=== PATIENT | male | born 1945 | race Caucasian/White ===

== ENCOUNTER 2016-11-04 10:31 | Inpatient (IN) ==
--- NOTE | 2016-11-04 11:28 | Diag Imaging Result Doc PS360 ---
EXAM: CHEST-2 VIEWS HISTORY: fever and cough TECHNIQUE: COMPARISON: 10/22/2016 FINDINGS: No change in the right-sided portacatheter. No pneumothorax. The lungs are well expanded. The heart is not enlarged. The vessels are not distended. There is increased density posteriorly and inferiorly on the lateral view. IMPRESSION: Small basilar pneumonia seen best on the lateral view inferiorly. Electronically signed by Carlos Acosta 11/04/2016 11:25 AM
[2016-11-04 11:29] LABS: URINE CULTURE NEEDED? NO; URINE MICRO REVIEW NEEDED? NO; URINE SOURCE CLEAN CATCH
[2016-11-04 11:32] LABS: AGAP 12; ALBUMIN 3.5 g/dL (3.5-5.0); ALKALINE PHOSPHATASE 75 U/L (32-122); BUN 10 mg/dL (8-22); CALCIUM 9.1 mg/dL (8.8-10.2); CHLORIDE 92 mmol/L (98-107); CK PROFILE 162 U/L (24-204); COSMO 264; GOT 20 U/L (10-34); GPT 16 U/L (10-44); POTASSIUM 4.3 mmol/L (3.5-5.1); SODIUM 130 mmol/L (136-145); TCO2 26 mmol/L (25-35); TOTAL BILIRUBIN 0.72 mg/dL (0.20-1.00)
[2016-11-04] MEDS ORDERED: NS 500 ML IV ONE (11:35)
[2016-11-04 11:39] LABS: BILIRUBIN URINE NEGATIVE (NEGATIVE); BLOOD URINE NEGATIVE (NEGATIVE); COLOR YELLOW; GLUCOSE URINE TRACE mg/dL (NEGATIVE); LEUKOCYTES URINE NEGATIVE (NEGATIVE); NITRITE URINE NEGATIVE (NEGATIVE); PH URINE 7.5; PROTEIN URINE TRACE mg/dL (NEGATIVE); SP GRAVITY URINE 1.016; TURBIDITY URINE CLEAR (CLEAR); UROBILINOGEN URINE 6 mg/dL (NORMAL)
[2016-11-04 11:42] LABS: BASO% 0.9 % (0.0-0.8); EOS# 0.26 X1000 (0.0-0.7); EOS% 3.5 % (0.0-10.0); HEMATOCRIT 34.1 % (42.0-52.0); HEMOGLOBIN 11.9 g/dL (14.0-18.0); IMM GRAN% 1.3 % (0.0-0.5); LYMPH# 1.25 X1000 (1.2-3.4); LYMPH% 16.8 % (20.5-51.1); MANUAL DIFF NEEDED? NO; MCH 30.4 PG (27-31); MCHC 34.9 g/dL (33-37); MCV 87.2 FL (81-99); MONO# 1.14 X1000 (0.11-0.59); MONO% 15.3 % (1.7-9.3); MPV 8.3 FL (7.4-10.4); NEUT% 62.2 % (42.2-75.2); PLT 490 X1000 (130-400); RBC 3.91 XMIL (4.7-6.1)
[2016-11-04 11:43] LABS: UR EPITHELIAL CELLS <10 /HPF (<10); URINE BACTERIA NEGATIVE /HPF; URINE RBC <10 /HPF (<10); URINE WBC <10 /HPF (<10)
[2016-11-04] MEDS ORDERED: DUONEB (A & A) INH ONE (11:51)
--- NOTE | 2016-11-04 12:08 | PROVIDER DOCUMENTATION ---
This chart was entered by Lawrence Mccray Scribe, acting as scribe for Angeli Sinha MD. HPI-Respiratory General - General Chief Complaint: Cough Stated Complaint: COUGH/RECHECK Time Seen by Provider: 11/04/16 10:35 Source: patient Allergies/Adverse Reactions: Patient Allergies Allergy/AdvReac Type Severity Reaction Status Date / Time allopurinol [From Zyloprim] Allergy Unknown Unknown Verified 11/04/16 11:12 cephalexin monohydrate * Allergy Unknown Unknown Verified 11/04/16 11:12 [From Keflex] Cephalosporins Allergy Unknown Unknown Verified 11/04/16 11:12 levofloxacin [From Levaquin] Allergy Unknown Unknown Verified 11/04/16 11:12 Penicillins Allergy Unknown Unknown Verified 11/04/16 11:12 piperacillin sodium * Allergy Unknown Unknown Verified 11/04/16 11:12 [From Zosyn] tazobactam sodium * Allergy Unknown Unknown Verified 11/04/16 11:12 [From Zosyn] sulfamethoxazole Allergy Unknown Verified 11/04/16 11:12 [From Bactrim] trimethoprim [From Bactrim] Allergy Unknown Verified 11/04/16 11:12 LAXATIVES Allergy Unknown Unknown Uncoded 11/04/16 11:12 Home Medications: Home Medication List Medication Instructions Recorded Confirmed Last Taken Type Fenofibric Acid D.r. [Trilipix] 135 mg PO HS 10/22/16 11/04/16 11/03/16 History Fludrocortisone [Florinef] 0.1 mg PO DAILY 10/22/16 11/04/16 11/04/16 History Fluticasone 50 Mcg Nasal [place] 120 spray .SEE ORDER DAILY #1 10/22/16 11/04/16 11/04/16 Rx [Flonase] bottle Hydrocortisone [Cortef] 10 mg PO BID 10/22/16 11/04/16 11/04/16 History Insulin Glargine [Lantus] 60 unit SUBQ BID 10/22/16 11/04/16 11/04/16 History Levothyroxine Sodium [Synthroid] 200 microgm PO DAILY 10/22/16 11/04/16 History Loratadine [Claritin] 10 mg PO DAILY #90 tablet 10/22/16 11/04/16 11/04/16 Rx Metformin HCl [Metformin HCl ER] 750 mg PO BID 10/22/16 11/04/16 11/04/16 History PRAVAstatin [Pravachol] 40 mg PO QHS 10/22/16 11/04/16 11/03/16 History Penicillin V Potassium 500 mg PO BID 10/22/16 11/04/16 11/04/16 History Sitagliptin Phosphate [Januvia] 100 mg PO DAILY 10/22/16 11/04/16 11/04/16 History - History of Present Illness-Resp Nature of Presenting Problem: Patient is a 71 y/o M that presents to the ER with about 3 months of generalized weakness, cough/congestion, nasal congestion. Patient has been sleeping more than normal. He just finished CLL and SML treatment in 2015. patient was seen over a week ago dx with allergic rhinitis. He reports given RX for flonase and Claritin which helped, but symptoms still linger. He has been running a fever x 2 days, with highest reading at 102 F Quality of Pain: reports: aching Severity in ED: reports: moderate Onset/Duration: reports: gradual, other (3 months) Timing: reports: still present, getting worse (over past week) Context: denies: recent URI, out of meds Cough Quality/Degree: reports: moderate, sputum (white/clear) Current Respiratory Medication Therapy: Initiated see nurses note Modifying Factors: worse with: coughing Associated Symptoms: reports: cough, fever/chills, nasal congestion, nasal drainage, wheezing, other (weakness). denies: dizziness, facial pain, flu-like symptoms, shortness of breath, short of breath Similar Symptoms Previously?: Yes Recently seen or treated by another doctor?: Yes Review of Systems - Adult - REVIEW OF SYSTEMS - ADULT Constitutional: reports: chills, fever, fatique Eyes: reports: no symptoms reported Ears, Nose, Mouth & Throat: reports: sinus problem. denies: ear discharge, ear pain, throat pain, throat swelling Cardiovascular: denies: chest pain, palpitations, syncope Respiratory: reports: cough, wheezing. denies: shortness of breath Gastrointestinal: denies: abdominal pain, diarrhea, nausea, vomiting Genitourinary: reports: no symptoms reported Musculoskeletal: reports: muscle weakness. denies: joint pain Integumentary: reports: no symptoms reported Neurological: denies: dizziness/vertigo, headache/migraines, syncope Psychiatric: reports: no symptoms reported Endocrine: reports: no symptoms reported Hematologic/Lymphatic: reports: no symptoms reported Allergic/Immunologic: reports: no symptoms reported All Other Systems: Reviewed and Negative Past History - Adult - PAST MEDICAL HISTORY-ADULT Review of Records: reports: Old Records Reviewed, Nursing Assessment Review, Medications Reviewed Genitourinary: reports: other (addisons) Endocrine/Immune: reports: Diabetes, Leukemia (CLL), thyroid disorder - PRIOR SURGERIES/PROCEDURES Surgical/Procedure History: reports: appendectomy, indwelling device (port), other (vasectomy) - IMMUNIZATION STATUS Childhood Immunizations: See Nurse Assessment Flu Vaccine: See Nurse Assessment - SOCIAL HISTORY Smoking: non-smoker Living Situation: family Physical Exam-General - PHYSICAL EXAM-ADULT Initial Vital Signs Reviewed: Yes - CONSTITUTIONAL General Appearance: alert, mild distress, moderate distress - EYES Eyes: PERRL/EOMI, pink conjunctivae - HEAD, EARS, NOSE, MOUTH & THROAT HENMT: normocephalic/atraumatic, moist mucous membranes, pharynx normal, other ( nasal congestion) - NECK Neck: full range of motion, Brudzinski's sign - RESPIRATORY Respiratory: no respiratory distress, no accessory muscle use, wheezing ( bilateral throughout) - CARDIOVASCULAR Cardiovascular: no gallop, no murmur, tachycardia - GASTROINTESTINAL (ABDOMEN) Abdominal Exam: normal bowel sounds, non tender, soft - MUSCULOSKELETAL Back Exam: normal inspection, no CVA tenderness Extremity: normal range of motion, normal inspection, no pedal edema - SKIN Integumentary: warm/dry, pallor - NEUROLOGIC Neurologic: rectifier operator II-XII nml as tested, no motor/sensory deficits - PSYCHIATRIC Psych/Mental Status: normal mood/affect, normal thought content, normal thought process, oriented x 3 Progress - PLAN OF CARE/RESULTS Progress/Plan/Lab Results: Vital Signs - 8 hr 11/04/16 10:34 Temperature 100.0 F H Pulse Rate 105 H Respiratory Rate 20 Blood Pressure 130/57 O2 Sat by Pulse Oximetry 96 Laboratory Results - last 24 hr 11/04/16 11/04/16 11/04/16 10:58 10:58 10:58 WBC 7.44 RBC 3.91 L Hgb 11.9 L Hct 34.1 L MCV 87.2 MCH 30.4 MCHC 34.9 RDW Std Deviation 12.6 Plt Count 490 H MPV 8.3 Immature Gran % (Auto) 1.3 H Neut % (Auto) 62.2 Lymph % (Auto) 16.8 L [place] % (Auto) 15.3 H Eos % (Auto) 3.5 Baso % (Auto) 0.9 H Immature Gran # (Auto) 0.10 H Neut # (Auto) 4.62 Lymph # (Auto) 1.25 [place] # (Auto) 1.14 H Eos # (Auto) 0.26 Baso # (Auto) 0.07 Sodium 130 L Potassium 4.3 Chloride 92 L Carbon Dioxide 26 Anion Gap 12 BUN 10 Creatinine 0.9 Estimated GFR/1.73 m2 > 60 BUN/Creatinine Ratio 11 Glucose 177 H Calculated Osmolality 264 Calcium 9.1 Total Bilirubin 0.72 AST 20 ALT 16 Alkaline Phosphatase 75 Creatine Kinase 162 Troponin T < 0.010 Total Protein 7.0 Albumin 3.5 Globulin 3.5 Albumin/Globulin Ratio 1.0 Urine Source Urine Color Urine Turbidity Urine pH Ur Specific [place] Urine Protein Ur Glucose (Stick) Ur Ketones (Stick) Urine Blood Urine Nitrite Urine Bilirubin Urobilinogen Dipstick Urine Leukocytes Urine WBC (Auto) Urine RBC (Auto) U Epithel Cells (Auto) Urine Bacteria (Auto) 11/04/16 11:16 WBC RBC Hgb Hct MCV MCH MCHC RDW Std Deviation Plt Count MPV Immature Gran % (Auto) Neut % (Auto) Lymph % (Auto) [place] % (Auto) Eos % (Auto) Baso % (Auto) Immature Gran # (Auto) Neut # (Auto) Lymph # (Auto) [place] # (Auto) Eos # (Auto) Baso # (Auto) Sodium Potassium Chloride Carbon Dioxide Anion Gap BUN Creatinine Estimated GFR/1.73 m2 BUN/Creatinine Ratio Glucose Calculated Osmolality Calcium Total Bilirubin AST ALT Alkaline Phosphatase Creatine Kinase Troponin T Total Protein Albumin Globulin Albumin/Globulin Ratio Urine Source CLEAN CATCH Urine Color YELLOW Urine Turbidity CLEAR Urine pH 7.5 Ur Specific [place] 1.016 Urine Protein TRACE A Ur Glucose (Stick) TRACE Ur Ketones (Stick) TRACE A Urine Blood NEGATIVE Urine Nitrite NEGATIVE Urine Bilirubin NEGATIVE Urobilinogen Dipstick 6 A Urine Leukocytes NEGATIVE Urine WBC (Auto) <10 Urine RBC (Auto) <10 U Epithel Cells (Auto) <10 Urine Bacteria (Auto) NEGATIVE Orders Category Date Time Status IV Insertion ORDERED Care 11/04/16 10:52 Completed CHEST-2 VIEWS [RAD] Stat Exams 11/04/16 10:51 Completed BLOOD CULTURE [BLDCUL] Stat Lab 11/04/16 11:44 Ordered CBC WITH ELECTRONIC DIFF [HEME] Stat Lab 11/04/16 10:58 Completed CMP [COMPREHENSIVE METABOLIC PANEL] [CHEM] Stat Lab 11/04/16 10:58 Completed Cardiac Profile [CK PROFILE] [SP CHEM] Stat Lab 11/04/16 10:58 Completed TROPONIN T Stat Lab 11/04/16 10:58 Completed URINALYSIS W/POSS RFLX CULT-1 [URINALYSIS] Stat Lab 11/04/16 11:16 Completed 0.9% Sodium Chloride Inj [Ns] 500 ml Med 11/04/16 11:35 Active IV 999 mls/hr Albuterol 2.5MG/Ipratrop 0.5MG [Duoneb (A & A)] Med 11/04/16 11:51 Discontinued 3 ml INH NOW ONE Aerosol Treatments Routine Oth 11/04/16 11:51 Active Aerosol Treatments Stat Oth 11/04/16 11:51 Active EKG [EKG] Stat Ther 11/04/16 10:53 Ordered Vital Signs Temp Pulse Resp BP Pulse Ox 11/04/16 10:34 100.0 F H 105 H 20 130/57 96 allopurinol [From Zyloprim] Allergy (Unknown, Verified 11/04/16 11:12) Unknown cephalexin monohydrate * [From Keflex] Allergy (Unknown, Verified 11/04/16 11:12 ) Unknown Cephalosporins Allergy (Unknown, Verified 11/04/16 11:12) Unknown levofloxacin [From Levaquin] Allergy (Unknown, Verified 11/04/16 11:12) Unknown Penicillins Allergy (Unknown, Verified 11/04/16 11:12) Unknown piperacillin sodium * [From Zosyn] Allergy (Unknown, Verified 11/04/16 11:12) Unknown tazobactam sodium * [From Zosyn] Allergy (Unknown, Verified 11/04/16 11:12) Unknown sulfamethoxazole [From Bactrim] Allergy (Verified 11/04/16 11:12) Unknown trimethoprim [From Bactrim] Allergy (Verified 11/04/16 11:12) Unknown LAXATIVES Allergy (Unknown, Uncoded 11/04/16 11:12) Unknown SOME LAXATIVES Fenofibric Acid D.r. [Trilipix] 135 mg PO HS 10/22/16 Fludrocortisone [Florinef] 0.1 mg PO DAILY 10/22/16 Fluticasone 50 Mcg Nasal [place] [Flonase] 120 spray .SEE ORDER DAILY #1 bottle Hydrocortisone [Cortef] 10 mg PO BID 10/22/16 Insulin Glargine [Lantus] 60 unit SUBQ BID 10/22/16 Levothyroxine Sodium [Synthroid] 200 microgm PO DAILY 10/22/16 Loratadine [Claritin] 10 mg PO DAILY #90 tablet 10/22/16 Metformin HCl [Metformin HCl ER] 750 mg PO BID 10/22/16 PRAVAstatin [Pravachol] 40 mg PO QHS 10/22/16 Penicillin V Potassium 500 mg PO BID 10/22/16 Sitagliptin Phosphate [Januvia] 100 mg PO DAILY 10/22/16 Laboratory 11/04/16 11/04/16 11/04/16 11:16 10:58 10:58 WBC 7.44 RBC 3.91 L Hgb 11.9 L Hct 34.1 L MCV 87.2 MCH 30.4 MCHC 34.9 RDW Std Deviation 12.6 Plt Count 490 H MPV 8.3 Immature Gran % (Auto) 1.3 H Neut % (Auto) 62.2 Lymph % (Auto) 16.8 L [place] % (Auto) 15.3 H Eos % (Auto) 3.5 Baso % (Auto) 0.9 H Immature Gran # (Auto) 0.10 H Neut # (Auto) 4.62 Lymph # (Auto) 1.25 [place] # (Auto) 1.14 H Eos # (Auto) 0.26 Baso # (Auto) 0.07 Sodium 130 L Potassium 4.3 Chloride 92 L Carbon Dioxide 26 Anion Gap 12 BUN 10 Creatinine 0.9 Estimated GFR/1.73 m2 > 60 BUN/Creatinine Ratio 11 Glucose 177 H Calculated Osmolality 264 Calcium 9.1 Total Bilirubin 0.72 AST 20 ALT 16 Alkaline Phosphatase 75 Creatine Kinase 162 Troponin T Total Protein 7.0 Albumin 3.5 Globulin 3.5 Albumin/Globulin Ratio 1.0 Urine Source CLEAN CATCH Urine Color YELLOW Urine Turbidity CLEAR Urine pH 7.5 Ur Specific [place] 1.016 Urine Protein TRACE A Ur Glucose (Stick) TRACE Ur Ketones (Stick) TRACE A Urine Blood NEGATIVE Urine Nitrite NEGATIVE Urine Bilirubin NEGATIVE Urobilinogen Dipstick 6 A Urine Leukocytes NEGATIVE Urine WBC (Auto) <10 Urine RBC (Auto) <10 U Epithel Cells (Auto) <10 Urine Bacteria (Auto) NEGATIVE 11/04/16 10:58 WBC RBC Hgb Hct MCV MCH MCHC RDW Std Deviation Plt Count MPV Immature Gran % (Auto) Neut % (Auto) Lymph % (Auto) [place] % (Auto) Eos % (Auto) Baso % (Auto) Immature Gran # (Auto) Neut # (Auto) Lymph # (Auto) [place] # (Auto) Eos # (Auto) Baso # (Auto) Sodium Potassium Chloride Carbon Dioxide Anion Gap BUN Creatinine Estimated GFR/1.73 m2 BUN/Creatinine Ratio Glucose Calculated Osmolality Calcium Total Bilirubin AST ALT Alkaline Phosphatase Creatine Kinase Troponin T < 0.010 Total Protein Albumin Globulin Albumin/Globulin Ratio Urine Source Urine Color Urine Turbidity Urine pH Ur Specific [place] Urine Protein Ur Glucose (Stick) Ur Ketones (Stick) Urine Blood Urine Nitrite Urine Bilirubin Urobilinogen Dipstick Urine Leukocytes Urine WBC (Auto) Urine RBC (Auto) U Epithel Cells (Auto) Urine Bacteria (Auto) 1151-hospitalist paged for admission Result Diagrams: 11/04/16 10:58 11/04/16 10:58 - XRAY 1 XRAY Study: Chest Impression: Abnormal XRAY Interpretation: small basilar pneumonia on lateral view - CONSULTS/PCP/HOSPITALIST Notification #1 *Consult/PCP/Hospitalist*: Fracisco KERN with hospitalist Time Discussed: 11:54 Reason/Comments: accepted Consult Disposition: Will see in ED, Admit Departure - Departure Date of Disposition Decision: 11/04/16 Time of Disposition Decision: 11:54 DIAGNOSIS: Fever in adult Pneumonia Qualifiers: Pneumonia type: due to unspecified organism Laterality: unspecified laterality Lung location: unspecified part of lung Qualified Code(s): J18.9 - Pneumonia, unspecified organism Disposition: ADMITTED INPATIENT 09 Certified Medical Emergency: Emergent Condition: Stable Referrals and Follow-Ups: Latosha Badillo MD [Primary Care Provider] - - Critical Care Note This patient required my direct & personal management of CC.: No This chart was documented by the indicated scribe, (Lawrence Mccray, Scribe) and accurately reflects the services I performed and decisions made by me, Angeli Sinha MD, as attested by the provider's signature.
[2016-11-04] MEDS ORDERED: ZITHROMAX 500 MG/NS 500 MG/250 ML IVPB IV ONE (12:30)
[2016-11-04 12:51] LABS: INR 1.05; PROTIME 11.1 Seconds (9.2-11.7)
[2016-11-04] MEDS ORDERED: ZITHROMAX 500 MG/NS 500 MG/250 ML IVPB ONE (12:58)
[2016-11-04] MEDS ORDERED: NS 1,000 ML ONE (12:58)
[2016-11-04] MEDS: NS 1,000 ML IV SCH ×2 (13:00→18:36)
--- NOTE | 2016-11-04 14:20 | Diag Imaging Result Doc PS360 ---
EXAM: CT THORAX W/CONTRAST HISTORY: PNA, early sepsis TECHNIQUE: CT chest with intravenous contrast. Dose reduction protocol. COMPARISON: None. FINDINGS: There are nodular basilar infiltrates. Infiltrates are more pronounced inferiorly in the right lung than the left. Heart is not enlarged. No thoracic aortic aneurysm or dissection. No large central pulmonary emboli. Mildly prominent subcarinal lymph nodes. No other mediastinal adenopathy. There is a right sided portacatheter. No pneumothorax. No bronchiectasis. No prominent effusions. Mildly prominent left axillary nodes. Limited images through the upper abdomen reveal a distended gallbladder without calcified stones as well is fatty infiltration of the liver. IMPRESSION: 1.Multinodular basilar infiltrates more pronounced in the right lower lobe and the left. 2.Distended gallbladder as well as fatty infiltration of the liver Electronically signed by Carlos Acosta 11/04/2016 2:18 PM
[2016-11-04] MEDS ORDERED: SODIUM CHLORIDE 0.9% 10 ML ONE (14:35)
--- NOTE | 2016-11-04 14:35 | EKG Report ---
Test Performed on : 11/04/2016 11:35:16 AM Test Reason : CP Blood Pressure : / mmHG Vent. Rate : 104 BPM Atrial Rate : 104 BPM P-R Int : 164 ms QRS Dur : 092 ms QT Int : 346 ms P-R-T Axes : 043 058 038 degrees QTc Int : 454 ms Sinus tachycardia. Otherwise normal ECG No previous ECGs available Unconfirmed Result
[2016-11-04] MEDS: SOLU-CORTEF IV SCH ×2 (14:38→22:35)
[2016-11-04] MEDS: LOVENOX SUBQ SCH (14:38)
[2016-11-04 15:04] LABS: UR CREAT RANDOM 145.3 mg/dL (14-26)
[2016-11-04] MEDS: MERREM 1 GM in NS 50 ML IV SCH ×2 (15:14→21:33)
[2016-11-04 15:36] LABS: FREE T4 1.63 ng/dL (0.93-1.70); VITAMIN D 25 HYDROXY 19.4 NG/DL
--- NOTE | 2016-11-04 17:12 | HISTORY AND PHYSICAL ---
PRIMARY CARE PHYSICIAN: Latosha Badillo MD. ONCOLOGIST: Anjum Hurtado MD. CHIEF COMPLAINT: Cough, fever, and malaise. HISTORY OF PRESENT ILLNESS: Mr. Rendon is a pleasant 71-year-old male with a history of CLL, Sushil's disease, diabetes mellitus, and several antibiotic allergies who presents to the ER with a cough, malaise, and a fever that has been going on since around mid July. Patient reports that he has been on several rounds of azithromycin and other shots that he has received in his PCP's office without any real recovery. He also reports that he was told to go on vacation for a small period of time to perhaps help with allergies. He has also had a loss of energy over the past month. Today he comes in with continued cough with very minimal expectoration and fever 102 degrees Fahrenheit and shortness of breath with exertion. On chest x-ray he was noted to have small basilar pneumonia seen best on lateral view inferiorly. His lab work does not really show anything remarkable with the exception of mild hyponatremia and thrombocytosis. He is now going to be admitted for community-acquired pneumonia. PAST MEDICAL HISTORY: 1. Perkins disease, on daily steroid replacement. 2. CLL followed by Dr. Anjum Hurtado, last treatment was in February of last year. 3. Diabetes type 2 on insulin therapy. 4. History of DVT. 5. Hyperlipidemia. 6. Allergies. PAST SURGICAL HISTORY: Lymph node biopsy and tonsillectomy. SOCIAL HISTORY: Patient has no history of tobacco, alcohol or drug use. He is . His and daughter are at the bedside. FAMILY HISTORY: Father from emphysema and lung cancer. Mother from traumatic brain injury. REVIEW OF SYSTEMS: Fourteen-point review of systems obtained and found to be negative with the exception of the HPI. ALLERGIES: Allopurinol, Keflex, cephalosporins, Levaquin, penicillin, Zosyn, Bactrim, laxatives. HOME MEDICATIONS: Trilipix 135 mg p.o. at bedtime, Florinef 0.1 mg p.o. daily, fluticasone nasal spray as directed, Cortef 10 mg b.i.d., Lantus 60 units subcutaneous b.i.d., Synthroid 200 mcg p.o. daily, Claritin 10 mg daily, metformin 750 mg p.o. b.i.d., penicillin VK 500 mg p.o. b.i.d., Pravachol 40 mg p.o. at bedtime, Januvia 100 mg p.o. daily. PHYSICAL EXAMINATION: VITAL SIGNS: Blood pressure is 130/57, heart rate 105, respiratory rate 20, O2 saturation 96% on room air, temperature is 100 degrees Fahrenheit. GENERAL: This is a slightly overweight, 71-year-old male lying in hospital bed in no acute distress. HEENT: Head is normocephalic. He does have some mild bruising under his left eye from a fall 2 weeks ago. Otherwise atraumatic. Pupils are equal, round, reactive to light. Oral mucosa is moist. Trachea is midline. CHEST: Crackles bilaterally. CARDIOVASCULAR: Regular rate and rhythm. S1-S2 is noted. No murmurs. GASTROINTESTINAL: Soft, nondistended, nontender. Bowel sounds are positive. EXTREMITIES: No edema, clubbing or cyanosis. Pulses are 1+ bilaterally. DIAGNOSTIC DATA: Chest x-ray shows basilar pneumonia best seen on the lateral view. WBC 7.44, hemoglobin 11.9, hematocrit 34.1, platelet count 490,000. Sodium 130, potassium 4.3, chloride 92, CO2 26, anion gap 12, BUN 10, creatinine 0.9, glucose 177. LFTs within normal limits. Troponin negative. Albumin 3.5. UA is negative for anything acute. ASSESSMENT AND PLAN: 1. Early sepsis: Blood cultures have been obtained. We will also order sputum cultures and start the patient on broad-spectrum antibiotics and IV fluids. Source is likely to be early pneumonia. 2. Community-acquired pneumonia: Again will obtain cultures of the blood and sputum. We will also start broad-spectrum antibiotics and consult Dr. Ruby with Infectious Disease given the patient's history. We will continue breathing treatments and aggressive pulmonary toilet. 3. Perkins disease: We will stop his p.o. hydrocortisone and start by 100 mg q.8 h. IV hydrocortisone for stress dosing and continue his Florinef. 4. Diabetes mellitus: Will hold his oral antidiabetics and check hemoglobin A1c. Add sliding scale insulin and pattern blood sugars. 5. Chronic lymphocytic leukemia: Chronic and active. We will keep a close eye and then consider Hematology/Oncology consultation if necessary. 6. DVT prophylaxis with Lovenox. Further recommendations to follow. Dictated by ERLIN Lozada for Jeanna Morrell MD cc: ERLIN Lozada MD Bhavna Gowda, MD Naveen T. Lobo, MD The patient was seen and examined by me. I agree with the assessment and plan as dictated. The plan of care was discussed with the patient and his family at the bedside. EMIL
[2016-11-04] MEDS: TESSALON PO SCH (18:55)
[2016-11-04] MEDS: DUONEB (A & A) INH SCH ×2 (19:10→23:40)
--- NOTE | 2016-11-04 21:23 | CONSULTATION ---
DATE OF CONSULTATION: 11/04/2016 CONCLUSION: The patient has a pneumonia. He may have predisposing factor to this and immunoglobulin deficiency in view of the fact that he is had recurrent episodes of sinusitis and pneumonia and he has chronic lymphocytic leukemia which has been associated with low immunoglobulin levels. RECOMMENDATIONS: I agree with the using meropenem. I have ordered IgG level. Earlier Dr. Morrell ordered IgA and IgM. I have also added doxycycline to the meropenem started by Dr. Morrell. DISCUSSION: The patient tells me that he has been coughing for 2 months but he has not been able to bring up much in the way of sputum. He has not been having any weight loss. He has not had any chills or fever. His CT scan shows multinodular bibasilar infiltrates. His CBC shows a white count of 7440, hemoglobin 11.9, and platelet count 490,000. Creatinine 0.9. Liver function studies are normal. CK was 162. Urinalysis had no white cells and no bacteria. CT scan of the chest showed multinodular bibasilar infiltrate. PAST MEDICAL HISTORY/REVIEW OF SYSTEMS: Eyes and ears: Patient has decreased hearing and vision. Neck: No stiffness. Respiratory: See present illness. Cardiac: No chest pain or palpitations. GI: The patient has had diarrhea when he started taking MiraLAX but none before that. Genitourinary: No dysuria or flank pain. Bones, joints, muscles: No joint swelling or myalgias. Endocrine: Patient has diabetes. The patient has hypothyroidism. Neurologic: No seizures. No motor or sensory deficit. Hematologic: Patient has CLL. He has not had a bleeding tendency. PREVIOUS HOSPITALIZATIONS AND OPERATIONS: Patient has been admitted for dehydration secondary to [place]'s disease. He has also been admitted with diabetes, lymph node biopsy, appendectomy, and tonsillectomy. MEDICAL DISEASES: Positive for Sushil's disease, diabetes mellitus, CLL lymphoma, hyperlipidemia, deep venous thrombosis, and multiple drug allergies. Hypothyroidism. INFECTIOUS DISEASE HISTORY: Positive for recurrent pneumonia and sinusitis. FAMILY HISTORY: Positive for hypertension, cancer, and COPD. SOCIAL HISTORY: The patient lives in [place]. He does not smoke cigarettes, drink alcoholic beverages, or abuse drugs. He is . He has a dog as a pet. He is retired. DRUG ALLERGIES: Allopurinol, cephalexin, Levaquin, penicillin, Zosyn, Septra, and trimethoprim. HOME MEDICATIONS: Januvia, penicillin, pravastatin, metformin, Claritin, Synthroid, insulin, hydrocortisone, fluticasone, Florinef, and Trilipix. PHYSICAL EXAMINATION: Vital Signs: Temperature is 99.8 degrees, pulse 98, respirations 18, blood pressure 132/61. General: This is an obese, elderly male who is in no acute distress. Head, eyes, ears, nose, and throat: The patient fell and hit his face. He has an ecchymosis on the left side of the face. He does not have any white patches on his tongue. He has decreased hearing. He can see near objects. Neck: No meningismus. Thorax: No increased AP diameter. Lungs: There were bibasilar rales. Otherwise they were clear to auscultation. Cardiovascular: Heart rate is regular. The patient has bilateral leg edema. Abdomen: Soft and nontender. No masses appreciated. Neurologic: Patient is alert. He can move his extremities. There is no tremor. His sensation is intact to touch. His memory as regarding his medical diseases is intact. Integument: No rash noted. Thank you for the consult. cc: Kvng Ruby MD
[2016-11-04] MEDS: DOXYCYCLINE PO SCH (21:33)
[2016-11-04] MEDS: LANTUS SUBQ SCH (21:34)
[2016-11-05] MEDS: DUONEB (A & A) INH SCH ×6 (03:35→23:38)
[2016-11-05] MEDS: DOXYCYCLINE PO SCH ×3 (04:16→20:34)
[2016-11-05] MEDS: NS 1,000 ML IV SCH ×4 (04:17→12:32)
[2016-11-05] MEDS: MERREM 1 GM in NS 50 ML IV SCH ×3 (06:08→20:36)
[2016-11-05] MEDS: SOLU-CORTEF IV SCH ×4 (06:08→22:47)
[2016-11-05] MEDS: HUMULIN R SUBQ SCH ×4 (06:43→20:32)
[2016-11-05] MEDS ORDERED: HUMULIN R SUBQ SCH ×2 (07:00)
[2016-11-05 07:10] LABS: HEMATOCRIT 30.9 % (42.0-52.0); HEMOGLOBIN 10.7 g/dL (14.0-18.0); MCHC 34.6 g/dL (33-37); MCV 89.6 FL (81-99); MPV 8.4 FL (7.4-10.4); RBC 3.45 XMIL (4.7-6.1)
[2016-11-05 07:12] LABS: HEMOGLOBIN A1C 9.6 % (4.8-6.0)
[2016-11-05] MEDS ORDERED: INSULIN PEN NEEDLES ONE (07:31)
[2016-11-05 07:46] LABS: AGAP 15; BUN 11 mg/dL (8-22); CALCIUM 8.7 mg/dL (8.8-10.2); CHLORIDE 95 mmol/L (98-107); COSMO 273; IRON SATURATION 14 %; POTASSIUM 3.7 mmol/L (3.5-5.1); SODIUM 131 mmol/L (136-145); TCO2 21 mmol/L (25-35); TIBC 250 ug/dL; TOTAL IRON 34 ug/dL (53-167); UNBOUND IRON 216 ug/dL (112-346)
[2016-11-05] MEDS: SYNTHROID PO SCH (08:17)
[2016-11-05] MEDS: FLORINEF PO SCH (08:18)
[2016-11-05] MEDS: TESSALON PO SCH ×3 (08:18→16:02)
[2016-11-05] MEDS: LANTUS SUBQ SCH ×2 (08:18→20:33)
[2016-11-05] MEDS: CLARITIN PO SCH (08:18)
[2016-11-05] MEDS ORDERED: VITAMIN D PO SCH (09:00)
[2016-11-05] MEDS ORDERED: FLONASE SCH (09:00)
[2016-11-05] MEDS ORDERED: SODIUM CHLORIDE 0.9% 10 ML ONE ×2 (10:17→16:00)
[2016-11-05] MEDS: LOVENOX SUBQ SCH ×2 (12:32→14:34)
[2016-11-05] MEDS ORDERED: TYLENOL PO ONE (12:45)
[2016-11-05] MEDS ORDERED: BENADRYL IV ONE (12:45)
[2016-11-05] MEDS ORDERED: VENOFER 500 MG in NS 250 ML IV ONE (13:00)
--- NOTE | 2016-11-05 13:56 | CONSULTATION ---
DATE OF CONSULTATION: 11/05/2016 REASON FOR CONSULT: The patient is known to us with CLL. HISTORY OF PRESENT ILLNESS: This patient who is known to us with chronic lymphocytic leukemia diagnosed in December, relapsed in October 2015 status post Treanda and rituximab x6 cycles completed in February,. His last restaging scans were in July and he had some minimal residual right cervical maribel uptake and other lymphadenopathy had disappeared. He states that he has had a dry cough for approximately 2 months now that has been getting worse. He coughed so much that it makes him dizzy and he has actually fallen a time or two with it. However, over the past week he began running a fever up to 101, so he decided to come into the emergency room for further evaluation. He denies any drenching night sweats, any new lumps, bumps , lymphadenopathy. He has had a couple different rounds of antibiotics from his primary care for an upper respiratory infection. He has not had any relief. He denies any obvious clinical bleeding , any black or bright red stool. He has known chronic anemia and patient was due to have a repeat colonoscopy this week with Dr. Oh. During this hospitalization a CT of the chest was obtained which showed right greater than left nodular basilar infiltrates. White count was 7.4, hemoglobin 11.9, platelet count 490,000. His iron has been checked. His iron is low at 34. Iron saturation is 14. Ferritin is 797. B12 is adequate. Infectious disease has been consulted where an IgG level has been obtained and it has been found to be low at 436. He is currently on meropenem and doxycycline. REVIEW OF SYSTEMS: Negative unless indicated in the HPI. PAST MEDICAL HISTORY: 1. CLL as above, status post Rituxan and Treanda last in February,. 2. Sushil's disease. 3. Prior history of deep vein thrombosis. 4. Hyperlipidemia. 5. Type 2 diabetes. SOCIAL AND FAMILY HISTORY: The patient denies alcohol, tobacco or illicit drug use. He has a supportive family. ALLERGIES: 1. Levaquin. 2. Penicillin. 3. Zosyn. 4. Bactrim. 5. Allopurinol. 6. Keflex. 7. Cephalosporins. HOME MEDICATIONS: 1. Florinef. 2. Cortef. 3. Trilipix. 4. Lantus. 5. Synthroid. 6. Claritin. 7. Metformin. 8. Januvia. 9. Pravachol. PHYSICAL EXAMINATION: Constitutional: This is a male in no acute distress. Vital Signs: Stable. HEENT: Head is normocephalic, atraumatic. The trachea is midline. Skin: There is bruising below patient's left eye. No petechiae or rash. Musculoskeletal: Moves all extremities. Cardiovascular: S1-S2 audible auscultation with no heaves, lifts, thrills. Pulmonary: Breath sounds clear to auscultation with diminished bilateral bases.Abdomen without masses. Neurologic: Alert oriented x3. Psychiatric: Appropriate to the situation. DIAGNOSTIC DATA: CT of the chest showed multinodular basilar infiltrates right lower lobe greater than left with distended gallbladder and fatty infiltration of the liver. WBC today is 8.1, hemoglobin 10.7, hematocrit 30.9, platelet count 492,000, sodium 131, potassium 3.7. BUN 11, creatinine 0.9. ASSESSMENT AND PLAN.: 1. Chronic lymphocytic leukemia. Status post Treanda rituximab x6 cycles completed in February,. His restaging scan in July showed a previous lymphadenopathy disappeared with minimal residual right cervical node uptake. 2. Iron-deficiency anemia. We will replace with IV iron. He is due for repeat colonoscopy per Dr. Oh at some point. 3. Hypogammaglobulinemia. Patient's IgG level was 436. Infectious disease is following. He is currently on meropenem and doxycycline. 4. Pneumonia, right greater than left. On antibiotics per ID and primary care. 5. Deep vein thrombosis prophylaxis. He is on Lovenox. Dictated by ERLIN Mackenzie for Anjum Hurtado MD cc: ERLIN Mackenzie MD [facility]
--- NOTE | 2016-11-05 15:49 | PROGRESS NOTE ---
DATE: 11/05/2016 SUBJECTIVE: The patient is resting comfortably in bed. He states that he feels a lot better today. He has no complaints at this time. OBJECTIVE: Vital Signs: Temperature 97.6 degrees, blood pressure is 131/62, heart rate 85, respirations 14, O2 saturation is 95% on room air. General: This is an elderly male, lying in bed, in no acute distress. Head: Normocephalic, atraumatic. Heart: S1, S2. Normal. Regular rate and rhythm. Lungs: Equal air entry bilaterally. No crackles. No rales. Abdomen: Positive bowel sounds. Soft, nontender, nondistended. Extremities: No edema. No cyanosis. The patient does have an ulceration on his left great toe. Neurologic: The patient is alert and oriented x3. LABS: White blood cell count 8.1, hemoglobin 10, hematocrit 30, platelets 192,000. Sodium 131, potassium 3.7, chloride 95, CO2 21, BUN 11, creatinine 0.9, glucose 289. Iron 34. Vitamin D 19. ASSESSMENT AND PLAN: 1. Bilateral lobe pneumonia. We will continue on the current IV antibiotic regimen plus bronchodilator therapy and incentive spirometry. 2. Hypogammaglobulinemia. We will defer to Dr. Ruby regarding treatment. 3. [place] disease. Will continue on stress dose hydrocortisone. We will also continue on Florinef. 4. Left great toe ulceration. Will consult wound care. 5. Chronic lymphocytic leukemia. Management as per Dr. Hurtado. 6. Diabetes mellitus type 2. Uncontrolled. The patient is on high dose steroids therapy at this time. We will cover the patient with Lantus plus sliding scale insulin. 7. Deep vein thrombosis prophylaxis. Continue on Lovenox. cc: Jeanna Morrell MD
--- NOTE | 2016-11-05 16:27 | PROGRESS NOTE ---
DATE: 11/05/2016 CONCLUSION: Patient has pneumonia. We have discovered today that he has a very low IgG level at 436 which undoubtedly is predisposing him to get pneumonia as well as sinusitis. MEDICATIONS: The patient is on a combination of doxycycline and meropenem. This is the first day of treatment with both of those antibiotics. PHYSICAL EXAMINATION: Vital Signs: Temperature is 98 degrees, pulse 84, respirations 14, blood pressure 118/52. General: This is a chronically ill-appearing, elderly male who is in no acute distress. Lungs: Clear to auscultation. Cardiovascular: Regular heart rate. Abdomen: Soft and nontender. Head, eyes, ears, nose, and throat: No drainage was noted from the nose or ears. There was no sinus tenderness. Neurologic: Patient is alert. He ambulates without difficulty. LAB AND X-RAY: There is no new x-ray for today. The CBC shows a white count of 8110, hemoglobin 10.7, and platelet count 492,000. Creatinine 0.9. GFR is greater than 60. Liver function studies are normal. Blood cultures are pending. IgG level was 436, IgA is normal at 91. ASSESSMENT AND PLAN: I plan to continue the patient's current antibiotics. I have ordered an infusion of immunoglobulin to be given tonight to the patient. When the patient leaves the hospital Dr. Hurtado will be furnishing the patient's immunoglobulin treatments. I ordered a sinus CT scan. COMORBIDITIES: CLL, lymphoma and immune globulin deficiency, Ner[place]'s disease and multiple drug allergies. cc: MD EMIL Morton
[2016-11-05] MEDS ORDERED: FLEBOGAMMA DIF 5% 20 GM in DILUENT 400 ML IV ONE (18:00)
[2016-11-05] MEDS ORDERED: FLEBOGAMMA DIF 5% IV ONE (18:00)
[2016-11-06] MEDS: DUONEB (A & A) INH SCH ×6 (03:14→23:16)
[2016-11-06] MEDS: MERREM 1 GM in NS 50 ML IV SCH ×3 (04:05→20:58)
[2016-11-06] MEDS: NS 1,000 ML IV SCH ×4 (05:04→12:32)
[2016-11-06] MEDS: SOLU-CORTEF IV SCH ×2 (05:57→15:16)
[2016-11-06] MEDS: HUMULIN R SUBQ SCH ×4 (06:01→21:02)
[2016-11-06 07:17] LABS: HEMATOCRIT 28.9 % (42.0-52.0); HEMOGLOBIN 9.9 g/dL (14.0-18.0); MCH 30.1 PG (27-31); MCHC 34.3 g/dL (33-37); MCV 87.8 FL (81-99); MPV 8.5 FL (7.4-10.4); RBC 3.29 XMIL (4.7-6.1)
[2016-11-06 07:35] LABS: AGAP 11; BUN 15 mg/dL (8-22); CALCIUM 9.1 mg/dL (8.8-10.2); CHLORIDE 105 mmol/L (98-107); COSMO 281; POTASSIUM 4.5 mmol/L (3.5-5.1); SODIUM 141 mmol/L (136-145); TCO2 25 mmol/L (25-35)
--- NOTE | 2016-11-06 08:16 | Diag Imaging Result Doc PS360 ---
EXAM: PARANASAL SINUSES HISTORY: sinusitus TECHNIQUE: CT sinuses without contrast. Dose reduction protocol. COMPARISON: CT brain from 10/22/2016 FINDINGS: There is near complete opacification of the right maxillary sinus. There is prominent mucosal thickening in the left maxillary sinus and left sphenoid sinus. Near complete opacification of the right sphenoid sinus. Prominent mucus in the frontal and ethmoid sinuses with near complete opacification of the ethmoid sinuses. These findings are much worse than on the prior head CT. No bony expansion or bone destruction. Mild septal deviation from the right to the left. There is a large bone spur on the left side of the septum. Normal mastoid sinuses. IMPRESSION: Development of pansinusitis. Electronically signed by Carlos Acosta 11/06/2016 8:13 AM
[2016-11-06] MEDS: LANTUS SUBQ SCH ×2 (08:28→20:58)
[2016-11-06] MEDS: FLORINEF PO SCH (08:30)
[2016-11-06] MEDS: CLARITIN PO SCH (08:30)
[2016-11-06] MEDS: SYNTHROID PO SCH (08:30)
[2016-11-06] MEDS: DOXYCYCLINE PO SCH ×2 (08:30→20:58)
[2016-11-06] MEDS: TESSALON PO SCH ×3 (08:32→17:57)
[2016-11-06] MEDS ORDERED: STERILE WATER INJ. ONE (09:39)
[2016-11-06] MEDS ORDERED: MIRALAX PO ONE (11:59)
[2016-11-06] MEDS: LOVENOX SUBQ SCH (15:16)
--- NOTE | 2016-11-06 18:15 | PROGRESS NOTE ---
DATE: 11/06/2016 SUBJECTIVE: The patient states that he feels a lot better today. He is sitting up in a chair and states that he feels more energetic. OBJECTIVE: Vital Signs: Temperature 98.4 degrees, blood pressure 137/57, heart rate 99, respirations 17, O2 saturations 99% on room air. General: This is an elderly male, sitting in a chair in no acute distress. Head: Normocephalic atraumatic. Heart: S1, S2. Normal. Regular rate and rhythm. Lungs: Equal air entry bilaterally. Diminished breath sounds at the bases. Abdomen: Positive bowel sounds. Soft, nontender, nondistended. Extremities: No edema. No cyanosis. No calf tenderness. Neurologic: The patient is alert and oriented x3. LABS: White blood cell count 9.8, hemoglobin 9.9, hematocrit 28, platelets 474,000. Sodium 141, potassium 4.5, chloride 105, CO2 25, BUN 15, creatinine 0.8, glucose 82. ASSESSMENT AND PLAN: 1. Bilateral lobe pneumonia. Patient is going to have a PICC line placed and will require a prolonged course of IV antibiotics. Dr. Ruby will make the arrangements for home antibiotics. Will continue on antibiotic therapy and bronchodilator therapy. 2. Pansinusitis. Continue with antibiotic therapy. 3. Hypogammaglobulinemia. The patient received an infusion of IVIG today. He will continue to receive an infusion every month at the discretion of Dr. Hurtado. 4. Sushil's disease. Since the patient has improved we will transition back to Cortef. Continue on Florinef. 5. Vitamin D deficiency. We will continue on vitamin D replacement. 6. CLL. Aware. The patient is being followed by Dr. Hurtado. 7. Hypothyroidism. Continue on Synthroid. 8. Diabetes mellitus type 2. Continue on Lantus plus sliding scale insulin. 9. Deep vein thrombosis prophylaxis. Continue on Lovenox. cc: Jeanna Morrell MD
--- NOTE | 2016-11-06 18:21 | PROGRESS NOTE ---
DATE: 11/06/2016 PRESENT ILLNESS: The patient has a severe pneumonia and on CT scan of the sinuses, he has been found to have pansinusitis. His IgG was low and I think this contributed to his infections as well as the fact that the patient has CLL and lymphoma. MEDICATIONS: The patient is on meropenem and doxycycline. This is the 2nd day of treatment with both these medications. PHYSICAL EXAMINATION: Vital Signs: Temperature is 98, pulse 99, respirations 17, blood pressure 137/57. General: This is a chronically ill-appearing, elderly male. He states that he told me today that he is feeling better. He seems to be breathing easier and have more energy. Lungs: Clear to auscultation. Cardiovascular: Heart rate is regular. Abdomen: Soft and nontender. Ear/nose/throat: No drainage was noted from the nose or ears. LAB AND X-RAY: Patient's CBC for today showed a white count of 9870, hemoglobin 9.9, and platelet count 474,000. Creatinine is 0.8. Blood cultures are sterile. CT scan done today shows pansinusitis. ASSESSMENT AND PLAN: I discussed with the patient various treatment options. I told him in view of having severe pneumonia and pansinusitis, I thought we should continue with IV antibiotics. He is agreeable to this. Therefore, I have ordered a PICC to be placed and I put a consult in for [employer] to supply meropenem 1 g IV every 8 hours for a 3-6 week period. I am putting in a request for the patient to see me in the office in 3 weeks at which time I will examine him and repeat a chest x-ray and a sinus CT scan. Also, I am having immunoglobulin levels drawn tomorrow and if the IgG is still low then I think he would be a candidate for more IVIG now. When the patient is discharged, Dr. Hurtado will be furnishing the patient's immunoglobulin treatments. COMORBIDITIES: Include CLL, lymphoma and immunoglobulin deficiency. The patient also has [place]'s disease and multiple drug allergies. cc: Kvng Ruby MD
[2016-11-06] MEDS: CORTEF PO SCH (20:58)
[2016-11-06] MEDS: MIRALAX PO SCH (20:58)
[2016-11-07] MEDS: DUONEB (A & A) INH SCH ×3 (03:24→11:04)
[2016-11-07] MEDS: MERREM 1 GM in NS 50 ML IV SCH ×2 (04:06→12:07)
[2016-11-07] MEDS: HUMULIN R SUBQ SCH ×2 (06:19→12:06)
[2016-11-07 07:30] LABS: HEMATOCRIT 30.7 % (42.0-52.0); HEMOGLOBIN 10.6 g/dL (14.0-18.0); MCHC 34.5 g/dL (33-37); MCV 89.8 FL (81-99); MPV 8.2 FL (7.4-10.4); RBC 3.42 XMIL (4.7-6.1)
[2016-11-07 07:38] LABS: INR 1.02; PROTIME 10.7 Seconds (9.2-11.7)
[2016-11-07 07:47] LABS: AGAP 13; BUN 12 mg/dL (8-22); CALCIUM 8.8 mg/dL (8.8-10.2); CHLORIDE 102 mmol/L (98-107); COSMO 278; POTASSIUM 2.9 mmol/L (3.5-5.1); SODIUM 140 mmol/L (136-145); TCO2 25 mmol/L (25-35)
[2016-11-07] MEDS ORDERED: KLOR-CON PO ONE (07:55)
[2016-11-07] MEDS: FLORINEF PO SCH (08:14)
[2016-11-07] MEDS: CORTEF PO SCH (08:14)
[2016-11-07] MEDS: SYNTHROID PO SCH (08:14)
[2016-11-07] MEDS: DOXYCYCLINE PO SCH (08:15)
[2016-11-07] MEDS: CLARITIN PO SCH (08:15)
[2016-11-07] MEDS: LANTUS SUBQ SCH ×2 (08:18→08:23)
[2016-11-07] MEDS: MIRALAX PO SCH (08:18)
[2016-11-07] MEDS: TESSALON PO SCH ×2 (08:23→12:07)
[2016-11-07 11:31] VITALS: BP 142/63
[2016-11-07] MEDS ORDERED: NS 0 ML ONE (12:43)
--- NOTE | 2016-11-09 21:57 | DISCHARGE SUMMARY ---
ADMISSION DATE: 11/04/2016 DISCHARGE DATE: 11/07/2016 PRIMARY CARE PHYSICIAN: Latosha Badillo MD FINAL DISCHARGE DIAGNOSES: 1. Bilateral lobe pneumonia. 2. Pansinusitis. 3. [place]'s disease. 4. Hypogammaglobulinemia. 5. Vitamin D deficiency. 6. Chronic lymphocytic leukemia. 7. Hypothyroidism. 8. Diabetes mellitus type 2. CONSULTATIONS REQUESTED DURING THIS HOSPITAL STAY: 1. ID consultation with Dr. Kvng Ruby. 2. Oncology consultation with Dr. Hurtado. HOSPITAL COURSE: Mr. Rendon is a 71-year-old male with a history of diabetes, CLL, and Sushil's disease, who was brought to the ER with a chief complaint of generalized weakness, shortness of breath, and a cough. On admission a chest x-ray was done that revealed bibasilar pneumonia. As a result, the patient was admitted to the hospitalist service. Blood cultures were obtained and the patient was started on broad spectrum antibiotic therapy. Due to the patient's Karnes's disease, the patient was started on stress dose steroids and Florinef was continued. The patient's immunoglobulin levels were also checked. The patient was noted to have a low IgM of 13. Dr. Kvng Ruby was consulted as well as Dr. Hurtado. The patient was treated with IV meropenem and oral doxycycline. As a result of the low IgM, the patient was given an infusion of immunoglobulins. The patient continued to improve clinically and it was decided by Dr. Ruby that the patient would require at least 3-6 weeks of additional IV antibiotic therapy. The patient had a PICC line placed and IV antibiotic administration was arranged through [facility]. The patient was ultimately transitioned back to [facility] and cleared for discharge home on 11/07/2016. DISCHARGE MEDICATIONS: 1. Meropenem 1 g IV every 8 hours x6 weeks. 2. Vitamin D2 50,000 units oral every 7 days. 3. DuoNeb 3 mL inhaled every 4 hours p.r.n. for shortness of breath. 4. Tessalon Perles 100 mg p.o. 3 times a day p.r.n. for cough. 5. Pravachol 40 mg p.o. at bedtime. 6. Synthroid 200 mcg oral daily. 7. Januvia 100 mg p.o. daily. 8. Metformin 750 mg p.o. twice a day. 9. Florinef 0.1 mg p.o. daily. 10.Loratadine 10 mg p.o. daily. 11.Flonase 1 spray daily. 12.Lantus 60 units subcutaneously twice a day. 13.Fenofibrate 135 mg oral at bedtime. 14.Cortef 10 mg p.o. twice a day. DISCHARGE DIET: 1800 ADA diet. ACTIVITIES: As tolerated. FOLLOWUP INSTRUCTIONS: The patient will need to follow up with Dr. Hurtado for monthly immunoglobulin infusion. The patient is scheduled to follow up with Dr. Hurtado on 11/11/2016. The patient will need to follow up with Dr. Kvng Ruby on 11/28/2016 at 8:15 a.m. cc: MD Latosha Sr MD
== END 2016-11-07 14:34 | disposition home health service (06) ==
LOC: ED 10:31 → 3N 12:33
PROVIDERS: ATTEND Internal Medicine

== ENCOUNTER 2018-04-26 10:07 | Inpatient (IN) ==
[2018-04-26] MEDS ORDERED: NS 2,000 ML ONE (10:21)
[2018-04-26] MEDS ORDERED: SOLU-CORTEF IV ONE (10:33)
[2018-04-26] MEDS ORDERED: NS 1,000 ML IV ONE ×3 (10:35→11:25)
[2018-04-26] MEDS ORDERED: SYNTHROID IV ONE (10:36)
[2018-04-26] MEDS ORDERED: SODIUM CHLORIDE 0.9% INJ ONE (10:36)
[2018-04-26 11:06] LABS: BLOOD TYPE ARTERIAL; PCO2(98.6) 17 mmHg (35-45); PO2(98.6) 80 mmHg (60-100); SAMPLE BLOOD; pH(98.6) 7.34 (7.35-7.45)
[2018-04-26 11:06] LABS: INR 1.12; PROTIME 15.3 Seconds (11.0-16.0)
[2018-04-26 11:07] LABS: PTT 29.3 Seconds (22.3-41.8)
[2018-04-26 11:07] LABS: BE -15.6 mmoll (-3.0-3.0); HCO3-(ACT) 12.4 mmoll (20.0-26.0); METHB 0.7 % (0.0-1.5); SAO2 89.9 % (95.0-100.0); THB 3.4 g/dL (11.5-17.4)
[2018-04-26 11:08] LABS: ALLEN TEST NO; MODALITY CANNULA; O2(CT) 1.5 mL/dL (15.0-23.0); O2HB 89.6 % (95.0-99.0)
--- NOTE | 2018-04-26 11:09 | Diag Imaging Result Doc PS360 ---
EXAM: CHEST-1 VIEW - 04/26/2018 HISTORY: sob TECHNIQUE: Portable chest COMPARISON: 07/14/2017 FINDINGS: Heart size appears upper normal. There is prominence of central vascular markings. There is ill-defined mild perihilar infiltrate/edema on the left. There is a small left pleural effusion. There is no pneumothorax identified. Central venous catheter remains in place. IMPRESSION: Mild pulmonary edema versus ill-defined perihilar pneumonia on the left. Electronically signed by Tez Navas 04/26/2018 11:07 AM
[2018-04-26 11:22] LABS: AGAP 14; ALB/GLOB RATIO 1.7; ALBUMIN 3.8 g/dL (3.5-5.0); ALKALINE PHOSPHATASE 49 U/L (32-122); BUN 26 mg/dL (8-22); CALCIUM 8.7 mg/dL (8.8-10.2); CHLORIDE 97 mmol/L (98-107); COSMO 283; CREATININE 1.1 mg/dL (0.7-1.2); ESTIMATED GFR > 60; GLUCOSE 211 mg/dL (70-104); GOT 38 U/L (10-34); GPT 8 U/L (10-44); LIPASE 25 U/L (13-60); POTASSIUM 4.2 mmol/L (3.5-5.1); SODIUM 136 mmol/L (136-145); TCO2 25 mmol/L (25-35); TOTAL BILIRUBIN 0.62 mg/dL (0.20-1.00)
[2018-04-26] MEDS ORDERED: LEVAQUIN 500 MG/D5W 500 MG/100 ML IVPB IV ONE (11:24)
[2018-04-26 11:26] LABS: CK PROFILE 289 U/L (24-204)
[2018-04-26 11:32] LABS: BASO# 0.09 X1000 (0.0-0.2); BASO% 0.2 % (0.0-0.8); EOS# 0.08 X1000 (0.0-0.7); EOS% 0.1 % (0.0-10.0); HEMATOCRIT 26.4 % (42.0-52.0); HEMOGLOBIN 8.7 g/dL (14.0-18.0); IMM GRAN% 0.2 % (0.0-0.5); LYMPH# 53.58 X1000 (1.2-3.4); LYMPH% 94.6 % (20.5-51.1); MCV 103.1 FL (81-99); MONO# 0.92 X1000 (0.11-0.59); MONO% 1.6 % (1.7-9.3); MPV 9.6 FL (7.4-10.4); NEUT# 1.89 X1000 (1.4-6.5); NEUT% 3.3 % (42.2-75.2); PLT 313 X1000 (130-400); RBC 2.56 XMIL (4.7-6.1); RDW 18.7 % (11.5-14.5); WBC 56.66 X1000 (4.8-10.8)
[2018-04-26] MEDS ORDERED: VANCOMYCIN 1 GM/NS 1 GM/250 ML IVPB IV ONE (11:32)
[2018-04-26] MEDS ORDERED: CORDARONE IV ONE (11:38)
[2018-04-26 11:48] LABS: ANISOCYTOSIS OCCASIONAL; LYMPHS 76 % (21-51); MONO 2 % (1-9); SEGS 4 % (42-75)
[2018-04-26 11:55] LABS: CK INDEX 13.9 (0.0-2.5); CK-MB 40.04 ng/mL (0.0-5.0)
[2018-04-26] MEDS: LEVOPHED 8 MG in D5 1/2 NS 250 ML IV SCH ×2 (11:59→18:29)
--- NOTE | 2018-04-26 12:40 | PROVIDER DOCUMENTATION ---
This chart was entered by Lucina Iverson Scribe, acting as scribe for Bee Yin MD. HPI-General Adult - General Chief Complaint: Vomiting Stated Complaint: LOW BP Time Seen by Provider: 04/26/18 10:16 Source: patient Allergies/Adverse Reactions: Patient Allergies Allergy/AdvReac Type Severity Reaction Status Date / Time allopurinol [From Zyloprim] Allergy Intermediate RASH Verified 04/26/18 11:00 cephalexin monohydrate * Allergy Intermediate RASH Verified 04/26/18 11:00 [From Keflex] Cephalosporins Allergy Intermediate RASH Verified 04/26/18 11:00 levofloxacin [From Levaquin] Allergy Intermediate RASH Verified 04/26/18 11:00 Penicillins Allergy Intermediate RASH Verified 04/26/18 11:00 piperacillin sodium * Allergy Intermediate RASH Verified 04/26/18 11:00 [From Zosyn] sulfamethoxazole Allergy Intermediate RASH Verified 04/26/18 11:00 [From Bactrim] tazobactam sodium * Allergy Intermediate RASH Verified 04/26/18 11:00 [From Zosyn] trimethoprim [From Bactrim] Allergy Intermediate RASH Verified 04/26/18 11:00 phenolphthalein [From Ex-Lax] AdvReac Intermediate HIVES Verified 04/26/18 11:00 Home Medications: Home Medication List Medication Instructions Recorded Confirmed Last Taken Type Apixaban [Eliquis] 5 mg PO BID 02/13/18 04/26/18 04/25/18 History Fludrocortisone Acetate 0.1 mg PO DAILY 02/13/18 04/26/18 04/25/18 History Hydrocortisone [Cortef] 10 mg PO BID 02/13/18 04/26/18 04/25/18 History Insulin Glargine [Lantus] 45 unit SUBQ QHS PRN 02/13/18 04/26/18 04/25/18 History Levothyroxine Sodium [Synthroid] 200 microgm PO DAILY 02/13/18 04/26/18 History Metformin E.r. [Glucophage Xr] 750 mg PO BID 02/13/18 04/26/18 04/25/18 History Sitagliptin Phosphate [Januvia] 100 mg PO DAILY 02/13/18 04/26/18 04/25/18 History Sotalol HCl [Sotalol] 120 mg PO BID 02/13/18 04/26/18 04/25/18 History Pantoprazole [Protonix] 40 mg PO DAILY@0700 30 Days #60 tab 02/18/18 04/26/18 Rx Febuxostat [Uloric] 1 tab PO DAILY 04/26/18 04/26/18 04/25/18 History Furosemide [Lasix] 1 tab PO DAILY 04/26/18 04/26/18 04/25/18 History Ibrutinib [Imbruvica] 1 tab PO DAILY 04/26/18 04/26/18 04/25/18 History Megestrol Acetate 3 tab PO BID 04/26/18 04/26/18 04/25/18 History Metoclopramide [Reglan] 1 tab PO AC 04/26/18 04/26/18 04/25/18 History PRAVAstatin [Pravachol] 1 tab PO QHS 04/26/18 04/26/18 04/25/18 History Potassium Chloride [Klor-Con M20] 1 tab PO DAILY 04/26/18 04/26/18 04/25/18 History Promethazine HCl 1 tab PO PRN PRN 04/26/18 04/26/18 Unknown History - History of Present Illness -Gen Adult Nature of Presenting Problems: 73yom with hx of CLL (small cell lymphoma), A-fib, diabetes, renal disease, and hypothyroidism c/o two episodes of nausea and vomiting and generalized weakness since last night. He denies fever, chills, diarrhea, cp, and sob. The patient's is at bedside. Location of Pain/Injury: reports: generalized (weakness) Pain Radiation: reports: no radiation Quality of Pain: reports: none Severity: reports: moderate Onset/Duration: reports: last night Timing: reports: still present, intermittent, constant Context/Activities at Onset: reports: none Modifying Factors: improves with: nothing Associated Symptoms: reports: nausea, vomiting. denies: chest pain, diarrhea, fever/chills, shortness of breath Similar Symptoms Previously?: No Recently seen or treated by another doctor?: No Review of Systems - Adult - REVIEW OF SYSTEMS - ADULT Constitutional: denies: chills, fever Eyes: denies: discharge, dry eyes Ears, Nose, Mouth & Throat: denies: ear discharge, ear pain Cardiovascular: denies: chest pain, palpitations Respiratory: denies: cough, shortness of breath Gastrointestinal: reports: nausea, vomiting. denies: abdominal pain, diarrhea Genitourinary: denies: dysuria, hematuria Musculoskeletal: reports: other (generalized weakness). denies: back pain, neck pain Integumentary: reports: no symptoms reported Neurological: denies: dizziness/vertigo, headache/migraines Psychiatric: reports: no symptoms reported Endocrine: reports: no symptoms reported Hematologic/Lymphatic: reports: no symptoms reported Allergic/Immunologic: reports: no symptoms reported All Other Systems: Reviewed and Negative Past History - Adult - PAST MEDICAL HISTORY-ADULT Review of Records: reports: Old Records Reviewed, Nursing Assessment Review, Medications Reviewed Major Childhood Illnesses: reports: denies history Cardiovascular: reports: A-Fib Respiratory: reports: denies history Gastrointestinal: reports: denies history Obstetrical/Gynecological: reports: denies history Genitourinary: reports: kidney disease, other (Addisons) Musculoskeletal: reports: denies history Neurological: reports: denies history Endocrine/Immune: reports: Diabetes, Leukemia Other Conditions: reports: denies history - PRIOR SURGERIES/PROCEDURES Surgical/Procedure History: reports: appendectomy, indwelling device (port), other (vasectomy, BUCK) - IMMUNIZATION STATUS Childhood Immunizations: See Nurse Assessment Flu Vaccine: See Nurse Assessment - FAMILY HISTORY Family History: reviewed, not pertinent - SOCIAL HISTORY Smoking: non-smoker Substance Use: denies Living Situation: family Physical Exam-General - PHYSICAL EXAM-ADULT Initial Vital Signs Reviewed: Yes - CONSTITUTIONAL General Appearance: alert, other (pale and pt is ill-appearing) - EYES Eyes: PERRL/EOMI, pink conjunctivae - NECK Neck: non-tender, supple - RESPIRATORY Respiratory: decreased breath sounds (R side). negative: crackles, rales, rhonchi, wheezing - CARDIOVASCULAR Cardiovascular: no murmur, tachycardia, irregularly irregular - GASTROINTESTINAL (ABDOMEN) Abdominal Exam: non tender, soft, mass (LLQ and RLQ) - MUSCULOSKELETAL Extremity: normal range of motion, non-tender, normal inspection, no pedal edema - SKIN Integumentary: warm/dry, pallor - NEUROLOGIC Neurologic: grossly normal, no motor/sensory deficits - PSYCHIATRIC Psych/Mental Status: normal mood/affect, normal thought content, normal thought process, oriented x 3 Progress - PLAN OF CARE/RESULTS Progress/Plan/Lab Results: Vital Signs - 8 hr 04/26/18 10:12 Temperature 96.5 F L Pulse Rate 94 H Respiratory Rate 16 Blood Pressure 65/29 Orders Category Date Time Status Cardiac Monitoring DIRECTED Care 04/26/18 10:28 Active Cardiac Monitoring DIRECTED Care 04/26/18 10:28 Active IV Insertion ORDERED Care 04/26/18 10:28 Active Notify MD of + Sepsis Screen NOW Care 04/26/18 10:28 Active Notify Physician As Ordered Care 04/26/18 10:28 Active Oxygen Therapy- ED Nursing DIRECTED Care 04/26/18 10:28 Active Saline Loc NOW Care 04/26/18 10:28 Active CHEST-1 VIEW [RAD] Stat Exams 04/26/18 10:28 Ordered ABG [RESP] Routine Lab 04/26/18 10:30 Ordered BLOOD CULTURE [BLDCUL] Stat Lab 04/26/18 10:23 Uncollected BLOOD CULTURE [BLDCUL] Stat Lab 04/26/18 10:28 Uncollected CBC WITH DIFF [HEME] Stat Lab 04/26/18 10:28 Uncollected CBC WITH ELECTRONIC DIFF [HEME] Stat Lab 04/26/18 10:25 Uncollected CBC WITH ELECTRONIC DIFF [HEME] Stat Lab 04/26/18 10:28 Uncollected CK PROFILE [SP CHEM] Stat Lab 04/26/18 10:28 Uncollected COMPREHENSIVE METABOLIC PANEL [CHEM] Stat Lab 04/26/18 10:25 Uncollected COMPREHENSIVE METABOLIC PANEL [CHEM] Stat Lab 04/26/18 10:28 Uncollected LACTATE, PLASMA [CHEM] Q3H Lab 04/26/18 10:30 Uncollected LACTATE, PLASMA [CHEM] Q3H Lab 04/26/18 13:30 Uncollected LACTATE, PLASMA [CHEM] Q3H Lab 04/26/18 16:30 Uncollected LIPASE [CHEM] Stat Lab 04/26/18 10:23 Uncollected MAGNESIUM [CHEM] Stat Lab 04/26/18 10:30 Uncollected PRO B-NATRIURETIC PEPTIDE Stat Lab 04/26/18 10:28 Uncollected PROTIME WITH INR [COAG] Stat Lab 04/26/18 10:28 Uncollected PTT [COAG] Stat Lab 04/26/18 10:28 Uncollected TROPONIN T Stat Lab 04/26/18 10:28 Uncollected URINALYSIS W/POSS RFLX CULT [URINALYSIS] Stat Lab 04/26/18 10:28 Uncollected 0.9% Sodium Chloride Inj [Ns] 2,000 ml Med 04/26/18 10:21 Discontinued .ROUTE As Directed Hydrocortisone Sod Succinate [Solu-Cortef] Med 04/26/18 10:33 Discontinued 100 mg IV NOW ONE CP/SOB/Palp >45 yrs of Age Stat Oth 04/26/18 10:23 Ordered Generalized Adult Illness >60 Stat Oth 04/26/18 10:23 Ordered Oxygen Device Stat Oth 04/26/18 10:28 Active EKG [EKG] Stat Ther 04/26/18 10:25 Ordered Lab CBC was delayed, and now running at 11:23 Result Diagrams: 04/26/18 10:25 04/26/18 10:25 - REASSESSMENT Reassessment #1 Time Reassessed: 11:41 Status: unchanged (Status post fluid bolus x2, map low, will start vasopressor, A-fib RVR not converted, will start amiadarone) - EKG 1 Time of EKG reading by physician:: 10:22 EKG Read and Signed by:: Bee Yin EKG Interpretation (*Must complete 3 of following elements*): Abnormal Rate: 143 Rhythm: Atrial fibrillation with rapid ventricular response [place]: normal ST Wave: non-specific ST changes (possible inferior subendocardial injury) 2 Time of EKG reading by physician:: 11:52 EKG Read and Signed by:: Delonte Fermin EKG Interpretation (*Must complete 3 of following elements*): Abnormal Rate: 95 Rhythm: Sinus rhythm with 1st degree AV block with premature atrial complexes QRS: other (prolonged QT) ST Wave: non-specific ST changes - XRAY 1 XRAY Study: Chest Impression: Abnormal ( FINDINGS: Heart size appears upper normal. There is prominence of central vascular markings. There is ill-defined mild perihilar infiltrate/edema on the left. There is a small left pleural effusion. There is no pneumothorax identified. Central venous catheter remains in place. IMPRESSION: Mild pulmonary edema versus ill-defined perihilar pneumonia on the left.) - CONSULTS/PCP/HOSPITALIST Notification #1 *Consult/PCP/Hospitalist*: ERLIN Yap for Dr. Suarez Time Discussed: 11:50 Consult Disposition: Admit Departure - Departure Date of Disposition Decision: 04/26/18 Time of Disposition Decision: 12:39 DIAGNOSIS: Septic shock, Pneumonia, Atrial fibrillation with RVR Disposition: ADMITTED INPATIENT 09 Certified Medical Emergency: Emergent Condition: Stable - Critical Care Note This patient required my direct & personal management of CC.: Yes Total Time (mins): 91 Critical Care Statement: This patient required my direct personal management to treat or rule out processes, the absence of which, could potentiallly result in sudden, clinically significant life or limb threatening deterioration. Attestation - Physician/ HAILE Attestation Patient care was provided by Advanced Practice Provider:: No The physician spent face to face time with patient:: Yes Advanced Practice Provider documentation review:: Supervising physician onsite and consulted in the evaluation and care of this patient. The physician did have a face to face encounter with the patient. This chart was documented by the indicated scribe, (Lucina Iverson Scribe) and accurately reflects the services I performed and decisions made by me, Bee Yin MD, as attested by the provider's signature.
--- NOTE | 2018-04-26 12:52 | Diag Imaging Result Doc PS360 ---
EXAM: CT HEAD W/O CONTRAST - 04/26/2018 HISTORY: cva TECHNIQUE: CT head without contrast COMPARISON: 04/01/2012 FINDINGS: There is no evidence of intracranial hemorrhage, mass effect, or midline shift. There is no evidence of infarct, although acute infarcts may not be immediately visible. There is extensive paranasal sinus disease noted. There are bilateral mastoid effusions also noted. IMPRESSION: No visible acute intracranial abnormality. There is extensive paranasal sinus disease noted. There are bilateral mastoid effusions also noted. This exam was performed using automated exposure control, adjustment of mA or kV according to patient size, and/or use of iterative reconstruction technique. Electronically signed by Tez Navas 04/26/2018 12:50 PM
--- NOTE | 2018-04-26 13:11 | Diag Imaging Result Doc PS360 ---
EXAM: CT THORAX/ABD/PELVIS W/CON - 04/26/2018 HISTORY: septic shock TECHNIQUE: CT thorax and abdomen/pelvis with intravenous contrast COMPARISON: 02/13/2018 CT thorax without contrast FINDINGS: There are medium bilateral pleural effusions. These appear mildly decreased on the right and increased on the left compared to prior. There is mild dependent atelectasis bilaterally. There is no other consolidation identified. There is no pneumothorax identified. There is extensive bilateral supraclavicular adenopathy which is increased. There is axillary adenopathy, most prominent on the left, which is increased mildly. There is mediastinal adenopathy, most prominent at the subcarinal region, which is increased. CT abdomen/pelvis there is extensive abdominal retroperitoneal adenopathy. There is extensive pelvic retroperitoneal (iliac) adenopathy on the right. There is distal external iliac adenopathy on the left. There is mild bilateral inguinal adenopathy. The liver demonstrates mildly heterogeneous attenuation diffusely. There is no discrete focal liver lesion identified. The spleen demonstrates mildly heterogeneous attenuation but is normal size. The adrenal glands and pancreas are unremarkable except for mild pancreatic atrophic changes. There are no calcified gallstones or pericholecystic inflammation seen. The bilateral kidneys enhance homogeneously except for small cysts at the upper left kidney. There is no hydronephrosis. There are atherosclerotic calcifications noted. There is no evidence of bowel obstruction. The rectal prostatic the rectum is distended with fecal debris, there is retained fecal debris elsewhere in the colon. These findings suggest constipation, rectal fecal impaction. There is haziness of perirectal fat which may relate to proctitis. There is possibly mild wall thickening along the left colon, which may relate to mild colitis. There is no evidence of diverticulitis. There is no free air, substantial free fluid, or abscess identified. IMPRESSION: CT thorax: Adenopathy which is most prominent at the bilateral supraclavicular regions, left axilla, and subcarinal mediastinum. Medium bilateral pleural effusions. Compared to prior, these appear mildly decreased on the right and decreased on the left. Mild dependent atelectasis. No discrete pneumonia. CT abdomen/pelvis: Abdominal and pelvic retroperitoneal adenopathy. Mild inguinal adenopathy. Constipation and rectal fecal impaction. Possible mild proctitis and mild left colitis. No abscess. No free air. This exam was performed using automated exposure control, adjustment of mA or kV according to patient size, and/or use of iterative reconstruction technique. Electronically signed by Tez Navas 04/26/2018 1:08 PM
[2018-04-26 14:18] LABS: URINE SOURCE CLEAN CATCH
[2018-04-26 14:23] LABS: BILIRUBIN URINE NEGATIVE (NEGATIVE); BLOOD URINE NEGATIVE (NEGATIVE); COLOR YELLOW; GLUCOSE URINE 500 mg/dL (NEGATIVE); KETONE URINE NEGATIVE (NEGATIVE); LEUKOCYTES URINE NEGATIVE (NEGATIVE); NITRITE URINE NEGATIVE (NEGATIVE); PH URINE 5.5; PROTEIN URINE 100 mg/dL (NEGATIVE); SP GRAVITY URINE > 1.050; TURBIDITY URINE CLEAR (CLEAR); UROBILINOGEN URINE NORMAL (NORMAL)
[2018-04-26 14:24] LABS: UR EPITHELIAL CELLS <10 /HPF (<10); URINE BACTERIA NEGATIVE /HPF; URINE RBC <10 /HPF (<10); URINE WBC <10 /HPF (<10)
[2018-04-26] MEDS ORDERED: LANTUS SUBQ PRN (14:52)
[2018-04-26] MEDS: MERREM 1 GM in NS 50 ML IV SCH ×2 (15:11→20:54)
[2018-04-26 15:39] LABS: IRON SATURATION 32 %; TIBC 290 ug/dL; TOTAL IRON 93 ug/dL (53-167); UNBOUND IRON 197 ug/dL (112-346)
[2018-04-26 15:55] LABS: FERRITIN 380 ng/mL (30-400)
[2018-04-26] MEDS ORDERED: REGLAN PO SCH (16:00)
--- NOTE | 2018-04-26 16:12 | HISTORY AND PHYSICAL ---
PRIMARY CARE PHYSICIAN: Dr. Badillo ONCOLOGIST: Dr. Hurtado CHIEF COMPLAINT: Nausea, vomiting, hypotension. HISTORY OF PRESENT ILLNESS: Mr. Rendon is a 73-year-old male with history of atrial fibrillation, RVR, CLL, diabetes mellitus, Sushil's disease, who was discharged from our service on 02/18/2018 with possible pneumonia. He was in his normal state of health. He actually reports that this last week was the best week he has had in quite some time. He was started on Megace for appetite stimulation. He has been eating more in the past week than he has in quite some time. Last night he started having some abdominal discomfort, no overt pain, and did start having some nausea and vomiting. This progressed through the night, and this morning he was noted to be hypotensive and came to the ER. In the ER, he was noted to be quite hypotensive. Initial blood pressure was 65/29. He received IV Solu Cortef and IV Synthroid as well as multiple liters of fluid. This did not improve blood pressure much, so he was started on Levophed. He was also started on vancomycin which did cause some, what the ER believed, would be mild allergic reaction. He had some altered mental status, so a STAT head CT was done which did not show anything acute. There was extensive paranasal sinus disease and bilateral mastoid effusions also noted. We went ahead and continued with the thorax, abdomen and pelvis CT given the undifferentiated shock at this time. His thorax CT showed some pleural effusions, and abdomen and pelvis CT showed extensive lymphadenopathy but nothing acute and certainly nothing that would be causing such severe sepsis. There was a severe constipation and some possible colitis noted. He does not have any pain at this time. He is somewhat dizzy and weak. Laboratory data was obtained, and he was noted to have a remarkably high white count of 56.66 with anemia that appears to be chronic. Chemistry was done, and he was also noted to have quite high troponins, CK, and CKMB. EKG does show atrial fibrillation with a rapid response, but he is denying any chest pain at this time. We are currently awaiting a second set of enzymes, but given the complexity of this patient's case as well as his shock state, he will go to the ICU for further treatment and evaluation. PAST MEDICAL HISTORY: 1. Sushil's disease. 2. CLL, followed by Dr. Hurtado. 3. Diabetes mellitus type 2 requiring insulin. 4. Hyperlipidemia. 5. Paroxysmal atrial fibrillation. 6. History of DVT, on anticoagulation. PAST SURGICAL HISTORY: Appendectomy, Port-A-Cath placement, DC cardioversions, tonsillectomy, lymph node biopsies. SOCIAL HISTORY: No tobacco, alcohol or drug use. Currently lives at home with his . FAMILY HISTORY: Noncontributory. REVIEW OF SYSTEMS: A 14-point review of systems was completed and negative with the exception of the HPI. ALLERGIES: Allopurinol, Keflex, cephalosporins, Levaquin, penicillin, Zosyn, sulfa, Bactrim, vancomycin, and Ex-Lax. HOME MEDICATIONS: Eliquis 5 mg b.i.d., Solu Cortef 10 mg p.o. b.i.d., Uloric 1 tab daily, fludrocortisone 0.1 mg p.o. daily, Lasix 1 daily, Imbruvica 1 daily, Lantus 45 units subcutaneously at bedtime as needed, Synthroid 200 mcg p.o. daily, Megace 3 tablets b.i.d., metformin 750 mg p.o. b.i.d., Reglan 1 tab p.o. before meals, Protonix 40 mg daily, potassium chloride 20 mEq p.o. daily, pravastatin 1 at bedtime, Januvia 100 mg p.o. daily , sotalol 120 mg p.o. b.i.d. PHYSICAL EXAMINATION: VITAL SIGNS: Blood pressure is 100/31, heart rate is 63, respiratory rate is 18 , O2 saturation is 100% on nasal cannula, temperature is 96.5. GENERAL: A chronically ill, disheveled appearing 73-year-old male lying in hospital bed, in no acute distress. NEUROLOGICAL: He is awake. He is oriented. Follows commands. No focal deficits. HEENT: Head is atraumatic and normocephalic. Pupils are equal, round and reactive to light. Oral mucosa is dry and pale. NECK: Trachea is midline. CHEST: Clear to auscultation. Diminished bilaterally. CARDIOVASCULAR: Regular rate at this time. S1 and S2 are noted. GASTROINTESTINAL: Soft, nondistended and nontender. Bowel sounds are hypoactive. EXTREMITIES: Trace edema. Pulses are palpable but diminished. DIAGNOSTIC DATA: Head CT shows extensive paranasal sinus disease, bilateral mastoid effusions are also noted. Thorax, abdomen and pelvis CT shows adenopathy throughout, medium bilateral pleural effusions which have actually mildly decreased bilaterally, constipation, rectal fecal impaction, mild proctitis, and mild left colitis. No abscess, no free air in the abdomen. WBC is 56.66, hemoglobin 8.7, hematocrit 26.4, platelet count 313. INR is 1.12. ABG on nasal cannula shows pH of 7.34, CO2 is 17, O2 is 80, bicarb 12.4. Sodium is 136, potassium 4.2, chloride 97, CO2 is 25, anion gap 14, BUN is 26, creatinine 1.1, glucose 211, calcium 8.7, magnesium 1.6 , AST is 30, ALT is 8, alkaline phosphatase 49. CK is 289. CK index is 13.9. CKMB is 30.4. Troponin is 0.672. ProBNP is 6591. Lactic acid 2.7. TSH is 2.44. Cortisol is 1.9. UA shows protein and glucose but nothing acute. ASSESSMENT AND PLAN: 1. Shock. Given his white count, we are going to treat as if he has septic shock; however, he also has known adrenal insufficiency, so we will also treat him for that. He will get IV steroids and antibiotics. Given the host of antibiotic allergies, we will put him on meropenem and Zyvox. We will order adams cultures. Continue fluid resuscitation. Trend his lactic acid. 2. Possible stercoral colitis. CT does show a rectal fecal impaction with possible colitis, proctitis. This actually makes fairly good sense, as he has abruptly increased his diet quite a bit per his 's report. We are treating with antibiotics for that and will also give him some suppositories. 3. Type 2 myocardial infarction. The patient denies any chest pain. No evidence of myocardial infarction on his EKG. He is quite hypotensive and has been for some time, so hypoperfusion of the coronary arteries is likely; however, we will continue to trend his cardiac enzymes and will consider Cardiology consultation is any worsening. He did have a recent echocardiogram done on 02/15/2018 which showed an EF of 63%. There was no wall motion abnormality noted. 4. Chronic anemia. We will recheck iron studies, make sure he is typed and cross and transfuse if necessary. I would actually have a very low threshold given the hypotension. 5. Chronic lymphocytic leukemia. We will consult Dr. Hurtado for further assistance. 6. Diabetes mellitus. Add pattern sugars and sliding scale insulin. Make sure A1c is up to date. 7. Adrenal insufficiency/Winston's disease. We will continue with the IV hydrocortisone. His cortisol levels are noted to be quite low. 8. Hypothyroidism. Continue his p.o. Synthroid. 9. Atrial fibrillation. This has converted back to sinus rhythm. We will continue his home medications and his Eliquis. 10.DVT prophylaxis with Eliquis. Further recommendations to follow. Dictated by ERLIN Lozada for Aleksey Suarez MD cc: ERLIN Lozada MD MTDD
[2018-04-26] MEDS: SOLU-CORTEF IV SCH ×3 (16:23→23:58)
[2018-04-26] MEDS: ZYVOX 600 MG/D5W 600 MG/300 ML IVPB IV SCH (16:24)
[2018-04-26] MEDS: NS 1,000 ML IV SCH (16:24)
[2018-04-26 16:25] LABS: CK INDEX 14.5 (0.0-2.5); CK-MB 76.59 ng/mL (0.0-5.0)
[2018-04-26] MEDS: ASPIRIN PO SCH (17:03)
[2018-04-26] MEDS ORDERED: ZOFRAN IV PRN (17:49)
[2018-04-26 19:54] LABS: CK INDEX 13.8 (0.0-2.5); CK-MB 79.84 ng/mL (0.0-5.0)
[2018-04-26] MEDS: BETAPACE PO SCH (20:54)
[2018-04-26] MEDS: ELIQUIS PO SCH (20:55)
[2018-04-26] MEDS: MEGACE PO SCH (20:56)
[2018-04-27] MEDS: NS 1,000 ML IV SCH ×4 (01:20→23:48)
[2018-04-27] MEDS: LEVOPHED 8 MG in D5 1/2 NS 250 ML IV SCH (01:21)
[2018-04-27 01:56] LABS: CK INDEX 11.2 (0.0-2.5); CK-MB 52.69 ng/mL (0.0-5.0)
[2018-04-27] MEDS: ZYVOX 600 MG/D5W 600 MG/300 ML IVPB IV SCH ×2 (03:00→14:30)
[2018-04-27] MEDS: SOLU-CORTEF IV SCH ×4 (05:10→21:49)
[2018-04-27] MEDS: MERREM 1 GM in NS 50 ML IV SCH ×3 (05:10→21:36)
[2018-04-27] MEDS: SYNTHROID PO SCH ×2 (05:15→06:05)
[2018-04-27] MEDS: PROTONIX PO SCH ×2 (05:15→06:05)
[2018-04-27 06:57] LABS: BASO# 0.07 X1000 (0.0-0.2); BASO% 0.1 % (0.0-0.8); HEMATOCRIT 25.6 % (42.0-52.0); HEMOGLOBIN 8.3 g/dL (14.0-18.0); IMM GRAN# 0.08 X1000 (0.0-0.04); IMM GRAN% 0.1 % (0.0-0.5); LYMPH# 59.31 X1000 (1.2-3.4); LYMPH% 93.7 % (20.5-51.1); MCH 33.3 PG (27-31); MCHC 32.4 g/dL (33-37); MCV 102.8 FL (81-99); MONO# 1.08 X1000 (0.11-0.59); MONO% 1.7 % (1.7-9.3); NEUT# 2.73 X1000 (1.4-6.5); NEUT% 4.4 % (42.2-75.2); PLT 275 X1000 (130-400); RBC 2.49 XMIL (4.7-6.1); RDW 18.3 % (11.5-14.5); WBC 63.27 X1000 (4.8-10.8)
[2018-04-27 07:44] LABS: AGAP 17; ALB/GLOB RATIO 1.5; ALBUMIN 3.7 g/dL (3.5-5.0); ALKALINE PHOSPHATASE 62 U/L (32-122); BUN 36 mg/dL (8-22); CALCIUM 8.8 mg/dL (8.8-10.2); CHLORIDE 98 mmol/L (98-107); COSMO 289; ESTIMATED GFR > 60; GLUCOSE 360 mg/dL (70-104); GOT 425 U/L (10-34); GPT 393 U/L (10-44); MAGNESIUM 1.8 mg/dL (1.5-2.7); POTASSIUM 5.5 mmol/L (3.5-5.1); SODIUM 133 mmol/L (136-145); TCO2 18 mmol/L (25-35); TOTAL BILIRUBIN 1.25 mg/dL (0.20-1.00); TOTAL PROTEIN 6.1 g/dL (6.3-8.3)
[2018-04-27] MEDS: MEGACE PO SCH ×2 (08:10→21:36)
[2018-04-27] MEDS: BETAPACE PO SCH ×2 (08:10→21:36)
[2018-04-27] MEDS: ELIQUIS PO SCH ×2 (08:10→21:36)
[2018-04-27] MEDS: ASPIRIN PO SCH (08:10)
[2018-04-27 08:14] LABS: ANISOCYTOSIS 1+; HYPOCHROM 1+; LYMPHS 62 % (21-51); MONO 8 % (1-9); SEGS 8 % (42-75)
[2018-04-27] MEDS: PATIENT'S OWN MED PO SCH (08:51)
--- NOTE | 2018-04-27 08:54 | EKG Report ---
Test Performed on : 04/26/2018 11:51:26 AM Test Reason : afib Blood Pressure : / mmHG Vent. Rate : 095 BPM Atrial Rate : 095 BPM P-R Int : 256 ms QRS Dur : 108 ms QT Int : 384 ms P-R-T Axes : 074 071 028 degrees QTc Int : 482 ms Sinus rhythm. with 1st degree AV block. with premature atrial complexes. Nonspecific ST and T wave abnormality Prolonged QT Abnormal ECG When compared with ECG of 26-APR-2018 10:16, (Unconfirmed) Sinus rhythm. has replaced Atrial fibrillation. Vent. rate has decreased BY [address] no longer depressed in Inferior leads ST no longer depressed in Lateral leads Unconfirmed Result
--- NOTE | 2018-04-27 09:04 | EKG Report ---
Test Performed on : 04/26/2018 10:16:26 AM Test Reason : ED. NO EKG ORDER FOR MUSE Blood Pressure : / mmHG Vent. Rate : 143 BPM Atrial Rate : 159 BPM P-R Int : 000 ms QRS Dur : 098 ms QT Int : 330 ms P-R-T Axes : 000 058 -81 degrees QTc Int : 509 ms Atrial fibrillation. with rapid ventricular response. Marked ST abnormality, possible inferior subendocardial injury Abnormal ECG When compared with ECG of 13-FEB-2018 12:17, Atrial fibrillation. has replaced Sinus rhythm. Vent. rate has increased BY [address] now depressed in Inferior leads ST now depressed in Anterior leads Nonspecific T wave abnormality no longer evident in Anterior leads Unconfirmed Result
[2018-04-27] MEDS: HUMALOG SUBQ SCH ×3 (11:09→21:37)
--- NOTE | 2018-04-27 11:28 | PROGRESS NOTE ---
DATE: 04/27/2018 SUBJECTIVE: This morning Mr. Rendon refers to be doing a lot better. He said he has been up, moving around. Has not had any dizziness. OBJECTIVE: Vital signs: Blood pressure is 124/58, pulse 67, respirations 18, temperature is 98.6. General: Mr. Rendon is a 73-year-ago male. He is in bed, not in any cardiopulmonary distress. HEENT: Mucosa is pink and moist. Anicteric. Acyanotic. Neck: Supple. Chest: Good air entry bilaterally. There were no crepitations. No rhonchi. Cardiovascular: Regular rate and rhythm. Abdomen: Soft, nontender. Bowel sounds present. Extremities: No pedal edema. 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 There is no focal neurological deficit. LABORATORY DATA: WBC is 63.27, hemoglobin is 8.3, platelet count of 275,000. There are 22% of atypical lymphocytes. Chemistry is also reviewed. Creatinine is 1.0. Liver enzymes have been going up and troponin is also elevated. The patient's blood pressure has been normalized since yesterday. ASSESSMENT: 1. Shock. This could be multifactorial including possible septic shock, cardiogenic, and adrenal insufficiency causing some of the hypotension. The patient is currently being weaned off of Levophed and he is getting stress doses of steroids. Cultures have been done. We will keep him on the antibiotics. 2. Coloproctitis. Could be potentially due to fecal impaction. However, translocation of GI bacteria could have gained access to the circulation and cause a generalized infection. Patient will continue antibiotics and bowel regimen. 3. Elevated troponins, presumably due to demand mismatch. However, underlying coronary artery disease is a possibility. We will get Cardiology to evaluate the patient. 4. History of chronic lymphocytic leukemia. Patient follows up with Dr. Hurtado. 5. Diabetes mellitus is controlled. 6. History of [place] disease. The patient presented with extreme hypotension which has improved with stress doses. We will continue with that for another day and then re- evaluate. 7. History of atrial fibrillation. The patient actually came in with rapid ventricular response. He was given a dose of amiodarone and that got his rhythm stabilized and corrected. He is currently in sinus and on sotalol. 8. Transaminitis. This is presumably related with shock liver. We will continue to follow and GI has been consulted. 9. Fecal impaction. Will continue bowel regimen. PLAN: So in general, Mr. Rendon got admitted yesterday mainly because of shock which we presume is septic vs adrenal crisis. He seems to be fairly stable this morning. He is being weaned off of the Levophed. Once that is done, I think we will be able to move him to a regular floor. He is pending a consult from Cardiology and GI. We will continue with the antibiotics until we have the culture report. Antibiotics can be discontinued if cultures negative. The patient is also yet to be seen by Hematology/Oncology. cc: Aleksey Suarez MD MTDD
--- NOTE | 2018-04-27 11:45 | CARDIOLOGY CONSULTATION ---
DATE: 04/27/2018 REASON FOR CONSULTATION: Cardiology was consulted for atrial fibrillation, shock syndrome, abnormal cardiac enzymes. HISTORY OF PRESENT ILLNESS: Mr. Rendon is a 73-year-old, gentleman with history of CLL, Upperglade's disease, paroxysmal atrial fibrillation who has been held admitted to the hospital on multiple occasions with atrial fibrillation as well as shock syndrome. I saw him in the office recently. He had been doing well. He came to the emergency room late last night/early this morning due to dizziness, nausea, vomiting. He was noted to be hypotensive as well. In the emergency room, the patient was found to be in atrial fibrillation with rapid ventricular rate. Was given 300 mg IV amiodarone. Patient went back to sinus rhythm. The patient also had some altered mental status. Was admitted. Started on Levophed drip. At the time of my examination, patient is feeling much better. The patient has CLL and had a positive PET scan with Dr. Hurtado, and was started back on Imbruvica as he had a significant mass in his right side of his neck which resolved with the medications. He underwent a biopsy of his abdomen in [facility] last week. Both the above reports are pending. Per his , PET scan revealed mass in the neck, thorax as well as abdomen. From a cardiac standpoint, as far as palpitations are concerned, he had been doing well. The patient denies any chest pain suggestive of angina. There is no dizziness. He had been doing well on the sotalol. REVIEW OF SYSTEMS: A 14-point review of system was done.GI System: As above. System: There is no dysuria or hematuria. Respiratory System: There is no history of cough, expectoration, hemoptysis. Constitutional: There is no history of fevers or chills. ALLERGIES: Patient is allergic to Keflex, cephalosporins, Levaquin, penicillin , Zosyn, sulfonamides, Bactrim, vancomycin, Ex-Lax. PAST MEDICAL HISTORY: 1. Chronic lymphocytic leukemia with recurrence. 2. Sushil's disease. 3. Diabetes mellitus. 4. Hyperlipidemia. 5. Paroxysmal atrial fibrillation requiring recurrent cardioversions. 6. History of shock syndrome. 7. Abnormal liver function tests in the past. 8. Hypothyroidism. 9. He is on anticoagulation therapy. 10. Patient underwent cardioversion on 01/07/2018, 01/21/2018, and 01/29/2018. PAST SURGICAL HISTORY: Other surgeries include appendectomy, tonsillectomy, lymph node biopsy, Port-A-Cath. SOCIAL HISTORY: Patient is . Retired. There is no tobacco or illicit drug abuse or alcohol abuse. HOME MEDICATIONS: Eliquis 5 b.i.d., Solu-Cortef 10 b.i.d., Uloric, fludrocortisone 0.1, Lasix 1 tablet, Imbruvica, Lantus insulin as directed, Synthroid 200, Megace 3 tablets b.i.d., metformin 750 b.i.d., Reglan, Protonix, pravastatin, sotalol 120 mg p.o. b.i.d. PHYSICAL EXAMINATION: Vital Signs: Blood pressure was 100/47. Neck: Jugular venous pressure was normal. Heart: 1st and second heart sounds were heard. Lungs: There were decreased breath sounds at the bases bilaterally. Abdomen: Soft, nontender. Bowel sounds were heard. Central nervous system: Alert and oriented. Moving all 4 extremities. Extremities: Examination of extremities revealed no pedal edema. HEENT: Atraumatic. Pupils were equal and reacting to light. LABORATORY EXAMINATION: Revealed sodium 133, potassium 5.5, BUN 36, creatinine 1.02. Magnesium 1.8. Troponin abnormal at 3, CK MB 79, CK index 13.8. AST 425, ALT 393, alkaline phosphatase 62. INR 1.1. WBC 63.37, hemoglobin 8.3, hematocrit 25, platelet count of 275,000. Electrocardiogram revealed first-degree AV block. QTc was normal. There were nonspecific ST-T changes. The patient was in sinus rhythm. RADIOLOGIC STUDIES: CT scan of chest and pelvis revealed significant adenopathy prominent bilateral supraclavicular region. There was bilateral pleural effusion and mild inguinal lymphadenopathy, the possible proctitis and the left colitis. No abscess noted. CT of the head was unremarkable. ASSESSMENT AND PLAN: Mr. Kilo Rendon is a 73-year-old, gentleman with history of paroxysmal atrial fibrillation. Upperglade's disease, chronic lymphocytic leukemia , diabetes, hyperlipidemia, hypothyroidism, history of herpes zoster who has had multiple admissions into the hospital. He is admitted with hypotension, dizziness, and has recurrence of his chronic lymphocytic leukemia. He has undergone biopsy and PET scanning at [facility] and here locally. From a cardiac standpoint: 1. He is in sinus rhythm. We will continue sotalol at 120 mg twice daily. 2. His hemoglobin and hematocrit have been stable. Continue with the Eliquis. We can change the Eliquis to heparin if required should any surgical intervention be planned. 3. We will get a limited echocardiogram to assess cardiac and valvular function. 4. As far as his cardiac enzymes are concerned, this is secondary to shock syndrome. He has type 2 non Q myocardial infarction secondary to his hypotension, likely sepsis. He is on Levophed drip. He has no chest pain. Electrocardiogram was normal. He has abnormal liver function test as well. I have not made any changes at the present time, would recommend continue medical treatment from cardiac standpoint. 5. He is on antibiotics for proctitis and colitis. 6. Oncology has been consulted for his CLL. He has a significantly elevated WBC probably from infection. Blood cultures are pending. cc: Garcia Sawyer MD MTDD
[2018-04-27 12:26] LABS: CK INDEX 8.6 (0.0-2.5); CK-MB 26.3 ng/mL (0.0-5.0)
[2018-04-27] MEDS ORDERED: KAYEXALATE PO ONE (13:07)
--- NOTE | 2018-04-27 19:34 | ECHO REPORT ---
ORDER DATE: 04/27/2018 INDICATION: Positive cardiac exams, hypotension, atrial fibrillation, and diabetes. M-MODE MEASUREMENTS: Left ventricle end diastole: 4.3 cm. Left ventricle end systole: 2.8 cm. Posterior wall: 1.5 cm. Interventricular septum: 1.5 cm. Left atrium: 4.4 cm. Aortic root: 3.4 cm. SUMMARY OF 2-DIMENSIONAL IMAGING: The study was difficulty. Definity was added for optimize visualization of endocardium. 1. The global left ventricular systolic function appears to be in the order of 65%. 2. There seems to be a very discrete area of hypokinesis in the basal inferior inter ventricular septum (RCA territory). This is very subtle. Otherwise, the global ejection fraction of the left ventricle is pretty normal. 3. Aortic valve appears to be somewhat thickened, however there is no definite stenosis. Doppler was not used, so I do not know if there is any significant degree of aortic regurgitation. 4. The right ventricle appears to be normal in function. The atria appears to be unremarkable. There are bilateral pleural effusions. I do not see any evidence of any significant pericardial effusion. Clinical correlation is recommended. cc: MD Sahara Parham PA MTDD
[2018-04-27] MEDS ORDERED: LANTUS SUBQ SCH (21:00)
[2018-04-27] MEDS ORDERED: BASAGLAR SUBQ SCH (23:04)
[2018-04-27] MEDS ORDERED: INSULIN PEN NEEDLES ONE (23:18)
--- NOTE | 2018-04-28 00:38 | GASTROENTEROLOGY CONSULTATION ---
DATE: 04/27/2018 REASON FOR CONSULT: Nausea, vomiting, abdominal pain HISTORY OF PRESENT ILLNESS: Mr. Rendon is a 73-year-old man with history of atrial fibrillation, RVR, CLL, [place]'s disease, IDDM2, h/o DVT, HLD, GERD, hypothyroidism who presented with nausea, vomiting, and diffuse abdominal pain that started having "chili" that evening. He denies any recent constipation, diarrhea, or rectal bleeding. He was recently started on Megace, which has helped his appetite. He presented to the ER and was noted to by hypotensive with SBP in in afib with RVR. He was given IVFs, IV steroids, abx, and started on pressors. CT C/A/P was unremarkable. HCT was unremarkable. Patient was seen by cardiology for elevated cardiac enzymes without chest pain. He was admitted to the ICU for further treatment and evaluation. PAST MEDICAL HISTORY: 1. Sushil's disease. 2. CLL, followed by Dr. Hurtado. 3. Diabetes mellitus type 2 requiring insulin. 4. Hyperlipidemia. 5. Paroxysmal atrial fibrillation. 6. History of DVT, on anticoagulation. 7. GERD PAST SURGICAL HISTORY: Appendectomy, Port-A-Cath placement, DC cardioversions, tonsillectomy, lymph node biopsies. SOCIAL HISTORY: No tobacco, alcohol or drug use. Currently lives at home with his . FAMILY HISTORY: Noncontributory. No GI malignancies REVIEW OF SYSTEMS: as per HPI; 12-point ROS was otherwise negative ALLERGIES: Allopurinol, Keflex, cephalosporins, Levaquin, penicillin, Zosyn, sulfa, Bactrim, vancomycin, and Ex-Lax. HOME MEDICATIONS: Eliquis 5 mg b.i.d., Solu Cortef 10 mg p.o. b.i.d., Uloric 1 tab daily, fludrocortisone 0.1 mg p.o. daily, Lasix 1 daily, Imbruvica 1 daily, Lantus 45 units subcutaneously at bedtime as needed, Synthroid 200 mcg p.o. daily, Megace 3 tablets b.i.d., metformin 750 mg p.o. b.i.d., Reglan 1 tab p.o. before mealsas needed, Protonix 40 mg daily, pravastatin 1 at bedtime, Januvia 100 mg p.o. daily, sotalol 120 mg p.o. b.i.d. PHYSICAL EXAMINATION: VITAL SIGNS: T 98.5 HR 67 RR 20 BP 98/48 on levophed 4mg, 98% on 3LNC GEN: awake, alert, NAD, sitting upright in chair eating supper HEENT: anicteric, MMM, no murmurs NECK: no NVD CV: RRR, no murmurs PULM: CTAB, no w/r/r ABD: soft, palpable LNs, NT, NABS, no ascites EXT: No c/c/e NEURO: nonfocalal DIAGNOSTIC DATA: Na 133 K 5.5 CO2 18 BUN 36 Cr 1.0 glucose 360 WBC 63 hgb 8.3 plts 275K Tbili 1.25 albumin 3.7 AST 425 ALT 393 ALP 62 CKMB 26 trop 1.1 Vit B12 231 folate WNL TSH 2.4 cortisol 1.9 lipase 25 lactate 3.2 CTAP essentially unremarkable; HCT negative ASSESSMENT AND PLAN: Mr. Rendon is a 73-year-old man with history of atrial fibrillation, RVR, CLL, Cull[place]'s disease, IDDM2, h/o DVT, HLD, GERD, hypothyroidism who presented with shock likely in the setting of adrenal insufficiency. Shock and adrenal insufficiency likely responsible for abdominal complaints, NSTEMI, ischemic liver injury. Patient on empiric antibiotics for possible sepsis. Previous N/V and abdominal pain has since resolved and patient is tolerating diet. Anemia workup is notable for mild vitamin B12 deficiency; underlying CLL likely involve in anemia. Etiology of exacerbation of adrenal "crisis"; question infection. Patient has been compliant with home medications. #Shock: on abx, pressors, stress dosed steroids #[place], vomiting, abdominal pain: resolved; patient attributes symptoms to "over eating"; likely from adrenal insufficiency; no indication for EGD or colonoscopy at this time #Fecal loading on imaging/?colitis: unlikely; patient denies any lower GI symptoms or constipation; had good BM today #NSTEMI: maintain MAPS >60; cardiology following #GERD: continue PPI #Anemia: no overt bleeding; trend H/H daily #CLL: followed by Dr. Hurtado #Sushil's: continue steroids as above #IDDM2: uncontrolled BGs, on SS #Hypothyroidism: on synthroid #Afib with RVR: now in SR; on Eli[facility]
[2018-04-28] MEDS: ZYVOX 600 MG/D5W 600 MG/300 ML IVPB IV SCH ×2 (02:25→14:06)
[2018-04-28] MEDS: MERREM 1 GM in NS 50 ML IV SCH ×3 (06:24→20:26)
[2018-04-28] MEDS: HUMALOG SUBQ SCH ×4 (06:24→20:27)
[2018-04-28] MEDS: SYNTHROID PO SCH (06:24)
[2018-04-28] MEDS: PROTONIX PO SCH (06:24)
[2018-04-28] MEDS: SOLU-CORTEF IV SCH ×3 (06:25→22:54)
[2018-04-28 06:27] LABS: BASO# 0.03 X1000 (0.0-0.2); BASO% 0.1 % (0.0-0.8); HEMATOCRIT 22.5 % (42.0-52.0); HEMOGLOBIN 7.3 g/dL (14.0-18.0); IMM GRAN# 0.08 X1000 (0.0-0.04); IMM GRAN% 0.2 % (0.0-0.5); LYMPH# 35.89 X1000 (1.2-3.4); LYMPH% 93.7 % (20.5-51.1); MCHC 32.4 g/dL (33-37); MCV 104.7 FL (81-99); MONO# 0.42 X1000 (0.11-0.59); MONO% 1.1 % (1.7-9.3); MPV 9.6 FL (7.4-10.4); NEUT% 4.9 % (42.2-75.2); PLT 169 X1000 (130-400); RBC 2.15 XMIL (4.7-6.1); RDW 18.3 % (11.5-14.5); WBC 38.32 X1000 (4.8-10.8)
[2018-04-28 07:11] LABS: LYMPHS 82 % (21-51); SEGS 16 % (42-75)
[2018-04-28 07:40] LABS: AGAP 9; ALB/GLOB RATIO 1.5; ALBUMIN 3.2 g/dL (3.5-5.0); ALKALINE PHOSPHATASE 52 U/L (32-122); BUN 31 mg/dL (8-22); CALCIUM 8.4 mg/dL (8.8-10.2); CHLORIDE 101 mmol/L (98-107); COSMO 279; CREATININE 0.6 mg/dL (0.7-1.2); ESTIMATED GFR > 60; GLUCOSE 235 mg/dL (70-104); GOT 586 U/L (10-34); MAGNESIUM 1.8 mg/dL (1.5-2.7); POTASSIUM 4.5 mmol/L (3.5-5.1); SODIUM 132 mmol/L (136-145); TCO2 22 mmol/L (25-35); TOTAL BILIRUBIN 0.81 mg/dL (0.20-1.00); TOTAL PROTEIN 5.4 g/dL (6.3-8.3)
[2018-04-28] MEDS: NS 1,000 ML IV SCH ×2 (07:51→15:17)
[2018-04-28 07:53] LABS: GPT 818 U/L (10-44)
[2018-04-28] MEDS: ELIQUIS PO SCH ×2 (07:59→20:27)
[2018-04-28] MEDS: MEGACE PO SCH ×2 (07:59→20:27)
[2018-04-28] MEDS: BETAPACE PO SCH ×2 (07:59→20:26)
[2018-04-28] MEDS: PATIENT'S OWN MED PO SCH (07:59)
[2018-04-28] MEDS: ASPIRIN PO SCH (07:59)
[2018-04-28] MEDS ORDERED: POTASSIUM CHLORIDE 60 MEQ in NS 500 ML IV ONE (08:18)
--- NOTE | 2018-04-28 08:44 | PROGRESS NOTE ---
DATE: 04/28/2018 SUBJECTIVE: The patient reports feeling better. He had a bowel movement yesterday. He denies any chest pain or any shortness of breath. No other issues noted. We have stopped vasopressors yesterday around 3:00 p.m. No acute issues note overnight. OBJECTIVE: Vital Signs: Temperature 97.8, heart rate 66, respiratory rate 19. Blood pressure 103/55. O2 saturation 99% on room air. General: This is a chronically ill- looking, 73-year-old male, lying in bed, in no acute distress. HEENT: Head is normocephalic, atraumatic. Mucous membranes dry. Neck: No JVD noted. No carotid bruits. No lymphadenopathy. No thyromegaly. Cardiovascular: S1, S2 heard. Regular rate and rhythm. No murmurs, gallops, or rubs noted. Respiratory: Clear bilaterally to auscultation. No work of breathing or using accessory muscles. Abdomen soft, nontender to palpation. A little bit distended. No organomegaly noted. Bowel sounds present. Extremities: No clubbing, cyanosis, or edema. Peripheral pulses present in both legs. Neurologic: The patient is alert and oriented x3. Moves 4 extremities. LABORATORY DATA: White cell count 38.32. Hemoglobin 7.3, hematocrit 22.5, platelets 169,000 with BMP that reveals sodium 132 with potassium 4.5. BUN 31, creatinine 0.6. ASSESSMENT AND PLAN: 1. Shock. That condition is multifactorial including septic shock versus adrenal insufficiency. In any case, we have been able to wean off from pressors since yesterday afternoon. At this time, we will continue with stress doses of steroids, and he continues to maintain blood pressure. We will try to wean off of them slowly. Blood cultures are still pending. At this point, we will continue with same management. 2. Coloproctitis. The report from CT said fecal impaction, but the patient is having bowel movements at home, and he had a bowel movement yesterday. In any case, by now, we will continue with the same antibiotic management until cultures are resulted. In this case, it is Zosyn and meropenem, day #2 for both medications. 3. Troponinemia secondary to hypotension. The patient has been evaluated by Cardiology, and they think this is secondary to low blood pressure. I think, at this point, we are going to continue monitoring this patient closely. The patient does not have any chest pain or any shortness of breath. 4. Atrial fibrillation. The patient, when he came in, had right ventricular response. He was given amiodarone and also sotalol. Now, he is in sinus rhythm. At this point, we will continue with sotalol. We will continue monitoring this patient on telemetry. 5. Shock liver. His AST and ALT are getting higher. We will continue to monitor with CMP daily while this patient is here. 6. Diabetes mellitus, type 2. Because he is receiving IV steroids, his blood sugars are higher, so we will continue using Accu-Chek before meals and also at bedtime. We will readjust the doses of insulin sliding scale if needed. 7. History of Sushil disease. The patient is receiving 50 mg of hydrocortisone IV q. 8 hours. We will continue with that dose for today and will start reducing the amount of steroids tomorrow if blood pressure maintains within normal limits. At this point, the patient is not on any vasopressors. His vital signs are stable. I think this patient can be sent to a regular floor today. 8. History of chronic lymphocytic leukemia. The patient is being followed by Dr. Hurtado. Today, the hemoglobin is 7.3. Considering low blood pressure and elevated troponins , I prefer to go ahead and transfuse 1 unit of blood. cc: Moris Vickers MD MTDYakov
--- NOTE | 2018-04-28 10:04 | HEMO/ONC CONSULTATION ---
DATE: 04/28/2018 CHIEF COMPLAINT: We are being consulted for further evaluation of patient's CLL. HISTORY OF PRESENT ILLNESS: Mr. Rendon is a 73-year-old male that presented to the emergency department complaining of nausea, vomiting, and generalized weakness. Denies any fevers, chills, diarrhea, chest pain, or shortness of breath. While in the emergency department , patient was found to be hypotensive. The patient was started on IV Solu-Cortef and IV Synthroid in the ER, and blood pressure did not improve and was started on Levophed and was admitted at that time to the ICU for further evaluation and management. Mr. Rendon is well known to us at our clinic, where he follows up for his ZAP-70 negative CLL diagnosed in 2006. The patient did get 3 full rounds of fludarabine and rituximab in 2006 and relapsed and had R-CVP x4 and had fludarabine and rituximab again x6 in 2011, and then relapsing again in 2015, where he completed 6 cycles of Treanda and rituximab. The patient also has a history of hypogammaglobulinemia, where he gets IVIG for recurrent infections and once again, patient relapsed in May 2017 and was started on Imbruvica at that time. The patient had been off Imbruvica due to complications and restarted it back in February and has been doing well on his Imbruvica since then. PAST MEDICAL HISTORY: CLL, hypothyroidism, diabetes mellitus type 2, hyperlipidemia, DVTs, and atrial fibrillation. PAST SURGICAL HISTORY: TURP, appendectomy, Port-A-Cath placement and removal. SOCIAL HISTORY: Denies any tobacco, alcohol, or illicit drug use. FAMILY HISTORY: Emphysema and lung cancer. ALLERGIES: Allopurinol, Keflex, cephalosporins, Levaquin, penicillin, Zosyn, Bactrim, and laxatives. HOME MEDICATIONS: Eliquis, Uloric, fludrocortisone acetate, Lasix, Cortef, Imbruvica, Lantus, Synthroid, Megace, Glucophage XR, Reglan, Protonix, Klor-Con, Pravachol, promethazine, Januvia, and sotalol. REVIEW OF SYSTEMS: Negative other than what is mentioned in HPI. PHYSICAL EXAM: Vital Signs: Temperature 97.8 degrees, heart rate 66, respiratory rate 18, blood pressure 133/55, saturation 99% on room air. General: Patient is awake, lying in bed, in no acute distress noted. HEENT: Anicteric. Pupils PERRLA. Mucous membranes moist. Neck: Supple. Trachea midline. No JVD. No lymph node survey. No palpable adenopathy in the neck. Cardiovascular: S1, S2. Regular rate and rhythm. Chest: Bilateral breath sounds clear to auscultation. Abdomen: Soft, mildly tender. Bowel sounds present in all 4 quadrants. Neurologic: Alert and oriented x3. No focal deficits noted. Skin: Warm, dry , and intact. No petechiae. No rash. No cyanosis. LABORATORY DATA: White blood cell count is 38.32, hemoglobin 7.3, hematocrit 22.5, platelets are 169. Potassium 4.5, BUN 31, creatinine 0.6. RADIOLOGY RESULTS: CT head: No acute abnormality. CT of chest, abdomen, and pelvis shows abdominopelvic regional adenopathy, mild inguinal adenopathy. ASSESSMENT AND PLAN: 1. Chronic lymphocytic leukemia, ZAP-70 negative: The patient will continue on Imbruvica at this time. Lymph nodes to neck and abdomen are slowly decreasing in size. Will continue Imbruvica. 2. Tumor lysis prophylaxis. The patient will continue on his Uloric. Continue to monitor electrolytes closely. 3. Sushil disease: Patient will continue his high-dose steroids at this time. Continue recommendations per primary medical team. 4. Hypogammaglobulinemia with recurrent infections. The patient has been on intravenous immunoglobulin every 4 weeks. His last dose was given April 02, 2018. The patient is doing well. Continue to monitor. 5. AST and ALT are elevated. Continue orders per Gastroenterology and primary medical team. Plan of care discussed with Dr. Hurtado. Dictated by ERLIN Evans for Anjum Hurtado MD Patient seen and examined. Patient recently started back on Imbruvica. No tumor lysis. His neck lymphadenopathy rapidly improved. His back pain also rapidly improved. He reports over the last week, this is the best he has felt. Unfortunately he presented with hypotension. I suspect this is most likely adrenal insufficiency related. No obvious evidence of infection. Continue stress dose steroids. He has been covered broadly with antibiotics. Anjum Hurtado M.D. cc: ERLIN Evans MD [facility]
--- NOTE | 2018-04-28 12:01 | GASTROENTEROLOGY PROGRESS NOTE ---
DATE: 04/28/2018 SUBJECTIVE: No acute overnight events. The patient denies nausea, vomiting, fevers, chest pain, shortness of breath, abdominal pain, diarrhea, constipation, or rectal bleeding. He was weaned off pressors overnight. OBJECTIVE: Vital Signs: Temperature 97.8 degrees, heart rate 65, respiratory rate 16, blood pressure 127/48, O2 saturation 99% on room air. General: The patient is awake , alert, and oriented, in no acute distress, pleasant, sitting upright in bed. HEENT: Sclerae anicteric. Moist mucous membranes. Neck: No JVD. Mild lymphadenopathy on the right. Cardiac: Regular rate and rhythm. No murmurs. Lungs: Clear to auscultation bilaterally. Abdomen: Soft, nontender, nondistended. Normoactive bowel sounds. No rebound or guarding. No ascites. Does have some notable lymphadenopathy in the abdomen. Extremities: No clubbing, cyanosis, or edema. Neurological: Nonfocal. LABORATORY DATA: White count 38.3, hemoglobin 7.3, platelets 169,000. Sodium 132, potassium 4.5, chloride 101, bicarb 22, BUN 31, creatinine 0.6, glucose 235, total bilirubin 0.81, AST 586, ALT 818, alkaline phosphatase 52, total protein 5.4, albumin 3.2. ASSESSMENT AND PLAN: Mr. Rendon is a 73-year-old gentleman with a history of Sushil's and chronic lymphocytic leukemia, who was admitted in shock in the setting of adrenal insufficiency versus infection. Other presenting issues include [id number] myocardial infarction, thought to be demand, ischemic liver injury, and uncontrolled hyperglycemia. The patient has been weaned off pressors and is currently on empiric antibiotics. No infectious etiology has been found to date. 1. For shock, the patient is on antibiotics and stress-dose steroids with significant improvement. He is currently off pressors. 2. Nausea, vomiting, and abdominal pain, now resolved. Suspect related to underlying adrenal insufficiency. He is tolerating a diet. 3. Imaging showed possible mild proctitis and mild left colitis as well as constipation. He denies constipation or change in bowel habits. Abdomen exam is benign. 4. Hrp-GW-imnklydnm myocardial infarction, followed by Cardiology. The patient is on home aspirin and Eliquis. 5. Atrial fibrillation with rapid ventricular response. The patient is maintained on sotalol and is on his Eliquis medication. 6. Anemia. Hemoglobin 7.3 this morning. No signs of overt bleeding. We will continue to trend hemoglobin and hematocrit daily. The patient has mild vitamin B12 deficiency. 7. Chronic lymphocytic leukemia, followed by Dr. Hurtado. 8. Fallon's. The patient is on stress-dose steroids. I spoke with the and at bedside. Encouraged the patient to follow up as an outpatient with hands assembler for further management of his underlying disease. 9. Insulin-dependent diabetes. Blood glucose continues to be uncontrolled. He is on glargine as well as sliding scale insulin. 10. Hypothyroidism, on home Synthroid. 11. Gastroesophageal reflux disease. The patient is on proton pump inhibitor orally once daily. 12. Abnormal LFTs: suspect ischemic liver injury. I expect LFTs to uptrend before coming down. Normal synthetic function. Will obtain hepatitis panel We will continue to follow with you. Please call with any questions or concerns. MTDYakov
[2018-04-29] MEDS: NS 1,000 ML IV SCH ×2 (02:48→10:45)
[2018-04-29] MEDS: ZYVOX 600 MG/D5W 600 MG/300 ML IVPB IV SCH ×2 (02:48→13:21)
[2018-04-29] MEDS: MERREM 1 GM in NS 50 ML IV SCH ×2 (05:15→13:21)
[2018-04-29 05:45] LABS: BASO# 0.03 X1000 (0.0-0.2); BASO% 0.1 % (0.0-0.8); HEMATOCRIT 22.7 % (42.0-52.0); HEMOGLOBIN 7.3 g/dL (14.0-18.0); IMM GRAN# 0.08 X1000 (0.0-0.04); IMM GRAN% 0.2 % (0.0-0.5); LYMPH# 39.42 X1000 (1.2-3.4); LYMPH% 93.7 % (20.5-51.1); MCHC 32.2 g/dL (33-37); MCV 105.6 FL (81-99); MONO# 0.45 X1000 (0.11-0.59); MONO% 1.1 % (1.7-9.3); MPV 9.7 FL (7.4-10.4); NEUT# 2.11 X1000 (1.4-6.5); NEUT% 4.9 % (42.2-75.2); PLT 158 X1000 (130-400); RBC 2.15 XMIL (4.7-6.1); RDW 18.2 % (11.5-14.5); WBC 42.09 X1000 (4.8-10.8)
[2018-04-29 06:09] LABS: AGAP 12; ALB/GLOB RATIO 1.5; ALKALINE PHOSPHATASE 51 U/L (32-122); BUN 24 mg/dL (8-22); CALCIUM 8.4 mg/dL (8.8-10.2); CHLORIDE 103 mmol/L (98-107); COSMO 280; CREATININE 0.7 mg/dL (0.7-1.2); ESTIMATED GFR > 60; GLUCOSE 198 mg/dL (70-104); GOT 390 U/L (10-34); POTASSIUM 4.2 mmol/L (3.5-5.1); SODIUM 135 mmol/L (136-145); TCO2 20 mmol/L (25-35); TOTAL BILIRUBIN 1.04 mg/dL (0.20-1.00)
[2018-04-29] MEDS: SOLU-CORTEF IV SCH (06:19)
[2018-04-29] MEDS: SYNTHROID PO SCH (06:20)
[2018-04-29] MEDS: HUMALOG SUBQ SCH ×2 (06:20→10:45)
[2018-04-29] MEDS: PROTONIX PO SCH (06:20)
[2018-04-29 06:27] LABS: GPT 798 U/L (10-44)
[2018-04-29 07:00] LABS: SEGS 2 % (42-75)
[2018-04-29 07:01] LABS: LYMPHS 61 % (21-51)
--- NOTE | 2018-04-29 07:25 | EKG Report ---
Test Performed on : 04/29/2018 06:54:20 AM Test Reason : dyspnea, elevated cardiac enzymes Blood Pressure : / mmHG Vent. Rate : 064 BPM Atrial Rate : 064 BPM P-R Int : 168 ms QRS Dur : 100 ms QT Int : 470 ms P-R-T Axes : 057 042 015 degrees QTc Int : 484 ms Normal sinus rhythm. Prolonged QT Abnormal ECG When compared with ECG of 26-APR-2018 11:51, (Unconfirmed) premature atrial complexes. are no longer present CA interval has decreased Vent. rate has decreased BY 31 BPM Confirmed by Bradford MCPHERSON, Evgeny Sanchez ([id number]) on 04/29/2018 1:40:28 PM
[2018-04-29] MEDS: PATIENT'S OWN MED PO SCH (08:34)
[2018-04-29] MEDS: BETAPACE PO SCH (08:35)
[2018-04-29] MEDS: MEGACE PO SCH (08:35)
[2018-04-29] MEDS: ASPIRIN PO SCH (08:35)
--- NOTE | 2018-04-29 08:35 | HEMO/ONC PROGRESS NOTE ---
DATE: 04/29/2018 SUBJECTIVE: Patient says he is feeling better at this time. The patient has no complaints at this time. OBJECTIVE: Vital Signs: Temperature 98.4 degrees, heart rate 62, respiratory rate 23, blood pressure is 117/56, satting 98% on room air. General: Patient is awake, lying in bed, no acute distress noted. HEENT: Anicteric. Pupils TY. Mucous membranes appear to be moist. Cardiovascular: S1, S2. Regular rate and rhythm. Chest: Bilateral breath sounds. Clear to auscultation. Abdomen: Soft, mildly tender. Bowel sounds present in all 4 quadrants. Neurologic: Alert and oriented x3. No focal deficits noted. LABORATORY DATA: White blood cell count is 42.09, hemoglobin 7.3, hematocrit 22.7, platelets are 158. Potassium 4.2, BUN 24, creatinine 0.7. ASSESSMENT AND PLAN: 1. Chronic lymphocytic leukemia, ZAP-70 negative. Patient will continue on Imbruvica at this time. Lymph nodes continue to decrease in size. Continue to monitor closely. 2. Sushil disease: The patient will continue high-dose steroids. Most likely due to renal insufficiency versus hypertension and other complications. Continue with high-dose steroids. Continue to monitor closely. 3. Abdominal pain: Abdominal pain is resolved. Continue recommendations per Gastroenterology. 4. Atrial fibrillation with rapid ventricular response: Continue recommendations per primary medical team. Plan of care discussed with Dr. Hurtado. Dictated by ERLIN Evans for Anjum Hurtado MD cc: ERLIN Evans MD
[2018-04-29] MEDS: ELIQUIS PO SCH (08:36)
--- NOTE | 2018-04-29 09:51 | PROGRESS NOTE ---
DATE: 04/29/2018 SUBJECTIVE: Patient reports feeling fine. Denies any fever or chills. No nausea or vomiting. OBJECTIVE: Vital Signs: Temperature 97.8 degrees, heart rate 62, respiratory rate 23, blood pressure 118/64, O2 saturation 97% on room air. General: This a chronically ill-looking 73-year- old male, lying in bed, in no acute distress. HEENT: Head is normocephalic and atraumatic. Mucous membranes dry. Neck: No JVD noted. No carotid bruits. No lymphadenopathy. No thyromegaly. Cardiovascular: S1, S2 heard. No murmurs, gallops, or rubs. Regular rate and rhythm. Respiratory: Clear bilaterally to auscultation. No work of breathing or using accessory muscles. Abdomen: Soft, nontender to palpation. Bowel sounds present. No organomegaly. Extremities: No clubbing, cyanosis, or edema. Peripheral pulses present in both legs. Neurological: Patient alert and oriented x3. Moves 4 extremities. LABORATORY DATA: White cell count 42.09, hemoglobin 7.3, hematocrit 22.7, platelets 158,000. Sodium is 135, creatinine 0.7, glucose 198. ASSESSMENT AND PLAN: 1. Shock. This condition is multifactorial but this resolved. Patient is not requiring any more vasopressors. Most likely it is related to adrenal insufficiency. At this point, we will continue with high doses of intravenous steroids. Blood cultures so far for the last 3 days are normal. We will continue to monitor this patient. 2. Coloproctitis. Gastroenterology has been following this patient. They are not concerned about this finding. In the ER, patient had bowel movement and also the physical exam is benign. We will continue to monitor patient. 3. Tropinemia secondary to hypertension. Cardiology has evaluated this patient, and they do not think this was txt-SB-syazlzi elevation myocardial infarction. They think that those troponins has been high because of low blood pressure. In any case, we will continue to monitor this patient closely. 4. Atrial fibrillation, rate controlled. The patient is on sotalol and amiodarone. We will continue with same management. 5. Shock liver. His liver functions tests, in this case, his transaminases are getting slightly better. We will continue to monitor basic metabolic panel daily. 6. Diabetes mellitus type 2. Blood sugar has been high definitely because of intravenous steroid that we are using for adrenal insufficiency. At this point, we will continue with the same management. 7. History of [place] disease. Patient is receiving 50 mg of hydrocortisone intravenous 8 hours. Considering that he is doing good, we are going to reduce the dose from 50 to 25 mg intravenous q.8 hours 25 mg. 8. History of chronic lymphocytic leukemia. The patient is being followed with Dr. Hurtado in the hospital. We will follow his recommendations. 9. Disposition. We will continue to monitor this patient. Patient has order for transfer to floor whenever they have a bed. cc: Moris Vickers MD
[2018-04-29 10:35] LABS: HEPATITIS PROFILE ACUTE SEE COMMENTS
--- NOTE | 2018-04-29 12:35 | GASTROENTEROLOGY PROGRESS NOTE ---
DATE: 04/29/2018 SUBJECTIVE: No acute overnight events. Afebrile. No nausea, vomiting, or fevers. The patient denies any complaints today. He is tolerating the diet, having bowel movements. OBJECTIVE: Vital signs: Temperature 97.8, heart rate is 59, respiratory rate 21, blood pressure 109/43, O2 saturation 99% on room air. General: Patient awake, alert, oriented , in no acute distress. Sitting upright in chair, pleasant. HEENT: Sclerae anicteric, moist mucous membranes. Neck: No JVD, no lymphadenopathy. Cardiac: Regular rate and rhythm, no murmurs. Lungs: Clear to auscultation bilaterally. Abdomen: Soft, nontender, nondistended, normoactive bowel sounds, no rebound or guarding. Extremities: No clubbing, cyanosis, or edema. Neurologic: Nonfocal. Psych: Normal affect. LABS: White count 4.2, hemoglobin stable at 7.3, platelets of 158,000. Sodium 135, potassium 4.2, chloride 103, bicarb 20, BUN 24, creatinine 0.7. LFTs: Albumin 3.0, total bilirubin 1.0, AST 390, ALT 798, alkaline phosphatase 51. Blood cultures x2 no growth to date. Acute hepatitis panel is pending. ASSESSMENT AND PLAN: Mr. Rendon is a 73-year-old gentleman with a history of [place] disease and chronic lymphocytic leukemia who was admitted with shock likely secondary to adrenal crisis. Patient currently on empiric antibiotics, although infectious workup has been negative to date. Other presenting issues included ST-segment elevation myocardial infarction, ischemic liver injury, and uncontrolled diabetes. 1. Abnormal liver function tests, downtrending, likely ischemic injury will continue to improve. Follow up acute hepatitis panel. 2. Shock, resolved. 3. Nausea, vomiting, abdominal pain, resolved. 4. Adrenal insufficiency on stress dose steroids. 5. Duv-GG-ddfkdybkn myocardial infarction. The patient is continued on aspirin and Eliquis, followed by Cardiology. 6. Atrial fibrillation with RVR, currently in normal sinus rhythm on sotalol. Defer management to Cardiology. 7. Anemia. Hemoglobin stable. No overt bleeding. 8. Chronic lymphocytic leukemia followed by Dr. Hurtado. Appreciate recommendations. 9. Insulin-dependent diabetes, currently on glargine and sliding scale insulin. 10.Hypothyroidism, on Synthroid. 11.Gastroesophageal reflux disease on proton pump inhibitor once daily. We will follow with you. Please call with any questions or concerns. MTDD
[2018-04-29] MEDS ORDERED: SOLU-CORTEF IV SCH (14:00)
--- NOTE | 2018-04-29 15:27 | DISCHARGE SUMMARY ---
ADMISSION DATE: 04/26/2018 DISCHARGE DATE: 04/29/2018 DISCHARGE DIAGNOSES: 1. Shock secondary to adrenal insufficiency, improved. 2. Stercoral colitis, resolved. 3. Tropinemia secondary to hypotension. 4. Shock liver, improved. 5. Chronic lymphocytic leukemia, under treatment. 6. Diabetes mellitus, type 2. 7. Hypothyroidism. 8. [place] disease. 9. Paroxysmal atrial fibrillation. CONSULTATIONS: 1. Anjum Hurtado MD, Hematology. 2. Gastroenterology, Andry Stovall MD. 3. Garcia Sawyer MD, from Cardiology. PROCEDURES: 1. Head CT showed no visible acute intracranial abnormality. 2. Echocardiogram limited views showed ejection fraction 65%. Very discrete area of hypokinesis. Very supple. No gross valvular abnormalities noted. 3. Chest, abdomen, and pelvis CT showed adenopathy which is more prominent in the bilateral supraclavicular regions, left axilla, and subcarinal mediastinum. Mild inguinal adenopathy in the CT of abdomen and pelvis. ASSESSMENT AND PLAN: This is a 72-year-old male with history of atrial fibrillation with rapid ventricular rate, chronic lymphocytic leukemia (CLL), diabetes mellitus, and [place] disease, who was discharged from our service on February 18 for pneumonia. Date of admission, he reported he was having some abdominal discomfort with no overt pain. He started having some nausea and vomiting. He came to the ER. He received Solu-Cortef and Synthroid , and he started getting better, but blood pressure unfortunately continued to get lower so he was sent to ICU. He was started on vasopressor of Levophed. White cell count was elevated. CT scan of the chest, abdomen, and pelvis as above. He was initially treated as septic shock with antibiotics, but because of CLL, white cell count tends to be elevated. Blood cultures has been negative so far. We have talked today with Dr. Hurtado about his situation. He thinks that this elevated white cell count is not only because of the CLL, but also because of another reaction of the medication that he is getting for CLL. The name of this medication is Imbruvica that he is receiving, and actually Dr. Hurtado mentioned that this medication was helping to shrink almost all lymph nodes noted in the cervical area. At this time, he is stable. He is able to walk around, according to physical therapy team. He is going to be discharged home in stable condition, received IV and p.o. antibiotics for few days. He will receive doses of prednisone that we are going to taper off in 4 weeks. The patient is being discharged in stable condition. DISCHARGE PHYSICAL EXAMINATION: Vital signs: Temperature 97.6 degrees, heart rate 61, respiratory rate 24, blood pressure 110/49, O2 saturation 100% on room air General examination: This is a chronically ill-looking, 73-year-old male, lying in bed, in no acute distress. HEENT: Head is normocephalic, atraumatic. Neck: No JVD noted. No carotid bruit. Lymphadenopathy is noted in both anterior and posterior cervical area. Cardiovascular: S1, S2 heard. No murmurs, gallops, or rubs. Regular rate and rhythm. Respiratory: Clear bilaterally to auscultation. No work of breathing or use of accessory muscles. Abdomen: Soft, nontender to palpation. Bowel sounds present. No organomegaly. Extremities: No clubbing, cyanosis, or edema. Peripheral pulses present in both legs. Neurological: Patient alert and oriented x2. Moves 4 extremities. DISCHARGE DISPOSITION: Home to self-care. FOLLOW-UP: Follow up with Dr. Hurtado in a week. DISCHARGE MEDICATION: 1. Prednisone 10 mg tablets as directed: 4 tablets p.o. daily for a week, then 3 tablets p.o. daily for a week, then 2 tablets p.o. daily for a week, then 1 tablet p.o. daily for a week, and then discontinue it. 2. Lantus 45 units subcutaneous daily at night. 3. Sotalol 120 mg 1 tablet p.o. b.i.d. 4. Januvia 100 mg 1 tablet p.o. daily. 5. Glucophage XR 750 mg 1 tablet p.o. b.i.d. 6. Fludrocortisone 0.1 mg p.o. daily. 7. Levothyroxine 200 mcg 1 tablet p.o. daily. 8. Eliquis 5 mg 1 tablet p.o. b.i.d. 9. Protonix 40 mg 1 tablet p.o. daily. 10. Uloric 1 tablet p.o. daily. 11. Furosemide 40 mg 1 tablet p.o. daily. 12. Imbruvica 1 tablet p.o. daily. 13. Megace 2 tablets p.o. b.i.d. 14. Reglan 1 tablet p.o. before meals. 15. Klor-Con 1 tablet p.o. b.i.d., 20 mEq. 16. Pravachol 1 tablet p.o. at bedtime 40 mg. DISCHARGE TIME: 33 minutes. cc: Moris Vickers MD MTDD
[2018-04-29 15:48] VITALS: BP 125/70
== END 2018-04-29 16:15 | disposition home or self-care (01) | DRG 643 ==
LOC: ED 10:07 → SUATTDRO 12:33 → EDIPHOLD 12:33 → ICU 15:08
PROVIDERS: ATTEND Internal Medicine
CPT/HCPCS: 36415; 70450; 71010; 71045; 71260; 74177; 80048; 80053; 80061; 80074; 80076; 81001; 82533; 82550; 82553; 82607; 82728; 82746; 82805; 82948; 83036; 83540; 83550; 83605; 83690; 83735; 83880; 84153; 84439; 84443; 84484; 85025; 85610; 85730; 87040; 93005; 93010; 93306; 93308; 96361; 96365; 96366; 96368; 96375; 97116; 97162; 97530; 99285; 99291; A9270; C8924; G0103; J0282; J1720; J1815; J2020; J2185; J2405; J3370; J7030; Q9957; Q9967; S0179; XXXXX

== ENCOUNTER 2018-06-03 01:39 | Inpatient (IN) ==
[2018-06-03] MEDS ORDERED: CARDIZEM IV ONE ×2 (01:50→05:04)
--- NOTE | 2018-06-03 02:00 | PROVIDER DOCUMENTATION ---
HPI-General Adult - General Chief Complaint: Shortness of Breath Stated Complaint: a fib w/ rvr Time Seen by Provider: 06/03/18 01:41 Source: patient Allergies/Adverse Reactions: Patient Allergies Allergy/AdvReac Type Severity Reaction Status Date / Time allopurinol [From Zyloprim] Allergy Intermediate RASH Verified 06/03/18 02:39 cephalexin monohydrate * Allergy Intermediate RASH Verified 06/03/18 02:39 [From Keflex] Cephalosporins Allergy Intermediate RASH Verified 06/03/18 02:39 levofloxacin [From Levaquin] Allergy Intermediate RASH Verified 06/03/18 02:39 Penicillins Allergy Intermediate RASH Verified 06/03/18 02:39 piperacillin sodium * Allergy Intermediate RASH Verified 06/03/18 02:39 [From Zosyn] sulfamethoxazole Allergy Intermediate RASH Verified 06/03/18 02:39 [From Bactrim] tazobactam sodium * Allergy Intermediate RASH Verified 06/03/18 02:39 [From Zosyn] trimethoprim [From Bactrim] Allergy Intermediate RASH Verified 06/03/18 02:39 vancomycin AdvReac Severe seizure Verified 06/03/18 02:39 like activity phenolphthalein [From Ex-Lax] AdvReac Intermediate HIVES Verified 06/03/18 02:39 Home Medications: Home Medication List Medication Instructions Recorded Confirmed Last Taken Type Apixaban [Eliquis] 5 mg PO BID 02/13/18 04/26/18 04/25/18 History Fludrocortisone Acetate 0.1 mg PO DAILY 02/13/18 04/26/18 04/25/18 History Insulin Glargine [Lantus] 45 unit SUBQ QHS PRN 02/13/18 04/26/18 04/25/18 History Levothyroxine Sodium [Synthroid] 200 microgm PO DAILY 02/13/18 04/26/18 History Metformin E.r. [Glucophage Xr] 750 mg PO BID 02/13/18 04/26/18 04/25/18 History Sitagliptin Phosphate [Januvia] 100 mg PO DAILY 02/13/18 04/26/18 04/25/18 History Sotalol HCl [Sotalol] 120 mg PO BID 02/13/18 04/26/18 04/25/18 History Pantoprazole [Protonix] 40 mg PO DAILY@0700 30 Days #60 tab 02/18/18 04/26/18 Rx Febuxostat [Uloric] 1 tab PO DAILY 04/26/18 04/26/18 04/25/18 History Furosemide [Lasix] 1 tab PO DAILY 04/26/18 04/26/18 04/25/18 History Ibrutinib [Imbruvica] 1 tab PO DAILY 04/26/18 04/26/18 04/25/18 History Megestrol Acetate 3 tab PO BID 04/26/18 04/26/18 04/25/18 History Metoclopramide [Reglan] 1 tab PO AC 04/26/18 04/26/18 04/25/18 History PRAVAstatin [Pravachol] 1 tab PO QHS 04/26/18 04/26/18 04/25/18 History Potassium Chloride [Klor-Con M20] 1 tab PO DAILY 04/26/18 04/26/18 04/25/18 History Aspirin 81 mg PO DAILY chewtab 04/29/18 Unknown Rx Levofloxacin [Levaquin] 750 mg PO DAILY #5 tab 04/29/18 Unknown Rx Prednisone 10 mg PO DIRECTED #70 tab 04/29/18 Unknown Rx Promethazine HCl 1 tab PO Q4H PRN PRN #0 04/29/18 04/26/18 Unknown Rx Hydrocortisone 1 tab PO DIRECTED 06/03/18 06/03/18 Unknown History - History of Present Illness -Gen Adult Nature of Presenting Problems: 73 y/o M presents to the ED complaining of dyspnea and palpitations. States this began at about 7pm last night and has persisted. No chest pain or pressure. No cough or fever, no recent illness. Has been complaint with his meds. Has Hx for CLL and Afib and takes sotalol for his afib. Review of Systems - Adult - REVIEW OF SYSTEMS - ADULT Constitutional: reports: no symptoms reported Eyes: reports: no symptoms reported Ears, Nose, Mouth & Throat: reports: no symptoms reported Cardiovascular: reports: irregular heart rate, palpitations. denies: chest pain Respiratory: reports: shortness of breath. denies: cough Gastrointestinal: reports: no symptoms reported Genitourinary: reports: no symptoms reported Musculoskeletal: reports: no symptoms reported Integumentary: reports: no symptoms reported Neurological: reports: no symptoms reported Psychiatric: reports: no symptoms reported Endocrine: reports: no symptoms reported Hematologic/Lymphatic: reports: no symptoms reported Allergic/Immunologic: reports: no symptoms reported All Other Systems: Reviewed and Negative Past History - Adult - PAST MEDICAL HISTORY-ADULT Review of Records: reports: Old Records Reviewed, Nursing Assessment Review, Medications Reviewed, Social history reviewed & non-contributory. Major Childhood Illnesses: reports: denies history Cardiovascular: reports: A-Fib Respiratory: reports: denies history Gastrointestinal: reports: denies history Obstetrical/Gynecological: reports: denies history Genitourinary: reports: kidney disease, other (Addisons) Musculoskeletal: reports: denies history Neurological: reports: denies history Endocrine/Immune: reports: Diabetes, Leukemia Other Conditions: reports: denies history - PRIOR SURGERIES/PROCEDURES Surgical/Procedure History: reports: appendectomy, indwelling device (port), other (vasectomy, BUCK) - IMMUNIZATION STATUS Childhood Immunizations: See Nurse Assessment Flu Vaccine: See Nurse Assessment - FAMILY HISTORY Family History: reviewed, not pertinent Physical Exam-General - PHYSICAL EXAM-ADULT Initial Vital Signs Reviewed: Yes - CONSTITUTIONAL General Appearance: appears well, alert, no apparent distress, mild distress - EYES Eyes: PERRL/EOMI - HEAD, EARS, NOSE, MOUTH & THROAT HENMT: normocephalic/atraumatic, moist mucous membranes, normal ENT inspection - NECK Neck: non-tender, full range of motion, supple - RESPIRATORY Respiratory: chest non-tender, lungs clear, normal breath sounds - CARDIOVASCULAR Cardiovascular: normal peripheral pulses, tachycardia, irregularly irregular - GASTROINTESTINAL (ABDOMEN) Abdominal Exam: non tender, soft - MUSCULOSKELETAL Back Exam: normal inspection, no CVA tenderness, no vertebral tenderness Extremity: normal range of motion, non-tender, normal inspection, other - SKIN Integumentary: normal turgor, warm/dry, pallor - NEUROLOGIC Neurologic: grossly normal, no motor/sensory deficits - PSYCHIATRIC Psych/Mental Status: normal mood/affect, normal thought content, normal thought process, oriented x 3 Progress - PLAN OF CARE/RESULTS Progress/Plan/Lab Results: Orders Category Date Time Status IV Insertion ORDERED Care 06/03/18 01:50 Ordered cxr [CHEST-1 VIEW] [RAD] Stat Exams 06/03/18 01:51 Ordered BASIC METABOLIC PANEL [CHEM] Stat Lab 06/03/18 01:50 Uncollected CBC WITH DIFF [HEME] Stat Lab 06/03/18 01:50 Uncollected D-DIMER [COAG] Stat Lab 06/03/18 01:50 Uncollected PRO B-NATRIURETIC PEPTIDE Stat Lab 06/03/18 01:50 Uncollected TROPONIN T Stat Lab 06/03/18 01:50 Uncollected Diltiazem [Cardizem] Med 06/03/18 01:50 Once 20 mg IV NOW ONE dyspnea with palpitations. pt in afub with RVR, rate 175. will treat and will further evaluate for causes including but not limited to acs, arrythmia, pe, ptx , pna, electerolyte imbalance, infectious process Result Diagrams: 06/03/18 02:04 06/03/18 02:04 - REASSESSMENT Reassessment #1 Status: improving (feeling much better, all symtpoms resolved, HR decreased with diltiazem and then spontaneously converrted to NSR. Elevated D-dimer will further evaluate with CTA and will closely observe and further evaluate with serial troponins) Reassessment #2 Status: unchanged (called to bedside pt back in afib with RVR, complains of mild dyspnea. Will treat with IV diltiazem) Reassessment #3 Status: unchanged (persisted afib unchanged with diliazem bolus will start diltiazem gtt and will admit. Discussed case with Dr. Girard, Hospitalist, who will see and admit pt.) - EKG 1 Time of EKG reading by physician:: 01:45 EKG Read and Signed by:: Makenzie Pablo EKG Interpretation (*Must complete 3 of following elements*): Abnormal (Atrial fibrillation with RVR, rate [address] depressions) 2 Time of EKG reading by physician:: 03:12 EKG Read and Signed by:: Makenzie Pablo EKG Interpretation (*Must complete 3 of following elements*): Normal (Sinus Rhythm, rate 85, occasional PAC's, no acute st changes, normal axis and intervals) 3 Time of EKG reading by physician:: 05:07 EKG Read and Signed by:: Makenzie Pablo EKG Interpretation (*Must complete 3 of following elements*): Abnormal (atrial fibrillation with RVR, rate 147, no acute st changes) - CT/MRI 1 CT Study: Thorax Impression: Abnormal (Per radiologist read: "large BL pleural effusions, mild pulmonary edema, mild body wall edema, indeterminate left renal hypoattenuation lesion measureing 2 cm, no PE") Departure - Departure Date of Disposition Decision: 06/03/18 Time of Disposition Decision: 05:45 DIAGNOSIS: Atrial fibrillation with rapid ventricular response Disposition: ADMITTED INPATIENT 09 Certified Medical Emergency: Emergent Condition: Fair Referrals and Follow-Ups: Latosha Badillo MD [Primary Care Provider] - - Critical Care Note This patient required my direct & personal management of CC.: Yes Attestation - Physician/ HAILE Attestation Patient care was provided by Advanced Practice Provider:: No The physician spent face to face time with patient:: Yes Advanced Practice Provider documentation review:: Supervising physician onsite and consulted in the evaluation and care of this patient. The physician did have a face to face encounter with the patient.
[2018-06-03 02:23] LABS: BASO# 0.15 X1000 (0.0-0.2); BASO% 0.2 % (0.0-0.8); EOS# 0.03 X1000 (0.0-0.7); HEMATOCRIT 23.9 % (42.0-52.0); HEMOGLOBIN 7.3 g/dL (14.0-18.0); IMM GRAN# 0.13 X1000 (0.0-0.04); IMM GRAN% 0.2 % (0.0-0.5); LYMPH# 80.14 X1000 (1.2-3.4); LYMPH% 96.7 % (20.5-51.1); MCH 33.6 PG (27-31); MCHC 30.5 g/dL (33-37); MCV 110.1 FL (81-99); MONO# 1.04 X1000 (0.11-0.59); MONO% 1.3 % (1.7-9.3); MPV 10.7 FL (7.4-10.4); NEUT# 1.37 X1000 (1.4-6.5); NEUT% 1.6 % (42.2-75.2); PLT 174 X1000 (130-400); RBC 2.17 XMIL (4.7-6.1); RDW 23.1 % (11.5-14.5); WBC 82.86 X1000 (4.8-10.8)
[2018-06-03] MEDS ORDERED: CARDIZEM PO ONE (02:44)
[2018-06-03 02:45] LABS: AGAP 17; BUN 16 mg/dL (8-22); CHLORIDE 97 mmol/L (98-107); COSMO 284; CREATININE 0.8 mg/dL (0.7-1.2); ESTIMATED GFR > 60; GLUCOSE 330 mg/dL (70-104); POTASSIUM 3.8 mmol/L (3.5-5.1); SODIUM 135 mmol/L (136-145); TCO2 21 mmol/L (25-35)
[2018-06-03 03:05] LABS: SEGS 2 % (42-75)
[2018-06-03 03:07] LABS: LYMPHS 90 % (21-51)
[2018-06-03] MEDS ORDERED: LASIX IV ONE ×2 (04:28→20:23)
[2018-06-03] MEDS: CARDIZEM 125 MG in NS 100 ML IV SCH ×2 (06:08→16:17)
[2018-06-03] MEDS ORDERED: TYLENOL PO PRN (06:28)
[2018-06-03] MEDS ORDERED: ZOFRAN IV PRN (06:28)
--- NOTE | 2018-06-03 07:09 | Diag Imaging Result Doc PS360 ---
EXAM: CHEST-1 VIEW 06/03/2018 HISTORY: dyspnea TECHNIQUE: AP portable at 0204 COMMENT: There is interstitial pulmonary edema and bilateral pleural effusions. The lungs are not as well-expanded as on 05/14/2018 and the pulmonary edema is clearly worse. IMPRESSION: Pulmonary edema and pleural effusions. Electronically signed by Zhang Orozco 06/03/2018 7:07 AM
[2018-06-03 07:11] LABS: FLOW CYTOMETERY SOURCE WHOLE BLOOD; LEUKEMIA LYMPHOMA BY FLOW REFERRED FOR TESTING
--- NOTE | 2018-06-03 07:34 | Diag Imaging Result Doc PS360 ---
EXAM: CT ANGIOGRM PULMONARY ARTERIES INDICATION: dyspnea with elevated d-dimer TECHNIQUE: This exam was performed using automated exposure control, adjustment of mA or kV according to patient size, and/or use of iterative reconstruction technique. Thin section axial images and 3-D MIPS were obtained. COMPARISON: 01/01/2018 FINDINGS: There is no evidence of pulmonary embolism. There is no evidence of aortic aneurysm or dissection. The heart is borderline to mildly prominent but stable. There is no evidence of significant mediastinal or hilar lymphadenopathy. There are bilateral large pleural effusions. There is associated bibasilar atelectasis. There is mild to moderate pulmonary edema. There is mild body wall anasarca. There is stable gynecomastia. There is a stable cyst at the upper pole of the left kidney that probably contains some proteinaceous debris. Limited views of the upper abdomen are essentially unremarkable, otherwise. IMPRESSION: 1.Large bilateral pleural effusions with bibasilar atelectasis. 2.Mild to moderate pulmonary edema. 3.Mild body wall anasarca. 4.No evidence of pulmonary embolism. 5.Other incidental/nonacute findings detailed above. Electronically signed by Tank Clement 06/03/2018 7:32 AM
[2018-06-03] MEDS: HUMALOG SUBQ SCH ×4 (07:55→20:26)
--- NOTE | 2018-06-03 08:00 | EKG Report ---
Test Performed on : 06/03/2018 07:45:57 AM Test Reason : poss conversion to SR Blood Pressure : / mmHG Vent. Rate : 101 BPM Atrial Rate : 107 BPM P-R Int : 000 ms QRS Dur : 098 ms QT Int : 352 ms P-R-T Axes : 000 053 012 degrees QTc Int : 456 ms Atrial fibrillation. with rapid ventricular response. Nonspecific ST abnormality Abnormal ECG When compared with ECG of 03-JUN-2018 05:07, (Unconfirmed) No significant change was found Unconfirmed Result
--- NOTE | 2018-06-03 08:02 | HISTORY AND PHYSICAL ---
CHIEF COMPLAINT: Shortness of breath and swelling. HISTORY OF PRESENT ILLNESS: This is a 73-year-old gentleman with CLL and recurrent volume overload issues and atrial fibrillation, who comes back in mostly with atrial fibrillation. He was just in [facility] apparently about a week ago for addisonian crisis and he was placed on adjusted doses of steroids, hydrocortisone which I think he is taking up to 50 mg a day and has not been completely confirmed. Additionally, he is on Imbruvica again for his CLL. He was last admitted here in March, and I think he had atrial fibrillation at that time but he has just been getting more short of breath, more swelling and just kind of overall not well. He is in atrial fibrillation with rapid ventricular response as his main issue. He came in initially in the 190s, was given Cardizem IV, then p.o., then he was given another dose IV and now he is rate controlled again but on a Cardizem drip. He is anemic. Apparently I think he was checked yesterday and it was not low enough for that at that point. He did have an elevated D-dimer, but he is on Eliquis. I am not quite sure what the meaning of that is. In any case, patient was evaluated and admitted for further treatment. In the ER, has also had a find of bilateral lower extremity edema, bilateral moderate to large pleural effusions, so just a very difficult situation, but admitted for atrial fibrillation, anemia, volume overload, and then progression in his white count which has crept up now to 82,000 with most of it being lymphocytes. PAST MEDICAL HISTORY: 1. Again, the CLL for which he is getting Imbruvica. 2. Atrial fibrillation with recurrent rapid ventricular response. 3. Addisonian disease, currently on hydrocortisone. 4. Type 2 diabetes, insulin-dependent. 5. Hyperlipidemia. 6. History of DVT, on anticoagulation. PAST SURGICAL HISTORY: He has had appendectomy, Port-A-Cath placement, multiple cardioversions, tonsillectomy. SOCIAL HISTORY: No tobacco, no alcohol. Lives at home with his . FAMILY HISTORY: Reviewed and noncontributory. ALLERGIES: He has multiple allergies. Allopurinol, Keflex, cephalosporins, Levaquin, penicillin, piperacillin which is similar, Bactrim and Zosyn which is the same thing, vancomycin and phenolphthalein. REVIEW OF SYSTEMS: He has had a steady amount of weight gain. No chest pains. Positive shortness of breath. No bleeding noted. Otherwise, negative times a 10 point review. MEDICATIONS: 1. Lantus 45. 2. Pravachol 40. 3. Eliquis 5 b.i.d. 4. Uloric 40 daily. 5. Fludrocortisone. 6. Lasix. 7. Hydrocortisone which I think he is taking 5 a day, 3 in the morning, 1 at noon, 1 at night. 8. Imbruvica. 9. Synthroid. 10. Metformin. 11. Reglan. 12. Januvia. 13. Sotalol. PHYSICAL EXAMINATION: VITAL SIGNS: Blood pressure 97/58, Heart rate in the 110s. Heart rate was in the low 100s, respiratory rate of 21. He is afebrile at 97.9 degrees. GENERAL: A well-developed male. Appears to be not well generally speaking, as far as just ill and seems a little bit out of breath. He appears pale. EYES: Pupils equal, round, reactive to light. Extraocular movements are intact. Sclerae are anicteric. He had pale conjunctivae. NECK: Supple. CARDIOVASCULAR: Tachy and irregular. No murmurs. PULMONARY: Diminished breath sounds at both bases with rales. GI: Soft, nontender, nondistended. Bowel sounds are positive. NEUROLOGICAL: Cranial nerves 2 through 12 are grossly intact. MUSCULOSKELETAL: A 4 to 5 in all 4 extremities. LYMPHATICS: He has diffuse pitting edema of both arms, both legs, I would say 2 to 3+, probably 3+ . SKIN: He has some intermittent petechiae noted. LABORATORY DATA: White count again is 82,000 with a lymphocyte count of 90, only 2% of segmented. Curiously, it says he has 8% unidentified cells, so I am not sure if those are blasts or most of those are monocytes. He has an hemoglobin and hematocrit of 7 and 23. He has a platelet count of 174,000. His D-dimer was elevated but I find that fairly meaningless as he is already on anticoagulation. Glucose of 330, creatinine 0.8. ProBNP of 7827 which is an elevation of troponins. Chest x-ray showed bilateral pleural effusions. I do not have a report yet. Cardiomegaly, looks like pulmonary edema to me. Port is in place. ASSESSMENT: This is a 73-year-old gentleman with chronic lymphocytic leukemia, who presents from home with atrial fibrillation with rapid ventricular response, volume overload, anemic and progression in his leukocytosis. 1. Atrial fibrillation. We will continue Cardizem. We will get a Cardiology opinion. He has been on sotalol. I am leaving him on the Cardizem right now because he is rate controlled and his blood pressure is marginal. We will continue anticoagulation. I am going to switch him to Lovenox because I am not sure if he is going to need instrumentation. 2. Chronic lymphocytic leukemia. His white count has progressively elevated. This may be related to other issues reactivity, but I am concerned his leukemia may be progressing to more active leukemia as in a Varner's transformation. We will get Dr. Hurtado to make that. He may need a repeat bone marrow, so we will continue to follow. 3. Anemia. Due to his hypotension, multiple issues, cardiac strain, I am going to go ahead and give him 1 unit of blood. 4. Volume overload which may be multifactorial. They have increased his hydrocortisone in the attempts of trying to get him over his addisonian crisis and stopped his Lasix "because it may be losing the effect of the hydrocortisone", but I would not say it is making him lose his hydrocortisone. In any case, we will give him some diuresis and see how he does because he has got bilateral pleural effusions, peripheral edema and pulmonary edema. He is going to need some sort of intervention. From the pleural effusion standpoint, he may even need thoracentesis, but at this point we need to kind of stabilize him a little bit more first. 5. Adrenal insufficiency. We will give him stress dose steroids, see if we can try to get his blood pressure stabilized. 6. Disposition. Overall just ill gentleman. Certainly has risk for further decompensation and he has been, unfortunately, in and out of the hospital since December with these issues kind of off and on. He has had bacteremia as well, and then he was just at [facility], at that point under treatment with the [employer]. TIME SPENT: 35 minute critical care time for atrial fibrillation with rapid ventricular response. cc: MD Anjum Mtz MD Ashish K. Basu, MD Bhavna Gowda, MD [facility]PITALYakov
--- NOTE | 2018-06-03 08:06 | EKG Report ---
Test Performed on : 06/03/2018 03:12:10 AM Test Reason : dyspnea Blood Pressure : / mmHG Vent. Rate : 085 BPM Atrial Rate : 085 BPM P-R Int : 162 ms QRS Dur : 100 ms QT Int : 402 ms P-R-T Axes : 060 038 007 degrees QTc Int : 478 ms Sinus rhythm. with premature atrial complexes. Nonspecific ST abnormality Abnormal ECG When compared with ECG of 03-JUN-2018 01:45, (Unconfirmed) Sinus rhythm. has replaced Atrial fibrillation. Vent. rate has decreased BY [address] less depressed in Anterior leads T wave inversion no longer evident in Inferior leads T wave inversion no longer evident in Lateral leads Unconfirmed Result
[2018-06-03] MEDS: SOLU-CORTEF IV SCH ×2 (08:24→15:50)
[2018-06-03] MEDS: LOVENOX SUBQ SCH ×2 (08:24→20:25)
[2018-06-03] MEDS: LASIX IV SCH ×2 (08:24→20:43)
[2018-06-03] MEDS: ASPIRIN PO SCH (08:24)
[2018-06-03] MEDS: BETAPACE PO SCH ×2 (08:25→20:26)
--- NOTE | 2018-06-03 09:07 | EKG Report ---
Test Performed on : 06/03/2018 05:07:48 AM Test Reason : dyspnea Blood Pressure : / mmHG Vent. Rate : 147 BPM Atrial Rate : 049 BPM P-R Int : 000 ms QRS Dur : 098 ms QT Int : 360 ms P-R-T Axes : 000 037 -01 degrees QTc Int : 563 ms Atrial fibrillation. with rapid ventricular response. Nonspecific ST abnormality Abnormal ECG When compared with ECG of 03-JUN-2018 03:12, (Unconfirmed) Atrial fibrillation. has replaced Sinus rhythm. Vent. rate has increased BY 62 BPM Unconfirmed Result
--- NOTE | 2018-06-03 09:24 | EKG Report ---
Test Performed on : 06/03/2018 01:45:32 AM Test Reason : ED. NO EKG ORDER FOR MUSE Blood Pressure : / mmHG Vent. Rate : 175 BPM Atrial Rate : 178 BPM P-R Int : 000 ms QRS Dur : 098 ms QT Int : 278 ms P-R-T Axes : 000 039 213 degrees QTc Int : 474 ms Atrial fibrillation. with rapid ventricular response. Marked ST abnormality, possible inferior subendocardial injury Marked ST abnormality, possible anterolateral subendocardial injury Abnormal ECG When compared with ECG of 29-APR-2018 06:54, Atrial fibrillation. has replaced Sinus rhythm. Vent. rate has increased BY [address] now depressed in Anterolateral leads T wave inversion now evident in Lateral leads Unconfirmed Result
[2018-06-03] MEDS ORDERED: NS 500 ML IV SCH (10:00)
--- NOTE | 2018-06-03 14:09 | HEMO/ONC CONSULTATION ---
DATE: 06/03/2018 CHIEF COMPLAINT: We were consulted for further management of patient's CLL. HISTORY OF PRESENT ILLNESS: Mr. Rendon is a 73-year-old male, who presented to the emergency department complaining of increased amounts of shortness of breath. The patient also complained of some palpitations. The patient said it started around 7 p.m. last night and continued to get worse. Patient denies any chest pain or pressure. No cough. No fever. No nausea/vomiting, diarrhea. The patient well known to us in our clinic where he follows up for his CLL. The patient did get 3 full rounds of fludarabine and rituximab in 2006 and relapsed and had R-CVP x4 and fludarabine and rituximab again x6 in 2011. Then he relapsed again in 2015, where he completed 6 cycles of Treanda and rituximab. Patient also has a history of hypogammaglobulinemia, where he gets IVIG for recurrent infections. Then once again in May 2017, patient relapsed and now is on full doses of Imbruvica. 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 Patient has been on full-dose steroids as well for that recently. The patient continues to follow up closely with the textile conversion manager. Patient also has history of atrial fibrillation and follows closely with Cardiology. The patient was just seen in office yesterday and doing well on his Imbruvica. PAST MEDICAL HISTORY: CLL, hypothyroidism, diabetes mellitus type 2, hyperlipidemia, DVTs, atrial fibrillation, and Humphreys's disease. PAST SURGICAL HISTORY: TURP, appendectomy, Port-A-Cath placement and removal. SOCIAL HISTORY: Denies any tobacco, alcohol, or illicit drug use. FAMILY HISTORY: Emphysema and lung cancer. ALLERGIES: Allopurinol, Keflex, cephalosporin, Levaquin, penicillin, Zosyn, Bactrim, and laxatives. HOME MEDICATIONS: Eliquis, aspirin, Uloric, fludrocortisone acetate, Lasix, hydrocortisone, Imbruvica, Lantus, Levaquin, Synthroid, Megace, Glucophage XR, Reglan, Protonix, Klor-Con, Pravachol, prednisone, promethazine, Januvia, and sotalol. REVIEW OF SYSTEMS: Negative except for what is mentioned in the HPI. PHYSICAL EXAMINATION: Vital Signs: Temperature of 98.3 degrees, heart rate 129, respiratory rate 26, blood pressure 109/60, saturating 100% on room air. General: Patient is awake, lying in bed. No acute distress noted. HEENT: Anicteric. Pupils PERRLA. Mucous membranes moist. Neck: Supple. Trachea midline. No JVD. Lymph node survey: No palpable lymphadenopathy. Cardiovascular: Increased rate and rhythm, irregular rate. Chest: Bilateral breath sounds clear to auscultation. Abdomen: Soft, nontender. Bowel sounds present in all 4 quadrants. Skin: Warm, dry, and intact. Extremities: 1+ pitting edema to bilateral lower extremities and arms. Neurologic: Alert and oriented x3. No focal deficits noted. LABORATORY DATA: White cell count is 82.86, hemoglobin 7.3, hematocrit 23.9, platelets are 174. Potassium 3.8, BUN 16, creatinine 0.8. ASSESSMENT AND PLAN: 1. Chronic lymphocytic leukemia, ZAP-70 negative, relapsed: The patient is on full-dose Imbruvica at this time. Patient has had a good response being on Imbruvica. Lymph nodes have greatly decreased in size. The patient will continue on Imbruvica full doses. We will continue to monitor very closely. 2. Atrial fibrillation: Continue recommendations per primary medical team & Cardiology. Continue on Cardizem. Continue Eliquis. 3. Anemia: Patient's hemoglobin and hematocrit trending downward. Today hemoglobin was 7.3 and hematocrit 23.9. Patient will receive 1 unit of packed red blood cells. We will continue to monitor closely. 4. Humphreys's disease: Continue recommendations per primary medical team. Continue to monitor closely. 5. Supportive care: Physical Therapy has been consulted. Patient will get out of bed as much as possible. Patient also continue protein shakes t.i.d. The patient will continue exercises while in the hospital as instructed. Dictated by ERLIN Evans for Anjum Hurtado MD Patient seen and examined. As above. Patient admitted with atrial fibrillation with RVR. Patient started on Imbruvica and at this point his bulky neck lymphadenopathy has resolved. Leukocytosis and lymphocytosis is due to Imbruvica. He does not appear to be infected at this time. Continue atrial fibrillation management per cardiology. Recently he has had significant issues with Addisons disease and hypotension. Consider stress dose steroids if needed. Anjum Hurtado M.D. cc: ERLIN Evans MD [facility]
[2018-06-03 18:12] LABS: URINE SOURCE CATH
[2018-06-03 18:15] LABS: BILIRUBIN URINE NEGATIVE (NEGATIVE); BLOOD URINE NEGATIVE (NEGATIVE); COLOR YELLOW; GLUCOSE URINE NEGATIVE (NEGATIVE); KETONE URINE NEGATIVE (NEGATIVE); LEUKOCYTES URINE NEGATIVE (NEGATIVE); NITRITE URINE NEGATIVE (NEGATIVE); PROTEIN URINE NEGATIVE (NEGATIVE); SP GRAVITY URINE 1.018; TURBIDITY URINE CLEAR (CLEAR); UR EPITHELIAL CELLS <10 /HPF (<10); URINE BACTERIA NEGATIVE /HPF; URINE RBC <10 /HPF (<10); URINE WBC <10 /HPF (<10); UROBILINOGEN URINE 2 mg/dL (NORMAL)
--- NOTE | 2018-06-03 18:36 | CONSULTATION ---
DATE OF CONSULTATION: 06/03/2018 IMPRESSION: 1. Congestive heart failure with normal left ventricular ejection fraction, with large bilateral pleural effusions, significant peripheral edema and neck vein distention 2. Atrial fibrillation with rapid ventricular rate, recurrent. Patient has had multiple cardioversions in the past and has had recurrent atrial fibrillation despite sotalol. 3. Adrenal insufficiency. 4. Chronic lymphocytic leukemia. 5. Type 2 diabetes mellitus. 6. Hyperlipidemia. 7. Consider possible autonomic dysfunction. RECOMMENDATIONS: 1. Interrupt oral anticoagulation to facilitate pursuit of thoracentesis to provide symptomatic benefit. 2. For now, given persistent recurrent atrial fibrillation despite sotalol and multiple cardioversion attempts, will manage with rate control and anticoagulation. Continue intravenous Cardizem. If atrial fibrillation persists, will consider transitioning to metoprolol. 3. Suggest discontinuing Florinef in light of patient's volume overload. HISTORY: This 73-year-old white male with past history of paroxysmal atrial fibrillation, chronic lymphocytic leukemia, adrenal insufficiency, type 2 diabetes mellitus and hyperlipidemia was admitted with dyspnea symptoms over the last couple of days. He has been found to be in recurrent atrial fibrillation with rapid ventricular rate. He has been started on intravenous Cardizem. Radiographic studies demonstrates sizable bilateral pleural effusions. The patient has had several hospitalizations over the last 6 months, many of which involve recurrent atrial fibrillation. He has had several cardioversions and has been on sotalol. He was most recently hospitalized in [place] for adrenal crisis. He relates having problems with progressive edema and over the last 48 hours has developed progressive shortness of breath. There has been no angina. He is unaware of his atrial fibrillation and he has had no palpitations. PAST MEDICAL HISTORY: 1. Paroxysmal atrial fibrillation. 2. Chronic lymphocytic leukemia. 3. Adrenal insufficiency. 4. Diabetes mellitus type 2. 5. Hyperlipidemia. 6. Hypothyroidism. 7. Abnormal liver function tests in the past. 8. Previous cardioversions 01/07/2018, 01/21/2018 and 01/29/2018. PAST SURGICAL HISTORY: 1. Includes appendectomy, tonsillectomy, lymph node biopsy and Port-A-Cath in right subclavian. 2. He is allergic or intolerant to multiple medications as listed, including Keflex, cephalosporins, Levaquin, penicillin, Zosyn, sulfonamides, Bactrim, vancomycin and Ex-Lax. MEDICATIONS PRIOR TO ADMISSION: As listed. SOCIAL HISTORY: He is . He is retired. He does not smoke or use alcohol. FAMILY HISTORY: Negative for premature coronary disease. REVIEW OF SYSTEMS: Pulmonary: Noteworthy for dyspnea. Gastrointestinal: Negative. Constitutional: Negative beyond history of present illness. Remainder of review of systems negative/noncontributory beyond history of present illness with 14 total systems reviewed. PHYSICAL EXAMINATION: General: This is a pleasant, older white male in no distress. On supplemental oxygen per nasal cannula. Vital Signs: Blood pressure 139/82. Heart rate 135 and irregular, with ECG monitor showing atrial fibrillation. Oxygen saturation 100%. HEENT: Extraocular movements intact. Mucous membranes are moist. Neck: Supple. Jugular distention is present suggesting central venous pressure 10 to 12. There are no carotid bruits. Chest: Auscultation of the chest reveals diminished breath sounds at bases bilaterally. Cardiac: Reveals an irregular rate and rhythm without appreciable murmur or gallop. Abdomen: Soft. Bowel sounds are normal. Extremities: Demonstrate moderate pretibial edema. Neurologic: Exam reveals him to be alert and fully oriented. Speech is fluent. Moves all 4 extremities equally well. Skin: Warm and dry. Psychiatric: Reveals mood to be appropriate. DIAGNOSTIC DATA: ECG demonstrates atrial fibrillation with rapid ventricular rate and nonspecific ST abnormality. LABORATORY DATA: Includes white blood cell count 82.86, hematocrit 23.9, hemoglobin 7.3, platelet count 174,000. Sodium 135, potassium 3.8, chloride 97, carbon dioxide 21, BUN 16, creatinine 0.8. Glucose 330. Troponin T 0.442. Pro B natriuretic peptide level 7827. Chest CT scan with contrast reports large bilateral pleural effusions with bibasilar atelectasis, mild to moderate pulmonary edema, mild body wall anasarca. No evidence of pulmonary embolism. cc: Alexandre Kaminski MD
--- NOTE | 2018-06-03 18:44 | Extremity Venous Study ---
PROCEDURE NAME: Venous U/S Bilateral Legs - 06/03/2018 REQUESTING PHYSICIAN: Zeeshan Girard MD ART PSYCHOTHERAPIST: [place]. INDICATIONS: Edema, shortness of breath. COMPARISON: Previous comparison from 01/02/2018. EQUIPMENT: Promobox[employer] Vivid E9 ultrasound system with 9L-D transducer. FINDINGS: Images of the bilateral lower extremity venous systems were obtained in both sagittal and transverse planes. Doppler was used to evaluate veins for phasicity, respiratory excursion and digital augmentation. Results: Normal venous compression. Normal venous flow. No obvious superficial or deep venous thrombosis noted. INTERPRETATION: Essentially normal bilateral lower extremity venous study. cc: MD Zeeshan Augustine MD
[2018-06-03] MEDS ORDERED: ELIQUIS PO SCH (21:00)
[2018-06-03] MEDS ORDERED: ALBUMIN 25% IV ONE (21:00)
--- NOTE | 2018-06-03 22:59 | PULMONOLOGY CONSULTATION ---
DATE: 06/03/2018 REASON FOR CONSULTATION: Large bilateral pleural effusions. HISTORY OF PRESENT ILLNESS: Mr. Rendon is a 73-year-old white male, a never smoker, who reports he was initially diagnosed with CLL in 2005. The patient has had multiple relapses and currently is on Imbruvica. He has had increased difficulty with atrial fibrillation which began last December. Several CT scans have been reviewed in the chart including one on 01/24/2018, 02/13/2018, and 04/26/2018, which reveal significant bilateral pleural effusions. The patient has also had difficulty with diarrhea. 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 With the recent difficulty with diarrhea, in his mind, he was concerned that it was related to his Montour's. He was evaluated by an vascular nurse recently at [place], and his daily dose of Lasix of 40 mg per day was discontinued. He presented to the emergency room with increasing dyspnea and palpitations. He was tachycardiac due to atrial fibrillation with a rapid ventricular response of 175. He received diltiazem with some clinical improvement. CT scan of the thorax revealed large bilateral pleural effusions, body wall edema, no evidence of pulmonary emboli. He has had some diuresis of approximately 1 L today. He has been transferred to the [facility] unit. PAST MEDICAL HISTORY/PROBLEM LIST: 1. Recurrent CLL as per above. 2. Recurrent and worsening atrial fibrillation as per above. 3. Chronic bilateral effusions as per above. 4. Sushil disease. 5. Type 2 diabetes mellitus. 6. Dyslipidemia. 7. Hypothyroidism. 8. Status post tonsillectomy. 9. Status post appendectomy. 10. Status post Port-A-Cath placement and removal. 11. History of deep vein thrombosis. 12. History of BPH, status post TURP. 13. Immunoglobulin deficiency, on replacement. SOCIAL HISTORY: No alcohol or tobacco use. FAMILY HISTORY: Positive for lung cancer and emphysema. REVIEW OF SYSTEMS: Notable for generalized weakness, palpitations, diarrhea, decreased appetite. PHYSICAL EXAMINATION: General: Physical exam reveals a frail, chronically ill-appearing male with mild work of breathing. Vital signs: Blood pressure 139/82, heart rate 135, respiratory rate 26, oxygen saturation 100% on 2 L per nasal cannula. HEENT: Pupils are equal and reactive. Oropharynx is clear. Neck: Supple. Chest: Reveals diminished breath sounds, both lung bases. He has positive body wall edema noted. Abdomen: Doughy and soft. Extremities: Reveal edema in the upper and lower extremities. LABORATORIES: White blood count 82,000, hemoglobin 7.3, platelet count 174,000. Sodium 135, potassium 3.8, chloride 97, bicarbonate 21, BUN 16, creatinine 0.8, glucose 330. ProBNP 7827. Last immunoglobulin level in this hospital was low at 426. IMPRESSION: A complicated 73-year-old male with chronic lymphocytic leukemia, immunoglobulin deficiency, atrial fibrillation which has been severe and recalcitrant since December, status post several cardioversions, with chronic pleural effusions diagnosed last December which have persisted on serial CT scans. Thoracentesis was considered, but the patient has total body fluid overload and a liter or two from a thoracentesis is unlikely to have significant clinical benefit. The patient needs to be diuresed, if possible. His previous albumin was low, and I will supplement his albumin this evening with a followup albumin tomorrow. I will also check his immunoglobulin levels to see if we can protein expand him further with immunoglobulin replacement. The patient's diarrhea is not likely related to his Montour disease and is more likely due to his kinase inhibitor. Imbruvica also is has been recommended to be used in caution with cardiac dysrhythmias and can cause atrial fibrillation. This drug may be making it more difficult to control his atrial fibrillation, leading to his further decline. I will leave it to the oncologist to decide if there are other alternatives or if this is his only alternative at this juncture. RECOMMENDATIONS: 1. Place Yousif catheter to aid in diuresis. 2. Increased oncotic pressure with a dose of albumin this evening. His albumin will be rechecked in the morning, and if it is significantly low, he will receive additional albumin. 3. Check immunoglobulin level. 4. Consider thoracentesis, but he is currently anticoagulated, and I think due to his total body fluid overload, it would have limited benefit at this juncture as outlined above. 5. CLL management per Oncology. Current question at this juncture is does patient have an alternative to Imbruvica or, due to his multiple relapses, is this is only alternative. cc: Edwar Ellison MD
[2018-06-04] MEDS: LASIX IV SCH ×3 (00:12→16:50)
[2018-06-04] MEDS: SOLU-CORTEF IV SCH ×3 (00:12→16:50)
[2018-06-04] MEDS: CARDIZEM 125 MG in NS 100 ML IV SCH (01:56)
[2018-06-04 06:12] LABS: AGAP 16; ALB/GLOB RATIO 1.3; ALBUMIN 3.2 g/dL (3.5-5.0); ALKALINE PHOSPHATASE 43 U/L (32-122); BUN 12 mg/dL (8-22); CALCIUM 7.6 mg/dL (8.8-10.2); CHLORIDE 96 mmol/L (98-107); COSMO 281; CREATININE 0.5 mg/dL (0.7-1.2); ESTIMATED GFR > 60; GLUCOSE 171 mg/dL (70-104); GOT 22 U/L (10-34); GPT 8 U/L (10-44); POTASSIUM 2.9 mmol/L (3.5-5.1); SODIUM 139 mmol/L (136-145); TCO2 27 mmol/L (25-35); TOTAL BILIRUBIN 1.18 mg/dL (0.20-1.00); TOTAL PROTEIN 5.6 g/dL (6.3-8.3)
[2018-06-04 06:15] LABS: BASO# 0.11 X1000 (0.0-0.2); BASO% 0.1 % (0.0-0.8); HEMATOCRIT 25.8 % (42.0-52.0); HEMOGLOBIN 8.4 g/dL (14.0-18.0); IMM GRAN# 0.04 X1000 (0.0-0.04); IMM GRAN% 0.1 % (0.0-0.5); LYMPH# 74.77 X1000 (1.2-3.4); LYMPH% 97.4 % (20.5-51.1); MCH 33.1 PG (27-31); MCHC 32.6 g/dL (33-37); MCV 101.6 FL (81-99); MONO# 0.82 X1000 (0.11-0.59); MONO% 1.1 % (1.7-9.3); MPV 10.7 FL (7.4-10.4); NEUT# 1.05 X1000 (1.4-6.5); NEUT% 1.3 % (42.2-75.2); PHOSPHORUS 3.5 mg/dL (2.7-4.5); PLT 185 X1000 (130-400); RBC 2.54 XMIL (4.7-6.1); RDW 24.2 % (11.5-14.5); WBC 76.79 X1000 (4.8-10.8)
[2018-06-04] MEDS ORDERED: MAGNESIUM SULFATE 4 GM/S.W.I. 4 GM/100 ML IVPB IV ONE (06:42)
[2018-06-04 07:07] LABS: LYMPHS 98 % (21-51)
[2018-06-04] MEDS: HUMALOG SUBQ SCH ×4 (07:20→20:46)
[2018-06-04] MEDS: BETAPACE PO SCH (08:24)
[2018-06-04] MEDS: LOVENOX SUBQ SCH ×2 (08:24→20:45)
[2018-06-04] MEDS: ASPIRIN PO SCH (08:24)
--- NOTE | 2018-06-04 09:45 | HEMO/ONC PROGRESS NOTE ---
DATE: 06/04/2018 SUBJECTIVE: The patient says shortness of breath is improving. The patient still feels extremely weak. OBJECTIVE: Vital Signs: Temperature 98.1 degrees, heart rate 101, respiratory rate 19, blood pressure 114/77, saturation 99% on nasal cannula. General: Patient is awake, lying in bed, no acute distress noted. HEENT: Anicteric, pupils PERRLA. Mucous membranes moist. Cardiovascular: Irregular rate and rhythm. Chest: Bilateral breath sounds diminished bilaterally. Abdomen: Soft, nontender. Bowel sounds present all 4 quadrants. Neurologic: Alert and orient x3. No focal deficits noted. LABORATORY DATA: White blood cell count 76.79, hemoglobin 8.4, hematocrit 25.8, platelets are 185,000. Potassium 2.9, BUN 12, creatinine 0.5. ASSESSMENT AND PLAN: 1. Chronic lymphocytic leukemia, ZAP-70 negative, relapse: The patient has had a good response to Imbruvica at this time. Continue Imbruvica. We will continue to monitor very closely. 2. Atrial fibrillation: Continue recommendations per primary medical team and Cardiology. 3. Anemia. The patient is status post packed red blood cells. Hemoglobin and hematocrit has improved. Hemoglobin today is 8.4, hematocrit 25.8. Continue to monitor closely. 4. Pleural effusions: Continue recommendations per Pulmonology. 5. Sushil disease: Continue recommendations per primary medical team. 6. Supportive care: Continue with physical therapy and have patient get up as much as possible. Dictated by ERLIN Evans for Anjum Hurtaod MD Patient seen and examined. Cardiology and pulmonary evaluation noted. Due to his recurrent atrial fibrillation, we can consider changing Imbruvica to Venclexta or Idelalisib. Both of these agents to some concern for edema but no issues with cardiac arrhythmias. We will discuss further with Dr. Kaminski. Anjum Hurtado M.D. cc: ERLIN Evans MD [facility]
[2018-06-04] MEDS: MAG-OX PO SCH ×2 (10:25→20:45)
[2018-06-04] MEDS ORDERED: KLOR-CON PO SCH (10:30)
--- NOTE | 2018-06-04 10:42 | EKG Report ---
Test Performed on : 06/04/2018 09:36:15 AM Test Reason : converted to sinus Blood Pressure : / mmHG Vent. Rate : 073 BPM Atrial Rate : 073 BPM P-R Int : 114 ms QRS Dur : 098 ms QT Int : 472 ms P-R-T Axes : -08 046 016 degrees QTc Int : 519 ms Sinus rhythm. with premature atrial complexes. Nonspecific ST abnormality Prolonged QT Abnormal ECG When compared with ECG of 03-JUN-2018 07:45, Sinus rhythm. has replaced Atrial fibrillation. QT has lengthened Unconfirmed Result
[2018-06-04] MEDS: KLOR-CON PO SCH ×3 (10:55→16:51)
[2018-06-04] MEDS ORDERED: MAGNESIUM SULFATE 2 GM/S.W.I. 2 GM/50 ML IVPB IV SCH (11:00)
[2018-06-04] MEDS ORDERED: POTASSIUM CHLORIDE 20 MEQ/SWI 20 MEQ/100 ML IVPB IV SCH (11:00)
[2018-06-04] MEDS: POTASSIUM CHLORIDE 20 MEQ/SWI 20 MEQ/100 ML IVPB IV SCH ×2 (11:26→13:31)
[2018-06-04] MEDS: MAGNESIUM SULFATE 2 GM/S.W.I. 2 GM/50 ML IVPB IV SCH ×2 (11:26→13:31)
[2018-06-04] MEDS ORDERED: BASAGLAR SUBQ SCH (11:30)
[2018-06-04] MEDS ORDERED: INSULIN PEN NEEDLES ONE (12:05)
--- NOTE | 2018-06-04 14:15 | PROGRESS NOTE ---
DATE: 06/04/2018 INTERVAL HISTORY: The patient's heart rate was better controlled today as compared to yesterday. He had converted back to sinus rhythm as per the EKG; however, on my review it still looks like atrial fibrillation with controlled rate. His QTc was prolonged to 519. SUBJECTIVE: The patient states he is feeling much better today. He is denying chest pain. His shortness of breath is significantly better. He was able to work out with physical therapy, but that he did get short of breath. He we discussed about adverse reaction to the chemotherapy medication Ibrutinib, which can cause fluid retention and edema. It can also cause intermittent diarrhea. We also discussed with him about adrenal insufficiency and giving high dose of steroids and atrial fibrillation. I answered all of his questions. The is also concerned about his blood sugars, which has very fluctuating course where it can go very high and he might have hypoglycemic episode as of. VITALS: Currently vitals detect temperature of 98 degrees, pulse of 60 per minute, respiratory 17, blood pressure 105/55, saturating 100% on room air. PHYSICAL EXAMINATION: General: He does not appear in any acute distress. Mouth: Oral cavity is moist. Lungs: Air entry bilaterally equal without wheeze, rhonchi, or crackles in most of the lung herzog. He does have decreased air entry with inspiratory crackles bilateral, infrascapular region. Abdomen: Soft, nontender. Heart: S1, S2 normal. Irregularly irregular. No murmur, rub, or gallop. He has bilateral upper and lower extremity edema. Neurologic: He is alert, oriented x3. LABS: Suggestive of persistent leukocytosis, macrocytic anemia, status post 1 packed red blood cell. Normal platelet count. Hypokalemia, hypomagnesemia, hypocalcemia, normal kidney function. ASSESSMENT AND PLAN: 1. Atrial fibrillation with a rapid ventricular rate. Continue his home sotalol and intravenous diltiazem. Continue anticoagulation with Lovenox. I will resume Eliquis in the future once we make sure he would not need any surgical intervention or any procedure. Cardiology on board. Appreciate recommendation about changing drip to oral diltiazem. 2. Acute hypoxic respiratory failure due to bilateral pleural effusion, pulmonary edema, History of heart failure with preserved ejection fraction with acute exacerbation of heart failure. Also with volume overload related to use of Ibrutinib plus or minus fludrocortisone. Continue intravenous Lasix, aspirin. He received intravenous albumin yesterday by Pulmonology. My plan is to eventually change his Lasix from intravenous to oral starting tomorrow. 3. Hypokalemia, hypomagnesemia being repleted. 4. History of insulin-dependent diabetes mellitus with fluctuation in blood sugar. I will start him on insulin glargine and sliding scale insulin. He received 1 dose of glargine today. I will give him additional doses tomorrow as required. 5. History of recent adrenal insufficiency. He is currently on stress dose steroids. My plan is to taper his steroid down starting tomorrow. 6. Prolonged QTc: I will avoid QT prolonging medications as much as possible. 7. H/o CLL on Ibrutinib. His CLL has shown good response to Ibrutinib which is contributing to his leucocytosis. Oncology on board. 6. Others: Continue febuxostat for history of gout, pravastatin for hyperlipidemia, levothyroxine for hypothyroidism. DISPOSITION: The patient remains inside the hospital as we closely monitor his atrial fibrillation and volume status. Plan of care was discussed with him and his at bedside, who is surrogate decision maker. All of the questions have been answered. cc: Frantz Argueta MD [facility]
--- NOTE | 2018-06-04 15:01 | PROGRESS NOTE ---
DATE: 06/04/2018 SUBJECTIVE: The patient reports feeling better with diuresis thus far. He denies shortness of breath on supplemental oxygen per nasal cannula. There has been no chest pain. OBJECTIVE: Vital Signs: Blood pressure 114/77, heart rate 101 and irregular with ECG monitor showing atrial fibrillation. There is no significant jugular venous distention. Chest: Auscultation of chest reveals diminished breath sounds at bases bilaterally. Cardiac: Exam reveals an irregular rate and rhythm without appreciable murmur or gallop. Extremities: Demonstrate mild pretibial edema. LABORATORY DATA: White blood cell count of 76.79, hematocrit 25.8, hemoglobin 8.4, and platelet count 185,000. Sodium 139, potassium 2.9, chloride 96, carbon dioxide 27, BUN 12 creatinine 0.5, and glucose 171. IMPRESSION: 1. Acute on chronic congestive heart failure with normal left ventricular ejection fraction. The patient had associated large bilateral pleural effusions, peripheral edema and neck vein distention. The latter has improved with diuresis. 2. Recurrent atrial fibrillation with rapid ventricular rate now requiring IV diltiazem for control. The patient has had recurrent atrial fibrillation despite antiarrhythmic therapy and multiple cardioversions in the past, and is unaware of his arrhythmia in that he has no palpitations. 3. Adrenal insufficiency. 4. Chronic lymphocytic leukemia. 5. Type 2 diabetes mellitus. 6. Hyperlipidemia. 7. Consider possible autonomic dysfunction. RECOMMENDATIONS: 1. Favor managing atrial fibrillation with rate control and anticoagulation at this point given the persistently recurrent arrhythmia. Continue intravenous Cardizem. Discontinue sotalol and transition to metoprolol adjusted for rate control. Continue anticoagulation currently with Lovenox, but ultimately transition back to oral anticoagulant Eliquis. 2. Continue diuresis. 3. Would not resume Florinef in light of patient's tendency for volume overload. cc: Alexandre Kaminski MD
[2018-06-04] MEDS: LOPRESSOR PO SCH ×2 (15:27→20:45)
[2018-06-04] MEDS ORDERED: REGLAN PO SCH (16:00)
[2018-06-04] MEDS: PRAVACHOL PO SCH (20:45)
--- NOTE | 2018-06-04 21:14 | PULMONOLOGY PROGRESS NOTE ---
DATE: 06/04/2018 SUBJECTIVE: The patient is awake, alert, and conversant. He reports his breathing has significantly improved. Intake 1290, output 5000. BP 114/77, heart rate 101, respiratory rate 18, oxygen saturation 99%. OBJECTIVE: HEENT: Pupils are equal and reactive. Oropharynx is clear. Neck: Supple. Chest: Reveals diminished breath sounds, both lung bases. Cardiac exam: S1, S2. Abdomen: Soft and doughy. Extremities: Reveal 1+ peripheral edema. LABORATORIES: White blood count 76,000, hemoglobin 8.4, platelet count 185,000. Chemistries: Sodium 139, potassium 2.9, chloride 96, bicarbonate 27, BUN 12, creatinine 0.5, total protein 5.6, albumin 3.2. Immunoglobulin levels within normal limits. Magnesium 1.2. IMPRESSION: A 73-year-old with: 1. Hypoxemic respiratory failure. 2. Large bilateral pleural effusions with total body fluid overload. 3. Sushil's disease. 4. Chronic lymphocytic leukemia. 5. Immunoglobulin deficiency. RECOMMENDATIONS: 1. Continue diuretics as his blood pressure, BUN, and creatinine will tolerate. 2. Continue rate control for atrial fibrillation. 3. Consider thoracentesis once he has reached the limits of diuresis. cc: Edwar Ellison MD
[2018-06-05] MEDS: LASIX IV SCH ×3 (00:06→16:51)
[2018-06-05] MEDS: LOPRESSOR PO SCH ×3 (02:45→18:09)
[2018-06-05 05:28] LABS: MAGNESIUM 2.1 mg/dL (1.5-2.7); PHOSPHORUS 3.3 mg/dL (2.7-4.5)
[2018-06-05 05:49] LABS: AGAP 9; BUN 22 mg/dL (8-22); CALCIUM 8.2 mg/dL (8.8-10.2); CHLORIDE 98 mmol/L (98-107); COSMO 283; CREATININE 0.6 mg/dL (0.7-1.2); ESTIMATED GFR > 60; GLUCOSE 209 mg/dL (70-104); POTASSIUM 4.4 mmol/L (3.5-5.1); SODIUM 137 mmol/L (136-145); TCO2 30 mmol/L (25-35)
[2018-06-05] MEDS: SOLU-CORTEF IV SCH ×3 (06:21→18:03)
[2018-06-05] MEDS: HUMALOG SUBQ SCH ×4 (06:22→20:43)
--- NOTE | 2018-06-05 06:55 | Diag Imaging Result Doc PS360 ---
EXAM: CHEST-PORTABLE HISTORY: abnormal exam TECHNIQUE: Portable chest single view COMPARISON: 06/03/2018 FINDINGS: There are baico-yr-inmnshxa sized bilateral pleural effusions. There is pulmonary edema as well as basilar atelectasis. There may be underlying pneumonia as well. No cardiomegaly. No change in the right sided portacatheter. IMPRESSION: Mild interval worsening. Electronically signed by Carlos Acosta 06/05/2018 6:52 AM
--- NOTE | 2018-06-05 07:36 | EKG Report ---
Test Performed on : 06/05/2018 06:33:17 AM Test Reason : Follow up QTc Blood Pressure : / mmHG Vent. Rate : 112 BPM Atrial Rate : 066 BPM P-R Int : 000 ms QRS Dur : 100 ms QT Int : 300 ms P-R-T Axes : 000 049 -03 degrees QTc Int : 409 ms Atrial fibrillation. with rapid ventricular response. ST depression, consider subendocardial injury Abnormal ECG When compared with ECG of 04-JUN-2018 09:36, (Unconfirmed) Atrial fibrillation. has replaced Sinus rhythm. Vent. rate has increased BY [address] now depressed in Anterior leads T wave amplitude has increased in Anterior leads Unconfirmed Result
[2018-06-05] MEDS: ULORIC PO SCH (08:09)
[2018-06-05] MEDS: LOVENOX SUBQ SCH ×2 (08:10→20:44)
[2018-06-05] MEDS: MAG-OX PO SCH (08:10)
[2018-06-05] MEDS: ASPIRIN PO SCH (08:10)
[2018-06-05 08:20] LABS: BASO# 0.09 X1000 (0.0-0.2); BASO% 0.1 % (0.0-0.8); EOS# 0.05 X1000 (0.0-0.7); EOS% 0.1 % (0.0-10.0); HEMATOCRIT 27.7 % (42.0-52.0); HEMOGLOBIN 8.8 g/dL (14.0-18.0); IMM GRAN# 0.08 X1000 (0.0-0.04); IMM GRAN% 0.1 % (0.0-0.5); LYMPH# 79.23 X1000 (1.2-3.4); MCH 33.2 PG (27-31); MCHC 31.8 g/dL (33-37); MCV 104.5 FL (81-99); MONO# 0.76 X1000 (0.11-0.59); MONO% 0.9 % (1.7-9.3); MPV 10.7 FL (7.4-10.4); NEUT# 1.43 X1000 (1.4-6.5); NEUT% 1.8 % (42.2-75.2); PLT 183 X1000 (130-400); RBC 2.65 XMIL (4.7-6.1); RDW 23.9 % (11.5-14.5); WBC 81.64 X1000 (4.8-10.8)
[2018-06-05] MEDS ORDERED: SYNTHROID PO SCH (09:00)
[2018-06-05] MEDS: CARDIZEM 125 MG in NS 100 ML IV SCH ×2 (09:39→20:43)
[2018-06-05] MEDS ORDERED: CARDIZEM IV ONE (09:57)
[2018-06-05] MEDS ORDERED: LOPRESSOR PO SCH ×2 (10:00→13:00)
[2018-06-05 11:29] LABS: ANISOCYTOSIS 1+; LYMPHS 82 % (21-51); MONO 4 % (1-9); SEGS 2 % (42-75)
--- NOTE | 2018-06-05 12:35 | HEMO/ONC PROGRESS NOTE ---
DATE: 06/05/2018 SUBJECTIVE: Patient says his shortness of breath continues to improve. The patient said he is slowly starting to feel better at this time. OBJECTIVE: Vital Signs: Temperature 98.1 degrees, heart rate 76, respiratory rate 20, blood pressure 124/73, saturating 100% on nasal cannula. General: Patient is awake, lying in bed, no acute distress noted. HEENT: Anicteric. Mucous membranes moist. Cardiovascular: S1, S2. Chest: Bilateral breath sounds diminished bilaterally. Abdomen: Soft, nontender. Bowel sounds present in all 4 quadrants. Extremities: 1+ peripheral edema. Neurologic: Alert and orient x3. No focal deficits noted. LABORATORY DATA: Potassium 4.4, BUN 22, creatinine 0.6. ASSESSMENT AND PLAN: 1. Chronic lymphocytic leukemia, ZAP 70 negative-, relapse: The patient had a good response Imbruvica. should cause no issues of cardiac arrhythmias but do have concerns with edema. will look at those and discuss with Cardiology and make further recommendations. 2. Atrial fibrillation: Continue recommendations per Primary Medical Team and Cardiology. 3. Anemia: Hemoglobin and hematocrit continue to be stable. Transfuse as needed. 4. Pleural effusions: Continue recommendations per Pulmonology. 5. [place] disease: Continue recommendations per Primary Medical Team. 6. Supportive care: Continue physical therapy. Continue to have patient get up as much as possible. Dictated by ERLIN Evans for Anjum Hurtado MD Patient seen and examined. Discussed with Dr. Sawyer. He is planning to get cardiology in [place] involved for management of A. fib, pacemaker placement and ablation. Dr. Sawyer feels that we should continue Imbruvica which has worked so well in controlling his disease. For now Imbruvica is on hold. We will plan to restart that once his atrial fibrillation is managed. Anjum Hurtado M.D. cc: ERLIN Evans MD [facility]
[2018-06-05] MEDS ORDERED: ZAROXOLYN PO ONE (12:53)
[2018-06-05] MEDS ORDERED: LANOXIN PO SCH (13:00)
--- NOTE | 2018-06-05 14:29 | PROGRESS NOTE ---
DATE: 06/05/2018 INTERVAL HISTORY: The patient had gone into atrial fibrillation with rapid ventricular rate early in the morning for which he was given intravenous diltiazem. His cardiovascular regimen has been changed recently. He is currently on metoprolol as well as sotalol. He also received a dose of metolazone. SUBJECTIVE: He is feeling fine denying any complaints of chest pain or shortness of breath. Denies unusual cough. Denies nausea, vomiting, or abdominal pain. He thinks his lower extremity edema has been decreasing. PHYSICAL EXAMINATION: Vital Signs: Currently, temperature of 98 degrees, pulse 117, blood pressure 96/62 and saturating 100% on 2 L nasal cannula. General: He has anasarca. Lungs: Air entry bilaterally equal without any wheeze. He does have crackles bilateral lower lung herzog infrascapular region. Heart: S1, S2 normal. Irregularly irregular. No murmur, rub, or gallop. Abdomen: Soft. He does have a few areas of slight bleeding at the point of enoxaparin shot. Extremities: He has bilateral upper and lower extremity edema. He is alert and oriented x3. LABORATORY: 1. Labs suggestive of leukocytosis, macrocytic anemia with stable hemoglobin, normal platelet count. Normal electrolytes with correction of hypokalemia and hypomagnesemia. His blood sugars are mostly in acceptable range. 2. His proBNP has decreased from 7000 to 2000. Microbiology no data. 3. Imaging: No data except the chest x-ray which suggested mild interval worsening, however on my review of imaging chest x-ray essentially looks unchanged from the chest x-ray on previous examination except some change in the projection. ASSESSMENT AND PLAN: 1. Atrial fibrillation with rapid ventricular rate. This could be primary atrial fibrillation or his use of tyrosine kinase inhibitors for his CLL could be a contributing factor however, less likely in my opinion. Continue metoprolol and sotalol as per Cardiology's recommendation. Continue enoxaparin for primary CVA prophylaxis. 2. Acute hypoxic respiratory failure due to bilateral pleural effusion. Pulmonary edema. This is likely in the setting of atrial fibrillation with rapid ventricular rate with acute exacerbation of heart failure with preserved ejection fraction with a component of tyrosine kinase induced volume overload with minor contribution from fludrocortisone. Continue oxygenation to maintain saturation more than 94%. Continue intravenous Lasix. He has received 1 dose of metolazone, and had adequate urine output yesterday. 3. History of adrenal insufficiency/[place]'s disease. No evidence of adrenal insufficiency at the moment, and his clinical condition is improving. He is feeling better as well. We will plan transitioning him from IV hydrocortisone to p.o. hydrocortisone. His fludrocortisone has also been added as he has had hypotensive episodes outpatient. I discussed with his telecommunications engineer on phone about his clinical condition. He was of the opinion that at the time of discharge, he may require both Lasix and fludrocortisone though it may sound counter intuitive. 4. History of insulin-dependent diabetes mellitus with fluctuation in blood sugars. Continue sliding scale insulin. 5. Hypokalemia and hypomagnesemia have been repleted, and for his prolonged QTc and EKG was repeated which now suggests QTc of 409 milliseconds. He was still in atrial fibrillation. 6. History of CLL on ibrutinib with good response. Oncology on board. Depending on his course, atrial fibrillation, volume status, and discussion with Cardiology, he may become a candidate of alternative agent if ibrutinib is significantly contributing to his volume overload or atrial fibrillation. 7. Others: Continue febuxostat for history of gout, pravastatin for hyperlipidemia, levothyroxine for hypothyroidism, and aspirin. 8. Disposition: Patient remains inside the hospital as we closely manage his atrial fibrillation with rapid ventricular rate. Plan of care were discussed with him. All of his questions have been answered. cc: MD EMIL Bailey
[2018-06-05] MEDS: FLORINEF PO SCH (14:42)
[2018-06-05] MEDS ORDERED: BASAGLAR SUBQ ONE (18:38)
--- NOTE | 2018-06-05 19:04 | PROGRESS NOTE ---
DATE: 06/05/2018 SUBJECTIVE: Patient reports feeling progressively better. He has gone from atrial fibrillation back into atrial flutter with significant increase in ventricular rate response. Intravenous Cardizem has been resumed and metoprolol orally has been increased. OBJECTIVE: Blood pressure 90/62, heart rate 140 and irregular with ECG monitor showing atrial flutter with rapid ventricular rate. Oxygen saturation 97% on nasal cannula oxygen at 2 L/minute. Mild jugular distention is evident.Chest: Auscultation of chest reveals diminished breath sounds in the bases bilaterally. Cardiac Exam: Reveals a irregular tachycardia without appreciable murmur or gallop. Extremities: Demonstrate mild to moderate pretibial edema. LABORATORY DATA: Includes a white blood cell count of 81.64, hematocrit 27.7, hemoglobin 8.8, platelet count 183,000. Sodium 137, potassium 4.4, chloride 98, carbon dioxide 30, BUN 22, creatinine 0.6, glucose 209. IMPRESSION: 1. Acute on chronic congestive heart failure with normal left ejection fraction. The patient has associated large bilateral pleural effusions, peripheral edema and neck vein distention. He appears to be responding to efforts to diurese. 2. Recurrent atrial fibrillation and flutter with rapid ventricular rate. Patient's heart rate has significantly increased as he transitioned to atrial flutter. He has had recurrent atrial fibrillation despite antiarrhythmic therapy and multiple cardioversions in the past. 3. Adrenal insufficiency. 4. Chronic lymphocytic leukemia. 5. Type 2 diabetes mellitus. 6. Hyperlipidemia. 7. Consider possible autonomic dysfunction. RECOMMENDATIONS: 1. Continue to manage atrial fibrillation/atrial flutter with rate control and anticoagulation. Continue intravenous Cardizem. Increase metoprolol as tolerated to try and achieve better rate control. 2. Continue diuresis. 3. Ultimately may need to consider AV node ablation and permanent pacemaker. This has been discussed with arrhythmia in [place] by Dr. Sawyer and consideration being given to transfer to [place] Friday to have this performed. cc: Alexandre Kaminski MD
[2018-06-05] MEDS: PRAVACHOL PO SCH (20:44)
[2018-06-06] MEDS: LOPRESSOR PO SCH (00:36)
[2018-06-06 06:30] LABS: AGAP 6; BUN 21 mg/dL (8-22); CALCIUM 8.4 mg/dL (8.8-10.2); CHLORIDE 97 mmol/L (98-107); COSMO 279; CREATININE 0.6 mg/dL (0.7-1.2); ESTIMATED GFR > 60; GLUCOSE 112 mg/dL (70-104); MAGNESIUM 1.7 mg/dL (1.5-2.7); POTASSIUM 3.1 mmol/L (3.5-5.1); SODIUM 138 mmol/L (136-145); TCO2 35 mmol/L (25-35)
[2018-06-06] MEDS: HUMALOG SUBQ SCH ×4 (06:42→21:05)
[2018-06-06] MEDS: SYNTHROID PO SCH (06:43)
[2018-06-06] MEDS: BETAPACE PO SCH (08:40)
[2018-06-06] MEDS: CORTEF PO SCH (08:40)
[2018-06-06] MEDS: FLORINEF PO SCH (08:41)
[2018-06-06] MEDS: ASPIRIN PO SCH (08:41)
[2018-06-06] MEDS: ULORIC PO SCH (08:41)
[2018-06-06] MEDS: LASIX IV SCH ×2 (08:41→20:53)
[2018-06-06] MEDS: LOVENOX SUBQ SCH ×2 (08:41→20:53)
[2018-06-06] MEDS: CARDIZEM 125 MG in NS 100 ML IV SCH (10:47)
[2018-06-06] MEDS ORDERED: ZAROXOLYN PO ONE (12:19)
[2018-06-06] MEDS: MAG-OX PO SCH ×2 (12:40→20:53)
[2018-06-06] MEDS: POTASSIUM CHLORIDE 20 MEQ/SWI 20 MEQ/100 ML IVPB IV SCH ×2 (12:40→14:45)
[2018-06-06] MEDS: KLOR-CON PO SCH ×3 (12:40→20:52)
--- NOTE | 2018-06-06 13:02 | CARDIOLOGY PROGRESS NOTE ---
DATE: 06/06/2018 SUBJECTIVE: Mr. Kilo Rendon is a 73-year-old gentleman, who is admitted and has multiple medical problems as listed below. Since yesterday, adjustments have been made to his Lasix. He was given metolazone and he has had good diuresis. As far as shortness of breath is concerned, he has significantly improved, and he has had a good diuresis. His pedal edema and edema in his upper extremities has also decreased. He denies chest pain. He has never perceived any palpitations. There is no nausea, there is no vomiting. He has been anticoagulated as well. OBJECTIVE: Vital Signs: On examination, blood pressure was 112/69, patient was afebrile, respiratory rate 18. I's and O's were negative 2300 today, 1045 yesterday and 3710 the day prior to that. Cardiovascular System: On examination, first and second heart sounds were heard. Irregular pulse noted. There was no S3 gallop. Respiratory System: Dullness at the base with scattered crepitations. Abdomen: Abdomen was soft, nontender. There was no guarding or rigidity. Bowel sounds were heard. Central nervous system: Alert, oriented, and was moving all 4 extremities. Extremities: Upper extremity edema was noted on the right hand, as well as on the left wrist, and decreased edema on both lower extremities. LABORATORY EXAMINATION: 1. Today revealed WBC of 81.64, hemoglobin 8.8, hematocrit 27.7, platelet count of 183. 2. Chemistry: Sodium 138, potassium 3.1 chloride 97, magnesium 1.7. ProBNP 4528. CURRENT MEDICATIONS: Cortef 15 mg p.o. at bedtime, pravastatin 40 mg at bedtime, aspirin 81 mg a day, Tylenol p.r.n., Lovenox 90 mg subcutaneous b.i.d., Uloric, Florinef 0.1 mg p.o. daily, Lasix 40 mg IV b.i.d., insulin as directed, levothyroxine 200 mcg a day, Mag-Ox 400 mg p.o. b.i.d. He is going to receive potassium and magnesium supplements. PROBLEM LIST: 1. The patient has had multiple admissions and underwent cardioversions in the past on 01/07/2018, 01/21/2018 and 01/29/2018 for recurrent atrial fibrillation. He has had repeated admissions in the hospital which is multifactorial related to his chronic lymphocytic leukemia, addisonian crisis, as well as atrial fibrillation. As far as atrial fibrillation is concerned, he came in with atrial fibrillation with rapid ventricular rate, and he was on sotalol 120 mg p.o. b.i.d., has been started on a Cardizem drip. I will discontinue the Cardizem and put him back on sotalol 120 mg b.i.d. His rate is better controlled. He has had these paroxysmal episodes of atrial fibrillation during his hospitalizations. As far as his heart failure is concerned, this is again multifactorial being driven either and associated with the atrial fibrillation, and the fluid imbalance. Given his addisonian crisis, in the past, he needs Cortef and Florinef and this time again he came in with diastolic heart failure with significant bilateral pleural effusion and anasarca, as a result of which he was started on IV Lasix 40 mg q. 8 hourly. I gave him a dose of metolazone yesterday 5 mg; I will give him an extra dose of metolazone 2.5 mg today and change lasix to 40 mg IV BID. We will check a CT scan of his thorax in am to assess for his bilateral pleural effusions which he had significant when he was admitted during this hospitalization. He has significantly improved clinically. Had a detailed discussion with Dr. Canales. He will be transferred to [facility] for AV node ablation and permanent pacemaker implantation. Once he is euvolemic, we will plan to have him transferred either Friday or Friday to the Hospitalist Service at [place], his multiple issues. Dr. Argueta, the hospitalist, is aware of our plan. Cardiology Services will evaluate him on Friday and plan for procedures as deemed fit. Dr. Argueta will discuss with the Hospitalist Service so that he can be transferred to the Hospitalist Service at [facility]. 2. The patient has [place]'s disease. He is on Florinef and hydrocortisone as advised by his gate person in [place]. He will follow up when he is transferred to [place]. I have not made any changes at the present time to his medications. 3. Diastolic heart failure. Patient has recurrent diastolic heart failure driven either because of the atrial fibrillation and/or associated fluid overload because of his other issues.His diuretics were discontinued and he is readmitted with anasarca. 4. He has chronic lymphocytic leukemia. He has been managed at [facility]. Has undergone multiple biopsies, as well as hospitalizations and is followed by Dr. Hurtado in [place]. The only medication which has helped him is Imbruvica . I discussed with Dr. Hurtado and have suggested that he plan to continue medications as deemed fit. There was a concern whether Imbruvica would trigger the atrial arrhythmias. However, since he is going to have Electrophysiology Service plan for ablation, this should not be an issue I presume. 5. During one of his hospitalizations, he was admitted with shock syndrome with hypotension, atrial fibrillation and abnormal liver function tests which he has had which have significantly improved since then. This was last year. 6. As far as anticoagulation therapy is concerned, he was on Eliquis. There are no obvious bleeding issues, so we put him on Lovenox given his likely procedures later this week. We will continue with the Lovenox. 7. He has had gout and arthritis of his knees during 1 of his recent hospitalizations last year, and he is on Uloric. I have not made any changes to his medication. 8. Hypercholesterolemia. He is on pravastatin. We will continue with pravastatin. cc: Garcia Sawyer MD [facility]
[2018-06-06] MEDS: BASAGLAR SUBQ SCH (14:03)
--- NOTE | 2018-06-06 16:00 | PROGRESS NOTE ---
DATE: 06/06/2018 Interval history. No acute events overnight. His heart rate was well controlled in 80s. Had a discussion with Cardiology and accordingly the plan is to taper him off diltiazem drip as tolerated and keep him only on sotalol. I went to the bedside, discussed the plan with the patient about possible transfer to [facility] for atrial fibrillation ablation early next week. I answered all of his and his 's questions. Also discussed his care with plastics and composites inspector yesterday and compounder flavorings today. Currently patient denies any chest pain, shortness of breath, dizziness, abdominal pain. VITALS: Temperature 98 degrees, pulse 89, respiratory rate 18, blood pressure 112/69, saturating 100% on 2 L nasal cannula. Input and output suggests he was -2.3 L yesterday, -400 mL today. PHYSICAL EXAMINATION: General: Does not appear in any acute distress. Oral cavity is moist. Decreased air entry in left infrascapular region more decreased on left than on the right infrascapular region with mild inspiratory crackles, no wheeze or rhonchi. S1, S2 normal. Irregularly irregular. No murmur, rub, or gallop. Abdomen: Soft. He does have few areas of slight bleeding at the point of lovenox shots. Extremities: He has bilateral upper and lower extremity edema. Lower extremity edema is significantly decreased since presentation. LABS: Suggestive of hypokalemia with potassium of 3.1, hypochloremia, normal kidney function, hyperglycemia for which he required Lantus insulin yesterday. ASSESSMENT AND PLAN: 1. Atrial fibrillation with rapid ventricular rate, continue sotalol, according to Cardiology recommendation we are weaning him down on diltiazem drip and potentially switching it off (I have discontinued the diltiazem drip order, though) I have conveyed to the nursing team about keeping it on and switching it off as tolerated. The definite plan is to transfer him to [facility] potentially early next week for atrial fibrillation for AV maribel ablation and pacemaker implantation considering his recurrent episodes. 2. Acute hypoxic respiratory failure due to bilateral pleural effusion, pulmonary edema in the setting of atrial fibrillation with rapid ventricular rate with acute exacerbation of heart failure with preserved ejection fraction. There could also be a component of tyrosine kinase inhibitor induced volume overload which he was taking for his CLL treatment. Continue oxygenation to maintain saturation more than 94%, continue intravenous Lasix with close input and output monitoring, an additional dose of metolazone has been given with adequate urine output so far. 3. History of adrenal insufficiency [place] disease, continue hydrocortisone and fludrocortisone. I had discussed his care with his plastics and composites inspector on phone . 4. History of insulin-dependent diabetes mellitus. Continue sliding scale insulin, start patient on Lantus with holding parameters. 5. Hypokalemia, hypomagnesemia being repleted. 6. History of chronic lymphocytic leukemia on ibrutinib with good response, oncology on board, his imatinib use is likely contributing to his severe leukocytosis. 7. Disposition. Patient remains inside the hospital in [facility] for close cardiorespiratory monitoring. My plan is to call [facility] transfer service tomorrow and initiate the transfer process so that patient could be taken care of, compounder flavorings Dr. Canales has accepted the patient but considering his multiple comorbidities he should go to hospitalist service, eventual plan is to perform AV maribel ablation with pacemaker implantation sometime next week hopefully Friday or Friday, plan of care discussed with the patient and his and daughter at bedside, all of their questions have been answered . cc: Frantz Argueta MD MTDD
[2018-06-06] MEDS ORDERED: CARDIZEM 100 MG/NS 100 MG/100 ML IVPB IV SCH (17:15)
[2018-06-06] MEDS ORDERED: CARDIZEM IV ONE (17:15)
[2018-06-06] MEDS ORDERED: LANOXIN IV ONE (17:15)
[2018-06-06] MEDS: PRAVACHOL PO SCH (20:53)
[2018-06-06] MEDS ORDERED: CORTEF PO SCH (21:00)
[2018-06-07] MEDS: SYNTHROID PO SCH ×2 (05:35→06:02)
[2018-06-07] MEDS: HUMALOG SUBQ SCH ×3 (06:01→15:50)
[2018-06-07 06:10] LABS: BASO# 0.12 X1000 (0.0-0.2); BASO% 0.2 % (0.0-0.8); EOS# 0.03 X1000 (0.0-0.7); HEMATOCRIT 32.4 % (42.0-52.0); IMM GRAN# 0.12 X1000 (0.0-0.04); IMM GRAN% 0.2 % (0.0-0.5); LYMPH# 76.16 X1000 (1.2-3.4); LYMPH% 97.1 % (20.5-51.1); MCHC 30.9 g/dL (33-37); MCV 106.9 FL (81-99); MONO# 0.78 X1000 (0.11-0.59); MPV 10.6 FL (7.4-10.4); NEUT# 1.26 X1000 (1.4-6.5); NEUT% 1.5 % (42.2-75.2); PLT 210 X1000 (130-400); RBC 3.03 XMIL (4.7-6.1); RDW 23.2 % (11.5-14.5); WBC 78.47 X1000 (4.8-10.8)
[2018-06-07 06:32] LABS: AGAP 9; BUN 26 mg/dL (8-22); CALCIUM 8.4 mg/dL (8.8-10.2); CHLORIDE 94 mmol/L (98-107); COSMO 277; CREATININE 0.6 mg/dL (0.7-1.2); ESTIMATED GFR > 60; GLUCOSE 105 mg/dL (70-104); POTASSIUM 3.8 mmol/L (3.5-5.1); SODIUM 136 mmol/L (136-145); TCO2 33 mmol/L (25-35)
--- NOTE | 2018-06-07 07:22 | Diag Imaging Result Doc PS360 ---
EXAM: CHEST-1 VIEW 06/07/2018 HISTORY: SOB TECHNIQUE: AP portable at 0611 COMMENT: There are bilateral pleural effusions. There is diffuse pulmonary edema. The heart size and pulmonary vascularity are within normal limits. Compared to 06/05/2018, the volume of pleural fluid on the right has diminished slightly. IMPRESSION: Pulmonary edema. Improved right pleural effusion. Electronically signed by Zhang Orozco 06/07/2018 7:19 AM
--- NOTE | 2018-06-07 08:18 | Diag Imaging Result Doc PS360 ---
EXAM: CT THORAX W/O CONTRAST 06/07/2018 HISTORY: bilateral pleural effusion TECHNIQUE: This exam was performed using automated exposure control, adjustment of mA or kV according to patient size, and/or use of iterative reconstruction technique. COMMENT: The current examination is compared with the previous study of 04/26/2018. There has been marked improvement in the supraclavicular adenopathy seen previously bilaterally. The same is true of the bilateral axillary adenopathy particularly that on the left side. Mediastinal nodes have decreased in size since the previous study. There are large bilateral pleural effusions. This has increased since the previous study. There is compressive atelectasis in both lungs, particularly in the lower lobes. This is worse than on the previous study. There is some tree-in-bud opacity in the right middle lobe which was not previously present. There is a nodule in the right upper lobe on image 43 measuring less than 5 mm in diameter. This was not visible on the previous study. There is vacuum joint phenomenon in the right sternoclavicular joint. There has otherwise been no significant change in the visualized portions of the skeleton. IMPRESSION: 1. Worsened bilateral pleural effusions. Worsened compressive atelectasis. 2. Mild pneumonitis in the right middle lobe. New right upper lobe pulmonary nodule. 3. Improved adenopathy as described. Electronically signed by Zhang Orozco 06/07/2018 8:15 AM
[2018-06-07] MEDS: ASPIRIN PO SCH (08:55)
[2018-06-07] MEDS: LOVENOX SUBQ SCH (08:55)
[2018-06-07] MEDS: MAG-OX PO SCH (08:55)
[2018-06-07] MEDS: FLORINEF PO SCH (08:55)
[2018-06-07] MEDS: LASIX IV SCH (08:55)
[2018-06-07] MEDS: ULORIC PO SCH (08:55)
[2018-06-07] MEDS: CORTEF PO SCH (08:55)
[2018-06-07] MEDS: KLOR-CON PO SCH ×2 (08:56→11:57)
[2018-06-07] MEDS: BASAGLAR SUBQ SCH (08:57)
[2018-06-07] MEDS: BETAPACE PO SCH (09:38)
--- NOTE | 2018-06-07 10:09 | PROGRESS NOTE ---
DATE: 06/07/2018 INTERVAL HISTORY: Yesterday while tapering off his diltiazem drip, his heart rate had increased to 150s and he was in atrial fibrillation, so his diltiazem drip was started back again, after which his heart rate has come under control with most readings less than 100. He did have a few episodes of bradycardia with heart rate in 50s with slow atrial flutter and intermittent atrial fibrillation. SUBJECTIVE: In the morning time, he is denying any complaints. He is complaining of some cough that he started experiencing yesterday. It is nonproductive at the moment. He denies any fevers or chills. He is about to go for his CT scan. We discussed about possibly initiating transfer to [facility]. I answered all of his questions currently. PHYSICAL EXAMINATION: General: He does not appear in any acute distress. Vitals: Temperature 98 degrees, pulse 138, respiratory 22, blood pressure 90/50. He is saturating 93% on room air. Throat: Oral cavity is moist. Lungs: Air entry bilaterally equal in suprascapular region, significantly decreased bilateral infrascapular region with inspiratory crackles. No wheeze or rhonchi. Cardiac: S1, S2 normal, irregularly irregular, tachycardic. No murmur, rub, or gallop. Abdomen: Soft. He does have a few areas of slight bleeding at the point of Lovenox shot. Extremities: He has bilateral upper and lower extremity edema, which is decreasing as compared to presentation. LABORATORIES: Today suggestive of leukocytosis of 78,000, hemoglobin of 10, platelet count of 210,000. Electrolytes suggestive of resolution of hypokalemia, resolution of hypomagnesemia. Normal kidney function. Glucose in acceptable range most of the time between 300 to 100. IMAGING: CT scan of the chest had suggested bilateral pleural effusion, compressive atelectasis, mild pneumonitis in the right middle lobe, new right upper lobe pulmonary nodule, improved adenopathy. However, this CT scan was in comparison to CT scan in March 2018. When I compared this CT scan to the CT scan on presentation, which is reported as pulmonary arteriogram on June 03, his pleural effusion essentially looks the same as it was before. ASSESSMENT AND PLAN: 1. Atrial fibrillation with rapid ventricular rate. Continue diltiazem drip and sotalol. Continue him on enoxaparin for primary CVA prophylaxis. The plan is to possibly transfer him to [facility] for AV maribel ablation and permanent pacemaker. I will initiate the transfer process today. I will follow up TSH since he has been on very high dose of levothyroxine. His Thyroid studies in 03/2018 were in acceptable range on levothyroxine current dose. 2. Acute hypoxic respiratory failure due to bilateral pleural effusion, pulmonary edema in the setting of atrial fibrillation with rapid ventricular rate with acute exacerbation of heart failure with preserved ejection fraction with a minor component of tyrosine kinase inhibitor induced volume overload for his CLL treatment. Continue oxygenation to maintain saturation more than 94%. Continue intravenous Lasix. He had a -2.3 L yesterday, -2.2 L today. He is - 9 L since admission. 3. History of adrenal insufficiency. Continue p.o. hydrocortisone and fludrocortisone. His care was discussed with his workers compensation consultant as an outpatient. 4. History of insulin-dependent diabetes mellitus. Continue sliding scale insulin and Lantus with holding parameters. 5. Hypokalemia and hypomagnesemia, repleted. 6. History of chronic lymphocytic leukemia, on ibrutinib with good response. Oncology on board. His ibrutinib is contributing to his severe leukocytosis according to Oncology. It could also be contributing to his volume overload to some extent. 7. Disposition. The patient remains in [facility]. I will initiate transfer to [facility] for AV maribel ablation and permanent pacemaker on the hospitalist service. cc: Frantz Argueta MD MTDD
[2018-06-07] MEDS ORDERED: CARDIZEM 125 MG in NS 100 ML IV SCH (10:15)
[2018-06-07] MEDS ORDERED: LANOXIN IV ONE ×2 (11:06→14:27)
[2018-06-07 12:01] LABS: INR 1.06; PROTIME 14.7 Seconds (11.0-16.0)
[2018-06-07 12:09] LABS: PTT 37.6 Seconds (22.3-41.8)
--- NOTE | 2018-06-07 15:03 | DISCHARGE SUMMARY ---
ADMISSION DATE: 06/03/2018 DISCHARGE DATE: DISCHARGE DIAGNOSES: 1. Atrial fibrillation with rapid ventricular rate. 2. Acute exacerbation of heart failure with preserved ejection fraction. 3. Clinical volume overload, bilateral pleural effusion, anasarca. 4. Acute hypoxic respiratory failure requiring oxygen through nasal cannula because of bilateral pleural effusions and pulmonary edema. 5. Recently diagnosed history of adrenal insufficiency, currently not in adrenal crisis. 6. History of insulin-dependent diabetes mellitus with frequent hypoglycemia and hyperglycemia episodes. 7. Hypokalemia, hypomagnesemia. 8. History of chronic lymphocytic leukemia, currently on ibrutinib therapy contributing to leukocytosis. 9. Hyperlipidemia. 10. Chronic gout. CURRENT MEDICATIONS: 1. Intravenous diltiazem drip. 2. Sotalol 120 mg p.o. b.i.d. 3. Furosemide 40 mg IV q.12 hours. 4. Hydrocortisone 30 mg in the morning and 15 mg at nighttime. 5. Fludrocortisone 0.1 mg daily. 6. Pravastatin 40 mg at nighttime. 7. Febuxostat 40 mg daily. 8. Insulin glargine 15 units daily, hold if blood sugars are less than 200. 9. Insulin lispro sliding scale. 10. Levothyroxine 200 mcg daily. CURRENT VITAL SIGNS: Temperature 97.1 degrees, pulse 108, respiratory rate 21, blood pressure 94/66, saturating 96% on 2 L nasal cannula. PHYSICAL EXAMINATION: General: The patient does not appear in any acute distress. No pallor, cyanosis, clubbing, or icterus. Oral cavity is moist. Lungs: Air entry is equal, bilateral suprascapular region. However, decreased air entry with inspiratory crackles in bilateral infrascapular region. No wheeze or rhonchi. Cardiovascular: S1, S2 normal. Irregularly irregular. No murmur, rub, or gallop. Abdomen: Soft, nontender. There are blood-tinged spots of previous enoxaparin injection sites. Extremities: Bilateral upper extremity and lower extremity edema. Neurologic: Alert and oriented x3. The patient has a Yousif catheter. CURRENT LABS: WBC count 78,000, hemoglobin 10, platelet count 210,000. INR 1.0, APTT 37. Potassium 3.8, BUN 26, creatinine 0.6, blood sugar 105. PERTINENT IMAGING DURING HOSPITALIZATION: Pulmonary arteriogram on admission had large bilateral pleural effusions with bibasilar atelectasis, mild to moderate pulmonary edema, and body wall anasarca without any evidence of pulmonary embolism. Chest CT on my personal review had the same degree of bilateral pulmonary effusion. HOSPITAL COURSE SUMMARY: Mr. Rendon is a 73-year-old, man who initially presented on 06/03/2018 with chief complaints of shortness of breath. He was found to have generalized anasarca, bilateral pleural effusion, and pulmonary edema. He was also found to have atrial fibrillation with rapid ventricular rate. He was initially admitted, requiring oxygen through nasal cannula, intravenous Lasix, stress-dosed steroids. During hospital course, his shortness of breath had significantly improved and he did not appear any short of breath, though he required oxygenation 2 to 3 L nasal cannula. His stress dose steroids were later on changed and transitioned to p.o. steroids. For his atrial fibrillation, he could not be taken off diltiazem drip and multiple regimens had been tried. However, considering his atrial fibrillation with rapid ventricular rate which was recurrent and persistent, cardiology team had consulted cardiology team at [facility]. It was decided that the patient could be a good candidate for AV maribel ablation and permanent pacemaker placement, and would benefit from assessment at [facility] for which the transfer process was initiated and the hospitalist service had accepted the patient considering his multiple comorbidities. 1. Atrial fibrillation with rapid ventricular rate. Currently, the patient is on diltiazem drip and p.o. sotalol. IV digoxin loading has also been started considering his intermittent episodes of atrial fibrillation at the time of dictation. The ultimate eventual plan is to transfer him to [facility] for evaluation for AV maribel ablation and pacemaker implantation. 2. Acute hypoxic respiratory failure due to bilateral pleural effusion, pulmonary edema in the setting of atrial fibrillation, RVR, and acute heart failure with preserved ejection fraction exacerbation, minor component of tyrosine kinase inhibitor induced volume overload. For his CLL treatment, he has used fludrocortisone. Currently, patient is maintaining adequate oxygenation with SpO2 of 97% on 2 L. He will be continued on intravenous Lasix. 3. History of adrenal insufficiency. The patient was transitioned from IV hydrocortisone to p.o. hydrocortisone and fludrocortisone at current doses, which is his home medication. 4. History of insulin-dependent diabetes mellitus. He is continued on insulin Lantus and sliding scale insulin. 5. Hypokalemia and hypomagnesemia have been repleted. 6. For history of chronic lymphocytic leukemia, he was out-patiently treated on ibrutinib and had an excellent response with resolution of his neck lymphadenopathy. Oncology was hoping that if his volume status could not be taken care of with intravenous Lasix and if it was definitively thought that ibrutinib was contributing to his volume overload, then in the future, an alternative agent could be tried. DISPOSITION: The patient is currently in the [facility] telemetry unit and will be transferred to [facility] telemetry unit under hospitalist service whenever a bed becomes available. TIME SPENT: More than 30 minutes of time were spent in preparing discharge summary of this patient. cc: Frantz Argueta MD MTDD
[2018-06-07 15:33] VITALS: BP 102/60
--- NOTE | 2018-06-08 07:22 | EKG Report ---
Test Performed on : 06/06/2018 6:34:27 PM Test Reason : A Flutter Blood Pressure : / mmHG Vent. Rate : 066 BPM Atrial Rate : 300 BPM P-R Int : 000 ms QRS Dur : 100 ms QT Int : 418 ms P-R-T Axes : 260 048 038 degrees QTc Int : 438 ms Atrial flutter. with variable AV block. Nonspecific ST abnormality Abnormal ECG When compared with ECG of 06-JUN-2018 17:00, (Unconfirmed) Atrial flutter. has replaced Sinus rhythm. Vent. rate has decreased BY [address] no longer depressed in Inferior leads ST no longer depressed in Anterolateral leads Nonspecific T wave abnormality has replaced inverted T waves in Inferior leads Nonspecific T wave abnormality no longer evident in Lateral leads Unconfirmed Result
--- NOTE | 2018-06-08 07:24 | EKG Report ---
Test Performed on : 06/06/2018 06:24:39 AM Test Reason : afib Blood Pressure : / mmHG Vent. Rate : 080 BPM Atrial Rate : 085 BPM P-R Int : 000 ms QRS Dur : 100 ms QT Int : 414 ms P-R-T Axes : 000 046 -05 degrees QTc Int : 477 ms Atrial fibrillation. with a competing junctional pacemaker. Abnormal ECG When compared with ECG of 05-JUN-2018 06:33, ST no longer depressed in Anterior leads Unconfirmed Result
--- NOTE | 2018-06-08 07:25 | EKG Report ---
Test Performed on : 06/06/2018 5:00:39 PM Test Reason : Confirm rhythm Blood Pressure : / mmHG Vent. Rate : 145 BPM Atrial Rate : 131 BPM P-R Int : 000 ms QRS Dur : 108 ms QT Int : 334 ms P-R-T Axes : 000 039 -45 degrees QTc Int : 518 ms Supraventricular tachycardia. Nonspecific ST and T wave abnormality Abnormal ECG When compared with ECG of 06-JUN-2018 06:24, (Unconfirmed) Sinus rhythm. has replaced Atrial fibrillation. Vent. rate has increased BY 65 BPM Unconfirmed Result
== END 2018-06-07 16:40 | disposition short-term general hospital (02) | DRG 308 ==
LOC: ED 01:39 → 3S 06:30 → SUATTDRO 06:30 → 3S 22:21
PROVIDERS: ATTEND Internal Medicine
CPT/HCPCS: 36430; 71010; 71045; 71250; 71275; 80048; 80053; 81001; 82232; 82784; 82948; 83615; 83735; 83880; 84100; 84484; 85025; 85379; 85610; 85730; 86850; 86900; 86901; 86920; 88184; 88185; 93005; 93010; 93970; 96365; 96375; 97110; 97116; 97162; 97530; 99285; A9270; J1160; J1650; J1720; J1815; J1940; J3475; J3480; J7040; P9016; P9047; Q9967; XXXXX

== ENCOUNTER 2018-07-08 08:57 | Inpatient (IN) ==
[2018-07-07 14:23] LABS: HEMATOCRIT 20.3 % (42.0-52.0); HEMOGLOBIN 6.4 g/dL (14.0-18.0); MCH 32.8 PG (27-31); MCHC 31.5 g/dL (33-37); MCV 104.1 FL (81-99); MPV 9.7 FL (7.4-10.4); RBC 1.95 XMIL (4.7-6.1); RDW 21.5 % (11.5-14.5); WBC 51.55 X1000 (4.8-10.8)
[2018-07-08] MEDS ORDERED: TYLENOL ONE (10:07)
[2018-07-08] MEDS ORDERED: BENADRYL ONE (10:07)
[2018-07-08] MEDS ORDERED: NS 250 ML ONE (10:07)
--- NOTE | 2018-07-08 10:46 | Diag Imaging Result Doc PS360 ---
EXAM: CHEST-2 VIEWS HISTORY: sob TECHNIQUE: Chest two views COMPARISON: 06/07/2018 FINDINGS: The lungs are hyperexpanded. There are small bilateral pleural effusions. There are underlying small infiltrate or atelectasis in the lung bases. The heart is not enlarged. No change in the right-sided catheter or left pacemaker. IMPRESSION: Interval improvement compared to the prior study. Electronically signed by Carlos Acosta 07/08/2018 10:44 AM
[2018-07-08 11:45] LABS: URINE SOURCE VOIDED
[2018-07-08] MEDS ORDERED: ZOFRAN IV PRN (11:52)
[2018-07-08] MEDS ORDERED: TYLENOL PO PRN (11:52)
[2018-07-08 11:55] LABS: BILIRUBIN URINE NEGATIVE (NEGATIVE); BLOOD URINE NEGATIVE (NEGATIVE); COLOR YELLOW; GLUCOSE URINE NEGATIVE (NEGATIVE); KETONE URINE NEGATIVE (NEGATIVE); LEUKOCYTES URINE NEGATIVE (NEGATIVE); NITRITE URINE NEGATIVE (NEGATIVE); PROTEIN URINE TRACE mg/dL (NEGATIVE); SP GRAVITY URINE 1.008; TURBIDITY URINE CLEAR (CLEAR); UROBILINOGEN URINE 2 mg/dL (NORMAL)
[2018-07-08 11:57] LABS: UR EPITHELIAL CELLS <10 /HPF (<10); URINE BACTERIA 3+ /HPF; URINE RBC <10 /HPF (<10); URINE WBC <10 /HPF (<10)
[2018-07-08 12:53] LABS: BASO# 0.05 X1000 (0.0-0.2); BASO% 0.1 % (0.0-0.8); EOS# 0.02 X1000 (0.0-0.7); HEMATOCRIT 20.7 % (42.0-52.0); HEMOGLOBIN 6.7 g/dL (14.0-18.0); IMM GRAN# 0.05 X1000 (0.0-0.04); IMM GRAN% 0.1 % (0.0-0.5); MCHC 32.4 g/dL (33-37); MONO# 0.35 X1000 (0.11-0.59); MONO% 0.6 % (1.7-9.3); MPV 9.4 FL (7.4-10.4); NEUT# 0.67 X1000 (1.4-6.5); NEUT% 1.2 % (42.2-75.2); PLT 189 X1000 (130-400); RBC 2.03 XMIL (4.7-6.1); RDW 20.9 % (11.5-14.5); WBC 56.54 X1000 (4.8-10.8)
--- NOTE | 2018-07-08 12:53 | EKG Report ---
Test Performed on : 07/08/2018 12:47:42 PM Test Reason : sob Blood Pressure : / mmHG Vent. Rate : 083 BPM Atrial Rate : 083 BPM P-R Int : 126 ms QRS Dur : 138 ms QT Int : 356 ms P-R-T Axes : 025 -41 -14 degrees QTc Int : 418 ms Atrial-sensed ventricular-paced rhythm Abnormal ECG When compared with ECG of 06-JUN-2018 18:34, Electronic ventricular pacemaker has replaced Atrial flutter. Confirmed by Christine MCPHERSON, Ag ([id number]) on 07/08/2018 6:24:02 PM
[2018-07-08 12:59] LABS: INR 1.62; PROTIME 20.5 Seconds (11.0-16.0)
[2018-07-08 13:00] LABS: PTT 46.6 Seconds (22.3-41.8)
[2018-07-08 13:23] LABS: AGAP 10; ALB/GLOB RATIO 0.8; ALBUMIN 2.8 g/dL (3.5-5.0); ALKALINE PHOSPHATASE 47 U/L (32-122); BUN 17 mg/dL (8-22); CALCIUM 7.4 mg/dL (8.8-10.2); CHLORIDE 96 mmol/L (98-107); COSMO 265; CREATININE 0.7 mg/dL (0.7-1.2); ESTIMATED GFR > 60; GLUCOSE 153 mg/dL (70-104); GOT 10 U/L (10-34); GPT 6 U/L (10-44); POTASSIUM 3.4 mmol/L (3.5-5.1); SODIUM 130 mmol/L (136-145); TCO2 24 mmol/L (25-35); TOTAL BILIRUBIN 0.73 mg/dL (0.20-1.00); TOTAL PROTEIN 6.2 g/dL (6.3-8.3)
[2018-07-08 13:24] LABS: ANISOCYTOSIS 1+; HYPOCHROM 1+; SEGS 2 % (42-75)
[2018-07-08 13:27] LABS: LYMPHS 98 % (21-51)
[2018-07-08] MEDS ORDERED: MAGNESIUM SULFATE IV ONE (13:37)
[2018-07-08] MEDS ORDERED: MAGNESIUM SULFATE 4 GM/S.W.I. 4 GM/100 ML IVPB IV ONE (13:47)
[2018-07-08] MEDS ORDERED: PHENERGAN PO PRN (13:49)
[2018-07-08 14:06] LABS: URINE SOURCE CLEAN CATCH
[2018-07-08 14:08] LABS: BILIRUBIN URINE NEGATIVE (NEGATIVE); BLOOD URINE NEGATIVE (NEGATIVE); COLOR YELLOW; GLUCOSE URINE NEGATIVE (NEGATIVE); KETONE URINE NEGATIVE (NEGATIVE); LEUKOCYTES URINE NEGATIVE (NEGATIVE); NITRITE URINE NEGATIVE (NEGATIVE); PROTEIN URINE NEGATIVE (NEGATIVE); SP GRAVITY URINE 1.003; TURBIDITY URINE CLEAR (CLEAR); UROBILINOGEN URINE NORMAL (NORMAL)
[2018-07-08 14:09] LABS: UR EPITHELIAL CELLS <10 /HPF (<10); URINE BACTERIA 3+ /HPF; URINE RBC <10 /HPF (<10); URINE WBC <10 /HPF (<10)
[2018-07-08] MEDS: AZACTAM 1 GM in NS 50 ML IV SCH ×2 (14:25→23:08)
[2018-07-08] MEDS: POTASSIUM CHLORIDE 20 MEQ/SWI 20 MEQ/100 ML IVPB IV SCH ×2 (14:44→18:17)
--- NOTE | 2018-07-08 15:14 | HISTORY AND PHYSICAL ---
PRIMARY CARE PROVIDER: Dr. Latosha Badillo. ONCOLOGIST: Dr. Anjum Hurtado. CHIEF COMPLAINT: Direct admit due to anemia and fever. HISTORY OF PRESENT ILLNESS: Mr. Kilo Rendon is a 73-year-old male with a medical history of CLL being treated with Imbruvica by Dr. Hurtado, also anemia and amino globulin deficiency also being treated by Dr. Hurtado. So, he was recently here June 03 to June 07 treated for congestive heart failure, atrial fibrillation with RVR, hypoxic respiratory failure. He was then transferred on the to [facility] where he underwent cardioversion and ablation which has worked so far. He stayed there until the where he was discharged to [facility]. He was actually supposed to get out this Friday. Yesterday, he went to see Dr. Hurtado in the office. They noted he did have a lower hemoglobin. He received a B12 shot and also given IVIG over 5 hours. Today, he came in to have 2 packed red blood cells transfusion and was found to have an elevated fever over 101. According to the family, he had a chest x-ray at [facility] this week which showed pneumonia, and he was receiving an unknown antibiotic IV for this. So, now he is being treated for health-care related pneumonia with fever along with anemia that is symptomatic as well. His complaints are shortness of breath, weakness, swelling of the arms. Apparently, the swelling has been since he was at [facility]. Also, when he was at [facility], he received a permanent pacemaker in the left chest; and that appears to have a clean, dry and intact incision. He has a paced rhythm on EKG. So, we will consult Dr. Hurtado and treat his pneumonia along with his anemia. PAST MEDICAL HISTORY: 1. Congestive heart failure. 2. CLL receiving Imbruvica and followed by Dr. Hurtado. 3. Atrial fibrillation with RVR history with anticoagulation for this which will be stopped now with a pacemaker and was cardioverted and had ablation which apparently worked. 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 5. Diabetes mellitus Type 2 insulin dependent. 6. Hyperlipidemia. 7. History of DVT in right leg, but that was in the 1980s. None since then. PAST SURGICAL HISTORY: 1. Appendectomy. 2. Port-A-Cath. 3. Multiple cardioversions. 4. Tonsillectomy. 5. Most recently ablation on June 08 and pacemaker placement on June 08. SOCIAL HISTORY: Denies tobacco, alcohol or illicit drug use. He lives at home with his . FAMILY HISTORY: Denies any pertinent history. ALLERGIES: Allopurinol, Keflex, cephalosporins, Levaquin, penicillin, piperacillin, Bactrim, Zosyn, vancomycin, phenolphthalein. HOME MEDICATIONS: 1. Insulin Lantus 45 units subcu nightly. 2. Pravachol 40 mg p.o. nightly. 3. Eliquis 5 mg p.o. twice daily. 4. Fludrocortisone 0.1 mg p.o. daily. 5. Metformin 750 mg p.o. twice daily. 6. Hydrocortisone 10 mg as directed. 7. Imbruvica 1 tab p.o. daily in afternoon with full glass of water. 8. Januvia 100 mg p.o. daily. 9. Potassium chloride 20 mEq p.o. daily. 10.Lasix 40 mg p.o. daily. 11.Megestrol 120 mg p.o. twice daily. 12.Phenergan 25 mg p.o. q 6 hours p.r.n. 13.Reglan 10 mg 1 p.o. AC. 14.Sotalol 120 mg p.o. twice daily. 15.Synthroid 200 mcg p.o. daily. 16.Uloric 40 mg p.o. daily. 17.Protonix 40 mg p.o. daily. REVIEW OF SYSTEMS: A 14-point review of systems is complete, and all are negative except for those mentioned above in HPI. His complaints mainly are shortness of breath, coughing up clear, having fever that started last night and complaints of swelling in his arms. He denies any pain or any GI symptoms although he states he only has a bowel movement once every 3 days. He denies blood in his stool. PHYSICAL EXAMINATION: VITAL SIGNS: Temperature 101.4, heart rate 86, blood pressure 102/47, O2 saturation 96% on room air. GENERAL: Mr. Kilo Rendon is a 73-year-old male who is in no acute distress. He is able to answer questions appropriately. HEENT: Atraumatic and normocephalic. Pupils equal, round and reactive to light. Extraocular movements intact. Mucous membranes are moist. NECK: Trachea is midline. CARDIOVASCULAR: S1 and S2. Regular rate and rhythm. No rubs, gallops or murmurs. He has +3 lower extremity edema, +4 upper extremity edema, +2 dorsalis, pedal and radial pulses. Negative JVD or carotid bruits. PULMONARY: Clear to auscultation. Decreased in the bases. Mild crackles in the bases. No accessory muscle use or work of breathing noted. He is tolerating room air. GI: Soft, nontender and nondistended. Positive bowel sounds x 4. EXTREMITIES: Decreased range of motion and strength in all extremities, but they are all equal. NEUROLOGICAL: Alert and oriented x 3. Follows commands. Sensory is intact. SKIN: Warm, dry and intact and pale. LABORATORY DATA: WBC 56,000, hemoglobin 6.7, hematocrit 20.7, platelet count 189,000, INR 1.62, PTT 46.6, sodium 130, potassium 3.4, BUN 17, creatinine 0.7, glucose 153, calcium 7.4, magnesium 1.0, bilirubin 0.73, AST 10, ALT 6, proBNP 2316, albumin 2.8, serum lactate 2.1. Urinalysis trace protein, 2 urobilinogens, 3+ bacteria. IMAGING: Chest x-ray showed underlying small infiltrates or atelectasis in the lung bases, but they are actually better than a previous x-ray. EKG atrial sensed ventricularly paced rhythm. Rate is 83. QTc 418. ASSESSMENT AND PLAN: 1. Symptomatic anemia. Received B12 shot yesterday. Per Dr. Hurtado is planning to give 2 units of packed red blood cells once fever is resolved. Hemodynamically stable. Denies any blood in his stools and actually only has 1 bowel movement about once every 3 days. Last bowel movement was about 2 or 3 days ago. He had iron studies back in March which iron level at that time was 93. Will do proton pump inhibitor. 2. Health care related pneumonia. He has essentially been in the hospital or in a rehab setting since June 03, 2018, and apparently was diagnosed with pneumonia as an outpatient at [facility] and was started on IV antibiotics. He does have some small infiltrates that could be pulmonary edema as well as he has leukocytosis on top of CLL and is receiving steroids and is febrile. So, he will be started on aztreonam and Zyvox. 3. CLL being followed by Dr. Hurtado treated with Imbruvica. 4. Atrial fibrillation with RVR. Had ablation with pacemaker placement on June 08. Was on Eliquis and that will be stopped. He has got low hemoglobin and hematocrit. 5. Sushil's disease. Continue hydrocortisone. 6. Diabetes mellitus Type 2. Will do patterned blood glucoses and sliding scale insulin. 7. Hyperlipidemia noted. 8. DVT prophylaxis. SCDs. 9. Upper extremity swelling bilaterally. Ultrasound of the extremities will be ordered. Dictated by ERLIN Persaud for Akshat Gamble MD cc: ERLIN Persaud Agree with above. The following is my own face to face assessment. admitted with fever, fatigue. origin of fever uncertain at this time. recent treatment for pneumonia but chest xray essentially clear, respiratory symptoms minimal and largely consist of orthopnea, urine clear, no abdominal symptoms. give underlying malignancy and multiple recent bouts of pneumonia, will place on empiric antibiotics for now and obtain further workup. [facility]
[2018-07-08] MEDS: ZYVOX 600 MG/D5W 600 MG/300 ML IVPB IV SCH (15:20)
[2018-07-08] MEDS: DUONEB (A & A) INH SCH ×2 (16:25→21:47)
[2018-07-08] MEDS: HUMULIN R SUBQ SCH ×2 (16:50→23:07)
[2018-07-08] MEDS: NS 500 ML IV SCH (18:17)
[2018-07-08] MEDS: PRAVACHOL PO SCH (23:06)
[2018-07-08] MEDS: BETAPACE PO SCH (23:06)
[2018-07-09] MEDS: ZYVOX 600 MG/D5W 600 MG/300 ML IVPB IV SCH ×2 (04:15→16:03)
[2018-07-09] MEDS: DUONEB (A & A) INH SCH ×4 (05:43→22:00)
[2018-07-09] MEDS: AZACTAM 1 GM in NS 50 ML IV SCH ×3 (07:01→23:03)
[2018-07-09] MEDS: PROTONIX PO SCH (07:01)
[2018-07-09] MEDS: HUMULIN R SUBQ SCH ×4 (07:03→22:04)
[2018-07-09 07:43] LABS: INR 1.38
[2018-07-09 07:44] LABS: PTT 48.9 Seconds (22.3-41.8)
[2018-07-09] MEDS ORDERED: INSULIN PEN NEEDLES ONE (07:44)
[2018-07-09 08:00] LABS: BASO# 0.06 X1000 (0.0-0.2); BASO% 0.1 % (0.0-0.8); EOS# 0.03 X1000 (0.0-0.7); EOS% 0.1 % (0.0-10.0); HEMOGLOBIN 7.6 g/dL (14.0-18.0); IMM GRAN# 0.05 X1000 (0.0-0.04); IMM GRAN% 0.1 % (0.0-0.5); LYMPH# 51.64 X1000 (1.2-3.4); LYMPH% 97.6 % (20.5-51.1); MCH 31.3 PG (27-31); MCHC 31.7 g/dL (33-37); MCV 98.8 FL (81-99); MONO# 0.44 X1000 (0.11-0.59); MONO% 0.8 % (1.7-9.3); MPV 9.8 FL (7.4-10.4); NEUT# 0.71 X1000 (1.4-6.5); NEUT% 1.3 % (42.2-75.2); PLT 182 X1000 (130-400); RBC 2.43 XMIL (4.7-6.1); RDW 20.4 % (11.5-14.5); WBC 52.93 X1000 (4.8-10.8)
[2018-07-09 08:01] LABS: AGAP 11; ALB/GLOB RATIO 0.8; ALBUMIN 2.7 g/dL (3.5-5.0); ALKALINE PHOSPHATASE 51 U/L (32-122); BUN 12 mg/dL (8-22); CALCIUM 7.6 mg/dL (8.8-10.2); CHLORIDE 97 mmol/L (98-107); COSMO 263; CREATININE 0.5 mg/dL (0.7-1.2); ESTIMATED GFR > 60; GLUCOSE 79 mg/dL (70-104); GOT 8 U/L (10-34); GPT 5 U/L (10-44); MAGNESIUM 1.6 mg/dL (1.5-2.7); POTASSIUM 3.1 mmol/L (3.5-5.1); SODIUM 132 mmol/L (136-145); TCO2 24 mmol/L (25-35); TOTAL BILIRUBIN 0.97 mg/dL (0.20-1.00); TOTAL PROTEIN 5.9 g/dL (6.3-8.3)
[2018-07-09 08:31] LABS: LYMPHS 100 % (21-51)
[2018-07-09] MEDS: KLOR-CON PO SCH (09:24)
[2018-07-09] MEDS: SYNTHROID PO SCH (09:25)
[2018-07-09] MEDS: BETAPACE PO SCH ×2 (09:25→22:03)
[2018-07-09] MEDS: CORTEF PO SCH ×3 (09:26→18:49)
[2018-07-09] MEDS: BASAGLAR SUBQ SCH (09:26)
[2018-07-09] MEDS ORDERED: POTASSIUM CHLORIDE 60 MEQ in NS 500 ML IV ONE (10:33)
[2018-07-09] MEDS: NS 500 ML IV SCH (13:07)
--- NOTE | 2018-07-09 13:09 | HEMO/ONC CONSULTATION ---
DATE: 07/09/2018 CHIEF COMPLAINT: We have been consulted for further management of patient's CLL and anemia. HISTORY OF PRESENT ILLNESS: Mr. Rendon is a 73-year-old male that was sent to the hospital yesterday to receive 2 units of packed red blood cells, from our clinic. The patient has recently been in the hospital and was at [facility] where he has also been getting IV antibiotics for possible pneumonia. The patient in the infusion clinic was noted to have a fever of 101. The patient had a chest x-ray at [facility] that did show pneumonia. The patient was started on IV antibiotics at rehab. The patient continued to complain of shortness of breath, weakness, and swelling to bilateral arms. The patient had also been at [facility] where he received a pacemaker and had an ablation done. The patient was admitted for IV antibiotics to treat his pneumonia as well as to monitor his anemia at this time. Mr. Kilo Rendon is well known to us in our clinic where he follows up for his CLL. The patient previously did get 4 rounds of fludarabine and rituximab in 2006, and then relapsed and had R-CVP x4, and fludarabine and rituximab again x6 in 2011, The patient then relapsed again in 2015, where he completed 6 cycles of Treanda and rituximab. The patient also has a history of hypogammaglobinemia where he gets IVIG for recurrent infections. The patient did just receive that infusion on Friday. Then, once again in May 2017, patient relapsed and now is on full- dose Imbruvica. 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 The patient has been in and out of the hospital very frequently these past few months. PAST MEDICAL HISTORY: CLL, hypothyroidism, diabetes mellitus type 2, hyperlipidemia, DVTs, atrial fibrillation, and [place]'s disease. PAST SURGICAL HISTORY: TURP, appendectomy, Port-A-Cath placement and removal, and pacemaker placement. SOCIAL HISTORY: Denies any alcohol, tobacco, or illicit drug use. FAMILY HISTORY: Emphysema and lung cancer. ALLERGIES: Allopurinol, Keflex, cephalosporins, Levaquin, penicillin, Zosyn, Bactrim, and laxatives. HOME MEDICATIONS: Eliquis, aspirin, Uloric, fludrocortisone acetate, Lasix, hydrocortisone, Imbruvica, Lantus, Levaquin, Synthroid, Megace, Glucophage XR, Reglan, Protonix, Klor-Con, Pravachol, prednisone, promethazine, Januvia, and sotalol. REVIEW OF SYSTEMS: Negative other than in the HPI. PHYSICAL EXAMINATION: Vital Signs: Temperature of 98.6 degrees, heart rate 80, respiratory rate 28, blood pressure 131/59, saturation 93% on room air. General: The patient is awake, lying in bed. No acute distress noted. HEENT: Anicteric. Pupils PERRLA. Mucous membranes appear to be dry. Neck: Supple. Trachea midline. Lymph Node Survey: No palpable lymphadenopathy. Cardiovascular: S1, S2. Regular rate and rhythm. Chest: Bilateral breath sounds diminished in the bases. Crackles. Abdomen: Soft, nontender. Bowel sounds present in all 4 quadrants. Skin: Warm, dry, and intact. Extremities: Edema noted. Neurologic: Alert and oriented x3. No focal deficits noted. LABORATORY DATA: White blood cell count is 52.93, hemoglobin 7.6, hematocrit 24.0, platelets are 182,000. Potassium 3.1, BUN 12, creatinine 0.5. ASSESSMENT AND PLAN: 1. Chronic lymphocytic leukemia, ZAP-70 negative, relapse: The patient will be on full dose Imbruvica. The patient has had a very good response and is improved. Lymph nodes have definitely decreased in size. We will continue to monitor very closely. 2. Anemia: The patient received 1 unit of packed red blood cells yesterday. Plan on receiving another unit today. Continue to monitor closely. 3. Pneumonia: Patient will continue antibiotics as ordered per primary medical team. Continue oxygen nebulizers as needed. 4. Atrial fibrillation: Continue recommendations per primary medical team and cardiology. 5. Sushil's disease: Continue recommendations per primary medical team. Continue to monitor. 6. Supportive care: Patient will continue to get out of bed as much as possible. The patient will continue protein shakes 3 times a day. Continue to exercise while in the hospital. Physical therapy has been consulted. Dictated by ERLIN Evans for Anjum Hurtado MD Patient seen and examined. As above. Patient known to us for CLL. He is currently on Imbruvica. He was admitted to the hospital for further management fever. He has Benadryl at the hospital repeatedly over the last few months so infectious issues. His baseline leukocytosis over the last few weeks was in the 30-40,000 range. Further elevation in his count is likely reactive to stress/infection. For his anemia, transfuse as needed. This is due to chemotherapy/CLL bone marrow involvement. Anjum Hurtado M.D. cc: Anjum Hurtado MD [facility]
--- NOTE | 2018-07-09 14:20 | Diag Imaging Result Doc PS360 ---
EXAM: CT THORAX/ABD/PELVIS W/O CON INDICATION: fever of unknown origin. CLL. TECHNIQUE: This exam was performed using automated exposure control, adjustment of mA or kV according to patient size, and/or use of iterative reconstruction technique. COMPARISON: CT chest dated 06/07/[address] chest, abdomen, and pelvis dated 04/26/2018 FINDINGS: CHEST: Similar to the previous study, there are bilateral large pleural effusions with associated atelectasis. They are smaller than the previous study, however. There are interstitial and airspace opacities throughout the aerated portions of both lungs indicating pulmonary edema. There is atelectasis +/- pneumonia involving the right middle lobe. On image 43 of series 4, there is an 8.3 mm lung nodule in the right upper lobe anteriorly. Previously, it measured 4.8 mm. It is nonspecific. Shotty small mediastinal lymph nodes are stable. No new lymphadenopathy is appreciated involving the mediastinum or katy. There is axillary lymphadenopathy that is essentially stable as compared to the previous study. ABDOMEN/PELVIS: The liver, gallbladder, spleen, pancreas, adrenal glands, kidneys, and urinary bladder are essentially unremarkable. There is evidence of a prior appendectomy. The GI tract is essentially unremarkable, otherwise. There has been interval significant improvement of the pelvic and periaortic lymphadenopathy seen on the previous study. For reference, the conglomerate maribel mass. Aortic region on the previous study is much smaller measuring 6.6 x 2.9 cm axially (10.0 x 5.7 cm previously). No new lymphadenopathy is appreciated. IMPRESSION: 1.Pulmonary edema and large bilateral pleural effusions with bibasilar atelectasis. 2.Nonspecific right upper lobe subcentimeter lung nodules that is more prominent than the previous study. 3.Significant improvement of periaortic and pelvic lymphadenopathy that was seen on the previous study. 4.Milder axillary lymphadenopathy is approximately stable. 5.Other incidental/nonacute findings detailed above. Electronically signed by Tank Clement 07/09/2018 2:18 PM
--- NOTE | 2018-07-09 15:54 | PROGRESS NOTE ---
DATE: 07/09/2018 INTERVAL HISTORY: The patient's bilateral upper extremity edema essentially unchanged. He reports improvement in his dyspnea and fatigue. He still with largely nonproductive cough. This is also somewhat improved. No new complaints. No other acute events overnight. REVIEW OF SYSTEMS: Twelve point review of systems negative except as per interval history. LABORATORY: WBC 52.9, hemoglobin 7.6, hematocrit 24, and platelets 182,000. INR 1.38. Sodium 132, potassium 3.1, chloride 97, BUN 12, creatinine 0.5 and glucose 129. Urinalysis unremarkable. IMAGING: CT chest, abdomen, and pelvis: Pulmonary edema, large bilateral pleural effusions with bibasilar atelectasis. Multiple malignancy related. Nodules and lymphadenopathy, right upper lobe nodule slightly more prominent, but other lymphadenopathy slightly improved. No clear evidence of pneumonia. VITALS: T-max 100.1, pulse 72, respirations 18, and blood pressure 113/51. 02 sats 95% on room air. PHYSICAL EXAMINATION: General: No acute distress. Vitals: As above. HEENT: Normocephalic, atraumatic. Moist mucous membranes. No cervical adenopathy. Cardiovascular: Regular rate and rhythm. No murmur, gallop or rubs. Pulmonary: Still with slight bibasilar crackles and somewhat decreased air entry at the bases, otherwise clear to auscultation. Abdomen: Soft, nontender, and nondistended. Bowel sounds positive. Extremities: Peripheral pulses are intact with 2 to 3+ upper extremity edema bilaterally, and 1+ lower extremity edema bilaterally. Neurologic: Cranial nerves grossly intact. No focal deficits identified. Psychologic: Normal mood and affect. Awake, alert, and oriented x3. Skin: No new rashes or lesions identified. ASSESSMENT AND PLAN: 1. Symptomatic anemia somewhat improved status post transfusion on admission. No signs or symptoms of active bleeding likely related to malignancy and possibly related to treatment of malignancy. 2. Dyspnea. Initial concern primarily for pneumonia but imaging really has not shown pneumonia. Patient with purulent cough. CT obtained to better clarify and more consistent with pulmonary edema. BNP is elevated although not above baseline. We will give him some Lasix and see if this improves his respiratory status. Continue antibiotics for now, but suspect low-grade fevers may be from a viral upper respiratory infection rather than true pneumonia. 3. Chronic lymphocytic leukemia. Patient followed by Dr. Hurtado. Treated with imbruvica at home. Being held currently because of active infection. 4. Atrial fibrillation status post ablation, pacemaker placed on 06/08. Holding Eliquis currently given the anemia, but we will likely restart given lack of evidence of bleeding. 5. [place]'s disease. Continue home hydrocortisone. 6. Diabetes mellitus reasonable glucose control so far. Continue to monitor. 7. Hyperlipidemia. Continue home statin. 8. GERD. Continue PPI. 9. Deep vein thrombosis prophylaxis SCD's. [facility]
[2018-07-09] MEDS: LASIX IV SCH (16:11)
[2018-07-09] MEDS: PRAVACHOL PO SCH (22:03)
[2018-07-10] MEDS: ZYVOX 600 MG/D5W 600 MG/300 ML IVPB IV SCH ×3 (02:16→15:00)
[2018-07-10] MEDS: DUONEB (A & A) INH SCH ×4 (05:28→22:02)
[2018-07-10] MEDS: PROTONIX PO SCH (06:13)
[2018-07-10] MEDS: AZACTAM 1 GM in NS 50 ML IV SCH ×3 (06:13→21:47)
[2018-07-10] MEDS: HUMULIN R SUBQ SCH ×4 (06:46→21:46)
[2018-07-10 07:11] LABS: BASO# 0.03 X1000 (0.0-0.2); BASO% 0.1 % (0.0-0.8); EOS# 0.03 X1000 (0.0-0.7); EOS% 0.1 % (0.0-10.0); HEMATOCRIT 26.2 % (42.0-52.0); HEMOGLOBIN 8.6 g/dL (14.0-18.0); IMM GRAN# 0.04 X1000 (0.0-0.04); IMM GRAN% 0.1 % (0.0-0.5); LYMPH# 39.95 X1000 (1.2-3.4); LYMPH% 96.3 % (20.5-51.1); MCH 31.2 PG (27-31); MCHC 32.8 g/dL (33-37); MCV 94.9 FL (81-99); MONO# 0.29 X1000 (0.11-0.59); MONO% 0.7 % (1.7-9.3); MPV 9.8 FL (7.4-10.4); NEUT# 1.13 X1000 (1.4-6.5); NEUT% 2.7 % (42.2-75.2); PLT 171 X1000 (130-400); RBC 2.76 XMIL (4.7-6.1); RDW 21.6 % (11.5-14.5); WBC 41.47 X1000 (4.8-10.8)
[2018-07-10 07:33] LABS: AGAP 8; BUN 10 mg/dL (8-22); CALCIUM 7.6 mg/dL (8.8-10.2); CHLORIDE 99 mmol/L (98-107); COSMO 263; CREATININE 0.5 mg/dL (0.7-1.2); ESTIMATED GFR > 60; GLUCOSE 117 mg/dL (70-104); MAGNESIUM 1.5 mg/dL (1.5-2.7); POTASSIUM 3.8 mmol/L (3.5-5.1); SODIUM 131 mmol/L (136-145); TCO2 24 mmol/L (25-35)
[2018-07-10 08:14] LABS: LYMPHS 92 % (21-51); SEGS 2 % (42-75)
[2018-07-10] MEDS: SYNTHROID PO SCH (09:35)
[2018-07-10] MEDS: BETAPACE PO SCH ×2 (09:35→21:46)
[2018-07-10] MEDS: KLOR-CON PO SCH (09:36)
[2018-07-10] MEDS: CORTEF PO SCH ×4 (09:36→19:28)
[2018-07-10] MEDS: BASAGLAR SUBQ SCH (09:37)
[2018-07-10] MEDS: LASIX IV SCH ×2 (09:37→21:46)
--- NOTE | 2018-07-10 12:45 | HEMO/ONC PROGRESS NOTE ---
DATE: 07/10/2018 SUBJECTIVE: The patient continues to have cough. Shortness of breath continues to slowly improve. The patient denies any recent fevers overnight. OBJECTIVE: Vital Signs: Temperature 98.2 degrees, heart rate 81, respiratory rate 20, blood pressure 129/64, saturation 96% on room air. General: The patient is awake, lying in bed, no acute distress noted. HEENT: Anicteric. Mucous membranes moist. Cardiovascular: S1, S2. Regular rate and rhythm. Chest: Bilateral breath sounds diminished bilaterally. Abdomen: Soft, nontender. Bowel sounds present in all 4 quadrants. Neurologic: Alert and oriented x3. No focal deficits noted. LABORATORY DATA: White blood cell count 41.47, hemoglobin 8.6, hematocrit 26.2, platelets are 171,000. Potassium 3.8, BUN 10, creatinine 0.5. ASSESSMENT AND PLAN: 1. Chronic lymphocytic leukemia, ZAP-70 negative, relapse: The patient will continue his Imbruvica. Continue to monitor closely. The patient has had a good response with that. 2. Anemia: The patient is status post 2 units of packed red blood cells. Hemoglobin and hematocrit have improved to 8.6 and 26.2. We will continue to monitor closely. Transfuse as needed. 3. Pneumonia: The patient will continue to get antibiotics as ordered per primary team. Continue oxygen, nebulizers, steroids as instructed. 4. Atrial fibrillation. Continue recommendations per primary medical team and cardiology. 5. [place] disease. Continue recommendations per primary medical team. 6. Supportive care consultation. To get up as much possible. The patient will continue protein shakes 3 times a day. Continue physical therapy as ordered. Dictated by ERLIN Evans for Anjum Hurtado MD Patient seen and examined. As above. Continue current management for fever/pneumonia. White count has come down to near his baseline. Continue Imbruvica. Hemoglobin has improved with transfusion. Continue transfusion as needed. Anjum Hurtado M.D. cc: ERLIN Evans MD [facility]
--- NOTE | 2018-07-10 13:17 | Diag Imaging Result Doc PS360 ---
EXAM: CHEST-PORTABLE INDICATION: dyspnea TECHNIQUE: 2 views COMPARISON: 07/08/2018 FINDINGS: The right chest port is in stable position. The central vasculature appears slightly more prominent than the previous study suggesting pulmonary venous congestion that has worsened slightly. There are likely trace effusions that are stable. No other new consolidation is identified. Cardiac silhouette is stable. IMPRESSION: Suggestion of mild pulmonary venous congestion that has worsened during the interval. Electronically signed by Tank Clement 07/10/2018 1:14 PM
--- NOTE | 2018-07-10 14:22 | Extremity Venous Study ---
PROCEDURE NAME: Venous U/S Bilateral Arms - 07/08/2018 PROCEDURE NAME: Bilateral upper extremity venous duplex. REFERRING PHYSICIAN: Dr. Gamble. READING PHYSICIAN: Dr. Tony. SLOTTER OPERATOR HELPER: Jorge L. INDICATION: Bilateral arm swelling. FINDINGS: The deep and superficial veins of both arms were imaged throughout their course. They are compressible, patent, and without thrombus. Both forearms, however, did show some free fluid. INTERPRETATION: No DVT or SVT of either upper extremity. There is bilateral forearm subcutaneous fluid, which was not well defined on this study. cc: Jose Tony MD
--- NOTE | 2018-07-10 17:15 | PROGRESS NOTE ---
DATE: 07/10/2018 INTERVAL HISTORY: The patient's bilateral upper extremity edema unchanged. Still with some nonproductive cough which may be slightly worse and some dyspnea with exertion which is essentially stable. No new complaints. No other acute events overnight. REVIEW OF SYSTEMS: Twelve point review of systems negative except as per interval history. LABS: WBC 41.4, hemoglobin 8.6, hematocrit 26.2, platelets 171,000, sodium 131, potassium 3.8, BUN 10, creatinine 0.5, glucose 117. IMAGING: Chest x-ray suggestion mild pulmonary venous congestion that has slightly worsened. VITALS: T-max 100.1, pulse 80, respirations 17, blood pressure 114/64, O2 saturation 99% on room air. PHYSICAL EXAM: General: No acute distress. Vitals: As above. HEENT: Normocephalic, atraumatic. Moist mucous membranes, no cervical adenopathy. Cardiovascular: Regular rate and rhythm. No murmurs noted. Pulmonary: Still with slight bibasilar crackles possibly slightly worst as well as decreased air entry at bases. Abdomen: Soft, nontender, nondistended. Bowel sounds positive. Extremities: Peripheral pulses intact with 2 to 3+ upper extremity edema bilaterally and 1+ lower extremity edema bilaterally. Neurologic: Cranial nerves grossly intact. No focal deficit seen. Psychiatric: Normal mood and affect. Awake, alert, oriented x3. Skin: No new rashes or lesions identified. ASSESSMENT AND PLAN: 1. Symptomatic anemia likely related to underlying hematologic malignancy. Improved status post transfusion. No sign or symptoms of active bleeding. 2. Dyspnea, possible pneumonia, possible acute on chronic diastolic congestive heart failure. Initial concern primarily for pneumonia given fevers but imaging did not really show pneumonia. The patient with nonproductive cough. CT obtained to better clarify more consistent with pulmonary edema which is more what his chest x-ray today shows as well. BNP is elevated although not really significantly more than has been the past. Still with occasional low-grade fevers so will continue antibiotics but will get more aggressive with his Lasix to see if this may improve his symptoms. He has had fairly recent echocardiogram at the end of March of this year with normal ejection fraction. May have some diastolic dysfunction however. 3. Chronic lymphocytic leukemia. Patient followed by Dr. Hurtado treated with Imbruvica at home. Held on admission because of possible active infection. Will likely restart tomorrow. 4. Atrial fibrillation status post ablation, pacemaker placed 06/08. Holding Eliquis currently given anemia but will likely restart in the morning given lack of evidence of bleeding. 5. Sushil disease. Continue home hydrocortisone. 6. Diabetes mellitus. Reasonable glucose control so far. Continue to monitor. 7. Hyperlipidemia. Continue home statin. 8. Gastroesophageal reflux disease. Continue PPI. 9. Deep vein thrombosis prophylaxis SCDs.
[2018-07-10] MEDS: PRAVACHOL PO SCH (21:46)
[2018-07-11] MEDS: DUONEB (A & A) INH SCH ×2 (03:53→09:11)
[2018-07-11] MEDS: ZYVOX 600 MG/D5W 600 MG/300 ML IVPB IV SCH ×3 (03:56→14:32)
[2018-07-11] MEDS: PROTONIX PO SCH (06:13)
[2018-07-11] MEDS: AZACTAM 1 GM in NS 50 ML IV SCH ×2 (06:13→13:49)
[2018-07-11] MEDS: HUMULIN R SUBQ SCH ×2 (06:36→12:22)
[2018-07-11] MEDS: KLOR-CON PO SCH (08:21)
[2018-07-11] MEDS: CORTEF PO SCH ×2 (08:21→13:50)
[2018-07-11] MEDS: LASIX IV SCH (08:21)
[2018-07-11] MEDS: BETAPACE PO SCH (08:22)
[2018-07-11] MEDS: BASAGLAR SUBQ SCH (08:22)
[2018-07-11] MEDS: SYNTHROID PO SCH (08:22)
--- NOTE | 2018-07-11 11:24 | Diag Imaging Result Doc PS360 ---
EXAM: CHEST-PORTABLE 07/11/2018 HISTORY: dyspnea TECHNIQUE: AP portable at 1115 COMMENT: There is increased opacity in the right base compared to 07/10/2018. There is still hazy opacity bilaterally consistent with pulmonary edema. IMPRESSION: Pulmonary edema. The atelectasis versus pneumonia right lower lobe. Electronically signed by Zhang Orozco 07/11/2018 11:22 AM
[2018-07-11 11:44] LABS: AGAP 9; BUN 14 mg/dL (8-22); CALCIUM 7.2 mg/dL (8.8-10.2); CHLORIDE 96 mmol/L (98-107); COSMO 264; CREATININE 0.6 mg/dL (0.7-1.2); ESTIMATED GFR > 60; GLUCOSE 216 mg/dL (70-104); POTASSIUM 3.6 mmol/L (3.5-5.1); SODIUM 128 mmol/L (136-145); TCO2 23 mmol/L (25-35)
[2018-07-11 12:12] LABS: BASO# 0.04 X1000 (0.0-0.2); BASO% 0.1 % (0.0-0.8); EOS# 0.06 X1000 (0.0-0.7); EOS% 0.2 % (0.0-10.0); HEMATOCRIT 27.9 % (42.0-52.0); HEMOGLOBIN 9.2 g/dL (14.0-18.0); IMM GRAN# 0.03 X1000 (0.0-0.04); IMM GRAN% 0.1 % (0.0-0.5); LYMPH% 96.7 % (20.5-51.1); MCH 31.3 PG (27-31); MCV 94.9 FL (81-99); MONO# 0.01 X1000 (0.11-0.59); MPV 9.9 FL (7.4-10.4); NEUT# 0.97 X1000 (1.4-6.5); NEUT% 2.9 % (42.2-75.2); PLT 194 X1000 (130-400); RBC 2.94 XMIL (4.7-6.1); RDW 20.8 % (11.5-14.5); WBC 33.61 X1000 (4.8-10.8)
[2018-07-11 12:16] LABS: LYMPHS 80 % (21-51); MONO 2 % (1-9); SEGS 2 % (42-75)
[2018-07-11 12:27] VITALS: BP 106/49
--- NOTE | 2018-07-11 21:28 | DISCHARGE SUMMARY ---
ADMISSION DATE: 07/08/2018 DISCHARGE DATE: 07/11/2018 CONSULT: Hematology/Oncology. DIAGNOSTIC DATA: CT chest, abdomen and pelvis with pulmonary edema; large bilateral pleural effusions; bibasilar atelectasis; right upper lobe lung nodules, slightly more prominent; improvement in paraaortic and pelvic lymphadenopathy; stable axillary lymphadenopathy. Discharge chest x-ray with somewhat improved pulmonary edema. Upper extremity ultrasounds with edema, but no DVT. DISCHARGE DIAGNOSES: 1. Symptomatic anemia. 2. Likely [id number] diastolic congestive heart failure. 3. Possible pneumonia. 4. Chronic lymphocytic leukemia. 5. Atrial fibrillation. 6. [place] disease. 7. Diabetes mellitus. 8. Hyperlipidemia. 9. Gastroesophageal reflux disease. HOSPITAL COURSE: The patient is a 73-year-old male with history of CLL, atrial fibrillation, status post ablation, and diastolic congestive heart failure. He presented as an admit from Dr. Hurtado's office. He was having increased fatigue, went to their office and was found to be anemic and with a fever. He had reportedly had a chest x-ray at rehab which showed pneumonia. Chest x- ray here was more consistent with pulmonary edema, but given febrile status he was started initially on antibiotics with aztreonam and Zyvox. He was transfused, with improvement in his anemia. Initial hemoglobin 6.4. After transfusion of 2 units he came up to 8.6, on discharge was 9.2. The patient did have several low-grade fevers on admission here, which did resolve with antibiotics. Imaging never showed definite pneumonia, but given his history and presentation it was decided to continue him on a course of antibiotics to finish treatment. He was placed on doxycycline at discharge because of his multiple allergies. After the patient's fevers resolved, he did have some increased cough and slight dyspnea, although his oxygenation remained stable. It was felt that he likely had a mild exacerbation of diastolic heart failure. He was placed on increased dose of Lasix and subsequently had complete resolution of his cough, and resolution of dyspnea. He had significant upper extremity edema, significantly more so than his lower extremities, so ultrasounds were obtained which showed edema but no DVT. On discharge his arms were still swollen, but slightly improved from previous. His other chronic conditions including [place], diabetes and CLL were largely stable. His home Imbruvica was initially held because of concerns for active infection, but was restarted at discharge. DISCHARGE VITAL SIGNS: Temperature 98.3 degrees, pulse 80, respirations 20, blood pressure 106/49, O2 saturation 95% on room air. DISCHARGE DIET: Cardiac. DISCHARGE MEDICATIONS: Lantus 45 units subcutaneously at bedtime; pravastatin 40 mg p.o. at bedtime; Eliquis 5 mg p.o. b.i.d.; fludrocortisone 0.1 mg p.o. daily; metformin extended-release 750 mg p.o. b.i.d.; hydrocortisone 1 tablet as previously prescribed; Imbruvica 420 mg as previously prescribed; Januvia 100 mg p.o. daily; potassium 20 mEq 1 tablet daily; megestrol acetate 120 mg p.o. b.i.d.; promethazine 25 mg q.6 hours as needed; Reglan 10 mg p.o. with meals; sotalol 120 mg p.o. b.i.d.; Synthroid 200 mcg p.o. daily; Uloric 40 mg p.o. daily; doxycycline 100 mg p.o. b.i.d. for 7 more days; Lasix 40 mg p.o. b.i.d.; Protonix 40 mg p.o. daily. FOLLOWUP AND PLAN: The patient is discharging home on increased dose of Lasix and course of doxycycline to finish treatment of possible pneumonia. Patient to follow up with PCP and Oncology. Patient to return to care if any signs of worsening respiratory status or recurrent fever develop. Greater than 30 minutes spent arranging discharge and counseling patient.
== END 2018-07-11 15:45 | disposition home or self-care (01) | DRG 840 ==
LOC: INF 08:57 → 4N 12:11
PROVIDERS: ADMIT Internal Medicine; ATTEND Internal Medicine
CPT/HCPCS: 36430; 71010; 71020; 71045; 71046; 71250; 74176; 80048; 80053; 81001; 82948; 83605; 83735; 83880; 85025; 85027; 85610; 85730; 86850; 86900; 86901; 86920; 87040; 87088; 87275; 87276; 87804; 93005; 93010; 93970; 94640; 94761; 94799; 97116; 97162; 97530; A9270; J1940; J2020; J3475; J3480; J7040; J7050; P9016; S0073; XXXXX

== ENCOUNTER 2018-08-06 10:59 | Inpatient (IN) ==
[2018-08-06] MEDS ORDERED: NS 1,000 ML IV ONE (11:10)
--- NOTE | 2018-08-06 11:23 | EKG Report ---
Test Performed on : 08/06/2018 11:05:46 AM Test Reason : HYPOTENSION Blood Pressure : / mmHG Vent. Rate : 082 BPM Atrial Rate : 082 BPM P-R Int : 138 ms QRS Dur : 138 ms QT Int : 418 ms P-R-T Axes : 028 -28 -31 degrees QTc Int : 488 ms Sinus rhythm. with frequent ventricular-paced complexes Right bundle branch block Inferior infarct , age undetermined Abnormal ECG When compared with ECG of 08-JUL-2018 12:47, No significant change was found Unconfirmed Result
--- NOTE | 2018-08-06 11:42 | Diag Imaging Result Doc PS360 ---
EXAM: CHEST-1 VIEW HISTORY: cough TECHNIQUE: Chest single view COMPARISON: 07/11/2018 FINDINGS: Poor inspiratory effort. There is a right jugular portacatheter and left-sided pacemaker. No cardiomegaly. There are bilateral infiltrates/pulmonary edema and a small right pleural effusion. The overall appearance is similar to the prior exam. IMPRESSION: Stable chest Electronically signed by Carlos Acosta 08/06/2018 11:40 AM
[2018-08-06 12:13] LABS: BASO# 0.06 X1000 (0.0-0.2); BASO% 0.1 % (0.0-0.8); EOS# 0.04 X1000 (0.0-0.7); EOS% 0.1 % (0.0-10.0); HEMATOCRIT 19.7 % (42.0-52.0); HEMOGLOBIN 6.1 g/dL (14.0-18.0); IMM GRAN# 0.09 X1000 (0.0-0.04); IMM GRAN% 0.2 % (0.0-0.5); LYMPH# 56.88 X1000 (1.2-3.4); LYMPH% 97.3 % (20.5-51.1); MCH 31.1 PG (27-31); MCV 100.5 FL (81-99); MONO# 0.57 X1000 (0.11-0.59); MPV 9.9 FL (7.4-10.4); NEUT# 0.83 X1000 (1.4-6.5); NEUT% 1.3 % (42.2-75.2); PLT 196 X1000 (130-400); RBC 1.96 XMIL (4.7-6.1); RDW 21.6 % (11.5-14.5)
[2018-08-06 12:23] LABS: BANDS 1 % (0-1); LYMPHS 96 % (21-51); MONO 1 % (1-9); SEGS 2 % (42-75)
[2018-08-06 12:24] LABS: AGAP 13; ALB/GLOB RATIO 0.8; ALBUMIN 2.3 g/dL (3.5-5.0); ALKALINE PHOSPHATASE 59 U/L (32-122); BUN 25 mg/dL (8-22); CALCIUM 7.2 mg/dL (8.8-10.2); CHLORIDE 93 mmol/L (98-107); COSMO 266; CREATININE 0.8 mg/dL (0.7-1.2); ESTIMATED GFR > 60; GLUCOSE 148 mg/dL (70-104); GOT 16 U/L (10-34); GPT 12 U/L (10-44); POTASSIUM 3.7 mmol/L (3.5-5.1); SODIUM 129 mmol/L (136-145); TCO2 23 mmol/L (25-35); TOTAL BILIRUBIN 0.86 mg/dL (0.20-1.00); TOTAL PROTEIN 5.3 g/dL (6.3-8.3)
[2018-08-06 12:29] LABS: HOWELL-JOLLY BODIES 2+
[2018-08-06 12:30] LABS: WBC 58.47 X1000 (4.8-10.8)
--- NOTE | 2018-08-06 12:35 | Diag Imaging Result Doc PS360 ---
CT HEAD W/O CONTRAST - 08/06/2018 INDICATION: syncope COMPARISON: 04/26/2018 FINDINGS: The ventricles and sulci are normal in size and contour. No intracranial mass or hemorrhage. The skull is intact. There is chronic sinusitis of both maxillary sinuses. There is also chronic bilateral mastoiditis. The middle ears are clear. IMPRESSION: No acute intracranial abnormality. Sinusitis and chronic mastoiditis. This exam was performed using automated exposure control, adjustment of mA or kV according to patient size, and/or use of iterative reconstruction technique Electronically signed by Akil Guerrero 08/06/2018 12:33 PM
--- NOTE | 2018-08-06 13:01 | PROVIDER DOCUMENTATION ---
This chart was entered by Meghna Kendrick Scribe, acting as scribe for Az Ingram MD. HPI-Syncope/Dizziness - General Stated Complaint: hypotension Time Seen by Provider: 08/06/18 11:10 Source: patient Allergies/Adverse Reactions: Patient Allergies Allergy/AdvReac Type Severity Reaction Status Date / Time allopurinol [From Zyloprim] Allergy Intermediate RASH Verified 07/08/18 12:36 cephalexin monohydrate * Allergy Intermediate RASH Verified 07/08/18 12:36 [From Keflex] Cephalosporins Allergy Intermediate RASH Verified 07/08/18 12:36 levofloxacin [From Levaquin] Allergy Intermediate RASH Verified 07/08/18 12:36 Penicillins Allergy Intermediate RASH Verified 07/08/18 12:36 piperacillin sodium * Allergy Intermediate RASH Verified 07/08/18 12:36 [From Zosyn] sulfamethoxazole Allergy Intermediate RASH Verified 07/08/18 12:36 [From Bactrim] tazobactam sodium * Allergy Intermediate RASH Verified 07/08/18 12:36 [From Zosyn] trimethoprim [From Bactrim] Allergy Intermediate RASH Verified 07/08/18 12:36 vancomycin AdvReac Severe seizure Verified 07/08/18 12:36 like activity phenolphthalein [From Ex-Lax] AdvReac Intermediate HIVES Verified 07/08/18 12:36 Home Medications: Home Medication List Medication Instructions Recorded Confirmed Last Taken Type Apixaban [Eliquis] 5 mg PO BID 02/13/18 08/05/18 08/05/18 History Fludrocortisone Acetate 0.1 mg PO DAILY 02/13/18 08/05/18 08/05/18 History Insulin Glargine [Lantus] 45 unit SUBQ QHS 02/13/18 08/05/18 08/05/18 History Levothyroxine Sodium [Synthroid] 200 microgm PO DAILY 02/13/18 08/05/18 08/05/18 History Metformin E.r. [Glucophage Xr] 750 mg PO BID 02/13/18 08/05/18 08/05/18 History Sitagliptin Phosphate [Januvia] 100 mg PO DAILY 02/13/18 08/05/18 08/05/18 History Sotalol HCl [Sotalol] 120 mg PO BID 11/08/05/18 08/05/18 History Pantoprazole [Protonix] 40 mg PO DAILY@0700 30 Days #60 tab 02/18/18 08/05/18 08/05/18 Rx Febuxostat [Uloric] 1 tab PO DAILY 04/26/18 08/05/18 08/05/18 History Ibrutinib [Imbruvica] 1 tab PO DIRECTED 04/26/18 08/05/18 08/05/18 History Megestrol Acetate 3 tab PO BID 04/26/18 08/05/18 08/05/18 History Metoclopramide [Reglan] 1 tab PO AC 04/26/18 08/05/18 08/05/18 History PRAVAstatin [Pravachol] 40 mg PO QHS 04/26/18 08/05/18 08/04/18 History Potassium Chloride [Klor-Con M20] 1 tab PO DAILY 04/26/18 08/05/18 08/05/18 History Hydrocortisone 10 tab PO DAILY 06/03/18 08/05/18 08/05/18 History Promethazine HCl 1 tab PO Q6H PRN PRN 06/03/18 08/05/18 08/05/18 History Doxycycline Hyclate 100 mg PO BID #14 tab 07/11/18 08/05/18 08/05/18 Rx Furosemide [Lasix] 1 tab PO DAILY 08/05/18 08/05/18 08/05/18 History Hydrocortisone 10 mg PO AC + HS 08/05/18 08/05/18 08/05/18 History - History of Present Illness-Syncope/Dizzy Nature of Presenting Problem: Patient is a 73 year old male who presents to the ED via EMS after having a sync opal episode. Patient states having weakness prior to having the syncopal episode. Patient's reported to EMS that the patient has had fever and cough. Patient denies abdominal pain. Prior Episodes: reports: single episode today Onset/Duration: reports: this morning Timing: reports: improving Position/Activity at time of episode: reports: standing Context: reports: unknown Current Symptoms: reports: weakness Review of Systems - Adult - REVIEW OF SYSTEMS - ADULT Constitutional: reports: see HPI, fever. denies: chills, fatique Eyes: reports: no symptoms reported Ears, Nose, Mouth & Throat: reports: no symptoms reported Cardiovascular: reports: no symptoms reported Respiratory: reports: see HPI, cough. denies: shortness of breath, wheezing Gastrointestinal: reports: no symptoms reported Genitourinary: reports: no symptoms reported Musculoskeletal: reports: see HPI, muscle weakness. denies: back pain, neck pain Integumentary: reports: no symptoms reported Neurological: reports: see HPI, syncope. denies: dizziness/vertigo, headache/migraines, tremors Psychiatric: reports: no symptoms reported Endocrine: reports: no symptoms reported Hematologic/Lymphatic: reports: no symptoms reported Allergic/Immunologic: reports: no symptoms reported All Other Systems: Reviewed and Negative Past History - Adult - PAST MEDICAL HISTORY-ADULT Review of Records: reports: Nursing Assessment Review, Medications Reviewed, Social history reviewed & non-contributory. Major Childhood Illnesses: reports: denies history Cardiovascular: reports: A-Fib Respiratory: reports: denies history Gastrointestinal: reports: denies history Obstetrical/Gynecological: reports: denies history Genitourinary: reports: kidney disease, other ([place]) Musculoskeletal: reports: denies history Neurological: reports: denies history Endocrine/Immune: reports: Diabetes, Leukemia, thyroid disorder Other Conditions: reports: denies history - PRIOR SURGERIES/PROCEDURES Surgical/Procedure History: reports: appendectomy, pacemaker, indwelling device (port), other (vasectomy, BUCK) - IMMUNIZATION STATUS Childhood Immunizations: See Nurse Assessment Flu Vaccine: See Nurse Assessment - FAMILY HISTORY Family History: reviewed, not pertinent - SOCIAL HISTORY Smoking: denies Substance Use: denies Living Situation: family Physical Exam-General - PHYSICAL EXAM-ADULT Initial Vital Signs Reviewed: Yes - CONSTITUTIONAL General Appearance: alert, no apparent distress - EYES Eyes: PERRL/EOMI, pale conjunctivae. negative: pink conjunctivae - HEAD, EARS, NOSE, MOUTH & THROAT HENMT: pharynx normal, other (dry mucous membranes). negative: angioedema, dental decay - RESPIRATORY Respiratory: chest non-tender, rhonchi (right). negative: respiratory distress - CARDIOVASCULAR Cardiovascular: normal peripheral pulses, regular rate, rhythm. negative: tachycardia, systolic murmur - SKIN Integumentary: normal turgor, warm/dry, pallor. negative: normal color - NEUROLOGIC Neurologic: grossly normal. negative: aphasia, facial droop - PSYCHIATRIC Psych/Mental Status: normal mood/affect, oriented x 3. negative: anxious Progress - PLAN OF CARE/RESULTS Progress/Plan/Lab Results: Vital Signs - 8 hr 08/06/18 11:13 Temperature 99.9 F H Pulse Rate 82 Respiratory Rate 28 H Blood Pressure 82/43 O2 Sat by Pulse Oximetry 92 L Laboratory Results - last 24 hr 08/06/18 08/06/18 08/06/18 11:08 11:11 11:11 WBC 58.47 H RBC 1.96 L Hgb 6.1 L Hct 19.7 L MCV 100.5 H MCH 31.1 H MCHC 31.0 L RDW Std Deviation 21.6 H Plt Count 196 MPV 9.9 Immature Gran % (Auto) 0.2 Neut % (Auto) 1.3 L Lymph % (Auto) 97.3 H [place] % (Auto) 1.0 L Eos % (Auto) 0.1 Baso % (Auto) 0.1 Immature Gran # (Auto) 0.09 H Neut # (Auto) 0.83 L Lymph # (Auto) 56.88 H [place] # (Auto) 0.57 Eos # (Auto) 0.04 Baso # (Auto) 0.06 Segmented Neutrophils 2 L Band Neutrophils 1 Lymphocytes 96 H Monocytes 1 Pathologist Review Y [place] Bodies 2+ Sodium 129 L Potassium 3.7 Chloride 93 L Carbon Dioxide 23 L Anion Gap 13 BUN 25 H Creatinine 0.8 Estimated GFR/1.73 m2 > 60 BUN/Creatinine Ratio 31 Glucose 148 H POC Glucose 192 H Calculated Osmolality 266 Calcium 7.2 L Total Bilirubin 0.86 AST 16 ALT 12 Alkaline Phosphatase 59 Troponin T Total Protein 5.3 L Albumin 2.3 L Globulin 3.0 Albumin/Globulin Ratio 0.8 Plasma Lactate 08/06/18 08/06/18 11:11 11:11 WBC RBC Hgb Hct MCV MCH MCHC RDW Std Deviation Plt Count MPV Immature Gran % (Auto) Neut % (Auto) Lymph % (Auto) [place] % (Auto) Eos % (Auto) Baso % (Auto) Immature Gran # (Auto) Neut # (Auto) Lymph # (Auto) [place] # (Auto) Eos # (Auto) Baso # (Auto) Segmented Neutrophils Band Neutrophils Lymphocytes Monocytes Pathologist Review [place] Bodies Sodium Potassium Chloride Carbon Dioxide Anion Gap BUN Creatinine Estimated GFR/1.73 m2 BUN/Creatinine Ratio Glucose POC Glucose Calculated Osmolality Calcium Total Bilirubin AST ALT Alkaline Phosphatase Troponin T 0.048 Total Protein Albumin Globulin Albumin/Globulin Ratio Plasma Lactate 1.8 Orders Category Date Time Status Nursing- Obtain EKG ONCE Care 08/06/18 11:15 Active Transfuse .Give-Transfuse Care 08/06/18 12:47 Active Transfuse .Give-Transfuse Care 08/06/18 12:47 Active CHEST-1 VIEW [RAD] Stat Exams 08/06/18 11:[address] HEAD W/O CONTRAST [CT] Stat Exams 08/06/18 12:25 Completed CBC WITH DIFF [HEME] Stat Lab 08/06/18 11:11 Completed COMPREHENSIVE METABOLIC PANEL [CHEM] Stat Lab 08/06/18 11:11 Completed LACTATE, PLASMA [CHEM] Stat Lab 08/06/18 11:11 Completed TROPONIN T Stat Lab 08/06/18 11:11 Completed TYPE & SCREEN [BBK] Stat Lab 08/06/18 12:47 Uncollected URINALYSIS [URINALYSIS] Stat Lab 08/06/18 11:15 Uncollected 0.9% Sodium Chloride Inj [Ns] 1,000 ml Med 08/06/18 11:10 Discontinued IV 999 mls/hr EKG [EKG] Stat Ther 08/06/18 11:15 Draft Result Diagrams: 08/06/18 11:11 08/06/18 11:11 - EKG 1 Time of EKG reading by physician:: 11:05 EKG Read and Signed by:: Az Ingram EKG Interpretation (*Must complete 3 of following elements*): Abnormal Rate: 82 Rhythm: sinus rhythm with frequent ventricular-paced complexes QRS: RBB IL Interval: normal Comments: inferior infarct, age undetermined - XRAY 1 XRAY Study: Chest Impression: See EMR Report ( EXAM: CHEST-1 VIEW HISTORY: cough TECHNIQUE: Chest single view COMPARISON: 07/11/2018 FINDINGS: Poor inspiratory effort. There is a right jugular portacatheter and left-sided pacemaker. No cardiomegaly. There are bilateral infiltrates/pulmonary edema and a small right pleural effusion. The overall appearance is similar to the prior exam. IMPRESSION: Stable chest Electronically signed by Carlos Acosta 08/06/2018 11:40 AM 08/06/18 1140 Interpreting Physician: Carlos Acosta MD Dictated Date/Time: 08/06/18 1139 cc: Az Ingram MD; Latosha Badillo MD) - CONSULTS/PCP/HOSPITALIST Notification #1 *Consult/PCP/Hospitalist*: ERLIN Saavedra for Hospitalist Time Discussed: 12:51 Reason/Comments: Dr. Ingram consulted with Keri about patient. Consult Disposition: Will see in ED, Admit Departure - Departure Date of Disposition Decision: 08/06/18 Time of Disposition Decision: 12:54 DIAGNOSIS: Syncope and collapse, Anemia, Generalized weakness, Hyponatremia, Leukocytosis, Hypotension Disposition: ADMITTED INPATIENT 09 Certified Medical Emergency: Emergent Condition: Stable Referrals and Follow-Ups: Latosha Badillo MD [Primary Care Provider] - - Critical Care Note This patient required my direct & personal management of CC.: Yes Total Time (mins): 35 Critical Care Statement: This patient required my direct personal management to treat or rule out processes, the absence of which, could potentiallly result in sudden, clinically significant life or limb threatening deterioration. Attestation - Physician/ HAILE Attestation The physician spent face to face time with patient:: Yes Advanced Practice Provider documentation review:: Supervising physician onsite and consulted in the evaluation and care of this patient. The physician did have a face to face encounter with the patient. This chart was documented by the indicated scribe, (Meghna Kendrick Scribe) and accurately reflects the services I performed and decisions made by me, Az Ingram MD, as attested by the provider's signature.
--- NOTE | 2018-08-06 14:12 | HISTORY AND PHYSICAL ---
HISTORY OF PRESENT ILLNESS: Mr. Rendon, a 73-year-old yesterday evening before he went to bed he felt pretty weak. I think he just got his IV immunoglobulin IgG yesterday. He gets this once a month. He has underlying CLL, and I think he is due to get packed red blood cell infusion, but he felt pretty weak, and this morning he felt weak again and felt like he was going to pass out. Brought here to the emergency room. He has been in the hospital 1 week out of every month for the last 6 months I believe. His oncologist is Dr. Hurtado and his primary care doctor is Dr. Badillo. A 73-year-old with medical history of CLL. He has been treated with Imbruvica per Dr. Hurtado. 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 Hurtado recently here on June 07. Also admitted last month, July 08. PAST MEDICAL HISTORY: 1. Congestive heart failure. 2. Chronic lymphocytic leukemia, receiving Imbruvica, followed by Dr. Hurtado. 3. Atrial fibrillation with rapid ventricular rate and with anticoagulation for which this has been stopped. He has had a pacemaker and was converted with ablation therapy. 4. [place] disease on hydrocortisone. 5. Diabetes mellitus type 2. 6. Hyperlipidemia. 7. History of deep vein thrombosis in the right leg back in the 1980s, none since that time. PAST SURGICAL HISTORY: 1. Appendectomy. 2. Port-A-Cath placement. 3. Multiple cardioversions. 4. Tonsillectomy. 5. Most recent ablation on June 08. Pacemaker placed on June 08, I believe that was this year. SOCIAL HISTORY: Denies tobacco, alcohol or illicit drugs. Lives at home with his . FAMILY HISTORY: Denies any pertinent medical problems. ALLERGIES: Allopurinol, Keflex, cephalosporins, Levaquin, penicillin, piperacillin, Bactrim, Zosyn, vancomycin. We will look back and see what antibiotics he was put on in the past because that is a pretty exclusive list, and review his home medications. REVIEW OF SYSTEMS: General: They do not report any weight gain or loss. Questionable fever. He felt like he has had low-grade fever for the last couple days. Respiratory: No increased work of breathing or dyspnea. Cardiovascular: No chest pain or tachy palpitation. GI/: Unremarkable. Neurologic: No focal complaints. Endocrinologic/hematologic: No significant history. PHYSICAL EXAMINATION: VITAL SIGNS: Temperature 99.9 degrees, pulse 80, respirations 28, blood pressure 88/43. EYES: Pupils are equal. NECK: No distended neck veins. HENT: He is awake, alert, oriented x3. He does appear pale. Conjunctiva with pallor; gingiva with pallor as well. No sinus tenderness in the frontal maxillary sinuses. CVP less than 6 cm from the right atrium. LUNGS: Clear anterolateral. CARDIOVASCULAR EXAM: Regular rhythm and rate without murmur or S3. ABDOMEN: Soft. SKIN: Warm and dry. ABDOMEN: No abdominal tenderness. EXTREMITIES: No pedal edema. DIAGNOSTIC STUDIES: Lab: White count 58,470, hematocrit is 19, hemoglobin 6.1, platelet count 196,000. Sodium 139, potassium 3.7, chloride 93. BUN 25, creatinine 0.8. Blood sugar 148, AST 16, ALT 12, alkaline phos 59, albumin 2.3. Chest x-ray: Stable chest. He has a right jugular Port-A-Cath and a left-sided pacemaker. No cardiomegaly. No infiltrates. No sign of pedal edema. Head CT without contrast. No acute intracranial abnormality. He has sinusitis or chronic mastoiditis noted. ASSESSMENT AND PLAN: 1. Chronic lymphocytic leukemia with immunoglobulin deficiency. Just got immunoglobulin yesterday. Feels pretty weak. Blood pressure on the low side. I do not have any focal symptoms to suggest a bacterial infection or bacteremia, but we will check blood cultures times 2, and we better get a culture from his venous port. So, we probably need two sets of blood cultures and one of those needs to have a culture from the port. We will try and start him on empiric antibiotics, look back and see what has been used before. He has a long alert allergy list. I think we need to start empiric antibiotics. I guess we could use meropenem. He has vancomycin and Zosyn, so I guess we will just do meropenem right now. I think we will ask Dr. Ruby to help us make decisions on what antibiotics we can use and how much empiric antibiotic we should give. He definitely has immunodeficiency with his chronic lymphocytic leukemia and immunoglobulin deficiency. 2. History of atrial fibrillation with rapid ventricular rate in the past, history of anticoagulation which has been stopped. He now has a pacemaker and he has had cardioversion and recent ablation, so he is not on any blood thinner I do not believe right now. 3. [place]'s disease on hydrocortisone chronically. So, we will put him on stress steroids. We need to put him on Solu-Cortef 80 mg intravenous every 8 hours. 4. Diabetes mellitus type 2. Check pattern sugars, sliding scale. 5. Distant history of deep vein thrombosis. No sign of recurrent deep vein thrombosis at this time. cc: Edgard Stein MD
[2018-08-06] MEDS ORDERED: TYLENOL PO PRN (14:26)
[2018-08-06] MEDS ORDERED: ZOFRAN IV PRN (14:26)
[2018-08-06] MEDS: HUMALOG SUBQ SCH ×2 (15:56→21:00)
[2018-08-06] MEDS: SOLU-CORTEF IV SCH (15:59)
[2018-08-06] MEDS: NS 1,000 ML IV SCH (15:59)
[2018-08-06] MEDS ORDERED: PHENERGAN PO PRN (16:35)
[2018-08-06] MEDS ORDERED: LANTUS INSULIN SUBQ PRN (16:35)
--- NOTE | 2018-08-06 18:48 | INFECTIOUS DISEASE CONSULT REP ---
DATE: 08/06/2018 CONCLUSION: Mr. Rendon has chronic lymphocytic leukemia with a recent low-grade fever and neutropenia. On CT scan there is chronic sinusitis and mastoiditis. Chest x- ray shows bilateral infiltrates/pulmonary edema. RECOMMENDATIONS: We will send a procalcitonin to see if there is a respiratory infection present. He does have several listed allergies and adverse reactions to antibiotics. However, these have been reviewed with him and we will start him on Augmentin 875 mg by mouth every 12 hours and Cipro 500 mg by mouth every 12 hours. Blood, urine, and sputum cultures have been ordered and are pending, which we will follow. We will initiate neutropenic precautions because his absolute neutrophil count is <1000. These plans have been discussed with and recommended by Dr. Ruby. PAST MEDICAL HISTORY/REVIEW OF SYSTEMS: Constitutional: He has had a low-grade temperature of up to 100.1 at home with no significant weight gain or loss. He has had several falls at home with no significant trauma. Endocrine: He has a history of [place]'s disease and diabetes mellitus, as well as hypothyroidism. HEENT: Patient is hard of hearing. Respiratory: He does have some shortness of breath and a chronic dry cough. Cardiovascular: No chest pain or palpitations. Gastrointestinal: No nausea, vomiting, or acid reflux. He does have alternating diarrhea and constipation due to the Imbruvica. : History of UTIs. No current dysuria, flank pain, or urinary problems. Neurologic: No history of seizures, stroke, or mini stroke. Psychiatric: Denies any anxiety, depression or psychiatric diagnoses. Heme/Onc: Diagnosis of chronic lymphocytic leukemia, and has monthly infusions of IVIG. PAST MEDICAL HISTORY: Congestive heart failure, [place]'s disease, hyperlipidemia, diabetes mellitus, atrial fibrillation, deep vein thrombosis, and immunoglobulin deficiency. PAST SURGICAL HISTORY: Appendectomy, cataract surgeries bilaterally, pacemaker insertion, Port-A- Cath insertion, multiple cardioversions, and cardiac ablation. INFECTIOUS DISEASE: Positive for previous urinary tract infections and pneumonia. He is not aware of any antibiotic resistant infections in the past. LABORATORY AND X-RAY: Today his white count is 58.47, hemoglobin 6.1, platelet count 196,000, absolute neutrophil count is 830. Creatinine is 0.8. Estimated GFR is greater than 60. Total bilirubin 0.86, AST 16, ALT is 12, alkaline phosphatase 59. CT of his head done this afternoon shows chronic sinusitis of both maxillary sinuses and chronic bilateral mastoiditis. Chest x-ray done this morning shows a right jugular Port-A-Cath and a left-sided pacemaker with bilateral infiltrates/pulmonary edema and a small right pleural effusion. SOCIAL HISTORY: He lives at home with his . Does not use tobacco, alcohol, or illicit drugs. ALLERGIES: The patient has multiple antibiotic allergies listed. However, after speaking with him and his , most of these have been in the past and most recent use of several of these drugs have shown no problems. Keflex does cause a rash and vancomycin closes up his throat. However, cephalosporins, Levaquin, penicillin, piperacillin, Bactrim, and Zosyn are all medications that are listed but the patient and his both think can be used due to use over the last year without difficulty. HOME MEDICATIONS: Insulin, sotalol, Januvia, Glucophage, fludrocortisone, Synthroid, Eliquis, Protonix, Uloric, Imbruvica, Megace, Reglan, Pravachol, promethazine, Lasix, and hydrocortisone. PHYSICAL EXAMINATION: Vital Signs: Temperature is 98.1 degrees, pulse rate 80, respiratory rate 20, blood pressure 107/60, O2 saturation is 99% on room air. General: This is a chronically ill- appearing, elderly gentleman. He is lying in bed currently, in no acute distress. HEENT: Atraumatic, normocephalic. Oral mucous membranes are pink and moist. Conjunctivae are pale. Neck: Supple. Trachea is midline. Cardiovascular: Heart rate and rhythm are regular; 100% paced on the monitor with pacemaker spikes at a rate of 80. Respiratory: Lung sounds are clear to auscultation bilaterally. Diminished in the bases. Abdomen: Soft, obese, nontender. Bowel sounds are active. Extremities: He does have some swelling noted to arms and hands bilaterally 1 to 2+, pitting. Neurologic: He is awake, alert, oriented. Able to move all his of extremities in the bed independently with generalized weakness. Integumentary: Skin is warm, dry, and pale. Thank you for allowing us to see Mr. Rendon. Dictated by ERLIN Prince for Kvng Ruby MD cc: [facility]ng Ruby MD [facility]
[2018-08-06 19:07] LABS: URINE SOURCE CLEAN CATCH
[2018-08-06 19:19] LABS: BILIRUBIN URINE NEGATIVE (NEGATIVE); BLOOD URINE MODERATE (NEGATIVE); COLOR YELLOW; GLUCOSE URINE NEGATIVE (NEGATIVE); KETONE URINE TRACE mg/dL (NEGATIVE); LEUKOCYTES URINE LARGE (NEGATIVE); NITRITE URINE POSITIVE (NEGATIVE); PROTEIN URINE TRACE mg/dL (NEGATIVE); SP GRAVITY URINE 1.013; TURBIDITY URINE CLEAR (CLEAR); UROBILINOGEN URINE NORMAL (NORMAL)
[2018-08-06 19:32] LABS: UR EPITHELIAL CELLS <10 /HPF (<10); URINE BACTERIA NEGATIVE /HPF; URINE RBC <10 /HPF (<10); URINE WBC TNTC /HPF (<10)
[2018-08-06 19:36] LABS: URINE CASTS NONE SEEN; URINE CRYSTALS NONE SEEN; URINE YEAST NONE SEEN
[2018-08-06] MEDS: BETAPACE PO SCH (20:42)
[2018-08-06] MEDS: PRAVACHOL PO SCH (20:42)
[2018-08-06] MEDS: MEGACE PO SCH (20:42)
[2018-08-06] MEDS: GLUCOPHAGE XR PO SCH (21:00)
[2018-08-06] MEDS: CIPRO PO SCH (21:00)
[2018-08-06] MEDS: AUGMENTIN PO SCH (21:00)
[2018-08-07] MEDS: SOLU-CORTEF IV SCH ×3 (00:33→15:17)
[2018-08-07] MEDS: HUMALOG SUBQ SCH ×4 (05:59→20:45)
[2018-08-07] MEDS: REGLAN PO SCH ×3 (05:59→15:18)
[2018-08-07] MEDS: PROTONIX PO SCH (05:59)
[2018-08-07 07:31] LABS: BASO# 0.09 X1000 (0.0-0.2); BASO% 0.1 % (0.0-0.8); HEMATOCRIT 28.6 % (42.0-52.0); HEMOGLOBIN 9.1 g/dL (14.0-18.0); IMM GRAN% 1.1 % (0.0-0.5); LYMPH# 60.88 X1000 (1.2-3.4); LYMPH% 96.1 % (20.5-51.1); MCH 30.6 PG (27-31); MCHC 31.8 g/dL (33-37); MCV 96.3 FL (81-99); MONO# 0.42 X1000 (0.11-0.59); MONO% 0.7 % (1.7-9.3); MPV 9.8 FL (7.4-10.4); NEUT# 1.24 X1000 (1.4-6.5); PLT 195 X1000 (130-400); RBC 2.97 XMIL (4.7-6.1); RDW 21.5 % (11.5-14.5); WBC 63.33 X1000 (4.8-10.8)
[2018-08-07 07:47] LABS: ESTIMATED GFR > 60; IRON SATURATION 81 %; TIBC 123 ug/dL
[2018-08-07 07:55] LABS: AGAP 15; ALB/GLOB RATIO 0.6; ALBUMIN 2.1 g/dL (3.5-5.0); ALKALINE PHOSPHATASE 61 U/L (32-122); BUN 18 mg/dL (8-22); CALCIUM 7.3 mg/dL (8.8-10.2); CHLORIDE 96 mmol/L (98-107); COSMO 268; CREATININE 0.6 mg/dL (0.7-1.2); GLUCOSE 194 mg/dL (70-104); GOT 16 U/L (10-34); GPT 15 U/L (10-44); POTASSIUM 3.9 mmol/L (3.5-5.1); SODIUM 130 mmol/L (136-145); TCO2 19 mmol/L (25-35); TOTAL BILIRUBIN 1.39 mg/dL (0.20-1.00); TOTAL IRON 100 ug/dL (53-167); TOTAL PROTEIN 5.9 g/dL (6.3-8.3); UNBOUND IRON 23 ug/dL (112-346)
--- NOTE | 2018-08-07 08:00 | Diag Imaging Result Doc PS360 ---
CHEST-PORTABLE - 08/07/2018 INDICATION: follow up COMPARISON: 08/06/2018 FINDINGS: Stable right chest port and left-sided pacemaker. Heart size and pulmonary vascularity remain normal. There has been clearance of the infiltrate at the left lung base. There is persistent airspace opacification at the right lung base compatible with any combination of atelectasis, infiltrate, or effusion. IMPRESSION: Clearance of the left lung base. Persistent airspace opacification of the right lung base. Electronically signed by Akil Guerrero 08/07/2018 7:58 AM
[2018-08-07] MEDS ORDERED: MAGNESIUM SULFATE 2 GM/S.W.I. 2 GM/50 ML IVPB IV ONE (08:17)
[2018-08-07 08:20] LABS: FERRITIN 1459 ng/mL (30-400); TSH 1.43 uIUmL (0.27-4.20)
[2018-08-07 09:15] LABS: BANDS 2 % (0-1); HYPOCHROM 1+; SEGS 2 % (42-75)
[2018-08-07 09:16] LABS: LYMPHS 96 % (21-51)
[2018-08-07] MEDS: BETAPACE PO SCH ×2 (10:14→20:46)
[2018-08-07] MEDS: MAG-OX PO SCH ×2 (10:14→20:47)
[2018-08-07] MEDS: GLUCOPHAGE XR PO SCH ×2 (10:14→20:47)
[2018-08-07] MEDS: JANUVIA PO SCH (10:14)
[2018-08-07] MEDS: SYNTHROID PO SCH (10:14)
[2018-08-07] MEDS: LASIX PO SCH (10:15)
[2018-08-07] MEDS: MEGACE PO SCH ×2 (10:15→20:47)
[2018-08-07] MEDS: ULORIC PO SCH (10:15)
[2018-08-07] MEDS: AUGMENTIN PO SCH ×2 (10:16→20:47)
[2018-08-07] MEDS: CIPRO PO SCH ×2 (10:16→20:47)
[2018-08-07] MEDS ORDERED: GRANIX SUBQ ONE (13:00)
--- NOTE | 2018-08-07 13:58 | HEMO/ONC CONSULTATION ---
DATE: 08/07/2018 CHIEF COMPLAINT: We have been consulted for further management of the patient's CLL. HISTORY OF PRESENT ILLNESS: Mr. Rendon is a 73-year-old male who presented to the emergency room on 08/06/2018 complaining of having a near syncopal. The patient said he has been very weak. The patient also complained of a cough and fever. The patient denies any nausea or vomiting. The patient also was found to be very anemic while in the emergency room. He was admitted at that time for further evaluation and management. Mr. Rendon is well known to us in clinic where he had been following for his chronic lymphocytic leukemia. The patient previously had to get 4 rounds of fludarabine and rituximab in 2006 and then relapsed had R-CVP x4, and fludarabine and rituximab again x6 in 2011. The patient relapsed again in 2015 when he completed 6 cycles of Treanda and rituximab. The patient also has a history of hypogammaglobinemia where he gets IVIG for recurrent infections. The patient's CLL then relapsed again in May 2017 and now is on full-dose Imbruvica. The patient also takes high-dose steroids due to [place]'s disease. The patient has been in and out of the hospital very frequently, at least once a week over the past few months. PAST MEDICAL HISTORY: 1. CLL. 2. Hypothyroidism. 3. Diabetes mellitus type 2. 4. Hyperlipidemia. 5. DVTs. 6. Atrial fibrillation. 7. [place]'s disease. PAST SURGICAL HISTORY: 1. TURP. 2. Appendectomy. 3. Port-A-Cath placement and removal. 4. Pacemaker placement. SOCIAL HISTORY: Denies any alcohol, tobacco, or illicit drug use. FAMILY HISTORY: Emphysema and lung cancer. ALLERGIES: 1. Allopurinol. 2. Keflex. 3. Cephalosporins. 4. Levaquin. 5. Penicillin. 6. Zosyn. 7. Bactrim. 8. Laxatives. HOME MEDICATIONS: 1. Tylenol. 2. Augmentin. 3. Cipro. 4. Uloric. 5. Eliquis. 6. Lasix. 7. Cortef. 8. Imbruvica. 9. Lantus. 10. Synthroid. 11. Megace. 12. Glucophage. 13. Reglan. 14. Protonix. 15. Pravachol. 16. Promethazine. 17. Januvia. 18. Sotalol. REVIEW OF SYSTEMS: Negative unless mentioned in HPI PHYSICAL EXAM: Vital Signs: Temperature 97.6 degrees, heart rate 80, respiratory rate 19, blood pressure 131/67, 100% on room air. General: The patient is awake, lying in bed, no acute distress noted. HEENT: Anicteric. Pupils equal and reactive. Mucous membranes dry. Cardiovascular: S1, S2. Regular rate and rhythm. Neck: Supple. Trachea midline. No JVD. No lymphadenopathy. Lungs: Bilateral breath sounds clear to auscultation. Abdomen: Soft, nontender. Bowel sounds present in all 4 quadrants. Skin: Warm, dry, and intact. Neurologic: Alert and oriented x3. No focal deficits noted. LABORATORY DATA: White count 63.33, hemoglobin 9.1, hematocrit 28.6, platelets are 195,000. Potassium 3.9, BUN 18, creatinine 0.6, magnesium 1.0, calcium 7.3. ASSESSMENT AND PLAN: 1. Chronic lymphocytic leukemia: The patient is on full-dose Imbruvica and has been tolerating it well. Disease has been relatively well controlled with it. Continue at this time. 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 The patient just received his dose on Friday. Continue to monitor closely at this time. 3. Anemia: The patient was admitted. The patient's hemoglobin was 6.1, hematocrit 19.7. The patient is status post 1 unit of packed red blood cells. Hemoglobin and hematocrit have greatly improved at this time. Continue to monitor closely and transfuse as needed. 4. Atrial fibrillation. History of atrial fibrillation, rapid ventricular response: Continue recommendations per primary medical team. Rate is well controlled at this time. Continue to monitor. 5. [place]'s disease: Continue steroids as ordered by primary medical team. 6. Diabetes mellitus type 2. Continue recommendations per medical team. 7. Depression: Start zoloft. Plan of care discussed with Dr. Hurtado. Dictated by ERLIN Evans for Anjum Hurtado MD Patient seen and examined. Patients CLL is well controlled. Recent scans revealed significant improvement in his abdominal lymph nodes with near resolution. His white count is elevated and this is related to Imbruvica. Continue to Imbruvica. He has been getting IVIG monthly due to hypogammaglobulinemia and recurrent infections. Over the last 6-8 months he has had multiple admissions for mainly heart-related issues and infections. He also has [place] disease and requires stress steroids periodically. His muscle conditioning has significantly declined and recently was in the rehabilitation as well. Continue current management per Dr. Stein. reports that he is depressed. We will start him on Zoloft. Anjum Hurtado M.D. cc: Anjum Hurtado MD [facility]
--- NOTE | 2018-08-07 14:41 | PROGRESS NOTE ---
DATE: 08/07/2018 SUBJECTIVE: Mr. Rendon is feeling better. His breathing is better. OBJECTIVE: Vital Signs: He remains afebrile, temperature 97.9 degrees, pulse 77, respirations 17, blood pressure 104/51. HEENT: Pupils are equal, round. Lungs: Clear in all lung herzog. Cardiovascular: Regular rhythm and rate without murmur or S3. Urine output was 2000 mL. ASSESSMENT: 1. Chronic lymphocytic leukemia. He got full dose Imbruvica and has been tolerating it well. Disease well controlled at this time. 2. Immunoglobulin deficiency. Getting IV immunoglobulin once a month. Received dose Friday. 3. Anemia. Gave him some blood. His hemoglobin was 6.1. 4. Atrial fibrillation, rate is controlled. He did have some episodes of rapid response and seems to be doing better. 5. [place]'s disease. He is on stress dose steroids right now. 6. Diabetes mellitus, type 2. PLAN: Continue deep venous thrombosis prophylaxis. Not sure if he has an infection but we are treating him with the antibiotics. His head CT suggests sinusitis, chronic mastoiditis. Continue his current medications. He is on Cipro 500 mg b.i.d. and Augmentin 875 mg b.i.d. cc: Edgard Stein MD
[2018-08-07] MEDS: PATIENT'S OWN MED PO SCH (15:17)
[2018-08-07] MEDS: NS 1,000 ML IV SCH (17:35)
[2018-08-07] MEDS: ZOLOFT PO SCH (20:47)
[2018-08-07] MEDS: PRAVACHOL PO SCH (20:47)
[2018-08-08] MEDS: HUMALOG SUBQ SCH ×5 (00:23→21:39)
[2018-08-08] MEDS: REGLAN PO SCH ×3 (07:11→21:49)
[2018-08-08] MEDS: PROTONIX PO SCH (07:11)
--- NOTE | 2018-08-08 11:27 | PROGRESS NOTE ---
DATE: 08/08/2018 SUBJECTIVE: Mr. Rendon feels a little better today. Energy seems to be a little better. He has remained afebrile. OBJECTIVE: Vital Signs: Temperature 98.3 degrees, pulse 79, respirations 18, blood pressure 127/67. Eyes: Pupils are equal and round. Lungs: Clear in all lung herzog. Cardiovascular exam: Regular rhythm and rate without murmur or S3. : Urine output was 2400 mL. Blood sugars 355, 233 and 303. ASSESSMENT AND PLAN: 1. Chronic lymphocytic leukemia. He is being treated with Imbruvica, which he is tolerating well and good results. He has immunoglobulin insufficiency and so gets intravenous immunoglobulin once a month. Received his dose just a couple days before he came into the hospital. 2. Anemia. Hemoglobin was 6 and we have transfused some packed red blood cells. 3. Atrial fibrillation. Rate seems to be controlled. 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 5. Diabetes mellitus type 2. Sugars a little bit high and that may be secondary to the steroids as well. So the patient is currently on Augmentin and Cipro. He had 2/2 grow gram-negative rosio. Waiting on ID, but should be well covered for gram-negative. Looking over his orders, he is on Pravachol 40 mg a day, Zoloft 50 mg at bedtime, Augmentin 875 mg b.i.d., Cipro 500 mg b.i.d., Uloric 40 mg a day, Lasix 40 mg p.o. daily, hydrocortisone 80 mg IV q. 8 hours, and I will cut that down to 40 mg q. 12 hours. This may help his sugars come down. cc: Edgard Stein MD
[2018-08-08] MEDS ORDERED: MAXIPIME 2 GM in NS 100 ML IV SCH (11:45)
[2018-08-08] MEDS: JANUVIA PO SCH (13:23)
[2018-08-08] MEDS: CIPRO PO SCH (13:24)
[2018-08-08] MEDS: SYNTHROID PO SCH (13:26)
[2018-08-08] MEDS: LASIX PO SCH (13:26)
[2018-08-08] MEDS: MAG-OX PO SCH ×2 (13:26→21:45)
[2018-08-08] MEDS: ULORIC PO SCH (13:26)
[2018-08-08] MEDS: GLUCOPHAGE XR PO SCH ×2 (13:26→21:45)
[2018-08-08] MEDS: MEGACE PO SCH ×2 (13:27→21:44)
[2018-08-08] MEDS: BETAPACE PO SCH ×2 (13:27→21:45)
[2018-08-08] MEDS: SOLU-CORTEF IV SCH ×4 (13:28→23:14)
[2018-08-08] MEDS: AUGMENTIN PO SCH (13:29)
[2018-08-08] MEDS: NS 1,000 ML IV SCH ×2 (13:31)
--- NOTE | 2018-08-08 18:56 | INFECTIOUS DISEASE PROGRESS NO ---
DATE: 08/08/2018 PRESENT ILLNESS: Mr. Rendon has a gram-negative rosio bacteremia, the origin of which could be his Port-A-Cath. He is neutropenic, so it is also possible that an organism has transmigrated into the blood stream from his gastrointestinal tract. There is also the possibility of pneumonia. MEDICATIONS: He has been receiving Augmentin and Cipro by mouth, which we will discontinue today. PHYSICAL EXAMINATION: Vital Signs: Temperature is 98.3 degrees, pulse rate 79, respiratory rate 18, blood pressure 127/67, O2 saturation is 98% on room air. General: This is a chronically ill- appearing elderly gentleman. He is sitting up in bed, currently in no acute distress. HEENT: Atraumatic, normocephalic. Oral mucous membranes are pink and moist. Conjunctivae are pale. Neck: Supple. Trachea is midline. Cardiovascular: He is 100% AV paced on the monitor. Heart rate and rhythm are regular. Respiratory: Lung sounds are clear in the upper lobes. Diminished in the mid and bases. No work of breathing noted. Abdomen: Soft, obese, nontender. Bowel sounds are active. Extremities: There is 1 to 2+ pitting edema to the upper extremities bilaterally. Neurologic: He is awake, alert, oriented, and able to get up to the chair with assistance. No tremor is noted. Integumentary: There is a Port-A-Cath site to the right chest and a left-sided pacemaker. These sites are without edema, erythema or drainage. LABORATORY AND X-RAY: None available today, but yesterday his white count was 63.33, hemoglobin 9.1, platelet count 195,000. Creatinine 0.6, estimated GFR greater than 60. Total bilirubin 1.39, AST 16, ALT 15, alkaline phosphatase 61. His urinalysis showed no bacteria; however, urine WBCs were too numerous to count. His blood cultures x3 are all growing gram- negative rods. No imaging reports today; however, yesterday his chest x-ray showed clearance of the left lung base with persistent opacification of the right lung base. ASSESSMENT AND PLAN: Mr. Rendon has a gram-negative rosio bacteremia, as well as a possible pneumonia. We will discontinue the Augmentin and Cipro today and start him on cefepime 2 g intravenous every 8 hours. He does have a listed adverse reaction to cephalosporins; however, his states that she believes he will be able to tolerate it without difficulty due to previous use of cephalosporins in the last year without problems. We will have the nurse watch him during this first dose. Mr. Rendon is a chronic lymphocytic leukemia patient and did come in with neutropenia; however, that is improving. We will discontinue the neutropenic precautions at this time, and order blood work for Friday. Because of the presence of a pacemaker, he will require 6 weeks of treatment for the gram-negative rosio bacteremia. These plans have been discussed with and recommended by Dr. Ruby. COMORBIDITIES: for Mr. Rendon include that he is elderly with chronic lymphocytic leukemia, anemia and neutropenia, congestive heart failure, [place]'s disease, diabetes mellitus, immunoglobulin deficiency, atrial fibrillation, and presence of a Port-A-Cath and pacemaker. Dictated by ERLIN Prince for Kvng Ruby MD cc: Kvng Ruby MD MTDD
[2018-08-08] MEDS: MAXIPIME 2 GM in NS 100 ML IV SCH ×2 (19:03→23:14)
[2018-08-08] MEDS: PATIENT'S OWN MED PO SCH (19:18)
[2018-08-08] MEDS: ZOLOFT PO SCH (21:46)
[2018-08-08] MEDS: PRAVACHOL PO SCH (21:46)
[2018-08-09] MEDS: MAXIPIME 2 GM in NS 100 ML IV SCH ×3 (05:20→20:16)
[2018-08-09] MEDS: NS 1,000 ML IV SCH ×2 (05:21→18:13)
[2018-08-09] MEDS: REGLAN PO SCH ×3 (06:26→16:34)
[2018-08-09] MEDS: PROTONIX PO SCH (06:26)
[2018-08-09] MEDS: HUMALOG SUBQ SCH ×4 (06:26→20:21)
[2018-08-09] MEDS: LASIX PO SCH (08:41)
[2018-08-09] MEDS: ULORIC PO SCH (08:41)
[2018-08-09] MEDS: BETAPACE PO SCH ×2 (08:41→20:16)
[2018-08-09] MEDS: MAG-OX PO SCH ×2 (08:41→20:17)
[2018-08-09] MEDS: JANUVIA PO SCH (08:41)
[2018-08-09] MEDS: MEGACE PO SCH ×2 (08:42→20:16)
[2018-08-09] MEDS: SYNTHROID PO SCH (08:42)
[2018-08-09] MEDS: GLUCOPHAGE XR PO SCH ×2 (08:42→20:21)
[2018-08-09] MEDS: SOLU-CORTEF IV SCH (10:42)
--- NOTE | 2018-08-09 13:51 | INFECTIOUS DISEASE PROGRESS NO ---
DATE: 08/09/2018 The patient has a Pseudomonas bacteremia. The patient's pacemaker could have become infected hematogenously from the bacteremia. For this reason, I am going to treat the patient for 6 weeks with IV cefepime. The possibilities of where the bacteremia occurred, one would be that there was transmigration of the Pseudomonas bacteria through the patient's intestinal wall and then into the bloodstream. Another possibility would be that the patient's Port-A-Cath is infected. I think most likely the bacteremia occurred because of transmigration through the intestinal wall. Furthermore, I think we should treat the patient for a total of 6 weeks because his pacemaker could have become infected hematogenously while the patient was bacteremic. cc: Kvng Ruby MD
--- NOTE | 2018-08-09 14:06 | INFECTIOUS DISEASE PROGRESS NO ---
DATE: 08/09/2018 PRESENT ILLNESS: The patient has a Pseudomonas bacteremia. I think this has originated from transmigration of the organism through the intestinal wall then into the bloodstream, but it is also possible that the bacteremia could have occurred from the patient's Port-A-Cath. MEDICATIONS: The patient is receiving cefepime 2 g IV every 8 hours. PHYSICAL EXAMINATION: Vital Signs: Temperature is 97.7 degrees, pulse 79, respirations 15, blood pressure 134/70. General: This is an ill-appearing elderly male. He is in no acute distress. Head/eyes/ears/nose/throat: He can hear my spoken words and see near objects. He does not have a white coating on his tongue. Neck: No meningismus. Lungs: Clear to auscultation. Cardiovascular: Regular heart rate. Thorax: Patient has a Port-A-Cath present on the right side. The site is not erythematous, swollen, or tender. Abdomen: Soft and nontender. Extremities: There is no IV site phlebitis. There is no tremor. LAB AND X-RAY: The blood cultures grew Pseudomonas aeruginosa susceptible to all antibiotics tested. CBC shows a white count of 63,330 with an absolute neutrophil count of 1240, hemoglobin is 9.1, platelet count is 195,000. Creatinine is 0.6. GFR is greater than 60. Procalcitonin is 3.5. Chest x-ray shows a right lung opacity. ASSESSMENT AND PLAN: The patient has a Pseudomonas bacteremia. I think most likely it came from transmigration of the patient's intestinal wall with resulting bacteremia. However, an infection coming from the patient's Port-A-Cath cannot be for sure ruled out. My plan is to continue cefepime 2 g IV every 8 hours for a total of 40 days with day 1 being the first day that the repeat blood cultures are sterile. I am putting in an order to culture the patient's blood tomorrow morning and let the patient go home and continue his cefepime 2 g IV every 8 hours through a home agency. In the past the patient has had his antibiotics and other medications gotten through his Port-A-Cath which was done by [facility]. I have put in a consult for [facility] to supply the patient's cefepime 2 g IV every 8 hours for 40 days. I am going to repeat the patient's blood cultures tomorrow. If they are positive, then most likely the patient's Port-A- Cath will have to come out. I am treating the patient for 6 weeks because his pacemaker may have become infected hematogenously while the patient was bacteremic. COMORBIDITIES: He has chronic lymphocytic leukemia. He also has [place] disease, diabetes mellitus and atrial fibrillation and an immunoglobulin deficiency. Dr. Hurtado is treating the patient for his leukemia and also giving him his immunoglobulin monthly infusions. I have written for the patient to be seen in my office in 3 weeks then we will do it again at 6 weeks. I will be careful to find out the results of the blood cultures I have ordered to make sure that the organism is being efficiently treated with the cefepime. The patient has [place] disease, congestive heart failure, atrial fibrillation, an immunoglobulin deficiency, and chronic lymphocytic leukemia. cc: Kvng Ruby MD MTD[facility]
--- NOTE | 2018-08-09 14:11 | PROGRESS NOTE ---
DATE: 08/09/2018 He states he feels good. He was sitting up in a chair. Family at the bedside. He has remained afebrile, pulse 79, respirations 15, blood pressure 134/70. Pupils are equal. No distended neck veins. Lungs are clear in all lung herzog. Cardiovascular, regular rhythm, rate without murmur or S3. Abdomen is soft. Skin is warm and dry. Left arm with a little bit of edema. Urine output was 2400 mL. He is eating well by his report and bowels are moving okay. He has 1. Pseudomonas bacteremia most likely gastrointestinal source. He will need 6 weeks of IV cefepime. See if we can set that up and hopefully go home tomorrow. Waiting on some cultures and if the cultures are still positive we may have to consider his pacemaker or some hematogenously spread bacteria. 2. He has chronic lymphocytic leukemia, they are treating him with Imbruvica which he has apparently had good result, tolerating well. 3. Immunoglobulin deficiency. Gets immunoglobulin once a month. 4. Atrial fibrillation, rate is controlled, appears to be in sinus rhythm at this time. 5. Diabetes mellitus type 2. Sugars controlled. 6. Anemia which is stable. So we will look on trying to get him a more permanent IV access and hopefully set him up for home infusions go home tomorrow. cc: Edgard Stein MD
[2018-08-09] MEDS: PATIENT'S OWN MED PO SCH (16:34)
[2018-08-09] MEDS: ZOLOFT PO SCH (20:17)
[2018-08-09] MEDS: PRAVACHOL PO SCH (20:17)
[2018-08-10] MEDS: SOLU-CORTEF IV SCH ×2 (01:42→12:31)
[2018-08-10] MEDS: MAXIPIME 2 GM in NS 100 ML IV SCH ×3 (04:38→20:51)
[2018-08-10] MEDS: PROTONIX PO SCH (05:59)
[2018-08-10] MEDS: HUMALOG SUBQ SCH ×4 (05:59→20:48)
[2018-08-10] MEDS: REGLAN PO SCH ×3 (05:59→16:17)
[2018-08-10 07:20] LABS: BASO# 0.11 X1000 (0.0-0.2); BASO% 0.2 % (0.0-0.8); EOS# 0.04 X1000 (0.0-0.7); EOS% 0.1 % (0.0-10.0); HEMATOCRIT 29.3 % (42.0-52.0); HEMOGLOBIN 9.3 g/dL (14.0-18.0); IMM GRAN# 0.03 X1000 (0.0-0.04); LYMPH# 63.45 X1000 (1.2-3.4); LYMPH% 96.1 % (20.5-51.1); MCH 31.1 PG (27-31); MCHC 31.7 g/dL (33-37); MONO# 0.53 X1000 (0.11-0.59); MONO% 0.8 % (1.7-9.3); MPV 10.1 FL (7.4-10.4); NEUT# 1.87 X1000 (1.4-6.5); NEUT% 2.8 % (42.2-75.2); PLT 205 X1000 (130-400); RBC 2.99 XMIL (4.7-6.1); RDW 20.5 % (11.5-14.5); WBC 66.03 X1000 (4.8-10.8)
[2018-08-10 07:39] LABS: AGAP 7; ALB/GLOB RATIO 0.8; ALBUMIN 2.2 g/dL (3.5-5.0); ALKALINE PHOSPHATASE 63 U/L (32-122); BUN 18 mg/dL (8-22); CALCIUM 7.7 mg/dL (8.8-10.2); CHLORIDE 101 mmol/L (98-107); COSMO 276; CREATININE 0.5 mg/dL (0.7-1.2); ESTIMATED GFR > 60; GLUCOSE 239 mg/dL (70-104); GOT 9 U/L (10-34); GPT 14 U/L (10-44); POTASSIUM 3.9 mmol/L (3.5-5.1); SODIUM 133 mmol/L (136-145); TCO2 25 mmol/L (25-35); TOTAL BILIRUBIN 0.47 mg/dL (0.20-1.00); TOTAL PROTEIN 5.1 g/dL (6.3-8.3)
[2018-08-10 07:53] LABS: MONO 4 % (1-9); SEGS 2 % (42-75)
[2018-08-10 07:56] LABS: LYMPHS 90 % (21-51)
[2018-08-10] MEDS: BETAPACE PO SCH ×2 (08:56→20:50)
[2018-08-10] MEDS: JANUVIA PO SCH (08:56)
[2018-08-10] MEDS: MAG-OX PO SCH ×2 (08:57→20:49)
[2018-08-10] MEDS: LASIX PO SCH (08:57)
[2018-08-10] MEDS: ULORIC PO SCH (08:57)
[2018-08-10] MEDS: MEGACE PO SCH ×3 (08:58→20:50)
[2018-08-10] MEDS: SYNTHROID PO SCH (08:58)
[2018-08-10] MEDS: GLUCOPHAGE XR PO SCH ×2 (09:34→20:51)
--- NOTE | 2018-08-10 10:20 | PROGRESS NOTE ---
DATE: 08/10/2018 SUBJECTIVE: He remains afebrile. He feels good, anxious, trying to go home today. OBJECTIVE: Vital Signs: Pulse 80, respirations 16, blood pressure 129/69. HEENT: Pupils are equal and round. Lungs: Clear in all lung herzog. Cardiovascular: Regular rate without murmur or S3. Abdomen: Soft. Skin: Warm and dry. Urine output is 1800 mL. ASSESSMENT AND PLAN: Pacemaker could have become infected hematogenously from bacteremia, so I am going to treat the patient for 6 weeks with IV cefepime, and there could been transmigration of Pseudomonas bacteremia through the intestinal wall during his neutropenia. Another possibility would be that his Port-A-Cath is infected. Dr. Ruby feels most likely it is bacteremia which occurred because of transmigration through intestinal wall. We will treat the patient for 6 weeks. Trying to get him ready for this and home health. Will see if we can get him ready to go home. ASSESSMENT AND PLAN.: 1. Pseudomonas bacteremia likely from gastrointestinal source. He is going to get 6 weeks of IV antibiotics to make sure the pacemaker is not infected. He is going to get IV cefepime. Will see if we can get him set up to go home today. 2. Chronic lymphocytic leukemia, aware. He is on a Imbruvica, on which he has done well. Resume treatment when he is able. 3. Immunoglobulin deficiency. 4. Atrial fibrillation. Rate is controlled, back in sinus rhythm. 5. Diabetes mellitus type 2. 6. Anemia. So, we are going to see if we can get things lined up for him to go home this morning. cc: Edgard Stein MD
[2018-08-10] MEDS: NS 1,000 ML IV SCH (12:39)
--- NOTE | 2018-08-10 14:31 | HEMO/ONC PROGRESS NOTE ---
DATE: 08/10/2018 SUBJECTIVE: Patient says he is feeling better at this time. Weakness is improving. The patient is anxious to go home. OBJECTIVE: Vital Signs: Temperature 97.5 degrees, heart rate 80, respiratory rate 16, blood pressure 159/69, saturating 99% on room air. General: Patient is awake, lying in bed, no acute distress noted. HEENT: Anicteric. Pupils PERRLA. Mucous membranes appear to be moist. Cardiovascular: S1, S2. Chest: Bilateral breath sounds. Clear to auscultation. Abdomen: Soft, nontender. Bowel sounds present in all 4 quadrants. Neurologic: Alert and oriented x3. No focal deficits noted. LABORATORY DATA: White blood cell count 66.03, hemoglobin 9.3, hematocrit 29.3, platelets are 205,000. Potassium 3.9, BUN 18, creatinine 0.5, calcium 7.7. ASSESSMENT AND PLAN: 1. Chronic lymphocytic leukemia: The patient doing well on his Imbruvica. Continue at full dose at this time. He seems well controlled. We will continue to monitor. 2. Immunoglobulin deficiency: The patient will continue his IVIG once a month. The patient is to follow up in clinic for this. We will continue to monitor. 3. Pseudomonas bacteremia: Patient will be going home on IV antibiotics. The patient will continue to follow up with primary medical doctor and Infectious Disease. 4. Anemia: Hemoglobin and hematocrit continue to be stable. Today hemoglobin is 9.3 and hematocrit 29.3. We will continue to monitor and follow along as outpatient. Dictated by ERLIN Evans for Anjum Hurtado MD Patient seen and examined. As above. Patients cultures grew Pseudomonas. IV antibiotics for 6 weeks have been recommended by Dr. Ruby. Patient feels better at this time. His upper extremities are significantly swollen. Stop IV fluids at this time. Continue current management. Anjum Hurtado M.D. [facility]
[2018-08-10] MEDS: PATIENT'S OWN MED PO SCH (16:17)
--- NOTE | 2018-08-10 17:00 | INFECTIOUS DISEASE PROGRESS NO ---
DATE: 08/10/2018 PRESENT ILLNESS: Mr. Rendon is being treated for Pseudomonas bacteremia which we think originated from transmigration through the intestinal wall into the blood stream due to his neutropenia. It is also possible that the Port-A-Cath is the source of the bacteremia. There is also an elevated procalcitonin level of 3.5, which makes it very likely that there is a respiratory tract infection. He has chronic lymphocytic leukemia, and [place]'s disease with chronic steroid use, both of which contribute to his leukocytosis. MEDICATIONS: He is receiving cefepime 2 g IV every 8 hours. PHYSICAL EXAMINATION: Vital Signs: Temperature is 97.8 degrees, pulse rate 80, respiratory rate 18, blood pressure 109/67, O2 saturation is 99% on room air. General: This is a chronically ill- appearing elderly gentleman. he is sitting up in bed, currently in no acute distress. HEENT: Atraumatic, normocephalic. Oral mucous membranes are pink and moist. Conjunctivae are pale. Neck: Supple. Trachea is midline. Cardiovascular: Heart rate and rhythm are irregular with paced beats on the monitor and underlying atrial fibrillation. Respiratory: Lung sounds are clear in the upper lobes. Diminished in the mid and bases. Abdomen: Soft, obese and nontender. Bowel sounds are active. Extremities: There is 2+ pitting edema to his upper extremities bilaterally. Skin: Warm and dry. Neurologic: He is awake, alert, oriented, and able to get up and around with generalized weakness. LABORATORY AND X-RAY: Today his white count is 66.03, hemoglobin 9.3, platelet count 205,000. Creatinine is 0.5, estimated GFR is greater than 60. Total bilirubin is 0.47. AST 9, ALT 14 alkaline phosphatase 63. His calcitonin level is 3.5. Blood cultures x3 have grown a Pseudomonas aeruginosa. This morning another set have been obtained and are pending. No imaging reports today. ASSESSMENT AND PLAN: Mr. Rendon is being treated for a bacteremia, as well as pneumonia with leukocytosis. He takes chronic steroids and has underlying CLL, both of which contribute to the leukocytosis as well. The pneumonia is most likely a result of hematogenous infection from the blood stream, and should be covered with cefepime. At this point, we will need to wait for sterile blood cultures which will hopefully be obtained by Friday. The patient does have a Port-A-Cath to the right chest which has not been accessed. If cultures are negative, we should be able to send him home with cefepime through his Port-A-Cath for a total of 6 weeks. If the cultures are not negative we may have to consider removal of his Port-A-Cath. There is also a pacemaker which is why he will need 6 weeks of treatment for the bacteremia, due to the possibility of hematogenous infection to the pacemaker site. He will need to follow up with us in the office half way through his treatment course at 3 weeks, and then again at 6 weeks. Day one of treatment will be the first day of sterile blood cultures. These plans have been discussed with and recommended by Dr. Ruby. COMORBIDITIES: For Mr. Rendon include chronic lymphocytic leukemia, immunoglobulin deficiency, atrial fibrillation, congestive heart failure and [place]'s disease with chronic steroid use. Dictated by ERLIN Prince for Kvng Ruby MD cc: Kvng Ruby MD MTDD
[2018-08-10] MEDS: PRAVACHOL PO SCH (20:50)
[2018-08-10] MEDS: ZOLOFT PO SCH (20:50)
[2018-08-11] MEDS: SOLU-CORTEF IV SCH ×3 (00:26→23:35)
[2018-08-11] MEDS: MAXIPIME 2 GM in NS 100 ML IV SCH ×3 (05:43→20:27)
[2018-08-11] MEDS: HUMALOG SUBQ SCH ×4 (06:03→22:25)
[2018-08-11] MEDS: PROTONIX PO SCH (06:03)
[2018-08-11] MEDS: REGLAN PO SCH ×3 (06:04→17:24)
[2018-08-11] MEDS: MEGACE PO SCH ×2 (08:06→20:24)
[2018-08-11] MEDS: JANUVIA PO SCH (08:06)
[2018-08-11] MEDS: BETAPACE PO SCH ×2 (08:06→20:25)
[2018-08-11] MEDS: MAG-OX PO SCH ×2 (08:06→20:25)
[2018-08-11] MEDS: ULORIC PO SCH (08:06)
[2018-08-11] MEDS: LASIX PO SCH (08:07)
[2018-08-11] MEDS: SYNTHROID PO SCH (08:07)
[2018-08-11] MEDS: GLUCOPHAGE XR PO SCH (08:07)
--- NOTE | 2018-08-11 09:35 | HEMO/ONC PROGRESS NOTE ---
DATE: 08/11/2018 SUBJECTIVE: Patient continues to feel well at this time. The patient says his strength continues to improve. Patient is ready to go home. OBJECTIVE: Vital Signs: Temperature 97.7 degrees, heart rate 80, respiratory rate 14, blood pressure 132/65, satting 100% on room air. General: Patient is awake, lying in bed, no acute distress noted. HEENT: Anicteric. Pupils are PERRLA. Mucous membranes appear to be moist. Cardiovascular: S1, S2. Regular rate and rhythm. Chest: Bilateral breath sounds. Clear to auscultation. Abdomen: Soft, nontender. Bowel sounds present all 4 quadrants. Neurologic: Alert and oriented x3. No focal deficits. LABORATORY DATA: No laboratory data at this time. ASSESSMENT AND PLAN: 1. Chronic lymphocytic leukemia: Patient is doing well on Imbruvica. Plan to continue full doses. The patient discharged to follow up in clinic for further management. 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 Once patient is discharged, he will follow up for his next dose of IVIG. 3. Psuedomonas bacteremia: Patient will be going home on intravenous antibiotics. The patient will continue to follow up primary care and Infectious Disease. Dictated by ERLIN Evans for Anjum Hurtado MD Patient seen and examined. Continues to slowly improve. Continue antibiotics for pseudomonas bacteremia per Dr. Ruby. From my standpoint well continue IVIG every 4 weeks. CLL is much better controlled compared to 3 months ago. Continue Imbruvica. No further recommendations at this time. I will sign off. Please call with any questions. Anjum Hurtado M.D. [facility]
[2018-08-11] MEDS: PATIENT'S OWN MED PO SCH (15:03)
--- NOTE | 2018-08-11 16:35 | PROGRESS NOTE ---
DATE: 08/11/2018 SUBJECTIVE: This morning Mr. Rendon refers to be doing fairly okay. Denies any complaints. He said he has some swelling of the upper extremities and the lower extremities, but he feels a lot stronger. OBJECTIVE: Vital Signs: Current vitals show blood pressure 135/65, pulses 80, respirations 14, and temperature 97.7 degrees. General: Ms. Rendon is a 73-year-old gentleman. He was sitting up in a chair in no distress. HEENT: Mucosa is pink and moist. Anicteric. Acyanotic. Neck: Supple. Chest: Good air entry bilateral. A few distant crackles in the posterior lung herzog. Cardiovascular: Regular rate and rhythm. Abdomen: Soft. Extremities: 1+ pedal edema bilaterally. Distal pulses present. Musculoskeletal: There is edema on both upper extremities. There is a port on the right anterior chest wall, and there is a pacemaker on the left anterior chest wall. MANAGER ESTATE: Patient is awake, alert, and oriented. LABORATORY DATA: WBC is 66.03, hemoglobin is 9.3, and platelet count of 205,000. Chemistry is also reviewed. Glucose is 116. CURRENT MEDICATIONS: All been reviewed. 1. Antimicrobials include cefepime 2 g every 8 hours. Today, is day 3 on that. 2. The patient is also on Solu-Cortef 40 mg IV q.12. 3. Insulin. 4. Levothyroxine. 5. Januvia. 6. Betapace. ASSESSMENT: 1. Symptomatic anemia on presentation. Presenting hemoglobin was 6.1. The patient is status post 2 PRBC's. Hemoglobin and hematocrit is up to 9.3 yesterday. The patient is feeling a lot stronger. 2. Pseudomonas bacteremia. The source is still unclear. Suspected to be related to pneumonia or a translocation from the GI tract. He is on cefepime today, and today is day 3. ID is on board. The repeat blood cultures were done yesterday. We are pending the results. 3. Chronic immunocompromised state as a result of chronic steroid use, and immune deficiency/hematological malignancy. 4. History of CLL. Patient is on Imbruvica. Follows up with Dr. Hurtado. 5. History of atrial fibrillation currently rate controlled. Patient is on Betapace. Currently, rate controlled. 6. Mild fluid overload. Patient is on diuretic therapy. 7. Disposition: We are pending the final report on the repeat blood culture and will go from there. Mr. Rendon had a Pseudomonas. He has a port, and he has a pacemaker which on its own makes it complicated. If the blood culture continues to be positive, the port will probably need to be removed. We will follow up with further recommendations from ID. cc: Aleksey Suarez MD
--- NOTE | 2018-08-11 18:47 | INFECTIOUS DISEASE PROGRESS NO ---
DATE: 08/11/2018 PRESENT ILLNESS: The patient has a Pseudomonas bacteremia, which I think originated from transmigration of the bacterium through the intestine wall and into the bloodstream. Another possibility would be that the bacteremia originated from the patient's Port-A-Cath. MEDICATIONS: The patient is receiving cefepime IV every 8 hours. Day 1 of treatment with cefepime will be the first day that the patient's repeat blood cultures are sterile. PHYSICAL EXAMINATION: Vital Signs: Temperature is 97.9 degrees, pulse 79, respirations 14, blood pressure 110/72. General: This is a chronically ill-appearing, elderly male. He is in no acute distress. Head, Eyes, Ears, Nose, and Throat: He can hear my spoken words and see near objects. He does not have any white coating on his tongue. His sinuses are not tender. Neck: The patient does not experience any pain when he moves his neck. Lungs: Clear to auscultation. Cardiovascular: The patient's heart rate is sinus rhythm with frequent ventricular paced complexes so that on auscultation the heart rate sounds irregular. Abdomen: Soft and nontender. Thorax: The patient has a Port-A-Cath present on the right side. The site is not swollen or erythematous. He has a pacemaker present on the left side and that area also is not erythematous or swollen. Neurologic: The patient is awake. He is able to stand, but it is very difficult for him to walk. There is no tremor now. The patient talks in a coherent fashion. LABORATORY AND X-RAY: Repeat blood cultures are pending. There is no other laboratory study or radiographic study for today. ASSESSMENT AND PLAN: The patient has a Pseudomonas bacteremia as mentioned above. The plan will be to treat that for a total of 6 weeks because the patient's pacemaker could have become infected hematogenously during the bacteremia. COMORBIDITIES: The patient has chronic lymphocytic leukemia. He has an immunoglobulin deficiency, and Dr. Hurtado is giving the patient immunoglobulin infusions on a regular basis. The patient has Sushil's disease with chronic steroid use. He also has atrial fibrillation and congestive heart failure. The patient also has chronic lymphocytic leukemia. cc: Kvng Ruby MD
[2018-08-11] MEDS: ZOLOFT PO SCH (20:25)
[2018-08-11] MEDS: PRAVACHOL PO SCH (20:25)
[2018-08-12] MEDS: MAXIPIME 2 GM in NS 100 ML IV SCH ×3 (05:56→22:15)
[2018-08-12] MEDS: HUMALOG SUBQ SCH ×4 (05:59→22:22)
[2018-08-12] MEDS: REGLAN PO SCH ×3 (06:00→16:33)
[2018-08-12] MEDS: PROTONIX PO SCH (06:00)
[2018-08-12 07:44] LABS: BASO# 0.08 X1000 (0.0-0.2); BASO% 0.1 % (0.0-0.8); EOS# 0.02 X1000 (0.0-0.7); HEMATOCRIT 29.9 % (42.0-52.0); HEMOGLOBIN 9.4 g/dL (14.0-18.0); IMM GRAN# 0.15 X1000 (0.0-0.04); IMM GRAN% 0.2 % (0.0-0.5); LYMPH# 66.81 X1000 (1.2-3.4); LYMPH% 96.9 % (20.5-51.1); MCH 30.7 PG (27-31); MCHC 31.4 g/dL (33-37); MCV 97.7 FL (81-99); MONO# 0.62 X1000 (0.11-0.59); MONO% 0.9 % (1.7-9.3); MPV 9.9 FL (7.4-10.4); NEUT# 1.28 X1000 (1.4-6.5); NEUT% 1.9 % (42.2-75.2); PLT 241 X1000 (130-400); RBC 3.06 XMIL (4.7-6.1); WBC 68.96 X1000 (4.8-10.8)
[2018-08-12 07:58] LABS: AGAP 7; ALB/GLOB RATIO 0.9; ALBUMIN 2.5 g/dL (3.5-5.0); ALKALINE PHOSPHATASE 61 U/L (32-122); BUN 17 mg/dL (8-22); CALCIUM 8.2 mg/dL (8.8-10.2); CHLORIDE 96 mmol/L (98-107); COSMO 271; CREATININE 0.5 mg/dL (0.7-1.2); ESTIMATED GFR > 60; GLUCOSE 159 mg/dL (70-104); GOT 8 U/L (10-34); GPT 8 U/L (10-44); SODIUM 133 mmol/L (136-145); TCO2 30 mmol/L (25-35); TOTAL PROTEIN 5.4 g/dL (6.3-8.3); URIC ACID 3.1 mg/dL (3.4-7.0)
[2018-08-12] MEDS: BETAPACE PO SCH ×2 (08:24→22:20)
[2018-08-12] MEDS: LASIX PO SCH (08:24)
[2018-08-12] MEDS: MEGACE PO SCH (08:24)
[2018-08-12] MEDS: MAG-OX PO SCH ×2 (08:25→22:21)
[2018-08-12] MEDS: SYNTHROID PO SCH (08:25)
[2018-08-12] MEDS: ULORIC PO SCH (08:25)
[2018-08-12] MEDS: SOLU-CORTEF IV SCH ×2 (11:31→22:23)
--- NOTE | 2018-08-12 13:54 | PROGRESS NOTE ---
DATE: 08/12/2018 SUBJECTIVE: This morning Mr. Rendon refers to be doing fairly okay. Denies any complaints. He was just awaiting for the repeat blood cultures to come back. He has been afebrile. OBJECTIVE: His current vitals show blood pressure 117/53, pulse 88, respirations 18, and temperature 97.8 degrees. Patient was saturating 98% on room air.General: Mr. Rendon is a 73-year- old gentleman. He was sitting up in a chair in no distress. Mucosa is pink and moist. Anicteric. Acyanotic. Neck: Supple. Chest: Clear to auscultation. No crepitations. No rhonchi. Cardiovascular: Regular rate and rhythm. No murmurs, no rubs, no gallops. Abdomen: Soft, nontender. Bowel sounds present. Extremities: About 1+ pedal edema. There is also edema on the upper extremities. YOUTH COUNSELOR: Patient is awake, alert, and oriented. Musculoskeletal: There is a port on the right anterior chest wall, and a pacemaker on the left anterior chest wall. LABORATORY DATA: WBC is 68.96, hemoglobin is 9.4, and platelet count of 241,000. Chemistry is reviewed, and for the most part unremarkable. Repeat blood culture is still pending. The patient continues to be on cefepime as an antimicrobial. ASSESSMENT: 1. Symptomatic anemia on presentation. The patient is status post 2 PRBC transfusion. Hemoglobin and hematocrit is fairly stable around 9.3. The patient feels stronger. 2. Pseudomonas bacteremia. The patient is on IV antibiotics. Today is day 4 on cefepime. Infectious Disease is on board. Repeat blood culture is still pending. 3. Chronic immunocompromised state due to chronic steroid use and immunoglobulin deficiency, and hematological malignancy noted. 4. History of CLL. Patient is on Imbruvica and follows up with Dr. Hurtado. 5. History of atrial fibrillation currently rate controlled. We will continue with Betapace. 6. Mild fluid overload. We will continue with the diuretic therapy. PLAN: In general, I think Mr. Rendon is fairly stable. We are still awaiting the repeat blood cultures, and then go from there. We are going to continue with the current management for his other comorbidities. The patient is being seen by Hematology/Oncology, and also by Infectious Disease. We appreciate their input. cc: Aleksey Suarez MD [facility]
[2018-08-12] MEDS: PATIENT'S OWN MED PO SCH (15:14)
--- NOTE | 2018-08-12 15:32 | INFECTIOUS DISEASE PROGRESS NO ---
DATE: 08/12/2018 PRESENT ILLNESS: Mr. Rendon is being treated for a Pseudomonas bacteremia which we think originated from transmigration of the bacteria through the intestinal wall and into the blood stream. It is also possible that the bacteria originated from his Port-A-Cath. MEDICATIONS: He is receiving cefepime 2 g IV every 8 hours. PHYSICAL EXAMINATION: Vital Signs: Temperature is 97.8 degrees, pulse rate 88, respiratory rate 18, blood pressure 117/53, O2 saturation is 98% on room air. General: This is a chronically ill- appearing, elderly gentleman. He is sitting up in a chair currently in no acute distress. HEENT: Atraumatic, normocephalic. Oral mucous membranes are pink and moist. Conjunctivae are pale. Neck: Supple. Trachea is midline. Respiratory: Lung sounds are clear to auscultation bilaterally. No work of breathing noted. Cardiovascular: Heart rate and rhythm are regular. AV pacing noted on the monitor. Abdomen: Soft, obese and nontender. Bowel sounds are active. Integumentary: Skin is warm and dry. There is a Port-A-Cath to the right chest which is not accessed and a pacemaker to the left chest. These sites are without edema or erythema. Neurologic: He is awake, alert, and oriented. No tremors noted. Able to ambulate with assistance. Extremities: 2 to 3+ pitting edema in the upper extremities with a 1+ pretibial edema bilaterally. LABORATORY AND X-RAY: Today his white count is 68.96, hemoglobin 9.4, platelet count 241,000. Creatinine is 0.5 estimated, GFR is greater than 60. Total bilirubin is 0.4, AST 8, ALT 8, alkaline phosphatase 61. No imaging reports today. ASSESSMENT AND PLAN: Mr. Rendon he is being treated for a Pseudomonas bacteremia. Because of the presence of a pacemaker, he will need 6 weeks of treatment, in the event that the pacer was hematogenously infected. We are still awaiting sterile cultures which hopefully we will have by tomorrow, at which time the patient should be able to be discharged home with IV cefepime every 8 hours x6 weeks. Orders have been put in to consult [facility]. Also, the patient has a Port-A-Cath and will have his IV antibiotics through that. We will have him follow up with us in the office in 3 weeks, and then again in 6 weeks. These plans have been discussed with and recommended by Dr. Ruby. COMORBIDITIES: For Mr. Rendon include that he is elderly with chronic lymphocytic leukemia, immunoglobulin deficiency, Rutherford's disease with chronic steroid use, atrial fibrillation, and congestive heart failure. Dictated by ERLIN Prince for Kvng Ruby MD cc: Kvng Ruby MD [facility]
[2018-08-12] MEDS: PRAVACHOL PO SCH (22:20)
[2018-08-12] MEDS: ZOLOFT PO SCH (22:21)
[2018-08-13] MEDS: MEGACE PO SCH ×2 (01:08→10:02)
[2018-08-13] MEDS: MAXIPIME 2 GM in NS 100 ML IV SCH ×2 (05:23→13:14)
[2018-08-13] MEDS: REGLAN PO SCH ×2 (06:53→11:37)
[2018-08-13] MEDS: PROTONIX PO SCH (06:53)
[2018-08-13] MEDS: HUMALOG SUBQ SCH ×2 (06:53→11:27)
[2018-08-13] MEDS: SYNTHROID PO SCH (10:03)
[2018-08-13] MEDS: ULORIC PO SCH (10:03)
[2018-08-13] MEDS: LASIX PO SCH (10:03)
[2018-08-13] MEDS: MAG-OX PO SCH (10:03)
[2018-08-13] MEDS: BETAPACE PO SCH (10:04)
[2018-08-13] MEDS: SOLU-CORTEF IV SCH (11:37)
[2018-08-13 13:04] VITALS: BP 109/60
--- NOTE | 2018-08-14 08:03 | DISCHARGE SUMMARY ---
ADMISSION DATE: 08/06/2018 DISCHARGE DATE: 08/13/2018 DISPOSITION: Home with [facility]. FOLLOW UP: 1. Dr. Badillo. 2. Dr. Ruby. 3. Dr. Hurtado. CONSULTATION DURING ADMISSION: 1. Infectious Disease was consulted. Patient was seen by Dr. Ruby. 2. Hematology/Oncology was consulted. Patient was seen by Dr. Hurtado. INVASIVE PROCEDURES DONE DURING ADMISSION: None. IMAGING STUDIES OF SIGNIFICANCE: 1. A chest x-ray was stable. 2. A CT scan of the head showed no acute intracranial abnormality. 3. A repeat chest x-ray shows clearance of the left lung base. Persistent airspace opacification of the right lung base. ADMISSION DIAGNOSES: 1. Chronic lymphocytic leukemia with immunoglobulin deficiency. 2. History of atrial fibrillation with RVR in the past. 3. [place] on chronic steroids. 4. Diabetes mellitus. 5. History of deep venous thrombosis. DIAGNOSES AT THE TIME OF DISCHARGE: 1. Symptomatic anemia on presentation. Patient is status post 2 packed red blood cell transfusion. Hemoglobin and hematocrit is stable. 2. Pseudomonas bacteremia. Patient is on IV antibiotics. Subsequent blood cultures have been unremarkable. 3. Chronic immunocompromised state. 4. History of Sushil disease on chronic steroid use. 5. History of chronic lymphocytic leukemia with immunoglobulin deficiency. 6. History of atrial fibrillation currently rate controlled. 7. Mild fluid overload probably as a result of hypoalbuminemia. 8. Right lower lobe pneumonia, probably the source of the bacteremia. Patient is on antibiotics. DISCHARGE MEDICATIONS: 1. Insulin glargine 45 units subcutaneous. 2. Sotalol 120 p.o. b.i.d. 3. Januvia 100 mg p.o. daily. 4. Metformin 750 b.i.d. 5. Fluconazole 0.1 mg p.o. every morning. 6. Levothyroxine 200 mcg p.o. daily. 7. Eliquis 5 mg b.i.d. 8. Pantoprazole 40 mg daily. 9. Uloric 40 mg daily. 10. Imbruvica 420 mg p.o. as needed. 11. Megestrol acetate 40 mg b.i.d. 12. Hydrocortisone 10 mg daily. 13. Furosemide 40 mg p.o. daily. PRESENTING COMPLAINT: Feeling weak. HISTORY OF PRESENTING COMPLAINT: Mr. Rendon is a 73-year-old male with a history of CLL with immunoglobulin deficiency, and gets monthly infusion of IgG with Dr. Hurtado, who came to the emergency department because of being generalized weak. The patient was found to be mildly febrile with a temperature of 99.9 degrees. He was subsequently admitted for further medical care. HOSPITAL COURSE: Mr. Rendon was admitted to the medical floor, and was started on broad-spectrum IV antibiotics. Imaging studies were done. ID and Heme-Onc were consulted. During the hospital course, he did improve on daily basis. He became completely afebrile. His white cell count continues to be slightly elevated, but he has a history of CLL and we think that is the source of it. His blood culture was positive for Pseudomonas aeruginosa. At one point, we thought it is as a result of a translocation from the GI tract or it is from pneumonia. A repeat blood culture has been negative. The patient is therefore going to be discharged in stable condition, and with about 2 weeks course of IV cefepime. The duration and end of therapy, however, will be dictated by Infectious Disease. This morning Mr. Rendon refers to be doing okay. His vitals, blood pressure is 132/65, pulse is 79, respirations 16, and temperature is 97.8 degrees. The patient is saturating 100% on room air. He denies any complaint. His physical exam is unremarkable. Patient is tolerating his diet, and has had a regular bowel movement. Mr. Rendon is therefore clinically stable for discharge. All the discharge instructions have been discussed with him, and he voiced understanding. TIME SPENT FOR DISCHARGE: 38 minutes. cc: MD Latosha Silver MD Dr. Harris Dr. Lobo
== END 2018-08-13 16:41 | disposition home health service (06) | DRG 840 ==
LOC: SUPCPDRO → ED 10:59 → SUATTDRO 11:00 → 3N 11:00
PROVIDERS: ATTEND Internal Medicine
CPT/HCPCS: 36430; 70450; 71010; 71045; 80053; 81001; 82607; 82728; 82746; 82948; 83540; 83550; 83605; 83735; 84145; 84443; 84484; 84550; 85025; 86850; 86900; 86901; 86920; 87040; 87077; 87186; 93005; 94761; 96360; 96361; 96365; 96366; 96367; 96372; 99285; 99291; A9270; J0692; J1200; J1446; J1447; J1561; J1720; J1815; J1940; J3420; J3475; J7030; P9016; S0179; XXXXX

== ENCOUNTER 2018-10-02 21:14 | Inpatient (IN) ==
[2018-10-02 23:31] LABS: BASO# 0.04 X1000 (0.0-0.2); BASO% 0.1 % (0.0-0.8); EOS# 0.02 X1000 (0.0-0.7); HEMOGLOBIN 8.7 g/dL (14.0-18.0); IMM GRAN# 0.03 X1000 (0.0-0.04); IMM GRAN% 0.1 % (0.0-0.5); LYMPH# 41.55 X1000 (1.2-3.4); LYMPH% 96.7 % (20.5-51.1); MCH 34.3 PG (27-31); MCHC 32.2 g/dL (33-37); MCV 106.3 FL (81-99); MONO# 0.35 X1000 (0.11-0.59); MONO% 0.8 % (1.7-9.3); MPV 9.7 FL (7.4-10.4); NEUT# 0.98 X1000 (1.4-6.5); NEUT% 2.3 % (42.2-75.2); PLT 168 X1000 (130-400); RBC 2.54 XMIL (4.7-6.1); RDW 20.8 % (11.5-14.5); WBC 42.97 X1000 (4.8-10.8)
[2018-10-02 23:50] LABS: AGAP 14; ALB/GLOB RATIO 1.6; ALBUMIN 3.5 g/dL (3.5-5.0); ALKALINE PHOSPHATASE 59 U/L (32-122); BUN 12 mg/dL (8-22); CALCIUM 8.3 mg/dL (8.8-10.2); CHLORIDE 96 mmol/L (98-107); COSMO 277; CREATININE 0.9 mg/dL (0.7-1.2); ESTIMATED GFR > 60; GLUCOSE 158 mg/dL (70-104); GOT 14 U/L (10-34); GPT 8 U/L (10-44); POTASSIUM 3.7 mmol/L (3.5-5.1); SODIUM 137 mmol/L (136-145); TCO2 27 mmol/L (25-35); TOTAL BILIRUBIN 1.89 mg/dL (0.20-1.00); TOTAL PROTEIN 5.7 g/dL (6.3-8.3)
[2018-10-02 23:56] LABS: BANDS 1 % (0-1); LYMPHS 94 % (21-51); SEGS 3 % (42-75)
[2018-10-03] MEDS ORDERED: MAXIPIME 2 GM in NS 100 ML IV ONE (00:31)
--- NOTE | 2018-10-03 00:40 | PROVIDER DOCUMENTATION ---
This chart was entered by Babs Solis Scribe, acting as scribe for Krish Felix MD. HPI-General Adult - General Stated Complaint: FEVER/N/SOB Time Seen by Provider: 10/02/18 21:46 Source: patient Allergies/Adverse Reactions: Patient Allergies Allergy/AdvReac Type Severity Reaction Status Date / Time allopurinol [From Zyloprim] Allergy Intermediate RASH Verified 07/08/18 12:36 cephalexin monohydrate * Allergy Intermediate RASH Verified 07/08/18 12:36 [From Keflex] Penicillins Allergy Intermediate RASH Verified 07/08/18 12:36 piperacillin sodium * Allergy Intermediate RASH Verified 07/08/18 12:36 [From Zosyn] sulfamethoxazole Allergy Intermediate RASH Verified 07/08/18 12:36 [From Bactrim] tazobactam sodium * Allergy Intermediate RASH Verified 07/08/18 12:36 [From Zosyn] trimethoprim [From Bactrim] Allergy Intermediate RASH Verified 07/08/18 12:36 vancomycin AdvReac Severe seizure Verified 07/08/18 12:36 like activity phenolphthalein [From Ex-Lax] AdvReac Intermediate HIVES Verified 07/08/18 12:36 Home Medications: Home Medication List Medication Instructions Recorded Confirmed Last Taken Type Apixaban [Eliquis] 5 mg PO BID 02/13/18 09/11/18 09/11/18 History Fludrocortisone Acetate 0.1 mg PO QAM 02/13/18 09/11/18 09/11/18 History Insulin Glargine [Lantus] 45 unit SUBQ QHS PRN 02/13/18 09/11/18 09/10/18 History Levothyroxine Sodium [Synthroid] 200 microgm PO QAM 02/13/18 09/11/18 09/11/18 History Metformin E.r. [Glucophage Xr] 750 mg PO BID 02/13/18 09/11/18 09/11/18 History Sitagliptin Phosphate [Januvia] 100 mg PO QAM 02/13/18 09/11/18 09/11/18 History Sotalol HCl [Sotalol] 80 mg PO BID 02/13/18 09/11/18 09/11/18 History Pantoprazole [Protonix] 40 mg PO DAILY@0700 30 Days #60 tab 02/18/18 09/11/18 09/11/18 Rx Febuxostat [Uloric] 1 tab PO DAILY 04/26/18 09/11/18 09/11/18 History Ibrutinib [Imbruvica] 1 tab PO DIRECTED 04/26/18 09/11/18 09/10/18 History Megestrol Acetate 3 tab PO BID 04/26/18 09/11/18 09/11/18 History Metoclopramide [Reglan] 1 tab PO AC 04/26/18 09/11/18 09/11/18 History PRAVAstatin [Pravachol] 40 mg PO QHS 04/26/18 09/11/18 09/10/18 History Promethazine HCl 1 tab PO Q6H PRN PRN 06/03/18 09/11/18 08/05/18 History Furosemide [Lasix] 1 tab PO DAILY 08/05/18 09/11/18 09/11/18 History Hydrocortisone [Cortef] 10 mg PO DIRECTED 08/06/18 09/11/18 09/11/18 History Cefepime HCl/Dextrose, Iso-Osm 2 gm IV Q8HR 09/11/18 09/11/18 09/11/18 06:00 History [Cefepime 2 gm Injection] - History of Present Illness -Gen Adult Nature of Presenting Problems: Pt is 73/M presenting to ED w/ hx of cancer, currently on oral chemo. Pt had recent blood infection back in July and was on antibiotics through port. Pt also had blood transfusion about 2 month ago. He is here today becaue his sts that around 4pm he started acting differently and has been very weak and unable to walk at all, he usually walked to and from chair. Daughter sts that he was slurring speech, due to weakness. At 6pm he started to run a fever of 100.4 and was given Tylenol. Location of Pain/Injury: reports: generalized Pain Radiation: reports: no radiation Onset/Duration: reports: 4-6 hours ago Timing: reports: still present, getting worse Context/Activities at Onset: reports: none Modifying Factors: improves with: nothing Associated Symptoms: reports: cough, fever/chills, nausea. denies: vomiting Similar Symptoms Previously?: Yes Recently seen or treated by another doctor?: Yes Review of Systems - Adult - REVIEW OF SYSTEMS - ADULT Constitutional: reports: fever. denies: chills Eyes: reports: no symptoms reported Ears, Nose, Mouth & Throat: reports: no symptoms reported Cardiovascular: denies: chest pain Respiratory: reports: chronic cough Gastrointestinal: reports: nausea. denies: abdominal pain, diarrhea, vomiting Genitourinary: reports: no symptoms reported Musculoskeletal: reports: no symptoms reported Integumentary: reports: no symptoms reported Neurological: reports: slurred speech. denies: dizziness/vertigo, headache/migraines Psychiatric: reports: no symptoms reported Endocrine: reports: no symptoms reported Hematologic/Lymphatic: reports: no symptoms reported Allergic/Immunologic: reports: no symptoms reported All Other Systems: Reviewed and Negative Past History - Adult - PAST MEDICAL HISTORY-ADULT Review of Records: reports: Old Records Reviewed, Nursing Assessment Review, Medications Reviewed, Social history reviewed & non-contributory. Major Childhood Illnesses: reports: denies history Cardiovascular: reports: A-Fib Respiratory: reports: denies history Gastrointestinal: reports: denies history Obstetrical/Gynecological: reports: denies history Genitourinary: reports: kidney disease, other ([place]) Musculoskeletal: reports: denies history Neurological: reports: denies history Endocrine/Immune: reports: Diabetes, Leukemia Other Conditions: reports: denies history - PRIOR SURGERIES/PROCEDURES Surgical/Procedure History: reports: appendectomy, indwelling device (port), oth er (vasectomy, BUCK) - IMMUNIZATION STATUS Childhood Immunizations: See Nurse Assessment Flu Vaccine: See Nurse Assessment - FAMILY HISTORY Family History: reviewed, not pertinent Physical Exam-General - PHYSICAL EXAM-ADULT Initial Vital Signs Reviewed: Yes - CONSTITUTIONAL General Appearance: appears well, alert (port in R chest, pale appearing), no apparent distress, thin, lethargic, other (pale) - EYES Eyes: negative: pink conjunctivae (pale conjunctivae) - HEAD, EARS, NOSE, MOUTH & THROAT HENMT: normocephalic/atraumatic, moist mucous membranes, normal ENT inspection, TMs normal, pharynx normal - NECK Neck: supple - RESPIRATORY Respiratory: lungs clear - CARDIOVASCULAR Cardiovascular: regular rate, rhythm - GASTROINTESTINAL (ABDOMEN) Abdominal Exam: normal bowel sounds, non tender, soft - MUSCULOSKELETAL Back Exam: normal inspection, no CVA tenderness, no vertebral tenderness Extremity: normal range of motion, non-tender, normal gait, other (trace edema bilateral ankles) - SKIN Integumentary: normal color, warm/dry - NEUROLOGIC Neurologic: grossly normal - PSYCHIATRIC Psych/Mental Status: normal mood/affect, normal thought content, normal thought process, oriented x 3 Progress - PLAN OF CARE/RESULTS Progress/Plan/Lab Results: Vital Signs - 8 hr 10/02/18 21:25 Temperature 97.7 F Pulse Rate 80 Respiratory Rate 16 Blood Pressure 68/48 O2 Sat by Pulse Oximetry 92 L Result Diagrams: 10/02/18 22:25 10/02/18 22:25 - REASSESSMENT Reassessment #1 Time Reassessed: 00:33 Status: unchanged (hgb 8.7. leukemia w/ WBC 42k, penumonia both bases as compared to august CXR. multiple antibiotic sensitivies, however, was receiving cefepime at home per dr Ruby, ID last ,month) - XRAY 1 XRAY Study: Chest (bi-basilar infiltrates worse compared to 09-11-18 CXR) - CONSULTS/PCP/HOSPITALIST Notification #1 *Consult/PCP/Hospitalist*: DR STRONG Time Discussed: 00:37 Consult Disposition: Admit Departure - Departure Date of Disposition Decision: 10/03/18 Time of Disposition Decision: 00:37 DIAGNOSIS: Pneumonia, Anemia, Generalized weakness, Leukemia, Fluid overload Disposition: ADMITTED INPATIENT 09 Certified Medical Emergency: Emergent Condition: Fair Referrals and Follow-Ups: Latosha Badillo MD [Primary Care Provider] - - Critical Care Note This patient required my direct & personal management of CC.: No Attestation - Physician/ HAILE Attestation Patient care was provided by Advanced Practice Provider:: No The physician spent face to face time with patient:: Yes Advanced Practice Provider documentation review:: Supervising physician onsite and consulted in the evaluation and care of this patient. The physician did have a face to face encounter with the patient. This chart was documented by the indicated scribe, (Babs Solis, Maria Luisa) and accurately reflects the services I performed and decisions made by me, Krish Felix MD, as attested by the provider's signature.
[2018-10-03] MEDS ORDERED: NS 1,000 ML IV SCH (03:42)
--- NOTE | 2018-10-03 05:55 | HISTORY AND PHYSICAL ---
PRIMARY CARE PHYSICIAN: Dr. Badillo. CHIEF COMPLAINT: Weakness, fever not feeling well. HISTORY OF PRESENTING ILLNESS: A 73-year-old male with a history of multiple medical problems including CLL, hypothyroidism, diabetes mellitus type 2, hyperlipidemia, DVT, chronic atrial fibrillation, Sushil's, immunoglobulin deficiency, chronic anemia, who had presented to emergency department with several days history of having worsening fever and shortness of breath and not feeling well. The patient apparently was evaluated in the emergency department. He had imaging done which did show pneumonia and due to his presenting symptoms it was thought that he would need admission for further management. The patient was recently on prolonged antibiotics for Pseudomonas bacteremia and just has been off antibiotics for the past 2 weeks. At the time of my examination, patient denied any headache, chest pain, hemoptysis, but complained of weakness, fevers and not feeling well. PAST MEDICAL HISTORY: Includes CLL, hypothyroidism, diabetes mellitus type 2, hyperlipidemia, DVT, atrial fibrillation, Bosque's, immunoglobulin deficiency, chronic anemia. PAST SURGICAL HISTORY: TURP, appendectomy, pacemaker, Port-A-Cath, catheter ablation. ALLERGIES: Allopurinol, Keflex, cephalosporins, Levaquin, penicillin, Zosyn, Bactrim and laxatives. CURRENT MEDICATIONS: Include Eliquis 5 mg p.o. b.i.d., Uloric 40 mg p.o. daily, Lasix 40 mg p.o. daily, Lantus 45 units subcutaneous at bedtime, levothyroxine 200 mcg p.o. daily, metformin 750 mg p.o. b.i.d., pantoprazole 40 mg p.o. daily, pravastatin 40 mg p.o. at bedtime, Januvia 100 mg p.o. daily, sotalol 80 mg p.o. b.i.d. SOCIAL HISTORY: No history of smoking, alcohol or illicit drug use. FAMILY HISTORY: No history of coronary artery disease. REVIEW OF SYSTEMS: Fourteen point review of system as listed in HPI. Other systems negative. PHYSICAL EXAMINATION: GENERAL: Cooperative, friendly male. He is resting more comfortably now. VITAL SIGNS: Temperature 97.7 degrees, pulse 80, respirations 16, blood pressure is 68/48. HEENT: Atraumatic, normocephalic. Extraocular movements intact. PERRLA. NECK: No masses. CHEST: Bibasilar rales. CARDIOVASCULAR: Regular rate and rhythm. ABDOMEN: Soft, positive bowel sounds. EXTREMITIES: No edema. NEUROLOGIC: He is awake, alert, oriented x2. GENITOURINARY: No bladder distention. SKIN: Warm. LABORATORIES AND STUDIES: WBC 42.97, hemoglobin 8.7, hematocrit 27.0, platelets 168,000. Sodium 137, potassium 3.7, chloride 96, CO2 is 27, BUN is 12, creatinine 0.9, glucose is 158. ProBNP is 4112. ASSESSMENT: A 73-year-old male with a history of CLL, hypothyroidism, diabetes mellitus type 2, atrial fibrillation, who had presented to the emergency department with several days history of having fever and worsening weakness and lethargy. He was evaluated the emergency department. He had imaging done and as per ER physician it showed pneumonia and due to his presenting symptoms he will need admission for further management. 1. Suspected pneumonia. 2. CLL. 3. Immunoglobulin deficiency. 4. Diabetes mellitus type 2. 5. Atrial fibrillation. 6. Bosque's. PLAN: 1. We will admit patient to [facility]. 2. We will check blood cultures. Start patient on IV antibiotics. 3. We will consult Infectious Disease and also his oncologist. 4. Monitor blood glucose closely and put patient on sliding scale insulin regimen. 5. Continue to monitor patient on telemetry closely. 6. The patient is on Eliquis and this will suffice for DVT prophylaxis. 7. The patient's condition is guarded. 8. We will continue to follow, and reassess and make further recommendation based on patient's clinical course. 9. The patient also was hypotensive and we will continue with IV fluid hydration. cc: Maikol Vann MD MTDD
[2018-10-03 06:20] LABS: URINE SOURCE CLEAN CATCH
[2018-10-03 06:25] LABS: BILIRUBIN URINE NEGATIVE (NEGATIVE); BLOOD URINE MODERATE (NEGATIVE); COLOR YELLOW; GLUCOSE URINE NEGATIVE (NEGATIVE); KETONE URINE 10 mg/dL (NEGATIVE); LEUKOCYTES URINE LARGE (NEGATIVE); NITRITE URINE NEGATIVE (NEGATIVE); PH URINE 5.5; PROTEIN URINE 100 mg/dL (NEGATIVE); TURBIDITY URINE HAZY (CLEAR); UROBILINOGEN URINE NORMAL (NORMAL)
[2018-10-03 06:27] LABS: UR EPITHELIAL CELLS <10 /HPF (<10); URINE BACTERIA 4+ /HPF; URINE RBC <10 /HPF (<10); URINE WBC TNTC /HPF (<10)
[2018-10-03 06:39] LABS: URINE CASTS GRANULAR PRESENT; URINE CRYSTALS NONE SEEN; URINE SMALL ROUND CELLS RENAL PRESENT; URINE YEAST NONE SEEN
[2018-10-03] MEDS: HUMULIN R SUBQ SCH ×4 (07:00→20:20)
--- NOTE | 2018-10-03 07:26 | Diag Imaging Result Doc PS360 ---
EXAM: CHEST-PORTABLE 10/02/2018 HISTORY: SOB TECHNIQUE: AP portable at 2206 COMMENT: There are bilateral pleural effusions which have increased dramatically since the previous study of 08/07/2018. There is increased pulmonary vascularity. There is cardiomegaly. There is atelectasis versus pneumonia plus minus pulmonary edema in the lung bases. IMPRESSION: Worsening pleural effusions and basilar opacities and cardiomegaly. Electronically signed by Zhang Orozco 10/03/2018 7:24 AM
[2018-10-03] MEDS ORDERED: CORTEF PO SCH ×4 (09:45→21:00)
[2018-10-03] MEDS ORDERED: LOVENOX SUBQ SCH (10:00)
[2018-10-03 10:18] LABS: ALLEN TEST YES; BLOOD TYPE ARTERIAL; HCO3-(ACT) 28.8 mmoll (20.0-26.0); METHB 0.9 % (0.0-1.5); O2(CT) 11.2 mL/dL (15.0-23.0); PCO2(98.6) 45 mmHg (35-45); PO2(98.6) 87 mmHg (60-100); SAMPLE BLOOD; SAO2 98.4 % (95.0-100.0); THB 8.3 g/dL (11.5-17.4); pH(98.6) 7.43 (7.35-7.45)
[2018-10-03 10:19] LABS: MODALITY CANNULA
[2018-10-03 10:58] LABS: INR 1.62; PROTIME 20.5 Seconds (11.0-16.0)
[2018-10-03 11:00] LABS: PTT 48.7 Seconds (22.3-41.8)
[2018-10-03] MEDS: REGLAN PO SCH ×2 (11:00→16:00)
[2018-10-03] MEDS: ELIQUIS PO SCH ×2 (11:07→20:11)
[2018-10-03] MEDS: ULORIC PO SCH (11:07)
[2018-10-03 11:09] LABS: HEMATOCRIT 25.3 % (42.0-52.0); HEMOGLOBIN 8.1 g/dL (14.0-18.0); MCV 106.8 FL (81-99); RBC 2.37 XMIL (4.7-6.1); WBC 37.69 X1000 (4.8-10.8)
[2018-10-03] MEDS: FLORINEF PO SCH (11:09)
[2018-10-03 11:10] LABS: BASO# 0.03 X1000 (0.0-0.2); BASO% 0.1 % (0.0-0.8); EOS# 0.07 X1000 (0.0-0.7); EOS% 0.2 % (0.0-10.0); LYMPH# 36.31 X1000 (1.2-3.4); LYMPH% 96.3 % (20.5-51.1); MCH 34.2 PG (27-31); MONO# 0.25 X1000 (0.11-0.59); MONO% 0.7 % (1.7-9.3); NEUT# 1.03 X1000 (1.4-6.5); NEUT% 2.7 % (42.2-75.2); PLT 146 X1000 (130-400); RDW 20.9 % (11.5-14.5)
[2018-10-03] MEDS: LASIX IV SCH ×2 (11:25→20:11)
[2018-10-03 11:47] LABS: AGAP 11; ALB/GLOB RATIO 1.5; ALBUMIN 3.1 g/dL (3.5-5.0); ALKALINE PHOSPHATASE 52 U/L (32-122); BUN 14 mg/dL (8-22); CALCIUM 8.2 mg/dL (8.8-10.2); CHLORIDE 99 mmol/L (98-107); COSMO 278; CREATININE 0.8 mg/dL (0.7-1.2); GLUCOSE 93 mg/dL (70-104); GOT 10 U/L (10-34); GPT 7 U/L (10-44); POTASSIUM 3.4 mmol/L (3.5-5.1); SODIUM 139 mmol/L (136-145); TCO2 29 mmol/L (25-35); TOTAL BILIRUBIN 1.64 mg/dL (0.20-1.00); TOTAL PROTEIN 5.1 g/dL (6.3-8.3)
--- NOTE | 2018-10-03 12:25 | PROGRESS NOTE ---
DATE: 10/03/2018 SUBJECTIVE: This patient is lying in bed. He is complaining of shortness of breath and also he is having some nausea. He does have bilateral lower extremity swelling around 2+ and bilateral crackles mostly at the lung bases, dry cough and apparently he has been having fever at home. Recently he has antibiotic for Pseudomonas bacteremia. We had a blood culture from today as well as a urine culture. His mouth is moist. X-ray showed worsening pleural effusion/pulmonary edema and bibasilar opacities and cardiomegaly. This patient has a history of diastolic dysfunction. I will stop the IV fluids right now and I will give him Lasix. His oxygen saturation has been stable though, but he is tachypneic. OBJECTIVE: Vital Signs: Temperature 97.9 degrees, pulse 80, respiratory rate 34, blood pressure 155/79, oxygen saturation 97%. HEENT: Head normocephalic. No trauma. PERRLA. Neck: Supple. Mild JVD. Central trachea. Chest: Decreased breath sounds mostly at the bases with crackles bilaterally mostly at the bases as well. Abdomen: Soft. Positive bowel sounds. Extremities: 2+ lower extremity edema. No clubbing. No cyanosis. Neurological: The patient is alert and oriented x3 and he is complaining of generalized weakness and nausea. LABORATORY DATA: Pending lab work today. Laboratory from yesterday: WBC 42.9, hemoglobin 8.7, hematocrit 27, platelets 168,000. Sodium 137, potassium 3.7, chloride 96, bicarbonate 27, BUN 12, creatinine 0.9, glucose 158, calcium 8.9. AST 14, ALT 8, alkaline phosphatase 59. ProBNP 4112. Albumin 3.5. ASSESSMENT AND PLAN: 1. Fluid overload and suspected pneumonia, this patient has been placed on antibiotics. He received a little bit of fluids but I will stop it and I will give him some Lasix. He has a history of diastolic heart failure, x-ray showed worsening pleural effusion and bibasilar opacities and cardiomegaly, this patient is complaining of shortness of breath. I will monitor this patient closely. 2. History of chronic lymphocytic leukemia, aware. Hematology Oncology has been consulted. We will continue with same management. 3. Immunoglobulin deficiency. Aware. We will keep an eye on this. 4. Type 2 diabetes. Continue with same management. 5. Atrial fibrillation. This patient has a pacemaker placed. At this moment, he is not in atrial fibrillation. I will continue with the home medications though. 6. History of Dyer disease. Continue with home medications. 7. Pulmonary edema in a patient with history of congestive heart failure, diastolic heart failure. I will start this patient on furosemide twice a day and I will monitor the urine output. 8. Disposition. This patient will be transferred to the [facility] unit, this patient's condition is guarded. I will continue making further recommendations based on this patient's clinical course. cc: Michael Gao MD
[2018-10-03 12:48] LABS: ANISOCYTOSIS 1+; BANDS 2 % (0-1); LARGE PLATELETS 1+; LYMPHS 94 % (21-51); MONO 2 % (1-9); POIKILOCYTOSIS 1+; SEGS 2 % (42-75)
[2018-10-03] MEDS: LEVOPHED 8 MG in D5 1/2 NS 250 ML IV SCH (13:11)
--- NOTE | 2018-10-03 13:18 | Diag Imaging Result Doc PS360 ---
EXAM: CHEST-PORTABLE 10/03/2018 HISTORY: Pulmonary edema, pneumonia TECHNIQUE: AP portable at 1306 COMMENT: There are bilateral pleural effusions. This has diminished slightly since 10/02/2018. Otherwise are has been no significant change. There is atelectasis or pneumonia in both lower lobes. IMPRESSION: Slightly improved bilateral pleural effusions. Electronically signed by Zhang Orozco 10/03/2018 1:15 PM
[2018-10-03] MEDS ORDERED: SOLU-CORTEF IV ONE (13:27)
--- NOTE | 2018-10-03 15:55 | Diag Imaging Result Doc PS360 ---
EXAM: LAT DECUBITUS CHEST VIEW-RIGHT 10/03/2018 HISTORY: evaluate pneumonia TECHNIQUE: Right lateral decubitus chest COMMENT: There is a large layering right pleural effusion. There is apparent pleural thickening or loculated, non-layering effusion on the left. There is apparent opacity in both lower lobes which may be due to atelectasis or pneumonia. IMPRESSION: Right pleural effusion. Probable pleural effusion on the left which may be loculated. Electronically signed by Zhang Orozco 10/03/2018 3:53 PM
--- NOTE | 2018-10-03 15:56 | Diag Imaging Result Doc PS360 ---
EXAM: LAT DECUBITUS CHEST VIEW-LEFT 10/03/2018 HISTORY: evaluate pneumonia TECHNIQUE: Left lateral decubitus chest COMMENT: There is a large layering pleural effusion on the left. IMPRESSION: Left pleural effusion. Electronically signed by Zhang Orozco 10/03/2018 3:54 PM
[2018-10-03] MEDS: MAXIPIME 1 GM in NS 50 ML IV SCH (16:52)
[2018-10-03] MEDS: PATIENT'S OWN MED PO SCH (17:44)
--- NOTE | 2018-10-03 18:08 | PULMONOLOGY CONSULTATION ---
DATE: 10/03/2018 REASON FOR PULMONARY CONSULTATION: Respiratory failure, pulmonary edema and pneumonia. HISTORY OF PRESENT ILLNESS: Mr. Rendon is a 73-year-old white male, never smoker, who was initially diagnosed with CLL in 2005. The patient has had multiple relapses and is currently on Imbruvica. The patient has had difficulty with atrial fibrillation along with chronic pleural effusions dating back to December 2007. The patient also has difficulty with both immunoglobulin deficiency and Pike disease. The patient was seen by this practitioner in June with pleural effusions and respiratory failure. The patient had atrial fibrillation and rapid ventricular response at that time. He has subsequently undergone a pacemaker placement and his rate is currently controlled. The patient has been followed by Cardiology and Endocrinology. Approximately 10 days ago endocrinology decreased his Lasix dosing along with decrease in steroid dosing. The patient has had some difficulty with cough and maybe low-grade fever this week. His reports he basically has a [id number] existence except for when he goes to his physicians' appointments. The patient presented to the emergency room with increased weakness and a temperature of 100.4 degrees. He has been afebrile since that time. Chest x-ray was performed which reveals marked increase in bilateral pleural effusions compared to 08/07/2018. PAST MEDICAL HISTORY: 1. Chronic pleural effusions as per above. 2. Recurrent CLL as per above. 3. Sushil disease. 4. Type 2 diabetes mellitus. 5. Hypothyroidism. 6. Dyslipidemia. 7. Status post tonsillectomy. 8. Status post appendectomy. 9. Status post Port-A-Cath placement and removal. 10. History of deep vein thrombosis. 11. History of BPH status post TURP. 12. Immunoglobulin deficiency on replacement therapy. SOCIAL HISTORY: The patient is a never smoker. No alcohol use. FAMILY HISTORY: Positive for emphysema and lung cancer. REVIEW OF SYSTEMS: As noted in the HPI. PHYSICAL EXAMINATION: General: Reveals a chronically ill-appearing male in no distress. The patient had transient hypotension yesterday at noon but has been hypertensive since that time. BP 168/77, heart rate 80, respiratory rate 25, oxygen saturation 100%. HEENT: Pupils are equal and reactive. Oropharynx appears clear. Neck: Supple. Chest: Reveals shallow breath sounds bilaterally with dullness to percussion in both lung bases. No rhonchi or wheezing are appreciated. Cardiac: Regular rate, normal S1, normal S2. Abdomen: Soft. Extremities: Reveal trace edema. LABORATORIES: Chest x-ray reveals large bilateral pleural effusions with possible atelectasis or infiltrates in the bases. Arterial blood gas reveals pH 7.43, pCO2 of 45, PO2 of 87. Sodium 139, potassium 3.4, chloride 99, bicarbonate 29, BUN 14, creatinine 0.8. White blood count 37,000, hemoglobin 8.1, platelet count 146,000. IMPRESSION: A 73-year-old with 1. Chronic pleural effusions which are worse than on prior admission to the hospital. 2. Acute hypoxemic respiratory failure. 3. Dyspnea. 4. Chronic lymphocytic leukemia. 5. Pike disease. 6. Immunoglobulin deficiency. DISCUSSION: Complicated 73-year-old with problems outlined above. Pleural effusions continue to be an issue. Attempts to find a balance between hypotension and reaccumulation of pleural effusions has been difficult as an outpatient. A more aggressive approach might be considered. He could have a PleurX catheter placed and consider pleurodesis or use a pleural catheter for a short term to see if it would be of benefit. It is difficult to recommend pleurodesis for benign disease, but clearly he is an exceptional case. I believe he will diurese pleural fluid if he remains in the bed. A catheter is placed and he is initiated on diuretics. However, this is likely not a adequate long-term solution. RECOMMENDATION: 1. Agree with Yousif catheter. 2. Diurese as tolerated. 3. Will check a proBNP and echocardiogram. 4. Consider PleurX catheter plus or minus pleurodesis as outlined above given the difficulty in controlling his symptomatic effusions. cc: Edwar Ellison MD
[2018-10-03 18:52] LABS: URINE SOURCE CATH
[2018-10-03 18:56] LABS: BILIRUBIN URINE NEGATIVE (NEGATIVE); BLOOD URINE MODERATE (NEGATIVE); COLOR YELLOW; GLUCOSE URINE NEGATIVE (NEGATIVE); KETONE URINE TRACE mg/dL (NEGATIVE); LEUKOCYTES URINE MODERATE (NEGATIVE); NITRITE URINE NEGATIVE (NEGATIVE); PH URINE 5.5; PROTEIN URINE NEGATIVE (NEGATIVE); SP GRAVITY URINE 1.007; TURBIDITY URINE CLEAR (CLEAR); UR EPITHELIAL CELLS <10 /HPF (<10); URINE BACTERIA NEGATIVE /HPF; URINE RBC <10 /HPF (<10); URINE WBC TNTC /HPF (<10); UROBILINOGEN URINE NORMAL (NORMAL)
[2018-10-03] MEDS: SOLU-CORTEF IV SCH (20:11)
[2018-10-03] MEDS: PRAVACHOL PO SCH (20:11)
[2018-10-03] MEDS ORDERED: BETAPACE PO SCH (21:00)
[2018-10-03] MEDS ORDERED: MEGACE PO SCH ×2 (21:00)
[2018-10-04] MEDS: MAXIPIME 1 GM in NS 50 ML IV SCH (00:32)
[2018-10-04 04:46] LABS: ALLEN TEST YES; BLOOD TYPE ARTERIAL; HCO3-(ACT) 24.9 mmoll (20.0-26.0); METHB 0.9 % (0.0-1.5); O2(CT) 12.5 mL/dL (15.0-23.0); PCO2(98.6) 40 mmHg (35-45); PO2(98.6) 162 mmHg (60-100); SAMPLE BLOOD; SAO2 99.8 % (95.0-100.0); THB 8.9 g/dL (11.5-17.4)
[2018-10-04 04:47] LABS: MODALITY CANNULA
[2018-10-04] MEDS: REGLAN PO SCH ×3 (06:16→15:56)
[2018-10-04] MEDS: HUMULIN R SUBQ SCH ×4 (06:16→22:14)
[2018-10-04] MEDS: PROTONIX PO SCH (06:16)
[2018-10-04 06:21] LABS: BASO# 0.05 X1000 (0.0-0.2); BASO% 0.1 % (0.0-0.8); HEMATOCRIT 26.4 % (42.0-52.0); HEMOGLOBIN 8.7 g/dL (14.0-18.0); IMM GRAN# 0.07 X1000 (0.0-0.04); IMM GRAN% 0.2 % (0.0-0.5); LYMPH# 38.23 X1000 (1.2-3.4); LYMPH% 95.9 % (20.5-51.1); MCH 34.1 PG (27-31); MCV 103.5 FL (81-99); MONO# 0.03 X1000 (0.11-0.59); MONO% 0.1 % (1.7-9.3); MPV 9.8 FL (7.4-10.4); NEUT% 3.7 % (42.2-75.2); PLT 165 X1000 (130-400); RBC 2.55 XMIL (4.7-6.1); RDW 19.2 % (11.5-14.5); WBC 39.88 X1000 (4.8-10.8)
[2018-10-04 07:00] LABS: MAGNESIUM 1.1 mg/dL (1.5-2.7); PHOSPHORUS 4.7 mg/dL (2.7-4.5)
[2018-10-04 07:05] LABS: AGAP 23; BUN 16 mg/dL (8-22); CALCIUM 8.5 mg/dL (8.8-10.2); CHLORIDE 95 mmol/L (98-107); COSMO 282; CREATININE 0.6 mg/dL (0.7-1.2); ESTIMATED GFR > 60; GLUCOSE 162 mg/dL (70-104); SODIUM 139 mmol/L (136-145); TCO2 21 mmol/L (25-35)
--- NOTE | 2018-10-04 07:15 | Diag Imaging Result Doc PS360 ---
EXAM: CHEST-PORTABLE 10/04/2018 HISTORY: dyspnea TECHNIQUE: AP portable at 0514 COMMENT: There are bilateral pleural effusions. The heart size is within normal limits. There may be slightly less pleural fluid than on the previous study of 10/03/2018. There is apparent interstitial pulmonary edema. IMPRESSION: Improving pleural effusions. Electronically signed by Zhang Orozco 10/04/2018 7:12 AM
[2018-10-04 07:28] LABS: ANISOCYTOSIS 3+; BASO 1 % (0-1); LYMPHS 91 % (21-51); MONO 4 % (1-9); SEGS 4 % (42-75)
[2018-10-04] MEDS ORDERED: KLOR-CON PO ONE (07:47)
[2018-10-04] MEDS ORDERED: MAGNESIUM SULFATE 2 GM/S.W.I. 2 GM/50 ML IVPB IV ONE (07:47)
--- NOTE | 2018-10-04 07:50 | PROGRESS NOTE ---
DATE: 10/04/2018 SUBJECTIVE: This patient is resting comfortably in bed. He is feeling better. He is completely alert and oriented x3. We have a positive blood culture that showed gram-negative rods. He has been placed on pressors due to hypotension. X-ray looks better compared with yesterday. Pleural effusion is getting better, especially on the left side. Pulmonary department is following this patient. We will continue with the same management for now. OBJECTIVE: Vital Signs: Temperature 96.7 degrees, pulse 90, respiratory rate 16, blood pressure 91/47, oxygen saturation 100% on 6 L of nasal cannula. HEENT: Head normocephalic. No trauma. PERRLA. Neck: Supple. No JVD. No masses. Central trachea. Chest: Decreased breath sounds at the bases with some crackles and some scattered rhonchi at the bases as well. He had a Port-A- Cath on his right upper part of the chest. I do not see any signs of infection in that area. Abdomen: Soft, nontender, nondistended. No hepatosplenomegaly. Extremities: There is 2+ lower extremity edema. No clubbing. No cyanosis. Neurological Examination: This patient is alert. He is oriented x3. He is complaining of generalized weakness. Laboratory: WBC 39.8, hemoglobin 8.7, hematocrit 26.4, platelets 165,000. Sodium 139, potassium 3, chloride 95, bicarbonate 21, BUN 16, creatinine 0.6, glucose 162, calcium 8.5, magnesium 1.1. ASSESSMENT AND PLAN: 1. Septic shock. We do have a positive blood culture that showed gram-negative rods. He is still on pressors. I also put him on a high dose of steroids since this patient has a history of [place]'s disease. I will continue with antibiotics. I will continue with the same management for now. I will wait for the culture results. 2. Fluid overload and suspected pneumonia. Pleural effusion is getting better. Continue with antibiotics. Continue with diuretics as well. X-ray today looks better compared with yesterday. 3. Gram-negative bacteremia, as per #1. He has a recent history of pseudomonas in blood and he received treatment for that. He has a Port-A-Cath and probably we need to remove it but I will wait for the infectious disease doctor to evaluate this patient, hopefully tomorrow to decide that. 4. History of chronic lymphocytic leukemia. Aware. 5. Immunoglobulin deficiency. Aware. We are going to keep an eye on this. 6. Type 2 diabetes. Continue with the same management. 7. Atrial fibrillation. This patient has a pacemaker placed as well. At this moment, he is not in atrial fibrillation but he since he is bacteremic, I am not quite sure if his pacemaker is infected also. 8. History of [place]'s disease. Continue with stress doses of steroids. 9. Pulmonary edema in a patient with a history of congestive heart failure, diastolic heart failure. I will continue with furosemide twice a day and I will monitor the urine output. CRITICAL CARE TIME: 40 minutes. cc: Michael Gao MD
[2018-10-04] MEDS: ULORIC PO SCH (08:19)
[2018-10-04] MEDS: ELIQUIS PO SCH ×2 (08:19→20:45)
[2018-10-04] MEDS: SOLU-CORTEF IV SCH ×2 (08:21→20:03)
[2018-10-04] MEDS: LASIX IV SCH ×2 (08:21→20:45)
[2018-10-04] MEDS: FLORINEF PO SCH (08:29)
[2018-10-04] MEDS: MEGACE LIQUID PO SCH ×2 (08:32→20:45)
[2018-10-04] MEDS: SYNTHROID PO SCH (08:32)
[2018-10-04] MEDS ORDERED: SYNTHROID PO SCH (09:00)
[2018-10-04] MEDS ORDERED: CORTEF PO SCH (09:00)
[2018-10-04] MEDS: LEVOPHED 8 MG in D5 1/2 NS 250 ML IV SCH (10:49)
[2018-10-04] MEDS ORDERED: MAGNESIUM SULFATE 4 GM/S.W.I. 4 GM/100 ML IVPB IV ONE (11:37)
[2018-10-04] MEDS ORDERED: SOLU-CORTEF IV SCH (11:45)
--- NOTE | 2018-10-04 11:53 | INFECTIOUS DISEASE PROGRESS NO ---
DATE: 10/04/2018 SUBJECTIVE: The patient is admitted to the hospital. He has 1 of 2 blood cultures positive for a gram-negative rosio. He also has 1 of 2 urine cultures positive for a gram- negative rosio. The patient has finished up recently a 6-week course of IV antibiotics for Pseudomonas bacteremia that was felt to have occurred while the patient was profoundly neutropenic and the organisms came from transmigration across the intestinal wall into the bloodstream. The situation now is somewhat more complicated. The patient does have a Port-A-Cath in place and this could be the source of the bacteremia. Alternatively, he does have a urinary tract infection with a gram-negative rosio and this could be the source of the bacteremia. The patient does have a pacemaker in place. I doubt that it is the source of the repeat gram-negative rosio bacteremia because all the infected pacemakers that I have ever dealt with, the pacemaker itself was swollen or draining or tender or erythematous. The patient's pacemaker now does not look at all infected. MEDICATIONS: Cefepime. PHYSICAL EXAMINATION: Vital Signs: Temperature 98 degrees, pulse 80, respirations 20, blood pressure 90/52. Patient is 6 feet 1 inch tall and weighs 180 pounds. General: This is a chronically ill-appearing elderly male who is lethargic today. Head/eyes/ears/nose/throat: He can hear my spoken words and see near objects. No drainage noted from the nose or ears. He does not have any white patches on his tongue. Neck: No meningismus. Thorax: Patient has a Port-A- Cath present on the right side. The Port-A-Cath site is not swollen, erythematous, draining or tender. The patient has a pacemaker present on the left side and it also is not swollen, tender, erythematous or draining. Lungs: Clear to auscultation. Cardiovascular: Regular heart rate. Abdomen: Soft and nontender. Neurologic: The patient is lethargic, but he is fully arousable. He can move his extremities. There is no tremor. Integument: No rash. LABS AND X-RAYS: As mentioned above, 1 of 2 blood cultures and 1 of 2 urine cultures are growing gram-negative rods. The patient's CBC shows a white count of 39,880, hemoglobin 8.7, and platelet count 165,000. Patient's blood gases show a pH of 7.4, PO2 of 162 and pCO2 of 40. The patient's creatinine is 0.6. GFR is greater than 60. The patient's liver function studies are normal, except for elevation of the bilirubin to 1.64. Patient's chest x-ray shows bilateral interstitial pulmonary edema. There are bilateral pleural effusions. ASSESSMENT AND PLAN: The patient has gram-negative rosio bacteremia. I suspect it is going to be the same organism, namely Pseudomonas as it was before. I think the most likely situation is that the patient's Port-A-Cath is infected and the bacteremia now is a result of the infected Port-A- Cath. However, the urine culture is growing a gram-negative rosio and if it is the same organism that the blood is, this could be the source of the bacteremia or it could have become infected secondary early to bacteremia from the Port-A-Cath. I doubt that the patient's pacemaker is the source of the bacteremia. I agree with treating with cefepime, and I have increased the dose to 2 g IV every 8 hours. I am going to for identification of the gram-negative rosio in the urine before putting in a consult to remove the Port-A-Cath. I am going to go ahead and get a renal ultrasound of the of the kidneys to see if there is some abnormality that is causing her urinary tract infection now such as an abscess or blockage from a stone. The patient does have an immunoglobulin deficiency for which he gets regular IVIG infusions. If IgG level now happens to be low, then I am going to order IVIG. COMORBIDITIES: In this patient they are chronic lymphocytic leukemia. He also has immunoglobulin deficiency and [place]'s disease for which he takes steroids. The patient also takes chemotherapy for his chronic lymphocytic leukemia. Another comorbidity is that the patient is elderly. cc: Kvng Ruby MD MTDYakov
[2018-10-04] MEDS: MAXIPIME 2 GM in NS 50 ML IV SCH ×2 (12:06→20:46)
[2018-10-04] MEDS ORDERED: SOLU-CORTEF IV ONE (12:15)
--- NOTE | 2018-10-04 12:54 | CARDIOLOGY CONSULTATION ---
DATE: 10/04/2018 REFERRING PHYSICIAN: Consultation requested by the hospitalist service. REASON FOR CONSULTATION: Patient with bacteremia, hypotension. CHIEF COMPLAINT: Lethargy, fever. HISTORY: Mr. Rendon is a 73-year-old gentleman who was brought to the emergency room by his on October 02 at about 9 p.m. because he was having chills, fever, and appeared to be very lethargic. His says that he typically does very little at home. He walks with a walker from the couch to the kitchen and to the bathroom and back to the couch. His activity is very limited. He has lost a lot of weight, and his strength is minimal. For the past couple of days prior to admission, he was more lethargic than usual, and even today, he is very lethargic. Upon presentation, they noted that his temperature was 97.7 degrees and then pepito to 99.9. The patient has been placed on broad-spectrum antibiotic of cefepime. The patient had been admitted to this hospital recently on August 06, and at that time, he grew Pseudomonas on his blood. At any rate, the patient denies having any pain in the chest, in the back, or in the legs. He is trying to eat his dinner today. He is not in any distress; however, he appears to be very chronically ill and pale. is at the bedside. PAST HISTORY: Basically significant for a diagnosis of chronic lymphocytic leukemia, which he has had for a long time. He has been treated for the past 2 or 3 years with Imbruvica which is monitored by Dr. Hurtado. He also gets infusions of gammaglobulin. He carries a diagnosis of [place] disease in the past, and he has been treated with steroid replacement. The patient has hypothyroidism. He has diabetes mellitus type 2, hyperlipidemia. The patient carries a diagnosis of permanent atrial fibrillation. On 06/08/2018, he underwent atrioventricular node ablation with implantation of a biventricular pacemaker device by Dr. Jensen Wright at [facility]. They left him in permanent atrial fibrillation. In addition to the pacemaker has prior surgical history positive for TURP, appendectomy, and Port- A-Cath implantation. HOME MEDICATIONS: At the time of this admission included apixaban 5 mg twice a day. Cefepime. Uloric. Fludrocortisone 0.1 mg in the morning. Furosemide 20 mg twice a day. Hydrocortisone 10 mg 2 tablets in the morning, 1 tablet in the afternoon, and 2 tablets at night. He takes insulin Lantus 45 units daily. Levothyroxine 200 mcg in the morning. Megace 120 twice a day. Metformin 750 twice a day. Metoclopramide 1 tablet before each meal. Protonix 40 mg daily. Pravastatin 40 mg at bedtime. Sitagliptin 100 in the mornings. Sotalol 80 twice a day. ALLERGIES: Allopurinol, cephalexin, piperacillin, sulfamethoxazole, vancomycin, and Zosyn. Review of systems besides what I just said is very noncontributory. He is he is minimally active. He basically spends most of the time just laying on the couch. He has lost a lot of muscle strength. PHYSICAL EXAMINATION: Right now, he is on Levophed his blood pressure is 101/64, pulse 80, respirations 18, his temperature is 97.2 degrees, He is awake, chronically ill, pale.HEENT: Unremarkable. Chest: Diminished breath sounds at bases. Heart sounds are regular, rhythmic. I do not hear any definite gallop or murmur. His abdomen is soft, nontender. Extremities show decreased pulses. No peripheral edema. Significant muscle wasting noted. Neurological: He tends to be lethargic and drifts into sleep. However, he does cooperate with the examination. He moves all 4 extremities. Cranial nerves appeared to be normal. DIAGNOSTIC STUDIES: Blood work: White cell count 39,880, hemoglobin 8.7, hematocrit 26.4, neutrophils 4%, lymphocytes 91%. Blood gases, nasal cannula 5 L: PH 7.4, pCO2 of 40, PO2 of 162. Sodium 139, potassium 3.0, BUN 16, creatinine 0.6. Chest x-ray from today: Improving pleural effusions. EKG shows activity of a biventricular pacemaker with underlying atrial fibrillation. IMPRESSION: 1. Patient who has history of permanent atrial fibrillation status post atrioventricular maribel ablation and status post biventricular pacemaker implantation. 2. 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 3. Chronic anemia. 4. Chronic lymphocytic leukemia, on chemotherapy. 5. History of hypertension. 6. History of diabetes mellitus, type 2. 7. Question of endocarditis related to Pseudomonas with involvement of the pacemaker leads. RECOMMENDATION: At this time, I will have the following suggestions: 1. Stop sotalol. There is no place for this medicine at this time, given the fact that he has had AV maribel ablation. 2. We will increase his hydrocortisone to 100 mg every 8 hours to cover him for sepsis. 3. We will replace magnesium and potassium. 4. We will proceed with removal of Port-A-Cath. Keep him on antibiotics for a few days, recheck blood cultures, and if the blood cultures return positive after removal of Port-A-Cath, we have to do a BUCK to explore the pacemaker leads, the tricuspid valve, and if evidence of clot or vegetation, then the pacemaker system may have to be explanted. I discussed with the patient and family. They understood. We will follow him accordingly. cc: Tye Sumner MD MTDD
[2018-10-04] MEDS ORDERED: POTASSIUM CHLORIDE 20% LIQUID PO ONE (14:30)
[2018-10-04] MEDS: PATIENT'S OWN MED PO SCH (15:56)
--- NOTE | 2018-10-04 16:38 | PULMONOLOGY PROGRESS NOTE ---
DATE: 10/04/2018 SUBJECTIVE: Patient feels a little better today. He continues to have dyspnea with any movement. OBJECTIVE: Vital Signs: The patient has been afebrile for the last 24 hours. BP 99/53, heart rate 80, respiratory rate 18, oxygen saturation 100%. He was initiated on vasopressors last evening. HEENT: Pupils are equal and reactive. Oropharynx appears clear but dry. Neck: Supple. Chest: Reveals diminished breath sounds both lung bases. Cardiac exam: S1, S2. Regular rhythm. Abdomen: Soft. Extremities: Without edema. LABORATORIES: Chest x-ray reveals bilateral effusions which may be marginally improved but may be positional. Microbiology is growing a gram-negative rosio from both his urine and his blood stream. IMPRESSION: A 73-year-old with 1. Chronic pleural effusions. 2. Acute hypoxemic respiratory failure. 3. Chronic lymphocytic leukemia. 4. Sushil disease. 5. Immunoglobulin deficiency. 6. Urinary tract infection with gram-negative organism on culture. 7. Gram-negative bacteremia. 8. Status post Port-A-Cath placement. 9. Status post pacemaker placement with maribel ablation earlier this year. DISCUSSION: A 73-year-old with problems outlined above. The patient has had increased difficulty with shortness of breath and effusions but current decompensation likely related to his septic shock. RECOMMENDATIONS: 1. Agree with removal of Port-A-Cath as outlined by Dr. Kvng Ruby. 2. Agree with pseudomonal coverage given prior culture results of Pseudomonas in his blood. 3. The patient will require observation and possible removal of his pacemaker if he fails to clear his bacteremia or develops signs of infection around his pacemaker pocket. 4. Continue to follow effusions with possible PleurX catheter this becomes an issue. cc: Edwar Ellison MD
--- NOTE | 2018-10-04 18:17 | Diag Imaging Result Doc PS360 ---
EXAM: US RENAL 2 (RETROPER) COMPLETE 10/04/2018 HISTORY: UTI TECHNIQUE: Renal ultrasound COMMENT: There is a Yousif catheter in the bladder. The kidneys are without evidence of hydronephrosis or mass. The right kidney is 10.7 x 4.7 x 5.1 cm the left is 11.6 x 5.4 x 5.0 cm. IMPRESSION: Normal renal ultrasound. Electronically signed by Zhang Orozco 10/04/2018 6:14 PM
[2018-10-04] MEDS ORDERED: HUMULIN R SUBQ ONE (20:04)
[2018-10-04] MEDS: PRAVACHOL PO SCH (20:45)
[2018-10-05] MEDS: MAXIPIME 2 GM in NS 50 ML IV SCH (03:14)
[2018-10-05] MEDS: SOLU-CORTEF IV SCH ×3 (03:15→20:36)
[2018-10-05 04:44] LABS: ALLEN TEST YES; BE 8.4 mmoll (-3.0-3.0); BLOOD TYPE ARTERIAL; HCO3-(ACT) 31.4 mmoll (20.0-26.0); METHB 1.2 % (0.0-1.5); MODALITY CANNULA; O2(CT) 21.9 mL/dL (15.0-23.0); O2HB 95.4 % (95.0-99.0); PCO2(98.6) 46 mmHg (35-45); PO2(98.6) 104 mmHg (60-100); SAMPLE BLOOD; SAO2 98.1 % (95.0-100.0); THB 16.3 g/dL (11.5-17.4); pH(98.6) 7.47 (7.35-7.45)
[2018-10-05 05:45] LABS: BASO# 0.04 X1000 (0.0-0.2); BASO% 0.1 % (0.0-0.8); HEMOGLOBIN 8.9 g/dL (14.0-18.0); IMM GRAN# 0.04 X1000 (0.0-0.04); IMM GRAN% 0.1 % (0.0-0.5); LYMPH# 46.78 X1000 (1.2-3.4); LYMPH% 95.6 % (20.5-51.1); MCH 33.7 PG (27-31); MCV 102.3 FL (81-99); MONO# 0.12 X1000 (0.11-0.59); MONO% 0.2 % (1.7-9.3); MPV 10.4 FL (7.4-10.4); NEUT# 1.93 X1000 (1.4-6.5); PLT 214 X1000 (130-400); RBC 2.64 XMIL (4.7-6.1); RDW 19.2 % (11.5-14.5); WBC 48.91 X1000 (4.8-10.8)
[2018-10-05] MEDS: PROTONIX PO SCH (06:25)
[2018-10-05] MEDS: LEVOPHED 8 MG in D5 1/2 NS 250 ML IV SCH (06:25)
[2018-10-05] MEDS: REGLAN PO SCH ×3 (06:25→16:49)
[2018-10-05] MEDS: HUMULIN R SUBQ SCH ×5 (06:29→20:36)
[2018-10-05 06:39] LABS: AGAP 13; ALBUMIN 2.8 g/dL (3.5-5.0); ALKALINE PHOSPHATASE 52 U/L (32-122); BUN 21 mg/dL (8-22); CALCIUM 8.5 mg/dL (8.8-10.2); CHLORIDE 98 mmol/L (98-107); COSMO 290; CREATININE 0.8 mg/dL (0.7-1.2); ESTIMATED GFR > 60; GLUCOSE 235 mg/dL (70-104); GOT 15 U/L (10-34); GPT 13 U/L (10-44); MAGNESIUM 1.7 mg/dL (1.5-2.7); POTASSIUM 3.5 mmol/L (3.5-5.1); SODIUM 140 mmol/L (136-145); TCO2 29 mmol/L (25-35); TOTAL PROTEIN 5.6 g/dL (6.3-8.3)
[2018-10-05 07:41] LABS: BANDS 3 % (0-1); LYMPHS 96 % (21-51); SEGS 1 % (42-75)
--- NOTE | 2018-10-05 07:52 | Diag Imaging Result Doc PS360 ---
EXAM: CHEST-PORTABLE HISTORY: dyspnea TECHNIQUE: Portable chest COMPARISON: 10/04/2018 FINDINGS: There are small bilateral pleural effusions with basilar atelectasis. No cardiomegaly. No change in the right jugular portacatheter or left pacemaker. Mild pulmonary edema. IMPRESSION: Stable chest Electronically signed by Carlos Acosta 10/05/2018 6:24 AM
--- NOTE | 2018-10-05 08:22 | PROGRESS NOTE ---
DATE: 10/05/2018 SUBJECTIVE: The patient is resting comfortably in bed. He is feeling better. He is completely alert and oriented x3. We have a positive blood culture that showed gram-negative rods and also a urine culture that showed gram-negative rods. I discussed the case with the infectious disease department. We will wait for the final results before doing any kind of procedure. X-ray looks better to me compared with yesterday. I think the pleural effusion is getting better. Pulmonary department is following this patient. We will continue with the same management. I have placed this patient on Lantus 20 to try to control his blood sugar, sliding scale insulin, and pattern of blood sugar. OBJECTIVE: Vital Signs: Temperature 97.6 degrees, pulse 80, respiratory rate 19, blood pressure 112/62, oxygen saturation 100% on nasal cannula at 2 L. HEENT: Head normocephalic. No trauma. PERRLA. Neck: Supple. No JVD. No masses. Central trachea. Chest: Decreased breath sounds at the bases with some crackles and some scattered rhonchi at the bases as well. He had a Port-A- Cath on the right upper part of the chest. I do not see any signs of infection in that area. He also has a pacemaker on the left side, upper thoracic area, with no signs of infection either. Abdomen: Soft, nontender, nondistended. No hepatosplenomegaly. Extremities: There is 2+ lower extremity edema. No clubbing. No cyanosis. Neurological Examination: Alert and oriented x3. No focal deficits but generalized weakness. Laboratory: WBC 48.9, hemoglobin 8.9, hematocrit 27, platelets 214,000. Sodium 140, potassium 3.5, chloride 98, bicarbonate 29, BUN 21, creatinine 0.8, glucose 235, calcium 8.5, magnesium 1.7, albumin 2.8. ASSESSMENT AND PLAN: 1. Septic shock. We have a positive blood culture and urine culture that showed gram-negative rods. We will wait for the final sensitivity. We will continue with steroids and antibiotics. Infectious disease department is on board. He is still on pressors. 2. Fluid overload and suspected pneumonia. Pleural effusion is getting better. Continue antibiotics. Continue with diuretics as well. X-ray looks better compared with yesterday. 3. Gram-negative bacteremia, as per #1. He has a recent history of pseudomonas in blood and he received treatment for that. He had a Port-A-Cath that probably has to be removed but we will wait for the final culture results. Infectious disease department is on board. 4. History of chronic lymphocytic leukemia. Aware. 5. Immunoglobulin deficiency. Aware. It will be replaced. 6. Type 2 diabetes. Continue with the same management. 7. Atrial fibrillation. This patient has a pacemaker placed. Cardiology department is on board. 8. History of Sushil's disease. Continue with stress doses of steroids. 9. Pulmonary edema in a patient with a history of congestive heart failure, diastolic heart failure. We will continue with furosemide and we will monitor the urine output. So far, we have a negative balance of 1.8 L. CRITICAL CARE TIME: 35 minutes. cc: Michael Gao MD
[2018-10-05] MEDS: MEGACE LIQUID PO SCH ×2 (08:27→20:35)
[2018-10-05] MEDS: LASIX IV SCH ×2 (08:28→20:35)
[2018-10-05] MEDS: SYNTHROID PO SCH (08:28)
[2018-10-05] MEDS: ULORIC PO SCH (08:28)
[2018-10-05] MEDS: ELIQUIS PO SCH ×2 (08:28→20:36)
[2018-10-05] MEDS ORDERED: IVIG DOSING ORDER MISC SCH (08:30)
[2018-10-05] MEDS ORDERED: DILUENT IV ONE (09:00)
[2018-10-05] MEDS ORDERED: GAMUNEX C IV ONE (09:00)
[2018-10-05] MEDS ORDERED: LANTUS INSULIN SUBQ SCH (09:00)
--- NOTE | 2018-10-05 09:06 | INFECTIOUS DISEASE PROGRESS NO ---
DATE: 10/05/2018 PRESENT ILLNESS: The patient is admitted to the hospital. He has a Pseudomonas bacteremia. It should be noted that the organism appears to be the same pseudomonas that he had in his bloodstream in July of this year. In July, I felt that the patient's pseudomonas originated due to transmigration of the organisms through the intestinal wall into the bloodstream because the patient was profoundly neutropenic. Now, he certainly is not neutropenic and it is looking more like that the patient's pseudomonas bacteremia originated from his Port-A-Cath. The only other possibility is that the patient's urine is growing a gram-negative rosio and if that turns out to be pseudomonas, then possibly the urinary tract infection was the source of the pseudomonas bacteremia. MEDICATIONS: The patient is on cefepime 2 g IV every 8 hours. Day 1 of treatment will be the first day that the patient's repeat blood cultures are sterile. PHYSICAL EXAMINATION: Vital Signs: Temperature is 98 degrees, pulse 80, respirations 19, blood pressure 112/62. General: This is an ill-appearing, elderly male. He is in no acute distress. Head, Eyes, Ears, Nose, and Throat: He can hear my spoken words and see near objects. He does not have any white coating on his tongue. Neck: He does not seem to have any pain in his neck when he moves his head or his neck. Lungs: Clear to auscultation. Cardiovascular: Heart rate is regular. Abdomen: Soft and nontender. Thorax: The patient has, on the left side, a permanent pacemaker. The site is not swollen or red. On the right side, he has a Port-A-Cath. That site also is not swollen or red, and it is not tender either. Neurologic: The patient is somewhat lethargic but he is easily arousable. He does not have a tremor. He can move his extremities. Extremities: The patient's right arm continues to be swollen. LAB AND X-RAY: The patient's blood culture is growing pseudomonas and, as mentioned above, it appears to be the same organism that he grew from the blood in July of this year. His CBC shows the white count is 48,910, hemoglobin 8.9, and platelet count is 214,000. The patient has 1 of 2 urine cultures growing a gram-negative rosio, which should be identified today. The patient's blood gases show a pH of 7.47, a PO2 of 104, and a pCO2 of 46. The patient's creatinine is 0.8. GFR is greater than 60. The patient's liver function studies are normal. The patient's immunoglobulin levels show that the IgA is 170. The IgG is 666 with the normal being 700 to 1600. The IgM is 7. ASSESSMENT AND PLAN: The patient has a pseudomonas bacteremia. I think it most likely originated from his Port-A-Cath but it could possibly have originated from a urinary tract infection. I am going to wait until the urine culture gram-negative rosio is identified, but it looks to me like we are going to have to take out the patient's Port-A-Cath. I doubt that the pacemaker is the source of any infection because, on exam, it does not look infected. I have ordered a venous ultrasound of the patient's right arm to see if there is a clot present. The patient's IgG level of 666 is so close to being normal that I do not think clinically it is causing the patient any problem. For now, I am not going to order IVIG. COMORBIDITIES: He has chronic lymphocytic leukemia. He also has an immunoglobulin deficiency, Sushil's disease for which he takes steroids, and the patient is elderly. The patient takes chemotherapy for his chronic lymphocytic leukemia. ADDENDUM: The venous ultrasound shows a clot in the cephalic vein but no deep venous thrombosis. cc: Kvng Ruby MD MTDYakov
[2018-10-05] MEDS: FLORINEF PO SCH (10:29)
[2018-10-05] MEDS ORDERED: NS 50 ML ONE (11:16)
[2018-10-05] MEDS: MAXIPIME 2 GM in NS 100 ML IV SCH ×2 (11:55→20:35)
[2018-10-05] MEDS ORDERED: HUMULIN R SUBQ SCH (14:20)
--- NOTE | 2018-10-05 14:29 | HEMO/ONC CONSULTATION ---
DATE: 10/05/2018 REASON FOR CONSULTATION: Mr. Rendon is a known patient to us whom we treat for chronic lymphocytic leukemia. HISTORY OF PRESENT ILLNESS: Mr. Rendon came into the ER on 10/02/2018 due to fever, mild altered mental status, and increasing weakness. Imaging in the ER showed that he did have pneumonia. The patient had recently been on prolonged antibiotic for Pseudomonas bacteremia and has been off these for the past 2 weeks. We treat the patient in clinic for CLL. The patient is currently on Imbruvica since May 2017 due to relapse. He is also receiving IVIG for hypogammaglobulinemia with recurrent infection. Prior to beginning Imbruvica, his PET scan showed increased size and worsened intensity of activity of nodes of the neck, both axillary regions, retroperitoneum, and right pelvic sidewall in May 2017. His latest PET scan shows the mass in his neck has resolved, axillary activity has resolved, and the infiltrative mass in the retroperitoneal is nearly completely resolved. The patient is doing very well on Imbruvica. His latest white blood cell count in the office on 09/24/2018 was 52.7, and that is continuing to improve. PAST MEDICAL HISTORY: Includes CLL, hypothyroidism, diabetes mellitus type 2, hyperlipidemia, DVT, refractory atrial fibrillation, Sushil disease, immunoglobulin deficiency, and chronic anemia. PAST SURGICAL HISTORY: Appendectomy, pacemaker, Port-A-Cath, catheter ablation. ALLERGIES: Include allopurinol, Keflex, penicillin, Zosyn, Bactrim, vancomycin, phenolphthalein. CURRENT MEDICATIONS: Eliquis, Uloric, Lasix, Lantus, levothyroxine, metformin, pantoprazole, pravastatin, Januvia, sotalol, Imbruvica, B12 injection, and Alphagan. SOCIAL HISTORY: The patient denies smoking, alcohol, or illicit drug use. REVIEW OF SYSTEMS: Negative unless listed in the HPI. PHYSICAL EXAMINATION: Vital Signs: Temperature 98.1 degrees, pulse rate 102, respiratory rate 19, blood pressure 106/63, O2 saturation 100% via nasal cannula at 2 L. Pain: He is in 0/10 pain. General: On physical exam, pleasant male, resting comfortably in no acute distress. Cardiovascular: Normal S1, S2. Regular rate and rhythm. Respiratory: Upper lobes are clear to auscultation. Normal respiratory effort. Abdomen: Soft, nontender, nondistended. Extremities: Bilateral upper extremity edema noted. Neurological: Awake, alert, and oriented. DIAGNOSTIC STUDIES: WBC 48.91, hemoglobin 8.9, hematocrit 27, platelet count 214,000, ANC 1.93. Creatinine 0.8, magnesium 1.7, total bilirubin 0.8. BNP 4112. Chest x-ray: Small bilateral pleural effusions with basilar atelectasis. ASSESSMENT: 1. Suspected pneumonia. 2. Chronic lymphocytic leukemia. 3. Immunoglobulin deficiency. 4. Pseudomonas bacteremia per blood cultures. 5. [place] disease. 6. Refractory atrial fibrillation s/p pacemaker. 7. Diabetes mellitus, type 2. PLAN: The patient needs to continue on his Imbruvica. His white blood cell count continues to improve, as well as his lymphadenopathy. For Sushil disease, patient follows Dr. Scott and has been on hydrocortisone and florinef. He is now getting high doses of steroids. Taper per hospitalist. Continue patient on broad-spectrum antibiotics for the Pseudomonas bacteremia. Agree with Dr. Ruby about removing the Port-A-Cath. Cardiology on board for refractory atrial fibrillation and his pacemaker. Please place the patient on DVT prophylaxis. We will continue to follow closely. Dictated by ERLIN Padilla for Anjum Hurtado MD Patient seen and examined. As above. Very complicated patient with multiple medical problems. Over the last 9 months he has spent substantial time in the hospital and rehabilitation center due to multiple recurrent admissions. This time he is admitted with pseudomonas bacteremia. Agree with Dr. Ruby regarding antibiotics and possibility of Port-A-Cath removal. Pacemaker infection is also suspect and will follow cardiology advice about removal. Continue broad-spectrum antibiotics. Continue stress dose steroids for adrenal insufficiency. As outpatient he is on Florinef and hydrocortisone. His CLL is very well controlled with Imbruvica. Continue same. Anjum Hurtado M.D. cc: MD EMIL Rodriguez
--- NOTE | 2018-10-05 16:21 | ECHO REPORT ---
ORDER DATE: 10/05/2018 INTERPRETING PHYSICIAN: Garcia Sawyer MD PROCEDURE: 2D echocardiogram. ECHOCARDIOGRAPHIC MEASUREMENTS: 1. Interventricular septum 1.5 cm. 2. Left ventricular posterior wall 1.5 cm. 3. Diastolic diameter 4.0 cm. 4. Left atrium 3.8. 5. Aorta 3.8 cm. SUMMARY OF THE 2-DIMENSIONAL IMAGIN. The aortic valve leaflets are sclerosed, trileaflet. 2. Mitral valve was normal. 3. There is mitral annular calcification. 4. Tricuspid valve was normal. 5. Peak velocity across the aortic valve was 2.5 m/sec. 6. There is aortic sclerosis, cannot rule out mild aortic stenosis. 7. By VTI, aortic valve area was 1.4 cm2. 8. By planimetry, aortic valve area was 2 cm2. 9. There is mild aortic regurgitation. 10. Mild tricuspid regurgitation. 11. Peak velocity across the tricuspid valve was 2 m/sec. 12. Mitral valve leaflets are normal. 13. There is mitral annular calcification. 14. There is moderate tricuspid regurgitation. 15. Pacing leads were noted in the right chamber. 16. Atrial fibrillation was noted. 17. Normal left ventricular cavity size. 18. Estimated ejection fraction of 55% to 60%. 19. There was no pericardial effusion. 20. There is large pleural effusion. cc: MD Edwar Paredes MD
[2018-10-05] MEDS: PATIENT'S OWN MED PO SCH (16:49)
[2018-10-05] MEDS ORDERED: LANOXIN IV ONE (16:59)
[2018-10-05] MEDS ORDERED: HUMULIN R SUBQ ONE (18:12)
[2018-10-05] MEDS ORDERED: LANTUS INSULIN SUBQ ONE (18:12)
[2018-10-05] MEDS: LOPRESSOR IV PRN ×2 (19:24→22:00)
--- NOTE | 2018-10-05 20:29 | PULMONOLOGY PROGRESS NOTE ---
DATE: 10/05/2018 SUBJECTIVE: The patient is awake, alert, and conversant. He reports he feels a little better this morning. OBJECTIVE: Vital Signs: The patient has been afebrile for the last 24 hours. Blood pressure 133/56, heart rate 96, respiratory rate 23, oxygen saturation 100 percent. HEENT: Pupils are equal and reactive. Oropharynx appears clear. Neck: Supple. Chest: Diminished breath sounds in both lung bases. Cardiac: Increased rate, irregular rhythm. Abdomen: Soft. Good bowel sounds. Extremities: Without edema. LABORATORIES: Chest x-ray reveals bilateral effusions without change. White blood count 48,000, hemoglobin 8.9, platelet count 214,000. Urine and blood cultures are growing Pseudomonas aeruginosa, both of which are pansensitive to the antibiotics tested. IMPRESSION: A 73-year-old with: 1. Chronic pleural effusions. 2. Acute hypoxemic respiratory failure. 3. Pseudomonal urinary tract infection and bloodstream infection. 4. [place]'s disease. 5. Immunoglobulin deficiency, status post replacement earlier today. 6. History of Port-A-Cath placement. 7. History of pacemaker placement with known ablation. Heart rate is running greater than 80. PLAN: 1. Agree with removal of Port-A-Cath. 2. Agree with immunoglobulin infusion. 3. Will need to observe pacemaker for possible ongoing infectious source. 4. Continue to follow effusions with consideration of PleurX catheter if he does not have ongoing improvement. cc: Edwar Ellison MD
[2018-10-05] MEDS: PRAVACHOL PO SCH (20:36)
[2018-10-06] MEDS: MAXIPIME 2 GM in NS 100 ML IV SCH ×3 (03:44→20:23)
[2018-10-06] MEDS: SOLU-CORTEF IV SCH ×3 (03:44→20:13)
[2018-10-06 06:27] LABS: AGAP 8; ALB/GLOB RATIO 0.9; ALBUMIN 2.8 g/dL (3.5-5.0); ALKALINE PHOSPHATASE 43 U/L (32-122); BUN 26 mg/dL (8-22); CALCIUM 8.5 mg/dL (8.8-10.2); CHLORIDE 95 mmol/L (98-107); COSMO 278; CREATININE 0.7 mg/dL (0.7-1.2); ESTIMATED GFR > 60; GLUCOSE 95 mg/dL (70-104); GOT 9 U/L (10-34); GPT 5 U/L (10-44); MAGNESIUM 1.4 mg/dL (1.5-2.7); PHOSPHORUS 1.8 mg/dL (2.7-4.5); POTASSIUM 3.3 mmol/L (3.5-5.1); SODIUM 137 mmol/L (136-145); TCO2 34 mmol/L (25-35); TOTAL BILIRUBIN 0.66 mg/dL (0.20-1.00); TOTAL PROTEIN 5.9 g/dL (6.3-8.3)
[2018-10-06 06:31] LABS: BASO# 0.02 X1000 (0.0-0.2); HEMATOCRIT 26.5 % (42.0-52.0); HEMOGLOBIN 8.6 g/dL (14.0-18.0); IMM GRAN# 0.07 X1000 (0.0-0.04); IMM GRAN% 0.2 % (0.0-0.5); LYMPH% 95.7 % (20.5-51.1); MCH 33.9 PG (27-31); MCHC 32.5 g/dL (33-37); MCV 104.3 FL (81-99); MONO# 0.04 X1000 (0.11-0.59); MONO% 0.1 % (1.7-9.3); MPV 9.8 FL (7.4-10.4); NEUT# 1.59 X1000 (1.4-6.5); PLT 166 X1000 (130-400); RBC 2.54 XMIL (4.7-6.1); RDW 19.4 % (11.5-14.5); WBC 40.02 X1000 (4.8-10.8)
[2018-10-06] MEDS: HUMULIN R SUBQ SCH ×4 (06:37→20:14)
[2018-10-06] MEDS: PROTONIX PO SCH (06:38)
[2018-10-06] MEDS: REGLAN PO SCH ×3 (06:40→16:15)
[2018-10-06] MEDS ORDERED: MAGNESIUM SULFATE 2 GM/S.W.I. 2 GM/50 ML IVPB IV ONE (07:11)
[2018-10-06] MEDS ORDERED: POTASSIUM PHOSPHATE 30 MMOL in NS 250 ML IV ONE (07:11)
[2018-10-06 07:28] LABS: BANDS 1 % (0-1); LYMPHS 91 % (21-51); SEGS 8 % (42-75)
--- NOTE | 2018-10-06 07:57 | PROGRESS NOTE ---
DATE: 10/06/2018 SUBJECTIVE: This patient was having high blood sugar during the day yesterday. I added a dose of Lantus during the night and the blood sugar seems to be better. I will continue with the same management for now. I will decrease the sliding scale insulin from moderate to high dose to lower dose. We will remove the Port-A-Cath today since he has a positive blood culture and urine culture that showed Pseudomonas. Probably, this is the source of infection. He is breathing comfortably today. I will get an x-ray tomorrow. OBJECTIVE: Vital Signs: Temperature 97.7 degrees, pulse 109, respiratory rate 16, blood pressure 92/47, and oxygen saturation 97% on nasal cannula. HEENT: Head normocephalic. No trauma. PERRLA. Neck: Supple. No JVD. No masses. Central trachea. Chest: Decreased breath sounds at the bases with some crackles and scattered rhonchi at the bases as well. He had a Port-A-Cath on the right upper part of the chest. He also has a pacemaker on the left upper part with no signs of infection. Abdomen: Soft, nontender, and nondistended. No hepatosplenomegaly. Extremities: There is 1 to 2+ lower extremity edema. No clubbing. No cyanosis. Neurological: The patient is alert and oriented x3. No focal deficits. LABORATORY: WBC 40.0, hemoglobin 8.6, hematocrit 26.5, and platelets 166,000. Sodium 137, potassium 3.3, chloride 95, bicarbonate 34, BUN 26, creatinine 0.7, glucose 95, calcium 8.5, phosphorus 1.8, magnesium 1.4, and albumin 2.8. ASSESSMENT AND PLAN: 1. Septic shock. We have a positive blood culture and urine culture that showed Pseudomonas. He has been placed on antibiotics. We will remove the Port-A-Cath today because probably this is the source of infection. Infectious Disease Department on board. He is not on pressors. I believe pressors have been stopped since 3:00 in the morning. 2. Fluid overload and suspected pneumonia. We will continue to monitor. I believe the pleural effusion is getting better. We will continue with antibiotics. Continue with diuretics. We will get a new x-ray tomorrow. 3. Pseudomonal bacteremia as per #1. 4. History of CLL aware. 5. Immunoglobulin deficiency aware. It has been replaced. 6. Type 2 diabetes. I will continue with Lantus twice a day. He is getting a high dose of steroids, and likely the high blood sugar is because of that. We will monitor this closely. 7. Atrial fibrillation. Cardiology Department on board, monitoring and treating this patient. 8. History of Sushil's disease. Continue with stress doses of steroids. 9. Pulmonary edema in a patient with history of congestive heart failure, diastolic heart failure. We will continue with furosemide. We will monitor the urine output. So far, we have a negative balance of 1.8 L. patient thank you so much coming. 10. Hypomagnesemia, hypophosphatemia, and hypokalemia. I will replace the electrolytes. CRITICAL CARE TIME: 35 minutes. cc: Michael Gao MD
[2018-10-06] MEDS: SYNTHROID PO SCH (08:23)
[2018-10-06] MEDS: LASIX IV SCH ×2 (08:23→20:13)
[2018-10-06] MEDS: FLORINEF PO SCH (08:23)
[2018-10-06] MEDS: MEGACE LIQUID PO SCH ×2 (08:23→20:13)
[2018-10-06] MEDS: ULORIC PO SCH (08:23)
[2018-10-06] MEDS: LANTUS INSULIN SUBQ SCH ×2 (08:25→20:15)
--- NOTE | 2018-10-06 08:48 | GENERAL SURGERY CONSULTATION ---
DATE: 10/06/2018 HISTORY: Mr. Rendon is a pleasant 73-year-old, who is admitted with bacteremia secondary to Pseudomonas. The source has been unclear. There is concern about his port being infected as and the potential source of his Pseudomonas. I have been asked to remove his port. PAST MEDICAL HISTORY: 1. Chronic lymphocytic leukemia. 2. Hypothyroidism. 3. Type 2 diabetes. 4. Hyperlipidemia. 5. Atrial fibrillation. 6. [place]'s disease. 7. Immunoglobulin deficiency. 8. Chronic anemia. 9. Deep venous thrombosis. PAST SURGICAL HISTORY: 1. Transurethral resection of prostate. 2. Appendectomy. 3. Pacemaker. 4. Catheter ablation. 5. Port-A-Cath x2. ALLERGIES: His allergies include allopurinol, Keflex ,cephalosporins, Levaquin, penicillin, Zosyn, Bactrim and laxatives. MEDICATIONS: Listed. He is on Eliquis for his atrial fibrillation. SOCIAL HISTORY: Denies smoking, alcohol or drug use. FAMILY HISTORY: Pertinent for coronary disease. REVIEW OF SYSTEMS: As noted above and is primarily noted for weakness and some fever. PHYSICAL EXAMINATION: Vital Signs: He is afebrile. Heart rate 115 irregular, blood pressure 108/51. He is awake and alert and oriented. A port is noted on his right upper anterior chest. Chest: He has bilateral breath sounds. Pacemaker is on the left side. Heart: Has a regular rate and rhythm. Abdomen: Soft. PLAN: The plan will be to remove the port today. I have discussed this with him and he agrees to proceed. cc: Krish Nevarez MD
--- NOTE | 2018-10-06 09:30 | INFECTIOUS DISEASE PROGRESS NO ---
DATE: 10/06/2018 PRESENT ILLNESS: The patient has a Pseudomonas bacteremia and urinary tract infection. It appears that the patient's bacteremia originated from his right-sided Port-A-Cath, and that the Pseudomonas urinary tract infection is secondary to hematogenous involvement of the kidney. The patient has a permanent pacemaker in place on the left side of his chest. It does not seem to be infected. MEDICATIONS: The patient is on cefepime at a dose of 2 grams IV every 8 hours. PHYSICAL EXAMINATION: Vital Signs: Temperature is 97.7, pulse 109, respirations 16, blood pressure is 92/47. General: This is a chronically ill-appearing, elderly male. He is in no acute distress. HEENT: He can hear my spoken words and see near objects. He does not have any white coating of his tongue. Neck: He does not have any neck pain when he moves his head or his neck. Thorax: As mentioned above, the patient has a right-sided Port-A-Cath. That site is not swollen or erythematous. He also has a left-sided permanent pacemaker, and the pacemaker site is not erythematous, swollen, or tender. Lungs: Clear to auscultation. Cardiovascular: Regular heart rate. Abdomen: Soft and nontender. Extremities: The patient has swelling of the right arm. Neurologic: The patient is alert. He can move his extremities. There is no tremor. IMAGING AND LABORATORY DATA: The blood and urine are growing Pseudomonas. The patient's CBC shows a white count of 40,020, hemoglobin 8.6, and platelet count 166,000. Creatinine is 0.7. GFR is greater than 60. Liver function studies are normal. IgG is 666. IgA is 171. The patient's chest x-ray yesterday showed small bilateral pleural effusions with basilar atelectasis. The patient had an ultrasound done on the right arm, and it showed a clot in the cephalic vein, but no deep venous thrombosis. ASSESSMENT AND PLAN: The patient's Pseudomonas originated from his Port-A-Cath, and hematogenously it involved the urinary tract. The plan is to continue with cefepime, and Dr. Nevarez has been consulted to remove the Port-A-Cath. At this time, it does not appear that the permanent pacemaker is infected, and we do not have any plans at this time to remove it. COMORBIDITIES: He is elderly. He also has chronic lymphocytic leukemia. The patient does have an immunoglobulin deficiency as is often seen in patients with chronic lymphocytic leukemia, and he already is on a regimen of replacement with IVIG by Dr. Hurtado. The patient also is taking chemotherapy for his leukemia, which is another comorbidity. cc: Kvng Ruby MD
[2018-10-06] MEDS: LEVOPHED 8 MG in D5 1/2 NS 250 ML IV SCH (13:40)
[2018-10-06] MEDS ORDERED: DIPRIVAN 1% ONE (13:46)
[2018-10-06] MEDS ORDERED: XYLOCAINE-MPF 2% ONE (13:46)
[2018-10-06] MEDS ORDERED: FENTANYL ONE (13:48)
--- NOTE | 2018-10-06 13:48 | HEMO/ONC PROGRESS NOTE ---
DATE: 10/06/2018 HPI/CC: Patient states he is feeling much better this morning. He had no significant events overnight. He is aware that they are going to remove his Port-A-Cath today. He has no complaints today and states he is very comfortable. OBJECTIVE: Vitals: Temperature 97.7 degrees, pulse rate 109, respiratory rate 16, blood pressure 92/47, O2 saturation 97% on nasal cannula at 2 L, he is in 0/10 pain. General: Chronically ill elderly gentleman in no acute distress. Respiratory: Upper breath sounds were clear to auscultation but diminished slightly. Cardiovascular: Normal S1, S2 tachycardic. Abdomen: Soft, nondistended, nontender. Extremities: Bilateral upper extremity edema and +2 pitting lower extremity edema . Neurological: Patient is alert and oriented x3. No focal deficits. LABORATORY: WBCs 40.02, hemoglobin 8.6, hematocrit 26.5, platelet count 166,000, ANC 1.59, sodium 137, potassium 3.3, creatinine 0.7, calcium 8.5, phosphorus 1.8, magnesium 1.4. ASSESSMENT: 1. Septic shock with Pseudomonas bacteremia. 2. Fluid overload and suspected pneumonia. 3. History of chronic lymphocytic leukemia. 4. Immunoglobulin deficiency. 5. [place] disease. 6. Refractory atrial fibrillation status post pacemaker. 7. Diabetes mellitus type 2. 8. Electrolyte abnormalities. PLAN: From his CLL point of view he is stable and he needs to continue Imbruvica in the hospital. Continue following Dr. Ruby' plan and we agree with Port-A-Cath removal. Pacemaker may also be a source of infection. Will follow cardiology's advice regarding removal. Continue broad- spectrum antibiotics, continue stress dose steroids for adrenal insufficiency. As an outpatient he is on Florinef and hydrocortisone. Replete electrolytes per medical management. We will continue to follow closely. Dictated by ERLIN Padilla for Anjum Hurtado MD Patient seen and examined. As above. Continue Imbruvica for CLL which is in good control. Continue management per Dr. Ruby for Pseudomonas sepsis. Anjum Hurtado M.D. cc: Anjum Hurtado MD [facility]
[2018-10-06] MEDS ORDERED: MARCAINE 0.25% PF/EPI 1:200,000 ONE (15:04)
--- NOTE | 2018-10-06 15:59 | OPERATIVE NOTE ---
PROCEDURE DATE : 10/06/2018 PREOPERATIVE DIAGNOSIS: Pseudomonas bacteremia. POSTOPERATIVE DIAGNOSIS: Pseudomonas bacteremia. DESCRIPTION OF PROCEDURE: After satisfactory monitored anesthesia care was established, the IV sedation was accomplished. The right upper anterior chest was prepped and draped in sterile fashion. We anesthetized the skin at the area of the old scar with 1% lidocaine with epinephrine. We then made an incision in the area of the old scar, dissected into the port pocket. We freed the port from its attachments and then removed the port with the attached catheter in toto. We excised the sac of the port cavity. Again, we achieved satisfactory hemostasis. We copiously irrigated out the pocket and then closed with subcutaneous tissue with 3-0 Polysorb. The skin was closed with a 4-0 Polysorb subcuticular stitch, thereby completing a layered closure. A Telfa and sterile Opsite was applied. He tolerated it well and sent back to the room in satisfactory condition. cc: Krish Nevarez MD
[2018-10-06] MEDS: PATIENT'S OWN MED PO SCH (16:15)
[2018-10-06] MEDS: PRAVACHOL PO SCH (20:14)
--- NOTE | 2018-10-06 21:27 | PULMONOLOGY PROGRESS NOTE ---
DATE: 10/06/2018 SUBJECTIVE: The patient is awake, alert, and conversant. The patient had his Port-A-Cath removed earlier today. Overall, he reports he feels better. OBJECTIVE: Vital Signs: The patient has been afebrile his entire hospital stay. Blood pressure 98/54, heart rate 93, respiratory rate 27, oxygen saturation 100% on 2 L per nasal cannula. HEENT: Pupils are equal and reactive. Oropharynx appears clear. Neck: Supple. Chest: Reveals diminished breath sounds in both lung bases. Cardiac exam: S1, S2. Abdomen: Soft and without hepatosplenomegaly. Extremities: Without edema. LABORATORIES: White blood count 40.0, hemoglobin 8.6, platelet count 166,000. Sodium 137, potassium 3.3, chloride 95, bicarbonate 34, BUN 26, creatinine 0.7, magnesium 1.4, phosphorus 1.8. IMPRESSION: A 73-year-old with: 1. Chronic pleural effusions. 2. Pseudomonal bacteremia with urinary tract infection. 3. Acute hypoxemic respiratory failure. 4. Immunoglobulin deficiency status post replacement yesterday. 5. [place] disease. 6. Status post pacemaker placement. 7. Status post Port-A-Cath removal. PLAN: 1. Continue antibiotics per Infectious Disease recommendations. 2. Follow up chest x-ray tomorrow. 3. Continue to follow effusions. Consider thoracentesis or PleurX catheter pending hospital course. cc: Edwar Ellison MD
--- NOTE | 2018-10-06 22:04 | EKG Report ---
Test Performed on : 10/04/2018 07:42:19 AM Test Reason : atrial fibrillation Blood Pressure : / mmHG Vent. Rate : 080 BPM Atrial Rate : 090 BPM P-R Int : 000 ms QRS Dur : 178 ms QT Int : 482 ms P-R-T Axes : 000 250 040 degrees QTc Int : 555 ms Ventricular-paced rhythm Abnormal ECG When compared with ECG of 03-OCT-2018 01:42, (Unconfirmed) Sinus rhythm. is no longer with complete heart block. Confirmed by Steve Mendieta MD ([id number]) on 10/06/2018 10:05:27 PM
[2018-10-07] MEDS: MAXIPIME 2 GM in NS 100 ML IV SCH ×3 (03:13→20:32)
[2018-10-07] MEDS: SOLU-CORTEF IV SCH ×3 (03:13→20:32)
[2018-10-07] MEDS: REGLAN PO SCH ×3 (06:13→16:13)
[2018-10-07] MEDS: HUMULIN R SUBQ SCH ×4 (06:13→20:33)
[2018-10-07] MEDS: PROTONIX PO SCH (06:13)
[2018-10-07 06:19] LABS: BASO# 0.03 X1000 (0.0-0.2); BASO% 0.1 % (0.0-0.8); HEMATOCRIT 26.2 % (42.0-52.0); HEMOGLOBIN 8.6 g/dL (14.0-18.0); IMM GRAN# 0.13 X1000 (0.0-0.04); IMM GRAN% 0.3 % (0.0-0.5); LYMPH# 38.27 X1000 (1.2-3.4); MCH 34.3 PG (27-31); MCHC 32.8 g/dL (33-37); MCV 104.4 FL (81-99); MONO# 0.28 X1000 (0.11-0.59); MONO% 0.7 % (1.7-9.3); MPV 10.4 FL (7.4-10.4); NEUT# 1.16 X1000 (1.4-6.5); NEUT% 2.9 % (42.2-75.2); PLT 174 X1000 (130-400); RBC 2.51 XMIL (4.7-6.1); RDW 19.6 % (11.5-14.5); WBC 39.87 X1000 (4.8-10.8)
[2018-10-07 06:29] LABS: AGAP 8; ALBUMIN 2.6 g/dL (3.5-5.0); ALKALINE PHOSPHATASE 40 U/L (32-122); BUN 29 mg/dL (8-22); CALCIUM 7.9 mg/dL (8.8-10.2); CHLORIDE 95 mmol/L (98-107); COSMO 275; CREATININE 0.7 mg/dL (0.7-1.2); ESTIMATED GFR > 60; GLUCOSE 118 mg/dL (70-104); GOT 13 U/L (10-34); GPT 9 U/L (10-44); MAGNESIUM 1.5 mg/dL (1.5-2.7); POTASSIUM 3.1 mmol/L (3.5-5.1); SODIUM 134 mmol/L (136-145); TCO2 31 mmol/L (25-35); TOTAL BILIRUBIN 0.61 mg/dL (0.20-1.00); TOTAL PROTEIN 5.3 g/dL (6.3-8.3)
[2018-10-07 07:08] LABS: LYMPHS 96 % (21-51); SEGS 4 % (42-75)
[2018-10-07] MEDS ORDERED: MAGNESIUM SULFATE 2 GM/S.W.I. 2 GM/50 ML IVPB IV ONE (07:09)
[2018-10-07] MEDS ORDERED: KLOR-CON PO ONE (07:10)
--- NOTE | 2018-10-07 07:33 | Diag Imaging Result Doc PS360 ---
EXAM: CHEST-PORTABLE HISTORY: dyspnea TECHNIQUE: Portable chest single view COMPARISON: 10/05/2018 FINDINGS: There are bilateral pleural effusions with basilar atelectasis similar to the prior exam. No cardiomegaly. There is a left-sided pacemaker. Interval removal of the right jugular line. No pneumothorax. IMPRESSION: Removal of the right jugular line, but otherwise stable exam. Electronically signed by Carlos Acosta 10/07/2018 7:30 AM
--- NOTE | 2018-10-07 08:40 | PROGRESS NOTE ---
DATE: 10/07/2018 SUBJECTIVE: Patient is resting comfortably in bed. No acute events overnight. His blood sugar seems to be better. We will continue with the same management. Port-A-Cath had been removed yesterday. Magnesium level is low as well as potassium level and will be replaced today. OBJECTIVE: Vital Signs: Temperature 97.7 degrees, pulse 81, respiratory rate 30, blood pressure 98/59, oxygen saturation 99 on 2 L of nasal cannula. HEENT: Head normocephalic. No trauma. PERRLA. Neck: Supple. No JVD. No masses. Central trachea. Chest: Decreased breath sounds at the bases with some crackles. Scattered rhonchi at the bases as well. His wound at the level of the right upper chest looks clean. Port-A-Cath has been removed. He has a pacemaker on the left upper part with no signs of infection. Abdomen: Soft, nontender, nondistended. No hepatosplenomegaly. Extremities: There is 1 to 2+ lower extremity edema. No clubbing. No cyanosis. Neurological Examination: This patient is alert and oriented x3. No focal deficits. Laboratory: WBC 39.8, hemoglobin 8.6, hematocrit 36.2, platelets 174,000. Sodium 134, potassium 3.1, chloride 95, bicarbonate 31, BUN 29, creatinine 0.7, glucose 118, calcium 7.9, phosphorus 3, magnesium 1.5, albumin 2.6. ASSESSMENT AND PLAN: 1. Septic shock, bacteremia. We have a positive culture that showed pseudomonas. He has been placed on antibiotics. His Port-A-Cath had been removed yesterday. We will continue following the recommendations of the pulmonary department. At this moment, he is on pressors again because of his low blood pressure. 2. Fluid overload and suspected pneumonia. We will continue to monitor. Chest x-ray looks about the same compared with yesterday. We will continue with antibiotics and Lasix twice a day. We have a negative balance of 2.9 L. 3. Bacteremia due to pseudomonas, as per #1. 4. History of chronic lymphocytic leukemia. Aware. Hematology/oncology on board. 5. Immunoglobulin deficiency. Aware. It has been replaced. 6. Type 2 diabetes. I will continue with the same management. It seems to be working fine. 7. Atrial fibrillation. Cardiology on board. We will continue to monitor and treating this patient. 8. [place]'s disease. Continue with stress doses of steroids. 9. Pulmonary edema in a patient with a history of congestive heart failure, diastolic heart failure. Continue with furosemide. So far, we have removed around 2.9 L. 10. Hypomagnesemia, borderline low. I will replace it. 11. Hypokalemia. I will replace it. 12. Hypophosphatemia, resolved. CRITICAL CARE TIME: 35 minutes. cc: Michael Gao MD
[2018-10-07] MEDS: LASIX IV SCH ×2 (08:49→20:33)
[2018-10-07] MEDS: ULORIC PO SCH (08:49)
[2018-10-07] MEDS: MEGACE LIQUID PO SCH ×2 (08:49→20:33)
[2018-10-07] MEDS: SYNTHROID PO SCH (08:50)
[2018-10-07] MEDS: FLORINEF PO SCH (08:50)
[2018-10-07] MEDS: LANTUS INSULIN SUBQ SCH ×2 (08:51→20:33)
--- NOTE | 2018-10-07 09:26 | HEMO/ONC PROGRESS NOTE ---
DATE: 10/07/2018 SUBJECTIVE: The patient is sitting up in bed eating breakfast. He states that he feels very good today. He had no acute events overnight. He did have his Port-A-Cath removed yesterday. He had no complications. It appears to be draining on his bandage. He continues to have significant upper extremity edema. Denies any pain or complaints. He states his appetite is good. OBJECTIVE: VITAL SIGNS: Temperature 97.7 degrees, pulse rate 80, respiratory rate 30, blood pressure 98/95, O2 saturation 99% on 2 L via nasal cannula. 0/10 pain. PHYSICAL EXAMINATION: General: Chronically ill-appearing male in no acute distress. Respiratory: Upper airways clear, with decreased breath sounds at the bases and with slight rhonchi.SKIN: surgical incision from removal of Port-A-Cath covered in clean bandage with slight drainage. Gastrointestinal: Soft, nontender, nondistended. Extremities: Upper extremities 1 to 2+ edema. Lower extremities slight edema. Neurologic: Awake, alert, oriented x3. No motor deficits. LABORATORY DATA: WBCs 39.87, hemoglobin 8.6, hematocrit 26.2, platelet count a 174,00. Sodium 134, potassium 3.1, creatinine 0.7, calcium 7.9. Chest x-ray shows complete removal of the right Port-A-Cath, bilateral pleural effusions with basilar atelectasis, unchanged from prior exam. ASSESSMENT: 1. Septic shock with Pseudomonas bacteremia. 2. Fluid overload and suspected pneumonia. 3. History of chronic lymphocytic leukemia. 4. Immunoglobulin deficiency. 5. Sushil disease. 6. Refractory atrial fibrillation status post pacemaker. 7. Diabetes mellitus type 2. 8. Electrolyte abnormalities. PLAN: From a CLL point of view, patient is stable and in good control. He needs to continue Imbruvica while in hospital. Continue to follow any recommendations per Dr. Ruby. Port-A-Cath has been removed, which is the suspected source of his infection. Continue broad spectrum antibiotics and stress dose steroids for adrenal insufficiency. The patient takes Florinef and hydrocortisone on an outpatient basis. Continue to replete electrolytes per medical management. We will continue to follow along closely. Dictated by ERLIN Padilla for Anjum Hurtado MD cc: Anjum Hurtado MD [facility]
[2018-10-07] MEDS: ELIQUIS PO SCH ×2 (09:42→20:32)
[2018-10-07] MEDS: LEVOPHED 8 MG in D5 1/2 NS 250 ML IV SCH (15:30)
--- NOTE | 2018-10-07 15:52 | INFECTIOUS DISEASE PROGRESS NO ---
DATE: 10/07/2018 PRESENT ILLNESS: The patient has a Pseudomonas bacteremia and urinary tract infection. The patient's Port-A-Cath was removed yesterday by Dr. Nevarez. The patient also has a permanent pacemaker in place. MEDICATIONS: The patient is on cefepime 2 g IV every 8 hours. PHYSICAL EXAMINATION: Vital Signs: Temperature is 98 degrees, pulse 81, respirations 30, blood pressure 98/59. General: This is a chronically ill-appearing elderly male. He is in no acute distress. Head, eyes, ears, nose, and throat: Can hear my spoken words and see near objects. He does not have any drainage from the nose or ears. Neck: He does not have any pain in his neck when he moves his head or neck. There are no masses in his neck. Thorax: The patient's right- sided Port-A-Cath has been removed. The site is not swollen or erythematous. The patient has a pacemaker present on the left side. That site is not erythematous, swollen, or tender. Cardiovascular: Heart rate is regular. Lungs: Clear to auscultation. Abdomen: Soft and nontender. Extremities: The patient's right arm still is swollen, but possibly a little bit less than it was yesterday. Neurologic: Patient is alert. He can move his extremities. There is no tremor. He is oriented and can carry on a conversation. LABORATORY AND RADIOLOGY: Patient's CBC shows a white count of 39,870, hemoglobin 8.6, and platelet count 174,000. Creatinine 0.4, GFR is greater than 60. Blood cultures were drawn yesterday. The results are still pending. Chest x-ray shows bibasilar atelectasis and effusion but no evidence of pneumonia. ASSESSMENT AND PLAN: The patient has Pseudomonas which originated from his Port-A-Cath. The Port- A-Cath is out. I am going to continue cefepime. The patient does have a pacemaker in place which could have become infected hematogenously. As of right now, it does not look as low the pacemaker is infected. We will continue treatment with cefepime. Day #1 of treatment with cefepime will be the first day that the patient's repeat blood cultures are sterile. COMORBIDITIES: Chronic lymphocytic leukemia, immunoglobulin deficiency, being elderly. The patient also is on chemotherapy for his chronic lymphocytic leukemia. The patient also has an immunoglobulin deficiency which is being managed by Dr. Hurtado. cc: Kvng Ruby MD
[2018-10-07] MEDS: PATIENT'S OWN MED PO SCH (16:14)
[2018-10-07] MEDS: PRAVACHOL PO SCH (20:33)
[2018-10-08] MEDS: MAXIPIME 2 GM in NS 100 ML IV SCH ×3 (03:57→20:17)
[2018-10-08] MEDS: SOLU-CORTEF IV SCH ×3 (03:57→20:17)
[2018-10-08 05:46] LABS: BASO# 0.03 X1000 (0.0-0.2); BASO% 0.1 % (0.0-0.8); HEMATOCRIT 24.2 % (42.0-52.0); IMM GRAN# 0.19 X1000 (0.0-0.04); IMM GRAN% 0.5 % (0.0-0.5); LYMPH# 38.04 X1000 (1.2-3.4); LYMPH% 96.7 % (20.5-51.1); MCH 33.8 PG (27-31); MCHC 33.1 g/dL (33-37); MCV 102.1 FL (81-99); MONO# 0.05 X1000 (0.11-0.59); MONO% 0.1 % (1.7-9.3); MPV 10.1 FL (7.4-10.4); NEUT# 1.03 X1000 (1.4-6.5); NEUT% 2.6 % (42.2-75.2); PLT 171 X1000 (130-400); RBC 2.37 XMIL (4.7-6.1); RDW 18.9 % (11.5-14.5); WBC 39.34 X1000 (4.8-10.8)
[2018-10-08] MEDS: REGLAN PO SCH ×3 (06:08→16:50)
[2018-10-08] MEDS: HUMULIN R SUBQ SCH ×4 (06:09→20:17)
[2018-10-08] MEDS: PROTONIX PO SCH (06:09)
[2018-10-08 06:23] LABS: AGAP 9; BUN 28 mg/dL (8-22); CALCIUM 7.8 mg/dL (8.8-10.2); CHLORIDE 94 mmol/L (98-107); COSMO 278; CREATININE 0.7 mg/dL (0.7-1.2); ESTIMATED GFR > 60; GLUCOSE 203 mg/dL (70-104); MAGNESIUM 1.6 mg/dL (1.5-2.7); POTASSIUM 2.9 mmol/L (3.5-5.1); SODIUM 133 mmol/L (136-145); TCO2 30 mmol/L (25-35)
--- NOTE | 2018-10-08 06:35 | Diag Imaging Result Doc PS360 ---
EXAM: CHEST-PORTABLE HISTORY: dyspnea TECHNIQUE: Portable chest single view COMPARISON: 10/07/2018 FINDINGS: Poor inspiratory effort. There are small bilateral pleural effusions, left greater than right. No cardiomegaly. There is a left-sided pacemaker. Persistent pulmonary edema. IMPRESSION: No interval improvement. Electronically signed by Carlos Acosta 10/08/2018 6:32 AM
[2018-10-08] MEDS ORDERED: POTASSIUM PHOSPHATE 30 MMOL in NS 250 ML IV ONE (07:03)
[2018-10-08] MEDS: MEGACE LIQUID PO SCH ×2 (08:17→20:17)
[2018-10-08] MEDS: FLORINEF PO SCH (08:18)
[2018-10-08] MEDS: ULORIC PO SCH (08:18)
[2018-10-08] MEDS: ELIQUIS PO SCH ×2 (08:19→20:17)
[2018-10-08] MEDS: LASIX IV SCH ×2 (08:19→20:17)
[2018-10-08] MEDS: SYNTHROID PO SCH (08:19)
[2018-10-08 08:52] LABS: IRON SATURATION 98 %; TIBC 202 ug/dL; TOTAL IRON 198 ug/dL (53-167); UNBOUND IRON 4 ug/dL (112-346)
[2018-10-08] MEDS: LANTUS INSULIN SUBQ SCH ×2 (09:06→20:18)
--- NOTE | 2018-10-08 09:08 | HEMO/ONC PROGRESS NOTE ---
DATE: 10/08/2018 HISTORY OF PRESENT ILLNESS/CHIEF COMPLAINT: The patient is sitting up in bed, eating breakfast. He seems more alert today. He states he feels very good. He does admit that he did not sleep very well last night. He had no significant events overnight. He continues to improve and feel better. His Port-A-Cath removal site has no complications. It is covered by a clean, dry dressing. He denies any pain. His appetite is good. OBJECTIVE: Vital Signs: Temperature 97.9 degrees, pulse rate 80, respiratory rate 16, blood pressure 92/55, O2 saturation is 97% on 2 L via nasal cannula, 0/10 pain. Physical Examination: General: Chronically ill-appearing gentleman, in no acute distress this morning. Cardiovascular: Normal S1, S2 noted. Regular rate and rhythm. Respiratory: Lungs are clear to auscultation with decreased breath sounds at the bases. Skin: Surgical incision to right upper chest with clean, dry bandage. Extremities: Upper extremities, +1 pitting edema. Lower extremities, slight edema. Abdomen: Soft, nontender, nondistended. No hepatosplenomegaly noted. HEENT: Anicteric. PERRLA. Pale conjunctivae. Laboratory: WBCs 39.34, hemoglobin 8, hematocrit 24.2, platelet count 171,000, ANC 1.03. Sodium 133, potassium 2.9, creatinine 0.7, calcium 7.8, phosphorus 2.0, magnesium 1.6. Iron profile pending. Chest x-ray shows no interval improvement, poor inspiratory effort remains, small bilateral pleural effusions, left greater than the right. Persistent pulmonary edema. ASSESSMENT: 1. Active chronic lymphocytic leukemia, on Imbruvica therapy. 2. Septic shock with Pseudomonas bacteremia. 2. Fluid overload and suspected pneumonia. 3. Immunoglobulin deficiency, Last IVIG on 09/10/18. 4. Sushil's disease. 5. Refractory atrial fibrillation, status post pacemaker. 6. Diabetes mellitus type 2. 7. Electrolyte abnormalities. 8. S/p Port-a-cath removal 9. Worsening Anemia 10. Neutropenia PLAN: Again, the patient is stable from a CLL point. Continue Imbruvica as instructed. Continue instructions per Dr. Ruby for treatment of sepsis s/p port-a-cath removal. His worsening anemia is multifactorial due to CLL,Imbruvica and Sepsis. His iron profile, B-12 and folate are not deficient. He has needed transfusions in the past for chronic anemia. Transfuse as needed. His absolute lymphocyte count is elevated due to CLL and under control with Imbruvica. His neutrophil count is down to 1.03. Give Neupogen on a daily basis until his ANC returns to greater than 1.5. We will continue to follow closely. Dictated by ERLIN Padilla for Anjum Hurtado MD cc: Anjum Hurtado MD [facility]
[2018-10-08 09:23] LABS: FERRITIN 1050 ng/mL (30-400)
--- NOTE | 2018-10-08 09:53 | PROGRESS NOTE ---
DATE: 10/08/2018 SUBJECTIVE: Patient is resting comfortably in bed. No events overnight. We will continue with the same management. I will replace the potassium and phosphorus. His vasopressors have been stopped since 4:00 in the morning. We will monitor. OBJECTIVE: Vital Signs: Temperature 97.9 degrees, pulse 80, respiratory rate 16, blood pressure 92/55, and oxygen saturation 97% on room air. HEENT: Head normocephalic. No trauma. PERRLA. Neck: Supple. No JVD. No masses. Central trachea. Chest: Decreased breath sounds at the bases with some crackles. Right upper chest wound that looks clean with a new dressing. His Port- A-Cath has been removed. He has a pacemaker on the left upper part of the chest with no signs of infection. Abdomen: Soft, nontender, and nondistended. No hepatosplenomegaly. Extremities: No edema. No clubbing. No cyanosis. Neurological: The patient is alert. He is oriented x3. No focal deficits. LABORATORY: WBC 39.3, hemoglobin 8, hematocrit 24.2, and platelets 171,000. Sodium 133, potassium 2.9, chloride 94, bicarbonate 30, BUN 28, creatinine 0.7, glucose 203, calcium 7.8 and phosphorus 1.6. ASSESSMENT AND PLAN: 1. Septic shock, bacteremia. We have a positive culture that showed Pseudomonas in blood. He has been placed on antibiotics. His Port-A-Cath has been removed 2 days ago. We will continue following the recommendations of Pulmonary Department and Infectious Disease Department. Vasopressors were stopped at 4:00 in the morning today. 2. Fluid overload and suspected pneumonia. Continue to monitor. Chest x-ray looks about the same compared with yesterday. Some pleural effusion. He is getting Lasix. We have a negative balance of 4.3 L. Kidney function stable. 3. History of CLL followed by Hematology/Oncology Department. 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 5. Type 2 diabetes. Continue with same management. 6. Atrial fibrillation. Cardiology on board. We will continue to monitor. It looks like he has some PVCs during the night, and a little bit decreased of the heart rate. 7. [place]'s disease. Continue with stress doses of steroids. 8. Pulmonary edema in a patient with a history of congestive heart failure, diastolic failure. Continue with furosemide. So far, we removed around 4.3 L. 9. Hypomagnesemia resolved. 10. Hypokalemia. I will replace it. 11. Hypophosphatemia. I will replace it as well. CRITICAL CARE TIME: 35 minutes. cc: Michael Gao MD
[2018-10-08] MEDS ORDERED: GRANIX SUBQ ONE (10:54)
--- NOTE | 2018-10-08 15:14 | INFECTIOUS DISEASE PROGRESS NO ---
DATE: 10/08/2018 PRESENT ILLNESS: The patient has a Pseudomonas bacteremia and associated urinary tract infection. Most likely the Pseudomonas infection originated from the patient's right chest Port-A-Cath which has been removed. The patient has a pacemaker present on the left side which could have become infected from the patient's bacteremia. Patient also has an immunoglobulin deficiency as well as chronic lymphocytic leukemia. MEDICATIONS: The patient is on cefepime 2 g IV every 8 hours. This is day 2 of treatment with day 1 being the first day that the patient had negative blood cultures, which was October 06. PHYSICAL EXAMINATION: Vital Signs: Temperature is 99 degrees, pulse 80, respirations 16, blood pressure 92/55. General: This is a chronically ill-appearing, elderly male. He is in no acute distress. Head, eyes, ears, nose, and throat: He can hear my spoken words and see near objects. He does not have any drainage from his nose or ears. He does not have any white coating of his tongue. Neck: The patient has a left-sided jugular venous catheter in place. The IV site is not erythematous or draining. Thorax: The patient's Port-A-Cath has been removed from the right side of the chest. The site now is not swollen or draining. The patient does have a pacemaker present on the left side. The pacemaker site is not swollen or red either. Lungs: Clear to auscultation. Cardiovascular: Heart rate is regular. Abdomen: Soft and nontender. Extremities: The patient has an IV in his left arm. That site also is not erythematous or swollen. Neurologic: The patient is alert. He can move his extremities. He does not have a tremor. LAB AND X-RAY: CBC shows a white count of 39,340, hemoglobin is 8, platelet count is 171,000. Creatinine is 0.7. GFR is greater than 60. Liver function studies are normal. As mentioned above, the repeat blood cultures drawn 2 days ago are sterile. ASSESSMENT AND PLAN: Patient has a Pseudomonas infection originating from the Port-A-Cath and causing bacteremia and a urinary tract infection and possible pacemaker involvement. My plan is to continue with cefepime. The this is day 2 of treatment with cefepime with day 1 being the first day that the patient's repeat blood cultures are sterile. COMORBIDITIES: Chronic lymphocytic leukemia, immunoglobulin deficiency, and the patient is elderly. He also receives chemotherapy for his chronic lymphocytic leukemia. Dr. Hurtado is managing the patient's immunoglobulin deficiency. cc: Kvng Ruby MD
[2018-10-08] MEDS: PATIENT'S OWN MED PO SCH (16:50)
[2018-10-08] MEDS ORDERED: KLOR-CON PO ONE (20:00)
[2018-10-08] MEDS: PRAVACHOL PO SCH (20:17)
[2018-10-08] MEDS ORDERED: MELATONIN PO ONE (22:10)
[2018-10-09] MEDS: MAXIPIME 2 GM in NS 100 ML IV SCH ×3 (04:37→20:41)
[2018-10-09] MEDS: SOLU-CORTEF IV SCH ×2 (04:37→15:35)
[2018-10-09 06:04] LABS: BASO# 0.03 X1000 (0.0-0.2); BASO% 0.1 % (0.0-0.8); EOS# 0.06 X1000 (0.0-0.7); EOS% 0.1 % (0.0-10.0); HEMATOCRIT 24.8 % (42.0-52.0); HEMOGLOBIN 8.2 g/dL (14.0-18.0); IMM GRAN# 0.54 X1000 (0.0-0.04); IMM GRAN% 1.2 % (0.0-0.5); LYMPH# 41.36 X1000 (1.2-3.4); LYMPH% 94.5 % (20.5-51.1); MCHC 33.1 g/dL (33-37); MCV 102.9 FL (81-99); MONO# 0.06 X1000 (0.11-0.59); MONO% 0.1 % (1.7-9.3); MPV 10.7 FL (7.4-10.4); NEUT# 1.74 X1000 (1.4-6.5); PLT 170 X1000 (130-400); RBC 2.41 XMIL (4.7-6.1); RDW 19.2 % (11.5-14.5); WBC 43.79 X1000 (4.8-10.8)
[2018-10-09] MEDS: REGLAN PO SCH ×3 (06:22→15:35)
[2018-10-09] MEDS: HUMULIN R SUBQ SCH ×4 (06:23→20:39)
[2018-10-09] MEDS: PROTONIX PO SCH (06:23)
[2018-10-09 06:40] LABS: AGAP 6; ALB/GLOB RATIO 1.1; ALBUMIN 2.6 g/dL (3.5-5.0); ALKALINE PHOSPHATASE 42 U/L (32-122); BUN 27 mg/dL (8-22); CALCIUM 7.9 mg/dL (8.8-10.2); CHLORIDE 95 mmol/L (98-107); COSMO 278; CREATININE 0.6 mg/dL (0.7-1.2); ESTIMATED GFR > 60; GLUCOSE 142 mg/dL (70-104); GOT 11 U/L (10-34); GPT 11 U/L (10-44); POTASSIUM 2.9 mmol/L (3.5-5.1); SODIUM 135 mmol/L (136-145); TCO2 34 mmol/L (25-35); TOTAL PROTEIN 4.9 g/dL (6.3-8.3)
[2018-10-09 08:01] LABS: LYMPHS 97 % (21-51); SEGS 3 % (42-75)
[2018-10-09] MEDS: MEGACE LIQUID PO SCH ×2 (09:06→20:38)
[2018-10-09] MEDS: SYNTHROID PO SCH (09:06)
[2018-10-09] MEDS: ULORIC PO SCH (09:06)
[2018-10-09] MEDS: LASIX IV SCH ×2 (09:07→20:38)
[2018-10-09] MEDS: FLORINEF PO SCH (09:08)
[2018-10-09] MEDS: KLOR-CON PO SCH ×2 (09:08→20:38)
[2018-10-09] MEDS: LANTUS INSULIN SUBQ SCH ×2 (09:08→20:39)
[2018-10-09] MEDS: MYCOSTATIN SUSP PO SCH ×4 (09:08→20:38)
[2018-10-09] MEDS: ELIQUIS PO SCH ×2 (09:08→20:38)
--- NOTE | 2018-10-09 11:35 | HEMO/ONC PROGRESS NOTE ---
DATE: 10/09/2018 HISTORY OF PRESENT ILLNESS/CHIEF COMPLAINT: The patient states he is doing well this morning. He denies any complaint or any pain. His appetite continues to be good. His dressing remains clean. The patient appears to be improving. OBJECTIVE: Vital Signs: Temperature 98.1 degrees, pulse rate 80, respiratory rate 17, blood pressure 100/56, O2 saturation 98% on room air, in 0/10 pain. General: On physical examination, a chronically ill-appearing gentleman in no acute distress. Cardiovascular: Normal S1, S2. Regular rate and rhythm. Respiratory: Lungs are clear to auscultation. Breath sounds remain decreased at the bases. Chest wall surgical incision to the right upper chest with clean, dry bandage. Port-A-Cath noted to left chest. Extremities: Upper extremities have +1 pitting edema with scattered ecchymoses. Lower extremities have no edema noted. Abdomen: Soft, nontender, nondistended. No hepatosplenomegaly noted. HEENT: Anicteric PERRLA. Pale conjunctivae. LABORATORY: WBC 43.79, hemoglobin 8.2, hematocrit 24.8, platelet count 170,000. ANC 1.74, creatinine 0.6, potassium 2.9. Iron profile, B 12 and folate adequate. ASSESSMENT: 1. 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 2. Status Port-A-Cath removal. 3. Septic shock with Pseudomonas bacteremia. 4. Worsening anemia. 5. Neutropenia. 6. Fluid overload and suspected pneumonia. 7. Immunoglobulin deficiency, last IVIG on 09/10/2018. 8. Sushil's disease. 9. Refractory atrial fibrillation, status post pacemaker. 10. Diabetes mellitus, type 2. 11. Electrolyte abnormalities. PLAN: The patient is to continue antibiotics therapy per Dr. Ruby for the treatment of sepsis status post Port-A-Cath removal. Continue to replete any electrolyte abnormalities. Give the patient Neupogen on a daily basis for any ANC less than 1.5. His absolute lymphocyte count is elevated due to CLL, and he is under control with the Imbruvica. His anemia is due to Imbruvica and sepsis. His iron, B 12 and folate are adequate. He has needed transfusions in the past for chronic anemia. Transfuse him as needed. We will continue to monitor over the weekend. Please call us as needed over the weekend. Dictated by ERLIN Padilla for Anjum Hurtado MD cc: Anjum Hurtado MD [facility]ITAL[facility]
--- NOTE | 2018-10-09 14:21 | PROGRESS NOTE ---
DATE: 10/09/2018 SUBJECTIVE: Patient resting comfortably in bed. No acute events overnight. He has not been on pressors. He is still hypokalemic. He will receive 2 doses of potassium today and I will check his magnesium and phosphorus in the morning. OBJECTIVE: Vital Signs: Temperature 98.3 degrees, pulse 80 respiratory rate 25, blood pressure 100/56, oxygen saturation 92 on room air. HEENT: Head normocephalic. No trauma. PERRLA. Neck: Supple. No JVD. No masses. Central trachea. Chest: Decreased breath sounds at the bases with some crackles. Right upper chest wound looks clean with a dressing. Port-A-Cath has been removed. He has a pacemaker on the left upper part of the chest with no signs of infection. Abdomen: Soft, nontender, nondistended. No hepatosplenomegaly. Extremities: No edema, no clubbing, no cyanosis. Neurological: The patient is alert, he is oriented x3. No focal deficits. LABORATORY DATA: WBC 43.7, hemoglobin 8.2, hematocrit 24.8, platelet 170,000. Sodium 135, potassium 2.9, chloride 95, bicarbonate 34, BUN 27, creatinine 0.6, glucose 142, calcium 7.9. Albumin 2.6. ASSESSMENT AND PLAN: 1. Septic shock, bacteremia. We have a positive culture that showed pseudomonas in blood. Likely this was coming from the Port-A-Cath which has been removed 3 days ago. We will continue with the antibiotics and follow the recommendations of Infectious Disease Department, he is not on pressors. 2. Fluid overload and suspected pneumonia. Continue to monitor. So far, we have a negative balance of 4.6 L. 3. History of chronic lymphocytic leukemia, followed by Hematology/Oncology Department. Aware. 4. Immunoglobulin deficiency. This patient received IVIG. 5. Type 2 diabetes. Continue with same management. 6. Atrial fibrillation. Cardiology on board. 7. [place] disease. I will decrease a little bit the stress doses of steroids to 100 twice a day instead of 3 times a day and we will monitor the blood pressure. 8. Pulmonary edema in a patient with a history of congestive heart failure, diastolic dysfunction. Continue with furosemide. So far, negative balance. 9. Hypomagnesemia, resolved but I will check a new lab work in the morning. 10. Hypokalemia. I will replace it. 11. Hypophosphatemia. I will recheck the phosphorus in the morning again. CRITICAL CARE TIME: 35 minutes. cc: Michael Gao MD MTDD
[2018-10-09] MEDS: PATIENT'S OWN MED PO SCH (15:35)
--- NOTE | 2018-10-09 16:52 | INFECTIOUS DISEASE PROGRESS NO ---
DATE: 10/09/2018 PRESENT ILLNESS: The patient has a Pseudomonas bacteremia with an associated urinary tract infection. The patient's Pseudomonas originated from his Port-A-Cath which has been removed. The patient also has a pacemaker present on the left side which could have been infected hematogenously. The patient has CLL and an associated immunoglobulin deficiency. Today I noticed that the patient has white coating on his tongue which to me is suggestive of oral candidiasis. MEDICATIONS: This is the 3rd day of treatment with cefepime 2 g IV every 8 hours. Day 1 of treatment is the first day that the patient's repeat blood cultures were negative. PHYSICAL EXAMINATION: Vital Signs: Temperature is 98.8 degrees, pulse 80, respirations 25, blood pressure 100/56. General: This is a chronically ill-appearing elderly male. He is in no acute distress. Head, eyes, ears, nose and throat: He can hear my spoken words and see near objects. He does seem to have a white coating on his tongue today. Neck: No meningismus. Patient has a left-sided jugular vein catheter in place. The site is not swollen or erythematous. Lungs: Clear to auscultation. Cardiac: Heart rate is regular. Thorax: The patient's right-sided Port- A-Cath has been removed. The site is not erythematous or purulent. Abdomen: Soft and nontender. Cardiac: Heart rate is regular. Neurologic: The patient is awake. He can move his extremities. There is no tremor. Integument: No rash. LABORATORY AND RADIOLOGY: Patient's CBC shows a white count of 43,790, hemoglobin 8.2 and platelet count 170,000. Creatinine 0.6. GFR is greater than 60. Liver function studies are normal. Blood cultures drawn on October 06 are sterile. ASSESSMENT AND PLAN: Patient has a Pseudomonas bacteremia and associated urinary tract infection. The bacteremia originated from the patient's Port-A-Cath which has been removed. This is day 3 of treatment with intravenous cefepime. The patient will need a total of 6 weeks of treatment because the patient's pacemaker may have been infected hematogenously. I am going to go ahead and start nystatin swish and swallow for the patient's oral candidiasis. COMORBIDITIES: Chronic lymphocytic leukemia, immunoglobulin deficiency, the patient is elderly. The patient receives chemotherapy for his leukemia. Dr. Hurtado is managing the patient's immunoglobulin deficiency. cc: Kvng Ruby MD
[2018-10-09] MEDS: PRAVACHOL PO SCH (20:38)
[2018-10-10] MEDS: MAXIPIME 2 GM in NS 100 ML IV SCH ×3 (04:58→20:23)
[2018-10-10] MEDS: SOLU-CORTEF IV SCH ×2 (05:00→17:24)
[2018-10-10] MEDS: PROTONIX PO SCH (06:02)
[2018-10-10] MEDS: REGLAN PO SCH ×3 (06:02→15:29)
[2018-10-10] MEDS: HUMULIN R SUBQ SCH ×5 (06:20→20:24)
[2018-10-10 06:31] LABS: BASO# 0.07 X1000 (0.0-0.2); BASO% 0.1 % (0.0-0.8); EOS# 0.15 X1000 (0.0-0.7); EOS% 0.3 % (0.0-10.0); HEMATOCRIT 26.5 % (42.0-52.0); HEMOGLOBIN 8.7 g/dL (14.0-18.0); IMM GRAN# 0.24 X1000 (0.0-0.04); IMM GRAN% 0.4 % (0.0-0.5); LYMPH# 53.68 X1000 (1.2-3.4); LYMPH% 94.6 % (20.5-51.1); MCH 33.7 PG (27-31); MCHC 32.8 g/dL (33-37); MCV 102.7 FL (81-99); MONO# 0.39 X1000 (0.11-0.59); MONO% 0.7 % (1.7-9.3); MPV 11.6 FL (7.4-10.4); NEUT# 2.22 X1000 (1.4-6.5); NEUT% 3.9 % (42.2-75.2); PLT 145 X1000 (130-400); RBC 2.58 XMIL (4.7-6.1); RDW 19.5 % (11.5-14.5); WBC 56.75 X1000 (4.8-10.8)
[2018-10-10 06:39] LABS: MAGNESIUM 1.5 mg/dL (1.5-2.7); PHOSPHORUS 2.5 mg/dL (2.7-4.5)
[2018-10-10 06:42] LABS: AGAP 13; BUN 28 mg/dL (8-22); CALCIUM 8.3 mg/dL (8.8-10.2); CHLORIDE 97 mmol/L (98-107); COSMO 277; CREATININE 0.7 mg/dL (0.7-1.2); ESTIMATED GFR > 60; GLUCOSE 95 mg/dL (70-104); POTASSIUM 3.2 mmol/L (3.5-5.1); SODIUM 136 mmol/L (136-145); TCO2 26 mmol/L (25-35)
[2018-10-10] MEDS ORDERED: POTASSIUM PHOSPHATE 20 MMOL in NS 250 ML IV ONE (07:03)
[2018-10-10] MEDS ORDERED: MAGNESIUM SULFATE 2 GM/S.W.I. 2 GM/50 ML IVPB IV ONE (07:04)
[2018-10-10] MEDS: LANTUS INSULIN SUBQ SCH ×2 (09:38→20:25)
[2018-10-10] MEDS: LASIX IV SCH ×2 (09:39→20:24)
[2018-10-10] MEDS: MEGACE LIQUID PO SCH ×2 (09:39→20:24)
[2018-10-10] MEDS: MYCOSTATIN SUSP PO SCH ×4 (09:39→20:23)
[2018-10-10] MEDS: SYNTHROID PO SCH (09:40)
[2018-10-10] MEDS: FLORINEF PO SCH (09:40)
[2018-10-10] MEDS: ELIQUIS PO SCH ×2 (09:40→20:24)
[2018-10-10] MEDS: ULORIC PO SCH (09:40)
--- NOTE | 2018-10-10 09:45 | PULMONOLOGY PROGRESS NOTE ---
DATE: 10/10/2018 SUBJECTIVE: The patient is awake, alert, and conversant. He is sitting in the bedside chair. OBJECTIVE: Vital Signs: The patient has been afebrile for the last 24 hours. Blood pressure 102/56, heart rate 80, respiratory rate 18, oxygen saturation 98% on room air. HEENT: Pupils are equal and reactive. Oropharynx appears clear. Neck: Supple. Chest: Reveals decreased breath sounds both lung bases. Cardiac: S1, S2. Abdomen: Soft. Extremities: Without edema. LABORATORIES: White blood count 69132, hemoglobin 8.2, platelet count 170,000. Sodium 135, potassium 2.9, chloride 95, bicarbonate 34, BUN 27, creatinine 0.6, glucose 142. IMPRESSION: A 73-year-old with: 1. Chronic bilateral effusions. 2. Pseudomonal bacteremia with urinary tract infection. 3. Immunoglobulin deficiency. 4. Chronic lymphocytic leukemia. 5. [place] disease. PLAN: 1. Continue treatment of bacteremia per Dr. Kvng Ruby. 2. Observe pleural effusions. 3. Follow up chest x-ray tomorrow. cc: Edwar Ellison MD
--- NOTE | 2018-10-10 14:31 | PROGRESS NOTE ---
DATE: 10/10/2018 SUBJECTIVE: This patient seems to be resting comfortably in bed. He has not been on pressors. He has multiple electrolyte abnormalities including magnesium, phosphorus, and potassium. I will replace all of them. OBJECTIVE: Vital Signs: Temperature 98.1 degrees, pulse 80, respiratory rate 27, blood pressure 116/59, oxygen saturation 97% on room air. HEENT: Head normocephalic, no trauma. PERRLA. Neck: Supple. No JVD. No masses. Central trachea. Chest: Decreased breath sounds at the bases with some crackles. Right upper chest wound looks clean. Port-A-Cath has been removed. Pacemaker is in the left upper part of the chest with no signs of infection. Abdomen: Soft, nontender, nondistended. No hepatosplenomegaly. Extremities: No edema, no clubbing, no cyanosis. Neurological: The patient is alert, he is oriented x3. No focal deficits. LABORATORY: WBC 56.7, hemoglobin 8.7, hematocrit 26.5, and platelets 145,000, sodium 136, potassium 3.2, chloride 97, bicarbonate 26, BUN 28, creatinine 0.7, glucose 95, calcium 8.3, magnesium 1.5, phosphorus 2.5. ASSESSMENT AND PLAN: 1. Septic shock, due to pseudomonal urinary tract infection and bacteremia due to the same organism, Port-A-Cath has been removed. He is not on pressors. We will continue to monitor. Continue with same medications. 2. Fluid overload and suspected pneumonia. Continue to monitor. So far a negative balance of 5.1 L. Continue with same management. 3. History of CLL, followed by Hematology/Oncology Department. 4. Immunoglobulin deficiency. The patient received IVIG. 5. Type 2 diabetes. Continue with same management. 6. Atrial fibrillation. Cardiology on board. 7. [place]'s disease. I will decrease the stress dose of steroids to 500 of hydrocortisone twice a day. 8. Pulmonary edema in a patient with diastolic heart failure, continue with furosemide. 9. Hypomagnesemia. I will replace it. 10. Hypokalemia. I will replace it. 11. Hypophosphatemia. She will receive potassium phosphate. CRITICAL CARE TIME: 35 minutes. cc: Michael Gao MD
[2018-10-10] MEDS: PATIENT'S OWN MED PO SCH (15:29)
[2018-10-10] MEDS ORDERED: KLOR-CON PO ONE (18:00)
[2018-10-10] MEDS: PRAVACHOL PO SCH (20:24)
[2018-10-11] MEDS: SOLU-CORTEF IV SCH ×3 (05:32→19:43)
[2018-10-11] MEDS: MAXIPIME 2 GM in NS 100 ML IV SCH ×3 (05:32→19:45)
[2018-10-11] MEDS: HUMULIN R SUBQ SCH ×4 (06:25→21:09)
[2018-10-11] MEDS: PROTONIX PO SCH (06:26)
[2018-10-11] MEDS: REGLAN PO SCH ×3 (06:26→15:24)
[2018-10-11 06:50] LABS: BASO# 0.05 X1000 (0.0-0.2); BASO% 0.1 % (0.0-0.8); EOS# 0.02 X1000 (0.0-0.7); HEMATOCRIT 25.9 % (42.0-52.0); HEMOGLOBIN 8.6 g/dL (14.0-18.0); IMM GRAN# 0.03 X1000 (0.0-0.04); IMM GRAN% 0.1 % (0.0-0.5); LYMPH# 49.47 X1000 (1.2-3.4); LYMPH% 95.5 % (20.5-51.1); MCHC 33.2 g/dL (33-37); MCV 102.4 FL (81-99); MONO# 0.42 X1000 (0.11-0.59); MONO% 0.8 % (1.7-9.3); MPV 10.6 FL (7.4-10.4); NEUT# 1.81 X1000 (1.4-6.5); NEUT% 3.5 % (42.2-75.2); PLT 191 X1000 (130-400); RBC 2.53 XMIL (4.7-6.1); RDW 18.7 % (11.5-14.5)
[2018-10-11 07:10] LABS: AGAP 11; BUN 27 mg/dL (8-22); CALCIUM 8.5 mg/dL (8.8-10.2); CHLORIDE 96 mmol/L (98-107); COSMO 277; CREATININE 0.6 mg/dL (0.7-1.2); ESTIMATED GFR > 60; GLUCOSE 69 mg/dL (70-104); POTASSIUM 2.9 mmol/L (3.5-5.1); SODIUM 137 mmol/L (136-145); TCO2 30 mmol/L (25-35)
--- NOTE | 2018-10-11 07:45 | Diag Imaging Result Doc PS360 ---
EXAM: CHEST-PORTABLE INDICATION: dyspnea TECHNIQUE: One view COMPARISON: 10/08/2018 FINDINGS: Interstitial edema is approximately stable. There are bilateral pleural effusions that appear slightly larger. No new consolidations are identified, otherwise. Cardiac silhouette is stable. IMPRESSION: Slight increase in bilateral pleural effusions. Stable chest, otherwise. Electronically signed by Tank Clement 10/11/2018 7:42 AM
[2018-10-11 08:05] LABS: LYMPHS 97 % (21-51); SEGS 3 % (42-75)
[2018-10-11] MEDS: LANTUS INSULIN SUBQ SCH ×2 (08:27→21:07)
[2018-10-11] MEDS: LASIX IV SCH ×2 (08:28→20:13)
[2018-10-11] MEDS: MEGACE LIQUID PO SCH ×2 (08:29→20:12)
[2018-10-11] MEDS: FLORINEF PO SCH (08:30)
[2018-10-11] MEDS: SYNTHROID PO SCH (08:30)
[2018-10-11] MEDS: MYCOSTATIN SUSP PO SCH ×4 (08:30→20:12)
[2018-10-11] MEDS: ELIQUIS PO SCH ×2 (08:30→20:11)
[2018-10-11] MEDS: ULORIC PO SCH (08:30)
[2018-10-11] MEDS: KLOR-CON PO SCH ×2 (08:31→20:12)
--- NOTE | 2018-10-11 10:43 | PROGRESS NOTE ---
DATE: 10/11/2018 SUBJECTIVE: No acute events overnight. This patient is not on pressors. Blood pressure has been stable and he has been tolerating the hydrocortisone twice a day. I will decrease it today from 50 twice a day to 25 twice a day. Tomorrow, if he is doing fine, I will put him on his usual p.o. treatment which is hydrocortisone 20 mg q.a.m., 10 mg at lunch, and 10 mg at bedtime. I will continue his fludrocortisone 0.1 mg daily. OBJECTIVE: Vital Signs: Temperature 97.6 degrees, pulse 82, respiratory rate 22, blood pressure 110/70, oxygen saturation 100% on room air. HEENT: Head normocephalic. No trauma. PERRLA. Neck: Supple. No JVD. No masses. Central trachea. Chest: Decreased breath sounds at the bases with some crackles but getting better. Right upper chest wound looks clean. Port-A-Cath has been removed. Pacemaker on his left upper chest area with no signs of infection. Abdomen: Soft, nontender. No hepatosplenomegaly. Extremities: No edema, no clubbing, no cyanosis. Neurological Examination: The patient is sleepy but arousable. He is oriented. No focal deficits. Laboratory: WBC 51.8, hemoglobin 8.6, hematocrit 25.9, platelets 191,000. Pending BMP. ASSESSMENT AND PLAN: 1. Septic shock due to pseudomonal urinary tract infection and bacteremia due to the same organism. Port-A-Cath has been removed. This could be the source of infection. He is not on pressors. We will continue with the same management. I will decrease the dose of the hydrocortisone and hopefully, in the future, I will be able to put him on his regular treatment with hydrocortisone 3 times a day, 20 mg in the morning, 10 at lunch, and 10 at night. 2. Fluid overload with suspected pneumonia. This is getting better. So far, we have a negative balance of 6.6 L. We will continue with the same management. Kidney function has been stable. Pending BMP today though. 3. History of chronic lymphocytic leukemia, followed by hematology/oncology department. 4. History of immunoglobulin deficiency. This patient received IVIG already. 5. Type 2 diabetes. Continue with the same management. 6. Atrial fibrillation. Cardiology on board. I believe this patient will have a transesophageal echocardiogram in the future. 7. Sushil's disease. I will decrease the stress dose of steroids to 25 of hydrocortisone twice a day and hopefully, in the future, I will be able to put this patient back on his regular home medications. 8. Pulmonary edema in a patient with diastolic heart failure. Continue with furosemide. 9. Hypomagnesemia. It had been replaced yesterday. Pending results. 10. Hypokalemia. It had been replaced yesterday as well and resolved. 11. Hypophosphatemia. He received potassium phosphate yesterday. Pending results today. cc: Michael Gao MD
[2018-10-11] MEDS: PATIENT'S OWN MED PO SCH (15:24)
[2018-10-11] MEDS: PRAVACHOL PO SCH (20:11)
--- NOTE | 2018-10-11 21:32 | PULMONOLOGY PROGRESS NOTE ---
DATE: 10/11/2018 SUBJECTIVE: The patient is awake, alert. He is sitting in the chair. He reports he feels stronger today than yesterday. OBJECTIVE: Vital Signs: The patient has been afebrile for the last 24 hours. Blood pressure 113/56, heart rate 80, respiratory rate 20, oxygen saturation 99% on room air. HEENT: Pupils are equal and reactive. Oropharynx is clear. Neck: Is supple. Chest: Reveals diminished breath sounds both lung bases. Cardiac exam: S1-S2. Abdomen: Is soft. Extremities: Are without significant edema. LABORATORIES: Chest x-ray reveals slight increase in bilateral effusions. White blood count 51.8, hemoglobin 8.6, platelet count 191,000. Sodium 137, potassium 2.9, chloride 90, bicarbonate 30, BUN 27, creatinine 0.6. IMPRESSION: 1. A 73-year-old with chronic lymphocytic leukemia. 2. Chronic bilateral effusions. 3. Sushil disease. 4. Pseudomonal bacteremia with urinary tract infection. DISCUSSION: A 73-year-old with problems outlined above. He does have slight increase in effusions but is asymptomatic. PLAN: 1. Continue to observe pleural effusions at this time. 2. Continue bacteremia treatment per Dr. Kvng Ruby. 3. Continue treatment of [place]'s. 4. Attempt to balance intake and output. cc: Edwar Ellison MD
[2018-10-12] MEDS: MAXIPIME 2 GM in NS 100 ML IV SCH ×3 (03:08→21:05)
[2018-10-12 05:45] LABS: BASO# 0.04 X1000 (0.0-0.2); BASO% 0.1 % (0.0-0.8); EOS# 0.01 X1000 (0.0-0.7); HEMATOCRIT 25.9 % (42.0-52.0); HEMOGLOBIN 8.2 g/dL (14.0-18.0); IMM GRAN# 0.02 X1000 (0.0-0.04); LYMPH# 44.43 X1000 (1.2-3.4); LYMPH% 96.7 % (20.5-51.1); MCH 32.7 PG (27-31); MCHC 31.7 g/dL (33-37); MCV 103.2 FL (81-99); MONO# 0.12 X1000 (0.11-0.59); MONO% 0.3 % (1.7-9.3); MPV 10.8 FL (7.4-10.4); NEUT# 1.33 X1000 (1.4-6.5); NEUT% 2.9 % (42.2-75.2); PLT 196 X1000 (130-400); RBC 2.51 XMIL (4.7-6.1); RDW 19.4 % (11.5-14.5); WBC 45.95 X1000 (4.8-10.8)
[2018-10-12] MEDS: REGLAN PO SCH ×3 (06:06→15:58)
[2018-10-12] MEDS: PROTONIX PO SCH (06:06)
[2018-10-12 06:07] LABS: LYMPHS 94 % (21-51); SEGS 6 % (42-75)
[2018-10-12 06:17] LABS: AGAP 12; BUN 27 mg/dL (8-22); CALCIUM 7.9 mg/dL (8.8-10.2); CHLORIDE 95 mmol/L (98-107); COSMO 278; CREATININE 0.6 mg/dL (0.7-1.2); ESTIMATED GFR > 60; GLUCOSE 156 mg/dL (70-104); MAGNESIUM 1.5 mg/dL (1.5-2.7); PHOSPHORUS 3.1 mg/dL (2.7-4.5); POTASSIUM 2.8 mmol/L (3.5-5.1); SODIUM 135 mmol/L (136-145); TCO2 28 mmol/L (25-35)
[2018-10-12] MEDS: HUMULIN R SUBQ SCH ×4 (06:24→21:05)
[2018-10-12] MEDS ORDERED: MAGNESIUM SULFATE 2 GM/S.W.I. 2 GM/50 ML IVPB IV ONE (07:16)
--- NOTE | 2018-10-12 07:48 | INFECTIOUS DISEASE PROGRESS NO ---
DATE: 10/12/2018 PRESENT ILLNESS: The patient has a pseudomonas bacteremia which originated from his Port-A-Cath and the bacteremia has an associated urinary tract infection with pseudomonas also. The patient has a pacemaker on the left side which could have become infected hematogenously. The patient has CLL and an immunoglobulin deficiency. He also has [place]'s disease. Finally, the patient has oral candidiasis. MEDICATIONS: This is the 6th day of treatment with cefepime with day 1 being the first day that the patient's repeat blood cultures were negative. The patient also is on nystatin swish and swallow for his oral candidiasis. PHYSICAL EXAMINATION: Vital Signs: Temperature is 98.6 degrees, pulse 79, respirations 18, blood pressure is 115/65. General: This is a chronically ill-appearing, elderly male. He is in no acute distress. Head, Eyes, Ears, Nose, and Throat: He can hear my spoken words and see near objects. He no longer has the white coating on his tongue. Neck: There is no neck pain when he moves his neck or head. He has a left-sided internal jugular vein catheter in place. The catheter site is not swollen or tender. Lungs: Clear to auscultation. Cardiovascular: Heart rate is regular. Thorax: On the patient's right side, there is the wound where the Port-A-Cath has been removed. The wound is not erythematous or draining. On the left side, there is a permanent pacemaker. That site is not swollen or erythematous either. Abdomen: Soft and nontender. Neurologic: The patient is alert. He can move his extremities. Yesterday, he did stand and he sat in a chair. Today, he is going to try to walk. LAB AND RADIOLOGY: CBC today shows a white count of 45,950, hemoglobin 8.2, and platelet count 196,000. Creatinine is 0.6. GFR is greater than 60.. ASSESSMENT AND PLAN: The patient has pseudomonas bacteremia which originated from his Port-A-Cath and he also has an associated pseudomonas urinary tract infection. This is day 6 of treatment with cefepime. The patient also has a left-sided pacemaker which may have become infected hematogenously. Because of this, I plan to treat the patient for 6 weeks with cefepime. The patient also has oral candidiasis for which I am going to continue nystatin swish and swallow. COMORBIDITIES: Chronic lymphocytic leukemia, immunoglobulin deficiency, the patient is elderly, the patient is on chemotherapy for his leukemia, and the patient has Sushil's disease. Dr. Hurtado is managing the patient's immunoglobulin deficiency. cc: Kvng Ruby MD
--- NOTE | 2018-10-12 08:09 | PROGRESS NOTE ---
DATE: 10/12/2018 SUBJECTIVE: No acute events overnight. Blood pressure has been stable. He tolerated hydrocortisone twice a day. I have stopped the IV hydrocortisone and I put him back on his home dose medications with hydrocortisone 20 mg p.o. q.a.m., 10 mg at lunch, and 10 mg at bedtime. We will monitor the blood pressure closely. Continue with fludrocortisone 0.1 mg daily. OBJECTIVE: Vital Signs: Temperature 98.6 degrees, pulse 79, respiratory rate 18, blood pressure 115/65, oxygen saturation 99 on room air. HEENT: Head normocephalic. No trauma. PERRLA. Neck: Supple. No JVD. No masses. Central trachea. Chest: Coarse breath sounds at the bases with some crackles, but getting better. Right upper chest wound looks clean and is covered with a dressing. Port-A-Cath has been removed. Pacemaker on the left upper chest area with no signs of infection. Abdomen: Soft, nontender. No hepatosplenomegaly. Nondistended. Extremities: No edema, no clubbing, no cyanosis. Neurological Examination: The patient is alert. He is oriented x3. No focal deficit but generalized weakness. Laboratory: WBC 44.9, hemoglobin 8.2, hematocrit 25.9, platelets 196,000. Sodium 135, potassium 2.8, chloride 95, bicarbonate 28, BUN 27, creatinine 0.6, glucose 156, calcium 7.9, phosphorus 3.1, magnesium 1.5. ASSESSMENT AND PLAN: 1. Septic shock due to pseudomonal bacteremia and urinary tract infection. Port-A-Cath has been removed. This could be the source of infection. He is not on pressors. Continue with the same management. I switched the intravenous hydrocortisone to oral hydrocortisone. I will monitor the blood pressure closely. He seems to be stable. 2. Fluid overload with suspected pneumonia. This is getting better. So far, we have a negative balance of 8.6 L. We will monitor this closely. 3. History of chronic lymphocytic leukemia, followed by hematology/oncology department. 4. History of immunoglobulin deficiency. This patient received IVIG already. 5. Type 2 diabetes. Continue with the same management. 6. Atrial fibrillation. Cardiology is on board. 7. Sushil's disease. I will switch the intravenous hydrocortisone to oral hydrocortisone to his home dose, 20 in the morning, 10 at lunch, and 10 before bed. I will monitor the blood pressure closely. We will provide hydrocortisone intravenously as needed. 8. Pulmonary edema in a patient with diastolic heart failure. He is not complaining of any respiratory issues. We will continue with Lasix. 9. Hypomagnesemia. It is borderline low. It is 1.5. I will replace it. 10. Hypokalemia. I will replace it today. He will receive 2 doses of potassium. Likely due to steroids and borderline low hypomagnesemia., 11. Hypophosphatemia, resolved. cc: Michael Gao MD
[2018-10-12] MEDS: MYCOSTATIN SUSP PO SCH ×4 (08:20→21:05)
[2018-10-12] MEDS: MEGACE LIQUID PO SCH ×2 (08:20→21:05)
[2018-10-12] MEDS: FLORINEF PO SCH (08:21)
[2018-10-12] MEDS: SYNTHROID PO SCH (08:21)
[2018-10-12] MEDS: LASIX IV SCH ×2 (08:21→21:05)
[2018-10-12] MEDS: ELIQUIS PO SCH ×2 (08:21→21:04)
[2018-10-12] MEDS: KLOR-CON PO SCH ×2 (08:46→21:05)
[2018-10-12] MEDS: LANTUS INSULIN SUBQ SCH ×2 (08:46→21:05)
--- NOTE | 2018-10-12 08:56 | CARDIOLOGY PROGRESS NOTE ---
DATE: 10/12/2018 CHIEF COMPLAINT: Confusion, shortness of breath. SUBJECTIVE: Mr. Rendon is generally feeling better. He spent several days in the ICU almost since admission. Now he has been transferred to the Step Down Cardiac Unit. His most recent blood cultures were positive on 10/03/2018 and then have been negative on 10/06/2018 and 10/11/2018. There is a concern that his septicemia might have compromised the tricuspid valve and also the pacemaker leads, as they are in immediate contact with the tricuspid valve. The patient denies having chest pain. He is more comfortable. OBJECTIVE: Blood pressure is 116/60, temperature 98.4, pulse 80, respirations 16. He is awake, alert, oriented. HEENT is unremarkable. Chest: Diminished breath sounds diffusely. Heart sounds are regular and rhythmic. I do not hear a gallop or murmur. Abdomen is nontender. Extremities showed no edema. DIAGNOSTIC DATA: White cell count is 45,950, hemoglobin 8.2, hematocrit 25.9. Sodium is 135, potassium 2.8, BUN is 27, creatinine 0.6. IMPRESSION: 1. The patient presented with septicemia and a toxic state. Pseudomonas was isolated from the blood. 2. History of pacemaker implantation, biventricular system. He has permanent atrial fibrillation and is status post atrioventricular maribel ablation. He is pacemaker dependent. 2. Chronic lymphocytic leukemia. 3. Hypokalemia. 4. Midnight's disease. 5. 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 RECOMMENDATIONS: Since the overall the patient's condition has improved, and after discussing with Dr. Ruby last week, I believe it is reasonable to pursue transesophageal echocardiogram at this time to make sure that his pacemaker leads are not grossly infected. I explained to him the benefits, risks, complications and the rationale for doing this procedure. He understood and requested to proceed. We will make arrangements for 10/13/2018. Further advice will be forthcoming. cc: MD EMIL Parham
[2018-10-12] MEDS ORDERED: CORTEF PO SCH ×3 (09:00→21:00)
[2018-10-12] MEDS: ULORIC PO SCH (10:16)
[2018-10-12] MEDS ORDERED: SOLU-CORTEF IV ONE (10:58)
[2018-10-12] MEDS: PATIENT'S OWN MED PO SCH (15:58)
--- NOTE | 2018-10-12 17:22 | HEMO/ONC PROGRESS NOTE ---
DATE: 10/12/2018 SUBJECTIVE: The patient states he had a very good weekend. No acute events over the weekend or last night. He tells me that he was able to get up in the chair most of yesterday. He is feeling better, but he still feels weak. He noted he was able to do some exercises with the physical therapist yesterday. He denies pain or any other complaints today. OBJECTIVE: Vital Signs: Temperature 98.4 degrees, pulse rate 80, respiratory rate 16, blood pressure 116/60, O2 saturation 99% on room air. Pain: He is in 0/10 pain. General: Elderly, chronically ill-appearing male, in no acute distress. Respiratory: Improving breath sounds. Upper lungs clear to auscultation. Good bilateral air entry. Abdomen: Soft, nontender, nondistended. Extremities: No lower extremity edema. Upper extremity edema still remains. LABORATORY: WBC 45.95, hemoglobin 8.2, hematocrit 25.9, platelet count 196,000. ANC 1.33. Potassium 2.8, creatinine 0.6, calcium 7.9. ASSESSMENT: 1. Chronic lymphocytic leukemia. On chemotherapy. 2. Status post Port-A-Cath removal. 3. Septic shock with Pseudomonas bacteremia. 4. Worsening anemia. 5. Neutropenia. 6. Fluid overload and suspected pneumonia. 7. Immunoglobulin deficiency. Last IVIG on 09/10/2018. [place] disease. 8. Refractory atrial fibrillation status post pacemaker placement. 9. Diabetes mellitus, type 2. 10. Adrenal insufficiency and electrolyte abnormalities. PLAN: The patient has been moved down to a CIC floor bed as he is improving. He is no longer on the pressors. He has switched to oral hydrocodone for medical management. He is continuing with electrolyte replacement and continues on Imbruvica. We will continue to monitor his ANC and anemia. He will require transfusion as needed. We will continue to monitor and follow closely. Dictated by ERLIN Padilla for Anjum Hurtado MD Patients and examined. As above. Continues to slowly make progress. Continue to transfuse as needed. White cell growth factor support as needed for neutropenia. CLL is well controlled on Imbruvica. 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 Cardiology is evaluating his pacemaker in the setting of pseudomonas bacteremia. Anjum Hurtado M.D. cc: Anjum Hurtado MD [facility]
[2018-10-12] MEDS: SOLU-CORTEF IV SCH (18:10)
[2018-10-12] MEDS: PRAVACHOL PO SCH (21:04)
[2018-10-13] MEDS: MAXIPIME 2 GM in NS 100 ML IV SCH ×3 (03:49→20:55)
[2018-10-13] MEDS: SOLU-CORTEF IV SCH ×2 (06:14→18:13)
[2018-10-13] MEDS: PROTONIX PO SCH (06:14)
[2018-10-13] MEDS: REGLAN PO SCH ×3 (06:14→16:30)
[2018-10-13] MEDS: HUMULIN R SUBQ SCH ×4 (06:45→21:11)
[2018-10-13] MEDS: FLORINEF PO SCH (08:06)
[2018-10-13] MEDS: SYNTHROID PO SCH (08:06)
[2018-10-13] MEDS: LASIX IV SCH ×2 (08:06→21:08)
[2018-10-13] MEDS: ULORIC PO SCH (08:06)
[2018-10-13] MEDS: MEGACE LIQUID PO SCH ×2 (08:06→21:07)
[2018-10-13] MEDS: MYCOSTATIN SUSP PO SCH ×4 (08:06→21:06)
[2018-10-13] MEDS: ELIQUIS PO SCH ×2 (08:06→21:08)
[2018-10-13] MEDS ORDERED: XYLOCAINE 2% VISCOUS ONE (08:19)
[2018-10-13] MEDS ORDERED: SODIUM CHLORIDE 0.9% 10 ML ONE (08:19)
[2018-10-13] MEDS ORDERED: VERSED ONE (08:19)
[2018-10-13] MEDS ORDERED: XYLOCAINE 4% TOPICAL SOLUTION ONE (08:19)
[2018-10-13] MEDS ORDERED: DEMEROL ONE (08:20)
[2018-10-13] MEDS ORDERED: ANESTHESIA PB SET 88 IN 5742 ONE (08:41)
[2018-10-13] MEDS ORDERED: CLAVE TWINSITE 32 IN 11959 ONE (08:41)
[2018-10-13] MEDS ORDERED: NS 1,000 ML ONE (08:42)
[2018-10-13 08:56] LABS: AGAP 8; BUN 28 mg/dL (8-22); CALCIUM 8.9 mg/dL (8.8-10.2); CHLORIDE 96 mmol/L (98-107); COSMO 274; CREATININE 0.6 mg/dL (0.7-1.2); GLUCOSE 174 mg/dL (70-104); POTASSIUM 3.4 mmol/L (3.5-5.1); SODIUM 132 mmol/L (136-145); TCO2 28 mmol/L (25-35)
[2018-10-13 09:07] LABS: BASO# 0.04 X1000 (0.0-0.2); BASO% 0.1 % (0.0-0.8); EOS# 0.01 X1000 (0.0-0.7); HEMATOCRIT 24.7 % (42.0-52.0); HEMOGLOBIN 8.1 g/dL (14.0-18.0); IMM GRAN# 0.09 X1000 (0.0-0.04); IMM GRAN% 0.2 % (0.0-0.5); LYMPH# 45.64 X1000 (1.2-3.4); LYMPH% 96.7 % (20.5-51.1); MCH 33.8 PG (27-31); MCHC 32.8 g/dL (33-37); MCV 102.9 FL (81-99); MONO# 0.22 X1000 (0.11-0.59); MONO% 0.5 % (1.7-9.3); MPV 10.5 FL (7.4-10.4); NEUT# 1.22 X1000 (1.4-6.5); NEUT% 2.5 % (42.2-75.2); PLT 221 X1000 (130-400); RDW 19.7 % (11.5-14.5); WBC 47.22 X1000 (4.8-10.8)
[2018-10-13 09:14] LABS: LYMPHS 96 % (21-51); SEGS 2 % (42-75)
[2018-10-13] MEDS: LANTUS INSULIN SUBQ SCH ×2 (10:12→21:08)
--- NOTE | 2018-10-13 11:07 | PROGRESS NOTE ---
DATE: 10/13/2018 SUBJECTIVE: No acute events overnight. Yesterday, I tried to restart this patient on his home steroids but his blood pressure dropped so I put him back on hydrocortisone IV. I will probably wait one more day to try to restart him again on this treatment. It looks like the cardiology department will do a BUCK today. OBJECTIVE: Vital Signs: Temperature 98.1 degrees, pulse 80, respiratory rate 18, blood pressure 106/55, oxygen saturation 100% on room air. HEENT: Head normocephalic. No trauma. PERRLA. Neck: Supple. No JVD. No masses. Central trachea. Chest: Coarse breath sounds at the bases with some crackles. Right upper chest wound looks clean. It is covered with a dressing. Port-A- Cath has been removed. Pacemaker on the left upper chest area with no signs of infection. Abdomen: Soft, nontender, nondistended. No hepatosplenomegaly. Extremities: No edema, no clubbing, no cyanosis. Neurological Examination: The patient is alert. He is oriented x3. No focal deficits but generalized weakness. Laboratory: Pending lab work today. ASSESSMENT AND PLAN: 1. Septic shock due to pseudomonal bacteremia and urinary tract infection due to pseudomonas as well. Port-A-Cath has been removed. This could be the source of infection. He is not on pressors. Continue with the same management. Continue with intravenous steroids for now and I will monitor the blood pressure closely. He seems to be stable today. 2. Fluid overload with suspected pneumonia. This is getting better. So far, negative balance of 11.4 L. 3. History of chronic lymphocytic leukemia, followed by hematology/oncology department. 4. History of immunoglobulin deficiency. This patient already received IVIG. 5. Type 2 diabetes. Continue with the same management. 6. Atrial fibrillation. Cardiology on board. 7. Sushil's disease. Continue with steroids. Blood pressure is stable. 8. Pulmonary edema in a patient with diastolic heart failure. He is not complaining of any respiratory issues today. We will continue with Lasix for now. 9. Hypomagnesemia. It has been replaced. 10. Hypokalemia. Pending lab work today. 11. Hypophosphatemia. He has been stable but pending laboratory today. cc: Michael Gao MD
--- NOTE | 2018-10-13 12:56 | INFECTIOUS DISEASE PROGRESS NO ---
DATE: 10/13/2018 PRESENT ILLNESS: The patient has a Pseudomonas bacteremia which originated from an infected Port- A-Cath. The Port-A-Cath has been removed. The patient also has an associated urinary tract infection. The patient has a pacemaker on the left side of the chest, which could have become infected hematogenously. The patient has CLL with an associated immunoglobulin deficiency. He also has Hickory's disease and finally he has oral candidiasis. MEDICATIONS: This is the day 7 of treatment with cefepime for the patient's bacteremia. The patient also is on nystatin swish and swallow for his oral candidiasis. PHYSICAL EXAMINATION: Vital Signs: Temperature is 98.1 degrees, pulse 80, respirations 18, blood pressure 106/55. General: This is a chronically ill-appearing elderly male. He is in no acute distress. Head, eyes, ears, nose, and throat: He can hear my spoken words and see near objects. He does not have any white patches in his mouth. Neck: He does have a left- sided internal jugular venous catheter in place. The patient's neck is not swollen and it does not cause him any pain when he moves his neck or head. Thorax: The patient had his Port-A-Cath removed from the right side. That site has an incision which is healing. There is no swelling or purulence. On the left side, there is a permanent pacemaker. That site is not swollen or erythematous either. Abdomen: Soft and nontender. Cardiovascular: Heart rate is regular. Neurologic: Patient is alert. Yesterday, he stood up and took a few steps. LABORATORY AND RADIOLOGY: There is no new radiology back today and thus far there is no new lab for today either. ASSESSMENT AND PLAN: As mentioned above, the patient has a Pseudomonas bacteremia with an associated urinary tract infection. The patient's pacemaker may have become infected hematogenously. The patient also has chronic lymphocytic leukemia and an immunoglobulin deficiency. I am going to continue the patient's cefepime today. The patient is going to have a transesophageal echocardiogram to see if any of the pacemaker leads have vegetations on them. Also I plan to continue with oral candidiasis for at least as long as the patient is on antibiotics. The treatment course for cefepime will be a total of 6 weeks with day 1 being the first day the patient's repeat blood cultures were negative. If the pacemaker leads do have vegetations, it may well be that the pacemaker will have to be removed also. COMORBIDITIES: Chronic lymphocytic leukemia, immunoglobulin deficiency, the patient is elderly, he is on chemotherapy for his leukemia, Hickory's disease, and an immunoglobulin deficiency which is managed by Dr. Hurtado. cc: Kvng Ruby MD [facility]TDD
--- NOTE | 2018-10-13 14:08 | Transesophageal Echocardiogram ---
DATE: 10/13/2018 INTERPRETING PHYSICIAN: Tye Sumner MD. INDICATIONS FOR PROCEDURE: A 73-year-old male with chronic lymphocytic leukemia presented with Pseudomonas septicemia. The patient has had previous atrioventricular node ablation and has received a biventricular pacemaker device. He had persistent bacteremia due to Pseudomonas. Dr.Leroy Ruby from the Infectious Disease service was very concerned about the possibility that the patient could have seeded either the tricuspid valve/the pacemaker lead or the pulmonic valve because of this bacteremia. A transesophageal echocardiogram was recommended prior to instituting a long- term course of antibiotics. Benefits, risks, and complications were discussed and explained to the patient, and he understood and requests to proceed. DESCRIPTION: The patient was brought to the catheterization laboratory in a fasting state. His throat was anesthetized with Hurricaine and viscous lidocaine. He received 1 mg of Versed and 25 mg of Demerol. The esophagus was intubated without difficulty. Multiple views of the heart were obtained. SUMMARY OF MAIN FINDINGS: 1. The left atrium and the appendage are well visualized. 2. The patient is in atrial fibrillation. The flow velocities within the appendage are relatively normal. He does not have any thrombus there. 3. The interatrial septum appears to be grossly intact, however, after injection of agitated saline, there was some crossing of bubbles from [id number] suggesting that there might be a small patent foramen ovale. 4. The superior vena cava appeared to be free of any thrombus. The pacemaker leads were well visualized. They also appeared to be free of endocardial vegetation or thrombus. 5. The tricuspid valve was well visualized. Color flow mapping was unremarkable. 6. The pulmonic valve was well visualized. There was no evidence of any vegetation. 7. The right ventricular wall and right atrial wall also appeared to free of any obvious vegetation. 8. The left ventricle showed good contractility. Ejection fraction in the order of 55%. 9. The mitral valve appeared to be grossly normal. Color flow mapping showed moderate degree of regurgitation. 10.The aortic valve is a bicuspid valve, thickened, with mild degree of aortic regurgitation. A mild degree of stenosis appears to be present. The aortic root is unremarkable. 11.The pulmonary venous flow is also unremarkable. 12.I did not see any significant pericardial effusion. A left pleural effusion is present. 13.Descending thoracic aorta shows some diffuse scattered plaque without any mobile element or debris. SUMMARY: This transesophageal echocardiogram is negative for endocardial vegetation. The patient tolerated the procedure well without complications. cc: MD Tye Gu MD [facility]
--- NOTE | 2018-10-13 15:13 | INFECTIOUS DISEASE PROGRESS NO ---
DATE: 10/13/2018 ADDENDUM: The patient has just finished having his transesophageal echocardiogram. Dr. Sumner called me and told me that there were no vegetations on the patient's pacemaker, including the leads from the pacemaker. cc: Kvng Ruby MD
[2018-10-13] MEDS: PATIENT'S OWN MED PO SCH (16:30)
[2018-10-13] MEDS: PRAVACHOL PO SCH (21:08)
[2018-10-14] MEDS: MAXIPIME 2 GM in NS 100 ML IV SCH ×3 (04:55→20:17)
[2018-10-14] MEDS: SOLU-CORTEF IV SCH (05:23)
[2018-10-14 05:38] LABS: BASO# 0.07 X1000 (0.0-0.2); BASO% 0.1 % (0.0-0.8); EOS# 0.01 X1000 (0.0-0.7); HEMATOCRIT 27.1 % (42.0-52.0); HEMOGLOBIN 8.8 g/dL (14.0-18.0); IMM GRAN% 0.2 % (0.0-0.5); LYMPH# 58.85 X1000 (1.2-3.4); LYMPH% 96.6 % (20.5-51.1); MCH 33.7 PG (27-31); MCHC 32.5 g/dL (33-37); MCV 103.8 FL (81-99); MONO# 0.58 X1000 (0.11-0.59); MPV 10.5 FL (7.4-10.4); NEUT# 1.33 X1000 (1.4-6.5); NEUT% 2.1 % (42.2-75.2); PLT 260 X1000 (130-400); RBC 2.61 XMIL (4.7-6.1); RDW 20.2 % (11.5-14.5); WBC 60.94 X1000 (4.8-10.8)
[2018-10-14 05:56] LABS: AGAP 10; BUN 26 mg/dL (8-22); CALCIUM 8.8 mg/dL (8.8-10.2); CHLORIDE 100 mmol/L (98-107); COSMO 282; CREATININE 0.6 mg/dL (0.7-1.2); ESTIMATED GFR > 60; GLUCOSE 51 mg/dL (70-104); MAGNESIUM 1.6 mg/dL (1.5-2.7); POTASSIUM 2.7 mmol/L (3.5-5.1); SODIUM 140 mmol/L (136-145); TCO2 30 mmol/L (25-35)
[2018-10-14 06:11] LABS: LYMPHS 97 % (21-51); MONO 1 % (1-9); SEGS 2 % (42-75)
[2018-10-14] MEDS: REGLAN PO SCH ×3 (06:45→16:32)
[2018-10-14] MEDS: HUMULIN R SUBQ SCH ×4 (06:45→20:18)
[2018-10-14] MEDS: PROTONIX PO SCH (06:45)
--- NOTE | 2018-10-14 07:09 | Diag Imaging Result Doc PS360 ---
EXAM: CHEST-PORTABLE 10/14/2018 HISTORY: dyspnea TECHNIQUE: AP portable at [id number] COMMENT: There are bilateral pleural effusions and hazy pulmonary edema. The heart size is not enlarged. Compared to 10/11/2018 there has been no appreciable change. The pleural effusion on the right is clearly worse than on 10/08/2018. IMPRESSION: Pulmonary edema and pleural effusions. Electronically signed by Zhang Orozco 10/14/2018 7:06 AM
--- NOTE | 2018-10-14 08:27 | INFECTIOUS DISEASE PROGRESS NO ---
DATE: 10/14/2018 PRESENT ILLNESS: The patient has a Pseudomonas bacteremia which originated from his Port-A-Cath. The Port-A-Cath has been removed. The patient has an associated urinary tract infection. The patient also has a pacemaker on the left side. The transesophageal echocardiogram yesterday showed that there were no vegetations on the pacemaker or its leads. The patient also has CLL with an associated immunoglobulin deficiency. He also has Owsley's disease and oral candidiasis. MEDICATIONS: This is the 8th day of treatment with cefepime for the patient's bacteremia. The patient also is on nystatin swish and swallow for his oral candidiasis. PHYSICAL EXAMINATION: Vital Signs: Temperature is 98.4 degrees, pulse 80, respirations 16, blood pressure 104/44. General: This is a chronically ill-appearing elderly male. He is in no acute distress. He told me yesterday he did get up to walk, but his blood pressure became very low and he had to sit down. Head/eyes/ears/nose/throat: He can hear my spoken words and see near objects. I did not see any white coating on his tongue. Neck: The patient has a left-sided internal jugular venous catheter in place. The site is not erythematous or draining. Thorax: Patient had his right-sided Port-A-Cath removed. The area where the Port-A-Cath was has a dressing over it. The dressing is intact. The patient has a left-sided pacemaker in place. The pacemaker site is not swollen, red or tender. Lungs: Clear to auscultation. Abdomen: Soft and nontender. Cardiovascular: Heart rate for the most part is regular. There were a few times when it was irregular. Neurologic: The patient is alert. As mentioned above, he tried to take some steps yesterday, but he became hypotensive. LABS AND RADIOLOGY: The chest x-ray has not been read. My viewing of it is that the patient has pleural effusions, but no infiltrates. [place] [address] with an absolute neutrophil count of 1330, the hemoglobin is 8.8 and the platelet count is 260,000. Transesophageal echocardiogram showed no vegetations on the pacemaker. Creatinine is 0.6, GFR is greater than 60. ASSESSMENT AND PLAN: I plan to continue with cefepime. This will be day 8 of treatment with it. I plan to treat for 6 weeks even though the transesophageal echocardiogram did not show any vegetations. I plan to keep the nystatin going as long as the patient is on antibiotics. Also I put in an order for placement of a PICC. COMORBIDITIES: Chronic lymphocytic leukemia, immunoglobulin deficiency. The patient is taking chemotherapy for his leukemia. The patient is elderly. He has an immunoglobulin deficiency which is managed by Dr. 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 cc: Kvng Ruby MD [facility]
[2018-10-14] MEDS ORDERED: SOLU-CORTEF IV SCH (09:15)
[2018-10-14 09:26] LABS: INR 1.22; PROTIME 16.4 Seconds (11.0-16.0)
[2018-10-14] MEDS: LANTUS INSULIN SUBQ SCH (09:39)
[2018-10-14] MEDS: MYCOSTATIN SUSP PO SCH ×4 (09:40→20:16)
[2018-10-14] MEDS: MEGACE LIQUID PO SCH ×2 (09:40→20:17)
[2018-10-14] MEDS: SYNTHROID PO SCH (09:40)
[2018-10-14] MEDS: KLOR-CON PO SCH ×2 (09:40→20:16)
[2018-10-14] MEDS: ULORIC PO SCH (09:40)
[2018-10-14] MEDS: CORTEF PO SCH (09:41)
[2018-10-14] MEDS: FLORINEF PO SCH (09:41)
[2018-10-14] MEDS: ELIQUIS PO SCH ×2 (09:41→20:16)
--- NOTE | 2018-10-14 13:15 | INFECTIOUS DISEASE PROGRESS NO ---
DATE: 10/14/2018 ADDENDUM REPORT The patient is going to need long-term IV cefepime. I have ordered that a PICC be placed and that the patient's internal jugular venous catheter be removed once the PICC is in place. cc: Kvng Ruby MD
[2018-10-14] MEDS ORDERED: NS 250 ML ONE (13:16)
--- NOTE | 2018-10-14 14:13 | PROGRESS NOTE ---
DATE: 10/14/2018 SUBJECTIVE: I evaluated this patient in the morning, no acute events overnight. 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 Scott, in [place]. We talked about the steroid treatment. He recommended to put this patient on 45 mg of hydrocortisone in the morning and and 30 mg at 4 p.m. we will monitor this closely, also I have decreased the dose of the Lasix from twice a day to once a day. He has been having hypoglycemia I decreased the dose of Lantus from 20 twice a day to 20 daily and I will monitor this closely. OBJECTIVE: Vital Signs: Temperature 98 degrees, pulse 80, respiratory rate 19, blood pressure 106/48 oxygen saturation 99 on room air. HEENT: Head normocephalic. No trauma. PERRLA. Neck: Supple. No JVD. No masses. Central trachea. Chest: Coarse breath sounds at the bases with some crackles. Right upper chest wound looks clean and is covered with a dressing. Port-A-Cath has been removed. Pacemaker on the left upper chest area with no signs of infection. Abdomen: Soft, nontender, nondistended. No hepatosplenomegaly. Extremities: No edema, no clubbing, no cyanosis. Neurological: The patient is alert he is oriented x3. No focal neurological deficit but he is really weak. LABORATORY DATA: WBC 60.9, hemoglobin 8.8, hematocrit 27.1, platelets 260,000. sodium 140, potassium 3.7, chloride 30, BUN 26, creatinine 0.6, glucose 51, calcium 8.8, magnesium 1.6. ASSESSMENT AND PLAN: 1. Septic shock due to pseudomonal bacteremia and urinary tract infection due to Pseudomonas as well. Port-A-Cath has been removed because this could be the source of infection. We have a negative blood 2 negative blood cultures from 2 different dates and dose has been negative. We will put a PICC line today and will continue with antibiotics per Infectious Disease Department. 2. History of chronic lymphocytic leukemia, followed by Hematology/Oncology Department. 3. History of immunoglobulin deficiency, he already received IVIG . 4. Atrial fibrillation. Cardiology on board, stable. 5. Type 2 diabetes continue with same. I will stop the Lantus from 20 twice a day to 20 daily and see how he does. 6. Sushil's disease. Continue with steroids. I communicated with Dr. Scott at [place], around 9:30 a.m. or so, and we discussed about the patient and since he has been following this patient closely as an outpatient, I ask for some recommendations regarding he is hydrocortisone, he has suggested to put this patient on 45 mg of hydrocortisone in the morning and 30 at 4 p.m. 7. Pulmonary edema in a patient with diastolic heart failure. He is not complaining of any respiratory issues at this moment. I will decrease the Lasix to 40 daily. 8. Hypomagnesemia. It has been replaced already. 9. Hypokalemia. I will replace it today. He will receive 2 doses. 10. Hypophosphatemia, stable. cc: Michael Gao MD MTD[facility]
--- NOTE | 2018-10-14 15:45 | Diag Imaging Result Doc PS360 ---
CHEST-PORTABLE - 10/14/2018 INDICATION: PICC placement COMPARISON: 5:47 AM FINDINGS: There is a right PICC line. The catheter tip is coiled within the right brachiocephalic vein. This coil is about 8 cm in length. Perhaps pulling the catheter back and reinserted this length would correct this. The tip of the catheter is in the right brachiocephalic vein. IMPRESSION: Small coil in the tip of the right PICC line catheter. Electronically signed by Akil Guerrero 10/14/2018 3:43 PM
[2018-10-14] MEDS: PATIENT'S OWN MED PO SCH (16:33)
[2018-10-14] MEDS: TYLENOL PO PRN (18:08)
[2018-10-14] MEDS: PRAVACHOL PO SCH (20:16)
--- NOTE | 2018-10-14 22:43 | PULMONOLOGY PROGRESS NOTE ---
DATE: 10/14/2018 SUBJECTIVE: The patient is awake, alert, and conversant. He denies shortness of breath. He had a PICC line in place for approximately 1 hour today, but it had to be pulled because there was coiled. OBJECTIVE: The patient has been afebrile for the last 24 hours. Blood pressure 117/68, heart rate 73, respiratory rate 21, blood pressure 117/68, oxygen saturation 97% on room air. HEENT: Pupils are equal and reactive. Oropharynx is clear. Neck: Supple. Chest: Decreased breath sounds in both bases. Cardiac: S1, S2. Abdomen: Soft. Extremities: Increased edema of right upper extremity. Neurologic: Appears to be neurovascularly intact. LABORATORIES: White blood count 60,900, hemoglobin 8.8, platelet count 260,000. Sodium 140, potassium 2.7, chloride 100, bicarbonate 30, BUN 26, creatinine 0.6, glucose 111. IMPRESSION: A 73-year-old with: 1. Chronic lymphocytic leukemia. 2. Chronic bilateral pleural effusions. 3. [place]'s disease. 4. Pseudomonal bacteremia, status post Port-A-Cath removal. The patient had a negative transesophageal echocardiogram. 5. Status post failed attempt of peripherally inserted central catheter placement. He does appear to have some increased swelling in the right upper extremity. He has a good radial pulse. He has good movements of the hand, and the hand is warm and without pain. He is already on a blood thinner. RECOMMENDATIONS: 1. Elevate right arm. 2. Check ultrasound of the right upper extremity. 3. Continue treatment for [place]'s disease as outlined by Dr. Avila's discussion with Dr. Scott. 4. Overall prognosis is guarded given recurrent and ongoing complications. cc: Edwar Ellison MD
[2018-10-15] MEDS: MAXIPIME 2 GM in NS 100 ML IV SCH (04:54)
[2018-10-15 05:53] LABS: BASO# 0.04 X1000 (0.0-0.2); BASO% 0.1 % (0.0-0.8); EOS# 0.01 X1000 (0.0-0.7); HEMATOCRIT 19.5 % (42.0-52.0); HEMOGLOBIN 6.1 g/dL (14.0-18.0); IMM GRAN# 0.05 X1000 (0.0-0.04); IMM GRAN% 0.1 % (0.0-0.5); LYMPH# 43.78 X1000 (1.2-3.4); MCHC 31.3 g/dL (33-37); MCV 105.4 FL (81-99); MONO# 0.19 X1000 (0.11-0.59); MONO% 0.4 % (1.7-9.3); MPV 10.2 FL (7.4-10.4); NEUT# 1.53 X1000 (1.4-6.5); NEUT% 3.4 % (42.2-75.2); PLT 195 X1000 (130-400); RBC 1.85 XMIL (4.7-6.1); RDW 20.6 % (11.5-14.5)
[2018-10-15 05:56] LABS: AGAP 9; BUN 32 mg/dL (8-22); CALCIUM 8.1 mg/dL (8.8-10.2); CHLORIDE 96 mmol/L (98-107); COSMO 277; CREATININE 0.7 mg/dL (0.7-1.2); ESTIMATED GFR > 60; GLUCOSE 170 mg/dL (70-104); MAGNESIUM 1.5 mg/dL (1.5-2.7); PHOSPHORUS 2.9 mg/dL (2.7-4.5); POTASSIUM 3.6 mmol/L (3.5-5.1); SODIUM 133 mmol/L (136-145); TCO2 28 mmol/L (25-35)
[2018-10-15] MEDS: REGLAN PO SCH ×3 (06:39→16:11)
[2018-10-15] MEDS: PROTONIX PO SCH (06:39)
[2018-10-15] MEDS: HUMULIN R SUBQ SCH ×4 (06:49→20:43)
[2018-10-15] MEDS ORDERED: LASIX IV SCH (09:00)
--- NOTE | 2018-10-15 09:10 | PROGRESS NOTE ---
DATE: 10/15/2018 SUBJECTIVE: No acute events overnight. He seems to be stable. Yesterday we tried to put a PICC line on the right arm and it has been removed because it was not right. After that he had a swelling of the arm that is getting actually better. I discussed the case with Dr. Ruby, Infectious Disease Department, and initially we wanted to send this patient home with cefepime, but now we have decided to send this patient with Levaquin. We just switched the medication. I will stop the IV Lasix and I will put him on p.o. Lasix. He has been responding really good to the Lasix treatment, and BUN and creatinine has been stable. Potassium level is normal today. Blood sugar is better controlled. I will continue with the same management. OBJECTIVE: Vital Signs: Temperature 97.8 degrees, pulse 83, respiratory rate 18, blood pressure 97/59, oxygen saturation 100% on room air. HEENT: Head normocephalic, no trauma. PERRLA. Neck: Supple. No JVD. No masses. Central trachea. Chest: Coarse breath sounds at the bases with some crackles. Right upper chest wound looks clean and is covered with a dressing. Port-A-Cath has been removed. Pacemaker on the left upper chest area with no signs of infection per echo. Abdomen: Soft, nontender, nondistended. No hepatosplenomegaly. Extremities: Lower extremity without edema. Upper extremity edema mostly on the right side. No clubbing. No cyanosis. Neurological: The patient is alert and oriented x3. No focal neurological deficits. He is really weak. LABORATORY: WBC 45.6, hemoglobin 6.1, hematocrit 19.5, platelets 195. Sodium 133, potassium 3.6, chloride 96, bicarbonate 28. BUN 32, creatinine 0.7, glucose 170, calcium 8.1, magnesium 1.5. Hemoglobin 6.1, hematocrit 19.5, platelets 195. ASSESSMENT AND PLAN: 1. Septic shock due to pseudomonal bacteremia and urinary tract infection due to Pseudomonas as well. Port-A-Cath has been removed because this could be the source of infection. We have 2 sets of blood cultures that have been negative from two different dates. We tried to put a PICC line yesterday, but it was not in the right position, so it has been pulled out. Infectious Disease Department switched the cefepime to levofloxacin. 2. History of chronic lymphocytic leukemia, followed by Hematology/Oncology Department. 3. Anemia. Hemoglobin dropped from 8.8 to 6.1. I will give him 2 units of blood. I will monitor. He has been having some low blood pressure, but this is also multifactorial. 4. Atrial fibrillation. Cardiology on board. Stable. 5. 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 6. Type 2 diabetes. Continue with same management for now. He seems to be more stable. 7. [place] disease. Continue with steroids. I communicated with Dr. Scott at [place] around 9:30 a.m. or so yesterday. We discussed about the patient and, since he has been following this patient closely as an outpatient, I asked for some recommendations regarding his hydrocortisone. He has suggested to put this patient on 45 mg of hydrocortisone in the morning and 30 at 4 p.m. so we are doing that. 8. Pulmonary edema in a patient with diastolic heart failure. I will stop the intravenous Lasix and I will switch it to oral Lasix daily. He has a negative balance of 15 liters so far. Kidney function stable. 9. Hypomagnesemia, borderline low. Will monitor. 10. Hypokalemia is normal today. cc: Michael Gao MD
--- NOTE | 2018-10-15 09:17 | HEMO/ONC PROGRESS NOTE ---
DATE: 10/15/2018 SUBJECTIVE: Mr. Rendon is sitting up in bed, awake and alert this morning. He was happy to tell me that he has been getting up, walking and attempting exercises in his room. He had no acute events overnight. States that he slept very well. Yesterday he did have a PICC line placed which was shown to be coiled per chest x-ray. That PICC line was subsequently removed. His right arm appears to be more swollen than it was previously. He denies any pain or any complaints this morning. He tells me that Dr. Ruby and him discussed him starting p.o. medications today. OBJECTIVE: Vital Signs: Temperature 98.4 degrees, pulse rate 83, respiratory rate 18, blood pressure 97/59, O2 saturation 100% on room air. He is in 0/10 pain. General: Chronically ill- appearing male in no acute distress this morning. Respiratory: Improving breath sounds. Lungs: Remain clear to auscultation. Patient able to cough and clear his throat. Cardiovascular: Normal S1, S2. Gastrointestinal: Abdomen is soft, nontender, nondistended. Extremities: No lower extremity edema. Bilateral upper extremity edema, worse on the right with + 2 pitting edema. LABORATORY: WBC 45.6, hemoglobin 6.1, hematocrit 19.5, platelet count 195. ANC 1.53. Sodium 133, potassium 3.6, creatinine 0.7, calcium 8.1. ASSESSMENT: 1. Chronic lymphocytic leukemia on Imbruvica. 2. Status post Port-A-Cath removal for Pseudomonas bacteremia. 3. Septic shock with Pseudomonas bacteremia. 4. Worsening anemia. 5. Neutropenia. 6. Fluid overload and pneumonia. 7. Immunoglobulin deficiency. Last IVIG on 09/10/2018. 8. [place] disease. 9. Adrenal insufficiency and electrolyte abnormalities. PLAN: The patient has continued to slowly make progress. He is attempting more at exercise and needs to be encouraged to continue walking and exercise in his room. He will continue to need support for neutropenia. Please give Neupogen for an ANC of less than 1.5. The patient has had to have several transfusions in the past. He appears to need a transfusion today. BUCK showed that his pacemaker had no vegetation. We will continue to monitor and follow closely. Dictated by ERLIN Padilla for Anjum Hurtado MD cc: Anjum Hurtado MD [facility]
[2018-10-15] MEDS: MEGACE LIQUID PO SCH ×2 (09:29→20:43)
[2018-10-15] MEDS: CORTEF PO SCH ×2 (09:29→16:10)
[2018-10-15] MEDS: LANTUS INSULIN SUBQ SCH (09:29)
[2018-10-15] MEDS: ULORIC PO SCH (09:29)
[2018-10-15] MEDS: SYNTHROID PO SCH (09:29)
[2018-10-15] MEDS: LEVAQUIN PO SCH (09:30)
[2018-10-15] MEDS: MYCOSTATIN SUSP PO SCH ×5 (09:30→20:43)
[2018-10-15] MEDS: ELIQUIS PO SCH (09:30)
[2018-10-15] MEDS: FLORINEF PO SCH (09:30)
[2018-10-15] MEDS: LASIX PO SCH (09:30)
--- NOTE | 2018-10-15 09:42 | INFECTIOUS DISEASE PROGRESS NO ---
DATE: 10/15/2018 PRESENT ILLNESS: The patient has a Pseudomonas bacteremia which originated from his Port-A-Cath but the Port-A-Cath has been removed at this time. There also was an associated urinary tract infection. The patient has a pacemaker on the left side and it is possible that the pacemaker became infected hematogenously even though the transesophageal echocardiogram did not show any vegetations. The patient has chronic lymphocytic leukemia with an associated immunoglobulin deficiency. He also has [place]'s disease and oral candidiasis. Yesterday, it was attempted to put a PICC in the right arm and it was unsuccessful. On x-ray, there is a coil in the tip of the PICC. The patient's whole right arm now is swollen, which is the arm that we used to put in the PICC. MEDICATIONS: This is the 9th day of treatment with cefepime for the patient's bacteremia. The patient also is taking nystatin swish and swallow for oral candidiasis. PHYSICAL EXAMINATION: Vital Signs: Temperature is 98.3 degrees, pulse 86, respirations 21, blood pressure 94/56. General: This is a chronically ill-appearing, elderly male. He is in no acute distress. Head eyes ears, nose and throat: He can hear my spoken words and see near objects. He does not have any white patches in his mouth. Neck: The patient still has his left-sided internal jugular catheter in place. There is no pain in the neck when the patient moves his neck. Thorax: Patient's right-sided Port-A-Cath site is not erythematous or swollen. As mentioned above, the Port-A-Cath has been removed. The patient on the left side has a permanent pacemaker and its site is not swollen or erythematous. Lungs: Clear to auscultation. Cardiovascular: The heart rate is irregular. Abdomen: Soft and nontender. Neurologic: Patient is alert. He was able to walk in his room yesterday even though he became hypotensive. LABORATORY AND RADIOLOGY: Patient's CBC today shows a white count of 45,600, hemoglobin 6.1, and platelet count 195,000. Patient's creatinine is 0.7. GFR is greater than 60. The patient's most recent blood and urine cultures are sterile. The patient's chest x-ray shows that there is a coil in the tip of the patient's PICC that was attempted to put in his right arm.Extremities: Patient's right arm is swollen and tender. It is not erythematous. Neurologic: Patient is alert. He can move his extremities. He can walk. There is no tremor. The patient is able to walk in his room even though his blood pressure is lower. ASSESSMENT AND PLAN: The patient has a Pseudomonas urinary tract infection and bacteremia. The patient's pacemaker may have become infected hematogenously even though it does not show on echocardiogram. Yesterday, it was attempted to put a PICC in and it was unsuccessful and the arm is swollen. Therefore, I do not think I would want to use that side to try to put another PICC in and on the left side, this side the patient has a pacemaker in place and I do not think it would be a good idea to use that side to place a PICC in also. Therefore what I am going to do is switch the patient to Levaquin orally and the patient's Pseudomonas organism is susceptible to Levaquin. COMORBIDITIES: The patient has CLL and is on chemotherapy for that. He also has an immunoglobulin deficiency. cc: Kvng Ruby MD
[2018-10-15] MEDS: TYLENOL PO PRN ×2 (11:38→19:05)
[2018-10-15] MEDS ORDERED: NS 500 ML IV SCH (12:00)
[2018-10-15] MEDS: PATIENT'S OWN MED PO SCH (16:11)
--- NOTE | 2018-10-15 19:53 | GENERAL SURGERY PROGRESS NOTE ---
DATE: 10/15/2018 SUBJECTIVE: Mr. Rendon had a PICC line pulled today and developed swelling in his upper arm. I have been asked to evaluate that. OBJECTIVE: On exam, his upper arm is swollen. That is where the discomfort occurs. His forearm or hand do not hurt. He has a palpable radial pulse. He has sensation in his hand. He can squeeze his hand without significant pain. I have not seen his ultrasound, but reportedly his vein is compressed from the clot. ASSESSMENT: Hematoma in the upper arm. There is no evidence of compartment syndrome. The bleeding will stop as result of the pressure under the skin. I do not recommend operative intervention at this time. I will follow along. cc: Krish Nevarez MD
[2018-10-15] MEDS: PRAVACHOL PO SCH (20:43)
--- NOTE | 2018-10-16 00:38 | PULMONOLOGY PROGRESS NOTE ---
DATE: 10/15/2018 SUBJECTIVE: The patient is awake and alert. He is having some discomfort in the right arm. OBJECTIVE: Vital Signs: The patient has been afebrile for the last 24 hours. Blood pressure 98/40, heart rate 83, respiratory rate 17, oxygen saturation 100% on room air. HEENT: Pupils are equal and reactive. Oropharynx appears clear. Neck: Supple. Chest: Reveals decreased breath sounds both lung bases. Cardiac: S1, S2. Abdomen: Soft. Extremities: Reveal asymmetric swelling in the right upper extremity. LABORATORIES: White blood count 45.6, hemoglobin 6.1, platelet count 195,000. Ultrasound of the right upper extremity by report reveals a large hematoma in the upper arm compressing venous outflow. IMPRESSION: 1. Chronic lymphocytic leukemia. 2. Chronic bilateral pleural effusions. 3. [place]'s disease. 4. Status post failed attempt at a peripherally inserted catheter. He has developed a hematoma in that arm along with significant decrease in hemoglobin level. PLAN: 1. Hold Eliquis. Case was discussed with Dr. Nevarez. The patient does have good peripheral pulses in the right arm. He will review the ultrasound and the patient's extremity, but due to his anticoagulation, he is reluctant to pursue any direct intervention at this time. 2. Continue treatment for [place]'s disease. 3. Overall prognosis is guarded with ongoing complications. cc: Edwar Ellison MD
[2018-10-16] MEDS: TYLENOL PO PRN ×3 (03:51→14:55)
[2018-10-16 05:53] LABS: BASO# 0.04 X1000 (0.0-0.2); BASO% 0.1 % (0.0-0.8); EOS# 0.03 X1000 (0.0-0.7); EOS% 0.1 % (0.0-10.0); HEMATOCRIT 25.1 % (42.0-52.0); HEMOGLOBIN 8.3 g/dL (14.0-18.0); IMM GRAN# 0.08 X1000 (0.0-0.04); IMM GRAN% 0.2 % (0.0-0.5); LYMPH# 39.12 X1000 (1.2-3.4); MCH 32.3 PG (27-31); MCHC 33.1 g/dL (33-37); MCV 97.7 FL (81-99); MONO# 0.23 X1000 (0.11-0.59); MONO% 0.6 % (1.7-9.3); MPV 9.8 FL (7.4-10.4); PLT 182 X1000 (130-400); RBC 2.57 XMIL (4.7-6.1); RDW 20.6 % (11.5-14.5)
[2018-10-16] MEDS: HUMULIN R SUBQ SCH ×4 (06:07→21:38)
[2018-10-16 06:13] LABS: AGAP 10; BUN 32 mg/dL (8-22); CHLORIDE 95 mmol/L (98-107); GLUCOSE 135 mg/dL (70-104); POTASSIUM 3.4 mmol/L (3.5-5.1); SODIUM 131 mmol/L (136-145); TCO2 26 mmol/L (25-35)
[2018-10-16 06:14] LABS: CALCIUM 8.3 mg/dL (8.8-10.2); COSMO 272; CREATININE 0.7 mg/dL (0.7-1.2); ESTIMATED GFR > 60
[2018-10-16] MEDS: PROTONIX PO SCH (06:14)
[2018-10-16] MEDS: REGLAN PO SCH ×3 (06:14→17:13)
[2018-10-16] MEDS ORDERED: KLOR-CON PO ONE (07:23)
--- NOTE | 2018-10-16 08:30 | PROGRESS NOTE ---
DATE: 10/16/2018 SUBJECTIVE: This patient is complaining of right arm soreness. The arm is still swollen, but I do not see any significant changes compared with the previous days. He has a good pulse. The arm is warm. Surgery Department on board, anticoagulation has been stopped. OBJECTIVE: Vital Signs: Temperature 97.5 degrees, pulse 79, respiratory rate 20, blood pressure 119/54, and oxygen saturation 100% on room air. HEENT: Head normocephalic. No trauma. PERRLA. Neck: Supple. No JVD. No masses. Central trachea. Chest: Coarse breath sounds at the bases with some crackles. Right upper chest wound looks clean, and is covered with a dressing. Port-A- Cath has been removed. Pacemaker on the left upper chest area with no signs of infection per echo. Abdomen: Soft, nontender, and nondistended. No hepatosplenomegaly. Extremities: Lower extremity without edema and upper extremity edema, mostly on the right side. The right arm is more swollen than the left arm. He has hematoma with no evidence of compartment syndrome. Probably, the bleeding has stopped due to the pressure. Neurological: This patient is sleepy, but arousable and oriented x3. He is following commands no issues. LABORATORY: WBC 41.6, hemoglobin 8.3, hematocrit 25.1, and platelets 182,000. Sodium 131, potassium 3.4, chloride 95, bicarbonate 26, BUN 32, creatinine 0.7 glucose 135, and calcium 8.3. ASSESSMENT AND PLAN: 1. Septic shock due to pseudomonal bacteremia and urinary tract infection due to Pseudomonas as well. Port-A-Cath has been removed because this could be a source of infection. We have 2 sets of blood culture from 10/06/2018 and 10/11/2017 that are negative so far. We tried to place a PICC line 2 days ago, but we failed, and now he had a significant hematoma on the right upper extremity. The patient has been getting cefepime, but now he has been switched to levofloxacin by Infectious Disease Department. 2. History of CLL, followed by Hematology/Oncology Department. 3. Anemia, hemoglobin dropped from 8.8 to 6.1. He received 2 units of blood, anticoagulation has been stopped. We will continue to monitor. He is status post 2 PRBC's. 4. Atrial fibrillation. Cardiology on board. Stable anticoagulation has been stopped due to significant hematoma on his right arm and decrease of his hemoglobin to 6.1. 5. History of immunoglobulin deficiency, he already received IVIG. 6. Right arm hematoma. We attempt to put a PICC line a couple days ago, but we failed, and the PICC line has been removed. After that, he had a significant hematoma and decrease of the hemoglobin. Anticoagulation has been stopped already. Surgery Department on board. No signs of compartment syndrome at this moment. I will continue to monitor. 7. Type 2 diabetes. Continue with same management for now. He seems to be stable in that regard. 8. [place]'s disease. We will continue with steroids. I communicated with Dr. Scott at [place] two days ago in the morning. We discussed about this patient's treatment, and since he has been following this patient closely as an outpatient. I asked for some recommendations regarding his hydrocortisone. He has suggested to put this patient on 45 mg of hydrocortisone in the morning and 30 mg at 4:00 in the evening so I started that. We will monitor this patient closely. 9. Pulmonary edema in a patient with diastolic heart failure. I stopped the Lasix IV, and switch it to p.o. We have a negative balance of 16 L. It looks like the senior director of [employer], Dr. Scott does not want to use too much Lasix on this patient, but also because of his history of CHF and fluid overload. We are trying to give him some Lasix. For now, I will continue with same management. Like I said, I stopped the IV treatment and put her on p.o. treatment. Let's see how he does. Sometimes, he is having some hypotension when he tried tries to get up. 10. Hypomagnesemia. He has been borderline low. We will monitor. 11. Hypokalemia. I will replace it today, but I will ask for a new set of lab work in the morning including magnesium. 12. Overall, his prognosis is poor due to his current condition, medical history and age. We will continue with same management. cc: Michael Gao MD
[2018-10-16] MEDS: LEVAQUIN PO SCH (08:37)
[2018-10-16] MEDS: SYNTHROID PO SCH (08:38)
[2018-10-16] MEDS: MYCOSTATIN SUSP PO SCH ×4 (08:38→21:40)
[2018-10-16] MEDS: FLORINEF PO SCH (08:38)
[2018-10-16] MEDS: MEGACE LIQUID PO SCH ×2 (08:38→21:39)
[2018-10-16] MEDS: ULORIC PO SCH (08:38)
[2018-10-16] MEDS: LASIX PO SCH (08:38)
[2018-10-16] MEDS: LANTUS INSULIN SUBQ SCH (08:39)
[2018-10-16] MEDS: CORTEF PO SCH ×2 (08:39→17:13)
[2018-10-16] MEDS ORDERED: GAMUNEX-C 10% IV ONE (09:00)
--- NOTE | 2018-10-16 11:17 | HEMO/ONC PROGRESS NOTE ---
DATE: 10/16/2018 SUBJECTIVE: Mr. Rendon is awake and alert this morning. He is complaining of right arm pain. He was evaluated by Surgery yesterday, status post his PICC line placement and removal. His arm is significantly swollen. He has no other complaints otherwise. He is continuing exercises as suggested. OBJECTIVE: Vital Signs: Temperature 97.5 degrees, pulse rate 75, respiratory rate 17, blood pressure 160/57, O2 saturation 100% on room air. He has been 5/10 arm pain. General: Chronically ill-appearing male in no acute distress. Respiratory: Improving breath sounds. Clear to auscultation. Cardiovascular: Normal S1, S2. . Gastrointestinal: Abdomen is soft, nontender, nondistended. Extremities: No lower extremity edema. Bilateral upper extremity edema, worse on the right. Pitting edema. Pain to palpation. Neurological: Awake and alert, oriented x3. Skin: Warm, dry, and intact. The patient is pale. LABORATORY: WBC 41.6, hemoglobin 8.3, hematocrit 25.1, platelets 182. ANC is 2.10. Sodium 131, potassium 3.4, creatinine 0.7. ASSESSMENT: 1. Chronic lymphocytic leukemia on Imbruvica. 2. Status post Port-A-Cath removal for Pseudomonas bacteremia. 3. Septic shock with Pseudomonas bacteremia. 4. Worsening anemia. 5. Neutropenia. 6. Immunoglobulin deficiency. Last IVIG on 10/05/2018. 7. [place] disease. 8. Electrolyte abnormalities. PLAN: The patient continues to make slow progress. He is doing well with exercise and activity. Has been encouraged to continue exercise and walking over the weekend. Continue to support him with Neupogen for an ANC of less than 1.5. Transfuse the patient as needed for anemia. Dr. Ruby has run his immunoglobulin levels. We will assess and order IVIG as needed next week. We will continue to monitor peripherally. Please call if needed over the weekend. Dictated by ERLIN Padilla for Anjum Hurtado MD cc: Anjum Hurtado MD [facility]
--- NOTE | 2018-10-16 13:14 | INFECTIOUS DISEASE PROGRESS NO ---
DATE: 10/16/2018 PRESENT ILLNESS: The patient has a Pseudomonas bacteremia which originated from his Port-A-Cath which has been removed. He also has CLL with an associated immunoglobulin deficiency. The patient has [place]'s disease and oral candidiasis. The patient's arms are swollen. The right arm is swollen more than the left and it is also more painful and tender. The swelling occurred when the PICC was attempted to be placed in the right arm. I have not seen the report on the venous ultrasound of the arm, but in the doctor's notes, it showed in the right arm venous ultrasound that the patient had hematoma. MEDICATIONS: This is the 10th day of treatment with cefepime and now Levaquin for the patient's bacteremia. The patient also is on nystatin swish and swallow. PHYSICAL EXAMINATION: Vital Signs: Temperature is 97.5 degrees, pulse 79, respirations 20, blood pressure 119/54. Generally: An ill-appearing elderly male. He is in no acute distress. Head/eyes/ears/nose/throat: He can hear my spoken words and see near objects. I do not see any white patches in his mouth. Neck: There is no swelling and there is no neck pain when he moves his neck. The patient has an internal jugular venous catheter in place on the left side and it is not swollen or draining. Lungs: Clear to auscultation. Cardiovascular: Heart rate is irregular. Thorax: The patient's right-sided site where the Port-A-Cath was is not swollen or tender. The patient has a pacemaker present on the left side and that site also is not swollen or tender. Abdomen: Soft and nontender. Neurologic: Patient is alert. He talks in a coherent fashion. He can move his extremities. Extremities: Both arms are swollen but the right arm is more swollen than the left. The right arm also is tender and has some erythema in the upper part of the arm. LAB AND STUDY: I do not see any radiology reports for today. Lab tests [place] [address], hemoglobin 8.3, and platelet count 182,000. There is no BMP for today. There is no radiographic study for today also. ASSESSMENT AND PLAN: The patient has a Pseudomonas urinary tract infection which has cleared and the patient's bacteremia. Also the plan will be to treat the patient for a total of 6 weeks because the patient's pacemaker could have become infected hematogenously even the transesophageal echocardiogram does not show any vegetations. The patient has had now a total of 10 days of treatment for the bacteremia with day 1 being the first day that the repeat blood cultures were sterile. The patient's swollen arms thus far have not decreased in size. The patient was seen by Dr. Nevarez, who felt that there was no indication for surgery, namely to remove the patient's hematoma in the right arm. The patient will continue with nystatin swish and swallow for oral candidiasis. COMORBIDITIES: The patient has CLL for which he is receiving chemotherapy. He also has an immunoglobulin deficiency. cc: Kvng Ruby MD
--- NOTE | 2018-10-16 15:44 | Extremity Venous Study ---
PROCEDURE NAME: Venous U/S Right Arm - 10/15/2018 PROCEDURE: This is the right upper extremity venous duplex and color flow imaging study using a GE Vivid E9 Ultrasound System with a 9L-D transducer. REFERRING PHYSICIAN: Edwar Ellison MD INTERPRETING PHYSICIAN: Farideh Romero MD CONTROL PANEL BUILDER: Mahad Still, Daniel INDICATION: Severe edema of the right upper extremity. FINDINGS: The right internal jugular vein was compressible. The right subclavian and axillary veins had flow through them without evidence of thrombus. The right brachial vein was compressible with flow through it. The superficial veins of the right arm had some compression and poor flow because of what appears to be a large hematoma involving the lateral aspect of the right arm. The small veins in the antecubital fossa and right forearm were compressible without thrombus. INTERPRETATION: Large hematoma involving the right arm compressing veins with poor flow but there is no evidence of acute deep or superficial venous thrombosis of the right upper extremity. cc: MD Edwar Cuellar MD
--- NOTE | 2018-10-16 15:55 | GENERAL SURGERY PROGRESS NOTE ---
DATE: 10/16/2018 Mr. Allisons arm is unchanged today. His pain is primarily limited to his upper arm. No pain in the forearm or hand. He can flex at his elbow. He can squeeze your hand. He has arterial flow to his hand. His hand is warm. His hemodynamics are satisfactory. Hemoglobin today 8.3, hematocrit 25.1. His exam is essentially the same. It is not worse. I do not think that operative intervention is indicated at this time. [facility] will cover in my absence. cc: Krish Nvearez MD
[2018-10-16] MEDS: PATIENT'S OWN MED PO SCH (17:13)
[2018-10-16] MEDS: PRAVACHOL PO SCH (21:39)
[2018-10-17] MEDS: REGLAN PO SCH ×3 (06:29→16:45)
[2018-10-17] MEDS: PROTONIX PO SCH (06:29)
[2018-10-17] MEDS: HUMULIN R SUBQ SCH ×5 (06:29→20:36)
--- NOTE | 2018-10-17 06:37 | Diag Imaging Result Doc PS360 ---
CHEST-PORTABLE - 10/17/2018 INDICATION: dyspnea COMPARISON: 10/14/2018 FINDINGS: Stable pacemaker. Heart size and pulmonary vascularity is normal. There are [id number] bilateral pleural effusions. No substantial infiltrates. The right PICC line has been removed. IMPRESSION: PICC line has been removed. Otherwise no change from prior. Electronically signed by Akil Guerrero 10/17/2018 6:35 AM
[2018-10-17 06:51] LABS: AGAP 9; BUN 26 mg/dL (8-22); CALCIUM 8.3 mg/dL (8.8-10.2); CHLORIDE 98 mmol/L (98-107); COSMO 275; CREATININE 0.7 mg/dL (0.7-1.2); ESTIMATED GFR > 60; GLUCOSE 132 mg/dL (70-104); MAGNESIUM 1.6 mg/dL (1.5-2.7); PHOSPHORUS 3.5 mg/dL (2.7-4.5); POTASSIUM 3.3 mmol/L (3.5-5.1); SODIUM 134 mmol/L (136-145); TCO2 27 mmol/L (25-35)
[2018-10-17 06:52] LABS: BASO# 0.02 X1000 (0.0-0.2); BASO% 0.1 % (0.0-0.8); EOS# 0.01 X1000 (0.0-0.7); HEMOGLOBIN 7.6 g/dL (14.0-18.0); IMM GRAN# 0.04 X1000 (0.0-0.04); IMM GRAN% 0.1 % (0.0-0.5); LYMPH# 32.47 X1000 (1.2-3.4); LYMPH% 94.9 % (20.5-51.1); MCH 32.5 PG (27-31); MCV 98.3 FL (81-99); MONO# 0.02 X1000 (0.11-0.59); MONO% 0.1 % (1.7-9.3); NEUT# 1.67 X1000 (1.4-6.5); NEUT% 4.8 % (42.2-75.2); PLT 190 X1000 (130-400); RBC 2.34 XMIL (4.7-6.1); RDW 20.5 % (11.5-14.5); WBC 34.23 X1000 (4.8-10.8)
[2018-10-17 07:20] LABS: BANDS 2 % (0-1); MONO 2 % (1-9); SEGS 2 % (42-75)
[2018-10-17 07:21] LABS: ANISOCYTOSIS 1+; LYMPHS 86 % (21-51)
[2018-10-17] MEDS ORDERED: KLOR-CON PO ONE (07:52)
[2018-10-17] MEDS ORDERED: MAGNESIUM SULFATE 2 GM/S.W.I. 2 GM/50 ML IVPB IV ONE (08:30)
[2018-10-17] MEDS: CORTEF PO SCH ×2 (08:41→16:45)
[2018-10-17] MEDS: MYCOSTATIN SUSP PO SCH ×4 (08:41→20:37)
[2018-10-17] MEDS: ULORIC PO SCH (08:42)
[2018-10-17] MEDS: SYNTHROID PO SCH (08:42)
[2018-10-17] MEDS: FLORINEF PO SCH (08:42)
[2018-10-17] MEDS: LASIX PO SCH (08:42)
[2018-10-17] MEDS: LANTUS INSULIN SUBQ SCH (08:42)
[2018-10-17] MEDS: LEVAQUIN PO SCH (08:42)
[2018-10-17] MEDS: MEGACE LIQUID PO SCH ×2 (08:42→20:37)
[2018-10-17] MEDS: PATIENT'S OWN MED PO SCH (16:45)
--- NOTE | 2018-10-17 18:53 | GENERAL SURGERY PROGRESS NOTE ---
DATE: 10/17/2018 SUBJECTIVE: The patient seems to be doing okay. His upper extremity is swollen, but he has intact motor function and neurologic function. PLAN: At this point, continue to monitor. No major surgical intervention is planned. cc: Jesse Person MD
[2018-10-17] MEDS: PRAVACHOL PO SCH (20:37)
[2018-10-18 05:48] LABS: BASO# 0.03 X1000 (0.0-0.2); BASO% 0.1 % (0.0-0.8); HEMATOCRIT 24.2 % (42.0-52.0); HEMOGLOBIN 7.8 g/dL (14.0-18.0); IMM GRAN# 0.03 X1000 (0.0-0.04); IMM GRAN% 0.1 % (0.0-0.5); LYMPH# 32.61 X1000 (1.2-3.4); LYMPH% 94.3 % (20.5-51.1); MCH 32.6 PG (27-31); MCHC 32.2 g/dL (33-37); MCV 101.3 FL (81-99); MONO# 0.14 X1000 (0.11-0.59); MONO% 0.4 % (1.7-9.3); NEUT# 1.76 X1000 (1.4-6.5); NEUT% 5.1 % (42.2-75.2); PLT 194 X1000 (130-400); RBC 2.39 XMIL (4.7-6.1); WBC 34.57 X1000 (4.8-10.8)
[2018-10-18] MEDS: REGLAN PO SCH ×3 (06:05→16:41)
[2018-10-18] MEDS: PROTONIX PO SCH (06:05)
[2018-10-18 06:14] LABS: MAGNESIUM 1.7 mg/dL (1.5-2.7); PHOSPHORUS 3.6 mg/dL (2.7-4.5)
[2018-10-18 06:16] LABS: AGAP 9; BUN 25 mg/dL (8-22); CALCIUM 8.2 mg/dL (8.8-10.2); CHLORIDE 100 mmol/L (98-107); COSMO 276; CREATININE 0.7 mg/dL (0.7-1.2); ESTIMATED GFR > 60; GLUCOSE 89 mg/dL (70-104); POTASSIUM 3.7 mmol/L (3.5-5.1); SODIUM 136 mmol/L (136-145); TCO2 27 mmol/L (25-35)
[2018-10-18] MEDS: HUMULIN R SUBQ SCH ×4 (06:39→20:25)
--- NOTE | 2018-10-18 06:46 | PROGRESS NOTE ---
DATE: 10/17/2018 SUBJECTIVE: The patient is sitting up in the chair. He does have severe swelling involving the right arm as well as a large hematoma in that arm. OBJECTIVE: Vital Signs: Temperature 98 degrees, blood pressure 99/48, heart rate 81, respirations 17, O2 saturation 98% on room air. General: This is an elderly male lying in bed in no acute distress. Heart: S1, S2. Normal. Lungs: Clear to auscultation bilaterally. Abdomen: Positive bowel sounds. Soft, nontender, nondistended. Extremities: The patient's right arm is swollen with a large area of ecchymosis on the medial aspect of the forearm. There is some serosanguineous fluid draining from the forearm. Neurologic: The patient is alert and oriented x4. LABORATORY STUDIES: White blood cell count 34, hemoglobin 7.6, hematocrit 23, platelets 190,000. Sodium 134, potassium 3.3, magnesium 1.6, phosphorus 3.5, BUN 26, creatinine 0.7, glucose 132. RADIOLOGIC STUDIES: Chest x-ray shows small to moderate bilateral pleural effusions. ASSESSMENT AND PLAN: 1. Bacteremia secondary to Pseudomonas. Continue with the current antibiotic regimen. 2. Urinary tract infection secondary to Pseudomonas. Continue with the current antibiotic regimen as directed by Dr. Ruby. 3. Status post Port-A-Cath removal. Aware. 4. Right arm hematoma. Continue to keep the arm elevated. General Surgery is following. 5. Atrial fibrillation. The patient is rate controlled. Anticoagulation is on hold at this time. Continue to monitor closely. 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 7. Leukocytosis. Slightly improved. Continue with antibiotic therapy. 8. Anemia. We will continue to monitor closely. 9. Chronic lymphocytic leukemia. Aware. Dr. Hurtado is following. 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 11. Volume overload. Improved. The Lasix is on hold at this time. 12. Hypokalemia. Will replace the patient's potassium. 13. Hypomagnesemia. Will replace the patient's magnesium. DISPOSITION: Continue with physical therapy. cc: Jeanna Morrell MD MTDD
[2018-10-18 08:24] LABS: LYMPHS 88 % (21-51); SEGS 4 % (42-75)
[2018-10-18 08:25] LABS: ANISOCYTOSIS 1+
[2018-10-18] MEDS: LEVAQUIN PO SCH (08:50)
[2018-10-18] MEDS: ULORIC PO SCH (08:50)
[2018-10-18] MEDS: SYNTHROID PO SCH (08:50)
[2018-10-18] MEDS: LASIX PO SCH (08:50)
[2018-10-18] MEDS: CORTEF PO SCH ×2 (08:50→16:40)
[2018-10-18] MEDS: FLORINEF PO SCH (08:50)
[2018-10-18] MEDS: MEGACE LIQUID PO SCH ×2 (08:50→20:26)
[2018-10-18] MEDS: MYCOSTATIN SUSP PO SCH ×4 (08:51→20:25)
[2018-10-18] MEDS: LANTUS INSULIN SUBQ SCH (08:51)
[2018-10-18] MEDS: PATIENT'S OWN MED PO SCH (16:41)
[2018-10-18] MEDS ORDERED: MAGNESIUM SULFATE 2 GM/S.W.I. 2 GM/50 ML IVPB IV ONE (17:14)
--- NOTE | 2018-10-18 17:28 | PROGRESS NOTE ---
DATE: 10/18/2018 SUBJECTIVE: The patient states that he got up and walked with Physical Therapy this morning. He is sitting up in the chair. He states that his right arm is a little more mobile today and less painful. OBJECTIVE: Vital Signs: Temperature 98 degrees, blood pressure 119/66, heart rate 93, respirations 15, O2 saturation is 100% on room air. General: This is an elderly male, sitting in a chair in no acute distress. HEENT: Head normocephalic, atraumatic. Heart: S1, S2 normal. Regular rate and rhythm. Lungs: Equal air entry bilaterally. No wheezing. No rales. No rhonchi. Abdomen: Positive bowel sounds. Soft, nontender, nondistended. Extremities: The right arm is swollen with ecchymosis and bruising along the medial aspect. Trace pedal edema in the lower extremities. Neurologic: The patient is alert and oriented times 4. LABORATORY DATA: White blood cell count 34, hemoglobin 7.8, hematocrit 24, platelets 194,000. Sodium 136, potassium 3.7, chloride 100, CO2 of 22, BUN 25, creatinine 0.7, glucose 89. ASSESSMENT AND PLAN: 1. Bacteremia secondary to Pseudomonas. Continue with antibiotic therapy. 2. Urinary tract infections secondary to Pseudomonas. Continue on the current antibiotic regimen. 3. Status post infected Port-A-Cath removal. Aware. 4. Right arm hematoma. Continue with supportive care. 5. Atrial fibrillation. Stable. Anticoagulation is on hold at this time. 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 7. Leukocytosis. Unchanged. Continue with antibiotic therapy. Also, the patient is on steroid therapy. 8. Anemia. Unchanged. 9. Chronic lymphocytic leukemia. Aware. 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 11. Hypomagnesemia. We will replace the patient's magnesium. DISPOSITION: Continue with physical therapy. cc: Jeanna Morrell MD MTDD
[2018-10-18] MEDS: PRAVACHOL PO SCH (20:26)
[2018-10-19] MEDS: PROTONIX PO SCH (06:19)
[2018-10-19] MEDS: REGLAN PO SCH ×3 (06:19→16:31)
[2018-10-19] MEDS: HUMULIN R SUBQ SCH ×4 (06:21→21:57)
[2018-10-19 06:22] LABS: BASO# 0.03 X1000 (0.0-0.2); BASO% 0.1 % (0.0-0.8); EOS# 0.02 X1000 (0.0-0.7); EOS% 0.1 % (0.0-10.0); HEMATOCRIT 23.9 % (42.0-52.0); HEMOGLOBIN 7.7 g/dL (14.0-18.0); IMM GRAN# 0.03 X1000 (0.0-0.04); IMM GRAN% 0.1 % (0.0-0.5); LYMPH# 32.74 X1000 (1.2-3.4); LYMPH% 94.9 % (20.5-51.1); MAGNESIUM 1.7 mg/dL (1.5-2.7); MCHC 32.2 g/dL (33-37); MCV 102.6 FL (81-99); MONO# 0.19 X1000 (0.11-0.59); MONO% 0.6 % (1.7-9.3); NEUT# 1.48 X1000 (1.4-6.5); NEUT% 4.2 % (42.2-75.2); PHOSPHORUS 3.4 mg/dL (2.7-4.5); PLT 193 X1000 (130-400); RBC 2.33 XMIL (4.7-6.1); RDW 20.8 % (11.5-14.5); WBC 34.49 X1000 (4.8-10.8)
[2018-10-19 06:27] LABS: AGAP 9; BUN 24 mg/dL (8-22); CALCIUM 8.4 mg/dL (8.8-10.2); CHLORIDE 99 mmol/L (98-107); COSMO 276; CREATININE 0.7 mg/dL (0.7-1.2); ESTIMATED GFR > 60; GLUCOSE 100 mg/dL (70-104); POTASSIUM 3.3 mmol/L (3.5-5.1); SODIUM 136 mmol/L (136-145); TCO2 28 mmol/L (25-35)
--- NOTE | 2018-10-19 06:56 | Diag Imaging Result Doc PS360 ---
EXAM: CHEST-1 VIEW 10/19/2018 HISTORY: SOB TECHNIQUE: AP portable at [id number] COMMENT: There are bilateral pleural effusions. There is pulmonary edema. The volume of pleural fluid particularly on the left may be slightly diminished since 10/17/2018. IMPRESSION: Improved pleural effusion on the left. Pulmonary edema. Electronically signed by Zhang Orozco 10/19/2018 6:54 AM
--- NOTE | 2018-10-19 06:59 | INFECTIOUS DISEASE PROGRESS NO ---
DATE: 10/19/2018 PRESENT ILLNESS: The patient has a Pseudomonas bacteremia, which originated from his Port-A-Cath, which has been removed. The patient also has CLL with an associated immunoglobulin deficiency. He also has Sushil's disease and oral candidiasis. The patient's arms are both swollen. The right one is ecchymotic, and both are less swollen than they were 3 days ago. MEDICATIONS: This is the 13th day of treatment with cefepime, and now Levaquin for the patient's Pseudomonas bacteremia. The patient also is on nystatin swish and swallow. PHYSICAL EXAMINATION: Vital Signs: Temperature is 98 degrees, pulse 113, respirations 17, blood pressure 119/73. The patient weighs 200 pounds. General: This is an obese, chronically ill- appearing, elderly male. He is in no acute distress. HEENT: He can hear my spoken words and see near objects. He does not have any drainage coming from his nose or ears. He does not have any white patches on his tongue. Neck: No pain in his neck with movement of it. Lungs: Clear to auscultation. Cardiovascular: Heart rate is irregular. Abdomen: Soft and nontender. Thorax: The patient's pacemaker site on the left side is not swollen or red. The patient's site on the right side where the Port-A-Cath was removed is healed. The incision is intact. There is no drainage or erythema. Neurologic: The patient is alert. He can move his extremities. Yesterday, he sat up in his chair for hours, and he also is able to ambulate. Extremities: Both arms are less swollen than they were 3 days ago. The right one is very ecchymotic. IMAGING AND LABORATORY DATA: CBC shows a white count of 34,570, hemoglobin 7.8, platelet count of 194,000. Creatinine is 0.7. GFR is greater than 60. IgG is 705. IgA is 213. Chest x-ray shows bilateral pleural effusions, but no infiltrates. ASSESSMENT AND PLAN: The patient has a Pseudomonas bacteremia. I plan to treat him for 6 weeks with antibiotics. First, he was on cefepime, and now he is on Levaquin. This is day 13 of treatment with antibiotics. The reason for the 6-week treatment course is that the patient's pacemaker could have become infected while the patient was bacteremic. Even though the transesophageal echocardiogram did not show any vegetations, there still is a possibility that there could be some infection on the pacemaker, especially the part that is in the chest wall. I plan to continue the nystatin as long as the patient is on antibiotics. COMORBIDITIES: He has chronic lymphocytic leukemia, for which he is receiving chemotherapy. The patient also has an immunoglobulin deficiency, for which he receives regular doses of IVIG. cc: Kvng Ruby MD
[2018-10-19 07:34] LABS: ANISOCYTOSIS OCCASIONAL; HYPOCHROM OCCASIONAL; LYMPHS 95 % (21-51); SEGS 5 % (42-75)
[2018-10-19] MEDS: MEGACE LIQUID PO SCH ×2 (09:48→21:56)
[2018-10-19] MEDS: FLORINEF PO SCH (09:48)
[2018-10-19] MEDS: ULORIC PO SCH (09:48)
[2018-10-19] MEDS: LASIX PO SCH (09:48)
[2018-10-19] MEDS: LEVAQUIN PO SCH (09:49)
[2018-10-19] MEDS: MYCOSTATIN SUSP PO SCH ×4 (09:49→21:57)
[2018-10-19] MEDS: LANTUS INSULIN SUBQ SCH (09:49)
[2018-10-19] MEDS: CORTEF PO SCH ×2 (09:49→16:29)
[2018-10-19] MEDS: SYNTHROID PO SCH (09:50)
[2018-10-19] MEDS ORDERED: MAGNESIUM SULFATE 2 GM/S.W.I. 2 GM/50 ML IVPB IV ONE (15:41)
[2018-10-19] MEDS ORDERED: KLOR-CON PO ONE (16:06)
[2018-10-19] MEDS: PATIENT'S OWN MED PO SCH (16:29)
--- NOTE | 2018-10-19 17:02 | PROGRESS NOTE ---
DATE: 10/19/2018 SUBJECTIVE: The patient is sitting up in bed. He states that he is feeling a lot better today. The swelling in his right arm has improved. There is still a lot of ecchymosis present. OBJECTIVE: Vital Signs: Temperature 98.7 degrees, blood pressure 98/50, heart rate 101, respirations 19, O2 saturations 100% on room air. General: This is a chronically ill-appearing elderly male sitting up in bed in no acute distress. HEENT: Head normocephalic atraumatic. Heart: S1, S2 normal. Tachycardic. Lungs: Equal air entry bilaterally. No wheezing. No rales. No rhonchi. Abdomen: Positive bowel sounds. Soft, nontender, nondistended. Extremities: Trace pedal edema in the lower extremities. The patient does have swelling involving the right upper extremity with a large area of ecchymosis extending from the forearm on the medial aspect. Neurologic: The patient is alert and oriented x4. LABS: Sodium 136, potassium 3.3, chloride 99, CO2 28, BUN 24, creatinine 0.7 glucose 244. White blood cell count 34, hemoglobin 7.7, hematocrit 23 platelets 193,000 magnesium 1.7. Chest x-ray shows pulmonary edema. Improved pleural effusion on the left. ASSESSMENT AND PLAN: 1. Bacteremia secondary to Pseudomonas. The patient has been transitioned to oral Levaquin. 2. Urinary tract infection secondary to Pseudomonas. The patient is to continue on Levaquin as ordered. 3. Right arm hematoma. Continue with supportive care. 4. Status post infected Port-A-Cath removal. Aware. 5. Atrial fibrillation. Aware. The patient's anticoagulation remains on hold due to the hematoma in the right arm. 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 7. Chronic lymphocytic leukemia. Aware. The patient's white blood cell count is stable. 8. Anemia. Unchanged. 9. Immunoglobulin deficiency. The patient received IVIG infusion during this hospitalization. 10. Hypomagnesemia. We will replace the patient's magnesium. 11. Hypokalemia. Will replace the patient's potassium. 12. Disposition. We will continue with physical therapy. We will consult with [facility] to assist with discharge planning. cc: MD EMIL Sr
--- NOTE | 2018-10-19 19:32 | GENERAL SURGERY PROGRESS NOTE ---
DATE: 10/19/2018 Mr. Rendon'therese arm is improved as far as pain. It is less swollen. He has quite a bit of ecchymosis, but this should resolve. No further intervention is recommended. cc: Krish Nevarez MD
[2018-10-19] MEDS: PRAVACHOL PO SCH (21:57)
[2018-10-20 06:07] LABS: BASO# 0.01 X1000 (0.0-0.2); EOS# 0.02 X1000 (0.0-0.7); EOS% 0.1 % (0.0-10.0); HEMOGLOBIN 7.4 g/dL (14.0-18.0); IMM GRAN# 0.05 X1000 (0.0-0.04); IMM GRAN% 0.2 % (0.0-0.5); LYMPH# 29.69 X1000 (1.2-3.4); MCH 32.9 PG (27-31); MCHC 32.2 g/dL (33-37); MCV 102.2 FL (81-99); MONO# 0.25 X1000 (0.11-0.59); MONO% 0.8 % (1.7-9.3); NEUT# 1.23 X1000 (1.4-6.5); NEUT% 3.9 % (42.2-75.2); PLT 184 X1000 (130-400); RBC 2.25 XMIL (4.7-6.1); RDW 20.8 % (11.5-14.5); WBC 31.25 X1000 (4.8-10.8)
[2018-10-20] MEDS: REGLAN PO SCH ×3 (06:22→16:09)
[2018-10-20] MEDS: SYNTHROID PO SCH (06:22)
[2018-10-20] MEDS: PROTONIX PO SCH (06:22)
[2018-10-20] MEDS: HUMULIN R SUBQ SCH ×5 (06:24→22:30)
[2018-10-20 06:29] LABS: AGAP 8; BUN 22 mg/dL (8-22); CALCIUM 7.9 mg/dL (8.8-10.2); CHLORIDE 102 mmol/L (98-107); COSMO 277; CREATININE 0.5 mg/dL (0.7-1.2); ESTIMATED GFR > 60; GLUCOSE 101 mg/dL (70-104); POTASSIUM 3.6 mmol/L (3.5-5.1); SODIUM 137 mmol/L (136-145); TCO2 27 mmol/L (25-35)
[2018-10-20 06:55] LABS: LYMPHS 91 % (21-51); MONO 5 % (1-9); SEGS 2 % (42-75)
[2018-10-20] MEDS: LANTUS INSULIN SUBQ SCH (09:55)
[2018-10-20] MEDS: CORTEF PO SCH ×2 (09:56→16:08)
[2018-10-20] MEDS: MEGACE LIQUID PO SCH ×2 (09:57→20:21)
[2018-10-20] MEDS: MYCOSTATIN SUSP PO SCH ×4 (09:57→20:21)
[2018-10-20] MEDS: FLORINEF PO SCH (09:58)
[2018-10-20] MEDS: LASIX PO SCH (09:58)
[2018-10-20] MEDS: LEVAQUIN PO SCH (09:58)
[2018-10-20] MEDS: ULORIC PO SCH (11:31)
--- NOTE | 2018-10-20 14:00 | PROGRESS NOTE ---
DATE: 10/20/2018 SUBJECTIVE: The patient is resting comfortably in bed. He states that he is slowly getting stronger. He has been working with physical therapy. OBJECTIVE: Vital Signs: Temperature 98.1 degrees, blood pressure 104/65, heart rate 80, respirations 16, O2 saturations 100% on room air. General: This is an elderly male lying in bed, in no acute distress. Heart: S1, S2 normal. Lungs: Equal air entry bilaterally. No wheezing. No rales. Abdomen: Positive bowel sounds. Soft, nontender, nondistended. Extremities: The patient has extensive ecchymosis involving the medial aspect of the right arm. The swelling has decreased. Neurologic: The patient is alert and oriented x3. Labs: White blood cell count 31, hemoglobin 7.4, hematocrit 23, platelets 184,000. Sodium 137, potassium 3.6, chloride 102, CO2 27, BUN 22, creatinine 0.5, glucose 101. ASSESSMENT AND PLAN: 1. Bacteremia secondary to pseudomonas. Continue oral Levaquin as directed by Dr. Ruby. 2. Urinary tract infection secondary to pseudomonas. Continue on Levaquin. 3. Right arm hematoma. Slowly improving. Continue with supportive care. 4. Status post infected Port-A-Cath removal. Aware. 5. Atrial fibrillation. The patient is currently rate controlled. The patient's Eliquis is currently on hold. 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 7. Chronic lymphocytic leukemia. Aware. 8. 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 9. Diabetes mellitus type 2. Will increase the Lantus dosage to 30 units daily. 9. Disposition. We will consult with psychologist social for inpatient rehab placement for the patient. Continue with physical therapy. cc: Jeanna Morrell MD [facility]
[2018-10-20] MEDS: PATIENT'S OWN MED PO SCH (17:03)
[2018-10-20 17:36] LABS: HEMOGLOBIN A1C 5.8 % (4.8-6.0)
[2018-10-20] MEDS ORDERED: LOPRESSOR IV ONE (18:50)
[2018-10-20] MEDS: PRAVACHOL PO SCH (20:30)
[2018-10-20] MEDS: COREG PO SCH (20:30)
[2018-10-21] MEDS: LOPRESSOR IV PRN (02:57)
[2018-10-21] MEDS ORDERED: LOPRESSOR IV SCH (03:00)
[2018-10-21] MEDS: PROTONIX PO SCH (06:20)
[2018-10-21] MEDS: REGLAN PO SCH ×3 (06:21→16:44)
[2018-10-21] MEDS: SYNTHROID PO SCH (06:21)
[2018-10-21] MEDS: HUMULIN R SUBQ SCH ×4 (06:38→22:10)
[2018-10-21 06:41] LABS: BASO# 0.02 X1000 (0.0-0.2); BASO% 0.1 % (0.0-0.8); EOS# 0.02 X1000 (0.0-0.7); EOS% 0.1 % (0.0-10.0); HEMATOCRIT 24.3 % (42.0-52.0); HEMOGLOBIN 7.7 g/dL (14.0-18.0); IMM GRAN# 0.05 X1000 (0.0-0.04); IMM GRAN% 0.2 % (0.0-0.5); LYMPH# 30.83 X1000 (1.2-3.4); LYMPH% 94.7 % (20.5-51.1); MCH 32.9 PG (27-31); MCHC 31.7 g/dL (33-37); MCV 103.8 FL (81-99); MONO# 0.25 X1000 (0.11-0.59); MONO% 0.8 % (1.7-9.3); MPV 9.8 FL (7.4-10.4); NEUT% 4.1 % (42.2-75.2); PLT 170 X1000 (130-400); RBC 2.34 XMIL (4.7-6.1); RDW 21.1 % (11.5-14.5); WBC 32.57 X1000 (4.8-10.8)
[2018-10-21 07:02] LABS: ANISOCYTOSIS 2+; MONO 2 % (1-9); SEGS 2 % (42-75)
[2018-10-21 07:03] LABS: LARGE PLATELETS 1+; LYMPHS 90 % (21-51)
[2018-10-21 07:18] LABS: AGAP 8; BUN 22 mg/dL (8-22); CALCIUM 8.6 mg/dL (8.8-10.2); CHLORIDE 100 mmol/L (98-107); COSMO 275; CREATININE 0.7 mg/dL (0.7-1.2); ESTIMATED GFR > 60; GLUCOSE 63 mg/dL (70-104); POTASSIUM 3.5 mmol/L (3.5-5.1); SODIUM 137 mmol/L (136-145); TCO2 29 mmol/L (25-35)
[2018-10-21] MEDS: CORTEF PO SCH ×2 (08:48→16:45)
[2018-10-21] MEDS: FLORINEF PO SCH (08:49)
[2018-10-21] MEDS: ULORIC PO SCH (08:49)
[2018-10-21] MEDS: LASIX PO SCH (08:49)
[2018-10-21] MEDS: COREG PO SCH ×3 (08:49→23:30)
[2018-10-21] MEDS: LEVAQUIN PO SCH (08:49)
[2018-10-21] MEDS: MEGACE LIQUID PO SCH ×2 (08:51→22:09)
[2018-10-21] MEDS: MYCOSTATIN SUSP PO SCH ×4 (08:51→22:10)
[2018-10-21] MEDS: LANTUS INSULIN SUBQ SCH (08:53)
--- NOTE | 2018-10-21 14:39 | INFECTIOUS DISEASE PROGRESS NO ---
DATE: 10/21/2018 PRESENT ILLNESS: The patient has a Pseudomonas bacteremia which may have infected the patient's left chest pacemaker hematogenously, while the patient was bacteremic. The patient also has CLL for which he is on chemotherapy and there is an associated immunoglobulin deficiency with it. The patient also has Sushil's disease and oral candidiasis. The patient, both arms are very swollen and they have petechiae and ecchymoses on them. MEDICATIONS: This is the 14th day of treatment with 1st cefepime and now Levaquin for the patient's Pseudomonas bacteremia. The patient is on Levaquin for the bacteremia. The patient also receives nystatin swish and swallow for the patient's oral candidiasis. PHYSICAL EXAMINATION: Vital Signs: Temperature is 97.6 degrees, pulse 85, respirations 17, blood pressure is 105/49. General: This is an obese, chronically ill-appearing elderly male. He is in no acute distress. Head, eyes, ears, nose, and throat: He can hear my spoken words and see near objects. He does not have any white coating on his tongue. Neck: He does not have any pain when moving his neck. Lungs: Clear to auscultation. Cardiovascular: Heart rate is irregular. Abdomen: Soft and nontender. Thorax: The patient has a pacemaker on the left side of the chest. It is not swollen or erythematous. On the right side there is an incision that has healed where the patient had a Port-A-Cath earlier. Neurologic: The patient is alert. He can move his extremities. There is no tremor. The patient is awake. He is able to walk and to sit in a chair for hours. Extremities: Both arms remain swollen. There is an extensive ecchymosis on the right arm. ASSESSMENT AND PLAN: The patient has a Pseudomonas bacteremia which might have hematogenously infected the patient's pacemaker. The patient has had 2 weeks of treatment with antibiotics for the bacteremia and will have 4 more remaining. The patient is on PO Levaquin. COMORBIDITIES: The patient has chronic lymphocytic leukemia for which he receives chemotherapy. The patient also has an immunoglobulin deficiency for which the patient has regular intravenous doses of immunoglobulin. cc: MD EMIL Morton
--- NOTE | 2018-10-21 16:48 | PROGRESS NOTE ---
DATE: 10/21/2018 SUBJECTIVE: The patient is sitting in the chair. He states that he stood up for 1st time today. He does have a rash on his back that is itchy. OBJECTIVE: Vital Signs: Temperature 97.6 degrees, blood pressure 105/49, heart rate 85, respirations 17, O2 saturation is 100% on room air. General: This is a chronically ill- appearing, elderly male sitting in a chair, in no acute distress. Heart: S1, S2 normal. Regular rate and rhythm. Lungs: Equal air entry bilaterally. No wheezing. No rales. No rhonchi. Abdomen: Positive bowel sounds. Soft, nontender, nondistended. Extremities: The patient has edema in the upper extremities. The patient has extensive ecchymosis involving the right arm, mainly in the medial aspect. Neurologic: The patient is alert and oriented x4. LABS: White blood cell count 32, hemoglobin 7.7, hematocrit 24 platelets 170,000. Sodium 137, potassium 3.5, chloride 100, CO2 29, BUN 22, creatinine 0.7, glucose 63. ASSESSMENT AND PLAN: 1. Bacteremia secondary to Pseudomonas. Continue on oral Levaquin. 2. Urinary tract infection secondary to Pseudomonas. Resolved. 3. Right arm hematoma. Slowly improving. 4. Status post infected Port-A-Cath removal. Aware. 5. Atrial fibrillation. Continue on Coreg. The patient's Eliquis will be restarted once it is okay with the general surgeon. 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 7. Chronic lymphocytic leukemia. Aware. 8. Immunoglobulin deficiency. The patient received an IVIG infusion during this hospitalization. 9. Diabetes mellitus type 2. Continue on Lantus. 10. Anemia. H/H is low but stable. 11. Disposition. [facility] is working on inpatient rehab placement for the patient. Continue with physical therapy. The patient and his were updated on the plan of care today. cc: MD EMIL Sr
[2018-10-21] MEDS: PATIENT'S OWN MED PO SCH (17:07)
[2018-10-21] MEDS: PRAVACHOL PO SCH (22:10)
[2018-10-22] MEDS: LOPRESSOR IV PRN ×3 (00:54→08:36)
[2018-10-22] MEDS: SYNTHROID PO SCH (06:49)
[2018-10-22] MEDS: PROTONIX PO SCH (06:49)
[2018-10-22] MEDS: HUMULIN R SUBQ SCH ×4 (06:49→21:54)
[2018-10-22] MEDS: REGLAN PO SCH ×3 (06:50→15:50)
[2018-10-22 07:01] LABS: BASO# 0.02 X1000 (0.0-0.2); BASO% 0.1 % (0.0-0.8); EOS# 0.02 X1000 (0.0-0.7); EOS% 0.1 % (0.0-10.0); IMM GRAN# 0.03 X1000 (0.0-0.04); IMM GRAN% 0.1 % (0.0-0.5); LYMPH# 28.75 X1000 (1.2-3.4); LYMPH% 94.9 % (20.5-51.1); MONO# 0.16 X1000 (0.11-0.59); MONO% 0.5 % (1.7-9.3); MPV 10.2 FL (7.4-10.4); NEUT# 1.32 X1000 (1.4-6.5); NEUT% 4.3 % (42.2-75.2); RBC 2.24 XMIL (4.7-6.1)
[2018-10-22 07:02] LABS: HEMATOCRIT 23.4 % (42.0-52.0); HEMOGLOBIN 7.5 g/dL (14.0-18.0); MCH 33.5 PG (27-31); MCHC 32.1 g/dL (33-37); MCV 104.5 FL (81-99); PLT 163 X1000 (130-400); RDW 21.4 % (11.5-14.5)
[2018-10-22 07:15] LABS: LYMPHS 90 % (21-51); MONO 2 % (1-9); SEGS 4 % (42-75)
[2018-10-22 07:25] LABS: AGAP 8; BUN 27 mg/dL (8-22); CALCIUM 8.5 mg/dL (8.8-10.2); CHLORIDE 100 mmol/L (98-107); COSMO 276; CREATININE 0.7 mg/dL (0.7-1.2); ESTIMATED GFR > 60; GLUCOSE 75 mg/dL (70-104); POTASSIUM 3.1 mmol/L (3.5-5.1); SODIUM 136 mmol/L (136-145); TCO2 28 mmol/L (25-35)
[2018-10-22] MEDS: LASIX PO SCH (08:34)
[2018-10-22] MEDS: CORTEF PO SCH ×2 (08:35→15:50)
[2018-10-22] MEDS: ULORIC PO SCH (08:35)
[2018-10-22] MEDS: MYCOSTATIN SUSP PO SCH ×5 (08:35→21:50)
[2018-10-22] MEDS: COREG PO SCH (08:36)
[2018-10-22] MEDS: LEVAQUIN PO SCH (08:36)
[2018-10-22] MEDS: MEGACE LIQUID PO SCH ×2 (08:36→21:51)
[2018-10-22] MEDS: FLORINEF PO SCH (08:36)
--- NOTE | 2018-10-22 08:39 | EKG Report ---
Test Performed on : 10/22/2018 08:26:32 AM Test Reason : high heart rate Blood Pressure : / mmHG Vent. Rate : 146 BPM Atrial Rate : 156 BPM P-R Int : 000 ms QRS Dur : 140 ms QT Int : 304 ms P-R-T Axes : 000 033 -22 degrees QTc Int : 473 ms Atrial fibrillation. with rapid ventricular response. Right bundle branch block Abnormal ECG When compared with ECG of 04-OCT-2018 07:42, Atrial fibrillation. has replaced Electronic ventricular pacemaker Vent. rate has increased BY 66 BPM Right bundle branch block is now present Confirmed by Steve Mendieta MD ([id number]) on 10/24/2018 8:59:11 PM
[2018-10-22] MEDS ORDERED: KLOR-CON PO ONE (08:56)
[2018-10-22] MEDS: LANTUS INSULIN SUBQ SCH (09:00)
[2018-10-22] MEDS ORDERED: CARDIZEM 100 MG/NS 100 MG/100 ML IVPB IV SCH (09:00)
[2018-10-22 09:27] LABS: MAGNESIUM 1.6 mg/dL (1.5-2.7); PHOSPHORUS 4.3 mg/dL (2.7-4.5)
[2018-10-22] MEDS ORDERED: CARDIZEM 125 MG in NS 100 ML IV SCH (10:03)
[2018-10-22] MEDS ORDERED: MAGNESIUM SULFATE 2 GM/S.W.I. 2 GM/50 ML IVPB IV ONE (10:51)
[2018-10-22] MEDS ORDERED: ELIQUIS PO ONE (13:00)
[2018-10-22] MEDS: RYTHMOL PO SCH ×2 (14:03→21:51)
[2018-10-22] MEDS: PATIENT'S OWN MED PO SCH (15:50)
--- NOTE | 2018-10-22 19:01 | PROGRESS NOTE ---
DATE: 10/22/2018 SUBJECTIVE: The patient was noted to be in atrial fibrillation with RVR this morning and was transferred to CICU. OBJECTIVE: Vital Signs: Temperature 98.5 degrees, blood pressure 100/61, heart rate 82, respirations 22, O2 saturation is 99% on room air. General: This is a chronically ill-appearing, elderly male, sitting in bed in no acute distress. Heart: S1, S2 normal. Irregularly irregular rhythm. Lungs: Clear to auscultation bilaterally. No wheezing. No rales. No rhonchi. Abdomen: Positive bowel sounds. Soft, nontender, nondistended. Extremities: The patient has swelling of the right arm that is improving with ecchymosis on the medial aspect of the right arm. No edema noted in the lower extremities. Neurologic: The patient is alert and oriented x4. LABORATORY: White blood cell count 30, hemoglobin 7.5, hematocrit 23, platelets 163,000. Sodium 136, potassium 3.1, chloride 100, CO2 of 28, BUN 27, creatinine 0.7, magnesium 1.6, phosphorus 4.3. ASSESSMENT AND PLAN: 1. Atrial fibrillation with rapid ventricular response. We will consult with the forming process worker for further treatment recommendations. We will restart the patient's Eliquis. 2. Bacteremia secondary to Pseudomonas. The patient is currently on oral Levaquin. 3. Right arm hematoma. Improving. 4. Status post infected Port-A-Cath removal. Aware. 5. 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 6. Chronic lymphocytic leukemia. Aware. 7. Immunoglobulin deficiency. The patient received an IVIG infusion during this hospitalization. This will be followed by Dr. Hurtado as outpatient. 8. Diabetes mellitus type 2. Continue on Lantus. 9. Anemia. Stable. 10. Hypokalemia. Replace the potassium. 11. Hypomagnesemia. Will replace the magnesium. 12. Disposition. [facility] T[facility] is working on [facility] rehab placement. cc: Jeanna Morrell MD MTDD
[2018-10-22] MEDS: ELIQUIS PO SCH (21:51)
[2018-10-22] MEDS: PRAVACHOL PO SCH (21:52)
[2018-10-23 05:39] LABS: HEMATOCRIT 24.2 % (42.0-52.0); HEMOGLOBIN 7.8 g/dL (14.0-18.0); MCH 34.7 PG (27-31); MCHC 32.2 g/dL (33-37); MCV 107.6 FL (81-99); MPV 10.4 FL (7.4-10.4); RBC 2.25 XMIL (4.7-6.1); WBC 37.67 X1000 (4.8-10.8)
[2018-10-23 05:52] LABS: AGAP 10; BUN 27 mg/dL (8-22); CALCIUM 8.8 mg/dL (8.8-10.2); CHLORIDE 101 mmol/L (98-107); COSMO 277; CREATININE 0.7 mg/dL (0.7-1.2); ESTIMATED GFR > 60; GLUCOSE 63 mg/dL (70-104); MAGNESIUM 1.7 mg/dL (1.5-2.7); POTASSIUM 3.6 mmol/L (3.5-5.1); SODIUM 137 mmol/L (136-145); TCO2 26 mmol/L (25-35)
[2018-10-23 05:53] LABS: PHOSPHORUS 3.7 mg/dL (2.7-4.5)
[2018-10-23] MEDS: HUMULIN R SUBQ SCH ×4 (06:24→20:08)
[2018-10-23] MEDS: PROTONIX PO SCH (06:35)
[2018-10-23] MEDS: REGLAN PO SCH ×3 (06:35→16:31)
[2018-10-23] MEDS: SYNTHROID PO SCH (06:35)
--- NOTE | 2018-10-23 06:45 | INFECTIOUS DISEASE PROGRESS NO ---
DATE: 10/23/2018 PRESENT ILLNESS: Patient has a Pseudomonas bacteremia which may have infected the patient's left- sided chest pacemaker hematogenously. The patient has CLL for which he is on chemotherapy. With his CLL there is an associated immunoglobulin deficiency. The patient has Sushil's disease and oral candidiasis. Both of the patient's arms remain very swollen. MEDICATIONS: This is the 14th day of treatment for the patient's Pseudomonas bacteremia. The patient initially was treated with IV cefepime and now is on p.o. Levaquin. The patient is receiving nystatin swish and swallow for his oral candidiasis. PHYSICAL EXAMINATION: Vital Signs: Temperature is 97.9 degrees, pulse 77, respirations 17, blood pressure 107/47. General: This is an obese, chronically ill-appearing, elderly male. He is in no acute distress. Head, eyes, ears, nose, and throat: He can hear my spoken words and see near objects. He does not have any white patches in his mouth. Neck: L IJV cath site not red. Lungs: Clear to auscultation. Cardiovascular: Heart rate is irregular. Abdomen: Soft and nontender. Thorax: Patient has a pacemaker on the left side. The site is not swollen or tender. On the right side the patient's incision where his Port-A-Cath was removed is healing well. Neurologic: Patient is alert. He can move his extremities. There is no tremor. Extremities: Both arms are very swollen and he has extensive ecchymosis on the right arm. LAB AND RADIOLOGY: CBC-WBC 37.67 with ANC 1.32, hgb 7.8, platelets 146K. Creatinine-0.7. GFR->60. No new radiographic study. ASSESSMENT AND PLAN: The patient has Pseudomonas bacteremia which may have hematogenously infected the patient's pacemaker. The patient has had 15 days of treatment with Levaquin and before that cefepime. I plan to treat the patient for a total of 6 weeks. COMORBIDITIES: Chronic lymphocytic leukemia for which the patient is receiving chemotherapy now. The patient has an immunoglobulin deficiency which Dr. Hurtado is in charge of treating it. cc: Kvng Ruby MD [facility]
--- NOTE | 2018-10-23 07:26 | EKG Report ---
Test Performed on : 10/23/2018 06:39:56 AM Test Reason : afib Blood Pressure : / mmHG Vent. Rate : 113 BPM Atrial Rate : 110 BPM P-R Int : 000 ms QRS Dur : 150 ms QT Int : 354 ms P-R-T Axes : 000 083 001 degrees QTc Int : 485 ms Atrial fibrillation. with rapid ventricular response. Right bundle branch block Abnormal ECG When compared with ECG of 22-OCT-2018 08:26, (Unconfirmed) No significant change was found Confirmed by Steve Mendieta MD ([id number]) on 10/24/2018 9:10:12 PM
--- NOTE | 2018-10-23 07:52 | CARDIOLOGY PROGRESS NOTE ---
DATE: 10/23/2018 CHIEF COMPLAINT: Irregular heartbeat, rapid rate. SUBJECTIVE: Mr. Rendon is lying in bed, very weak. Both his upper extremities are very swollen. He has multiple petechial and purpuric lesions in the upper extremities. His back is full of petechial lesions. He does have some bruises and ecchymotic areas in the flanks. There is less in the lower extremities. The edema is also less in the lower extremities. He is just very weak. He answers appropriately. OBJECTIVE: VITAL SIGNS: Blood pressure 107/47, temperature 97.9 degrees, pulse 79, respirations 17. GENERAL: He is awake. He appears to be chronically ill, pale. HEENT: Some swelling around the neck area. CHEST: Diminished breath sounds diffusely. HEART: Sounds are irregularly irregular. ABDOMEN: Soft. EXTREMITIES: As I said, there is diffuse edema that appears to be worse in the upper extremities. SKIN: Has been reported. NEUROLOGICAL: He has diffuse weakness on all extremities. BLOOD WORK: Sodium 137, potassium 3.6, BUN 27, creatinine 0.7. Magnesium 1.7. Calcium 8.8. IMPRESSION: 1. Patient who developed atrial fibrillation with rapid response. 2. Chronic lymphocytic leukemia. 3. Pseudomonas septicemia. 4. Status post permanent biventricular pacemaker status post AV maribel ablation. 5. History of hypertension. 6. History of diabetes mellitus. 7. History of Sushil's disease. RECOMMENDATIONS: At this time, I would add Digoxin to block the AV node. This was supposed to have been ablated and evidently if he is having rapid atrial fibrillation that indicates that the ablation was incomplete. At this time, we are going to try to use agents that predominantly block the AV node. He has a biventricular device; therefore, we would prefer if he is paced most of the times or close to 99.9% of the time. What worries me right now is the multiple petechial and purpuric lesions that he has in his upper body along as both lower extremities. I am concerned that this patient may have some sort of a superior vena cava syndrome. That may have to be investigated. His electrolytes also need to be replaced. I am going to check a PT/PTT stat and D-dimer stat. If the values of his D-dimer are very high, consider consulting with radiologist to see if there is any way of imaging the superior vena cava safely in this patient. cc: Tye Sumner MD
[2018-10-23] MEDS ORDERED: KLOR-CON PO ONE (08:01)
[2018-10-23] MEDS ORDERED: MAGNESIUM SULFATE 4 GM/S.W.I. 4 GM/100 ML IVPB IV ONE (08:01)
[2018-10-23 08:02] LABS: INR 1.21; PROTIME 16.2 Seconds (11.0-16.0)
[2018-10-23 08:03] LABS: PTT 25.3 Seconds (22.3-41.8)
[2018-10-23 08:07] LABS: ALB/GLOB RATIO 1.3; ALBUMIN 2.9 g/dL (3.5-5.0); DIRECT BILIRUBIN 0.3 mg/dL (0.00-0.20); TOTAL BILIRUBIN 1.56 mg/dL (0.20-1.00); TOTAL PROTEIN 5.2 g/dL (6.3-8.3)
[2018-10-23] MEDS: LANOXIN IV SCH ×3 (08:32→20:09)
[2018-10-23] MEDS: MEGACE LIQUID PO SCH ×2 (08:51→20:07)
[2018-10-23] MEDS: CORTEF PO SCH ×2 (08:51→16:31)
[2018-10-23] MEDS: MYCOSTATIN SUSP PO SCH ×4 (08:51→20:07)
[2018-10-23] MEDS: LEVAQUIN PO SCH (08:52)
[2018-10-23] MEDS: RYTHMOL PO SCH ×2 (08:52→20:07)
[2018-10-23] MEDS: ELIQUIS PO SCH ×2 (08:52→20:08)
[2018-10-23] MEDS: ULORIC PO SCH (08:52)
[2018-10-23] MEDS: LASIX PO SCH (08:52)
[2018-10-23] MEDS: FLORINEF PO SCH (08:58)
[2018-10-23] MEDS: LANTUS INSULIN SUBQ SCH (09:17)
--- NOTE | 2018-10-23 15:49 | PROGRESS NOTE ---
DATE: 10/23/2018 SUBJECTIVE: The patient is resting comfortably in bed. His heart rate is under better control today, he has no complaints at this time. OBJECTIVE: Vital Signs: Temperature 97 degrees, blood pressure 111/51, heart rate 88, respirations 18, O2 saturations 99% on room air. General: This is a chronically ill-appearing overweight male lying in bed in no acute distress. Heart: S1, S2 normal. Irregularly irregular rhythm. Lungs: Equal air entry bilaterally. No wheezing, no rales, no rhonchi. Abdomen: Positive bowel sounds. Soft, obese, nontender, nondistended. Extremities: The patient has significant edema in his upper extremities. There is decreased swelling in the right upper extremity. There is extensive ecchymosis in the medial aspect of the right arm, no edema in the lower extremities. Neurologic: The patient is alert and oriented x4. LABS: White blood cell count 37, hemoglobin 7.8, hematocrit 24, platelets 146,000, sodium 137, potassium 3.6, chloride 101, CO2 26, BUN 27, creatinine 0.7, glucose 63. ASSESSMENT AND PLAN: 1. Atrial fibrillation. Improved. The patient's heart rate is under better control today. Continue on the current regimen as directed by the furnace setter. 2. Bacteremia secondary to Pseudomonas. Continue on vancomycin. The patient will need a total of 6 weeks of therapy as per Dr. Ruby. 3. 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 The patient will be followed by Dr. Hurtado as outpatient. 4. Chronic lymphocytic leukemia. Aware. 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 6. Right arm hematoma. Improved. 7. Infected Port-A-Cath removal. Aware. 8. Diabetes mellitus type 2. Continue on Lantus. 9. Leukocytosis. This is likely secondary to the patient's underlying CLL. 10. Anemia. Stable. 11. Disposition. Continue with physical therapy. [employer] is working on inpatient rehab placement at [facility]. cc: Jeanna Morrell MD [facility]
[2018-10-23] MEDS: PATIENT'S OWN MED PO SCH (16:31)
[2018-10-23] MEDS: PRAVACHOL PO SCH (20:08)
[2018-10-24] MEDS: HUMULIN R SUBQ SCH (06:32)
[2018-10-24] MEDS: REGLAN PO SCH ×3 (06:37→16:48)
[2018-10-24] MEDS: SYNTHROID PO SCH (06:37)
[2018-10-24] MEDS: PROTONIX PO SCH (06:37)
[2018-10-24 06:52] LABS: AGAP 12; BUN 26 mg/dL (8-22); CALCIUM 8.2 mg/dL (8.8-10.2); CHLORIDE 100 mmol/L (98-107); COSMO 279; CREATININE 0.7 mg/dL (0.7-1.2); ESTIMATED GFR > 60; GLUCOSE 108 mg/dL (70-104); POTASSIUM 3.2 mmol/L (3.5-5.1); SODIUM 137 mmol/L (136-145); TCO2 25 mmol/L (25-35)
--- NOTE | 2018-10-24 06:52 | EKG Report ---
Test Performed on : 10/24/2018 06:08:11 AM Test Reason : afib Blood Pressure : / mmHG Vent. Rate : 099 BPM Atrial Rate : 102 BPM P-R Int : 000 ms QRS Dur : 150 ms QT Int : 368 ms P-R-T Axes : 000 047 -03 degrees QTc Int : 472 ms Atrial fibrillation. with an occasional ventricular paced beat Right bundle branch block Abnormal ECG When compared with ECG of 23-OCT-2018 06:39, (Unconfirmed) Paced beats are now present. Confirmed by Steve Mendieta MD ([id number]) on 10/24/2018 9:14:15 PM
--- NOTE | 2018-10-24 07:31 | Diag Imaging Result Doc PS360 ---
CHEST-1 VIEW - 10/24/2018 INDICATION: SOB COMPARISON: 10/19/2018 FINDINGS: Stable biventricular pacemaker. Stable bilateral infiltrates compatible with pulmonary edema. Stable small bilateral pleural effusions. IMPRESSION: No change from prior. Electronically signed by Akil Guerrero 10/24/2018 7:29 AM
[2018-10-24] MEDS: MYCOSTATIN SUSP PO SCH ×4 (08:42→21:14)
[2018-10-24] MEDS: CORTEF PO SCH ×2 (08:42→17:41)
[2018-10-24] MEDS: ELIQUIS PO SCH ×2 (08:42→21:14)
[2018-10-24] MEDS: RYTHMOL PO SCH ×2 (08:42→21:13)
[2018-10-24] MEDS: MEGACE LIQUID PO SCH ×2 (08:42→21:14)
[2018-10-24] MEDS: LANOXIN PO SCH (08:42)
[2018-10-24] MEDS: ULORIC PO SCH (08:42)
[2018-10-24] MEDS: LASIX PO SCH (08:42)
[2018-10-24] MEDS: FLORINEF PO SCH (08:42)
[2018-10-24] MEDS: LEVAQUIN PO SCH (08:42)
[2018-10-24] MEDS: LANTUS INSULIN SUBQ SCH (08:43)
--- NOTE | 2018-10-24 12:55 | PROGRESS NOTE ---
DATE: 10/24/2018 SUBJECTIVE: The patient is resting comfortably in bed. His blood sugar dropped to 48 at 3:30 this morning. OBJECTIVE: Vital Signs: Temperature 98.2 degrees, blood pressure 124/70, heart rate 105, respirations 16, O2 saturation is 100% on room air. General: This is a chronically ill-appearing elderly male, sitting up in bed in no acute distress. Heart: S1, S2 normal. Regular rate and rhythm. Lungs: Equal air entry bilaterally. No crackles. No rales. Abdomen: Positive bowel sounds. Soft, nontender, nondistended. Extremities: The patient has edema involving the upper extremities. No edema noted in the lower extremities. Neurologic: The patient is alert and oriented x4. LABORATORY DATA: Sodium 137, potassium 3.2, chloride 100, CO2 25, BUN 26, creatinine 0.7, glucose 108, calcium 8.2. Chest x-ray shows stable bilateral infiltrates compatible with pulmonary edema. ASSESSMENT AND PLAN: 1. Atrial fibrillation. Rate controlled. Continue on the current regimen as directed by the blueprint duplicator. 2. Bacteremia secondary to Pseudomonas. Continue on Levaquin. The patient will need a total of 6 weeks of therapy as per Dr. Ruby. 3. Chronic lymphocytic leukemia. Aware. 4. Anemia. The patient's hemoglobin and hematocrit is low but stable. 5. Immunoglobulin deficiency, status post IV immunoglobulin infusion. Stable. The patient will follow up with Dr. Hurtado as outpatient. 6. [place] disease. Continue on Cortef and Florinef. 7. Right arm hematoma. Improved. Continue with physical therapy. 8. Status post infected Port-A-Cath removal. Aware. 9. Diabetes mellitus type 2 with hypoglycemia. We will discontinue the sliding scale insulin and continue on Lantus only and monitor the patient's blood sugars closely. 10. Pulmonary edema. Unchanged. Will continue on diuretic therapy as ordered. 11. Disposition. Scanning Tech is working on an inpatient rehab placement for the patient at [facility]. cc: Jeanna Morrell MD
[2018-10-24] MEDS: PATIENT'S OWN MED PO SCH (16:48)
[2018-10-24] MEDS: PRAVACHOL PO SCH (21:14)
[2018-10-25 05:49] LABS: HEMATOCRIT 23.9 % (42.0-52.0); HEMOGLOBIN 7.6 g/dL (14.0-18.0); MCH 34.7 PG (27-31); MCHC 31.8 g/dL (33-37); MCV 109.1 FL (81-99); MPV 11.2 FL (7.4-10.4); RBC 2.19 XMIL (4.7-6.1); RDW 22.6 % (11.5-14.5); WBC 32.84 X1000 (4.8-10.8)
[2018-10-25 06:11] LABS: AGAP 10; BUN 21 mg/dL (8-22); CALCIUM 8.3 mg/dL (8.8-10.2); CHLORIDE 101 mmol/L (98-107); COSMO 285; CREATININE 0.7 mg/dL (0.7-1.2); ESTIMATED GFR > 60; GLUCOSE 213 mg/dL (70-104); POTASSIUM 3.3 mmol/L (3.5-5.1); SODIUM 138 mmol/L (136-145); TCO2 27 mmol/L (25-35)
[2018-10-25] MEDS: REGLAN PO SCH ×3 (06:17→17:01)
[2018-10-25] MEDS: SYNTHROID PO SCH (06:17)
[2018-10-25] MEDS: PROTONIX PO SCH (06:17)
--- NOTE | 2018-10-25 06:41 | EKG Report ---
Test Performed on : 10/25/2018 06:11:09 AM Test Reason : afib Blood Pressure : / mmHG Vent. Rate : 094 BPM Atrial Rate : 136 BPM P-R Int : 000 ms QRS Dur : 158 ms QT Int : 374 ms P-R-T Axes : 000 042 -09 degrees QTc Int : 467 ms Atrial fibrillation. with frequent ventricular-paced complexes Right bundle branch block Abnormal ECG When compared with ECG of October 24, 2018- No significant change was found Confirmed by Steve Mendieta MD ([id number]) on 10/28/2018 8:47:04 PM
[2018-10-25] MEDS ORDERED: KLOR-CON PO ONE (08:22)
[2018-10-25] MEDS: LANTUS INSULIN SUBQ SCH (08:24)
[2018-10-25] MEDS: LASIX PO SCH (08:24)
[2018-10-25] MEDS: FLORINEF PO SCH (08:24)
[2018-10-25] MEDS: LANOXIN PO SCH (08:24)
[2018-10-25] MEDS: MEGACE LIQUID PO SCH ×2 (08:24→21:19)
[2018-10-25] MEDS: MYCOSTATIN SUSP PO SCH ×4 (08:24→21:20)
[2018-10-25] MEDS: RYTHMOL PO SCH ×2 (08:25→21:20)
[2018-10-25] MEDS: LEVAQUIN PO SCH (08:25)
[2018-10-25] MEDS: ULORIC PO SCH (08:25)
[2018-10-25] MEDS: ELIQUIS PO SCH ×2 (08:25→21:20)
[2018-10-25] MEDS: CORTEF PO SCH ×2 (08:25→17:01)
[2018-10-25] MEDS ORDERED: LASIX IV ONE (10:57)
[2018-10-25] MEDS ORDERED: NS 500 ML ONE (14:03)
[2018-10-25] MEDS ORDERED: MAGNESIUM SULFATE 4 GM/S.W.I. 4 GM/100 ML IVPB IV ONE (14:14)
--- NOTE | 2018-10-25 16:56 | PROGRESS NOTE ---
DATE: 10/25/2018 SUBJECTIVE: The patient is resting comfortably in bed. He states that he has no complaints. OBJECTIVE: Vital Signs: Temperature 98 degrees, blood pressure 126/58, heart rate 80, respirations 16. O2 saturation is 100% on room air. General: This is a chronically ill- appearing elderly male sitting up in a chair in no acute distress. Heart: S1, S2 normal. Regular rate and rhythm. Lungs: Equal air entry bilaterally. No wheezing. No rales. No rhonchi. Abdomen: Positive bowel sounds. Soft, nontender, nondistended. Extremities: The patient has edema in the upper extremities, trace edema in the lower extremities. Neurologic: The patient is alert and oriented x4. LABS: White blood cell count 32, hemoglobin 7.6, hematocrit 23, platelets 118,000. Sodium 138, potassium 3.3, chloride 101, CO2 27, BUN 21, creatinine 0.7, glucose 213, magnesium 1.4. ASSESSMENT AND PLAN: 1. Atrial fibrillation. The patient is rate controlled. Continue on the current cardiac regimen. 2. Bacteremia secondary to Pseudomonas. Continue on Levaquin. The patient will be treated for [address] Ruby. 3. Chronic lymphocytic leukemia. Aware. 4. Anemia. The patient will receive 1 unit of packed red blood cells today. 5. Immunoglobulin deficiency status post IVIG infusion. Stable. 6. [place]'s disease. Continue on Cortef and Florinef. 7. Right arm hematoma. Improved. Continue with physical therapy. 8. Status post infected Port-A-Cath removal. Aware. 9. Diabetes mellitus type 2. Continue on long-acting insulin. 10. Pulmonary edema. Unchanged. Continue with diuretic therapy as tolerated. 11. Disposition. The patient will be discharged to inpatient rehab once a bed is available. cc: Jeanna Morrell MD
[2018-10-25] MEDS: PATIENT'S OWN MED PO SCH (17:19)
[2018-10-25] MEDS: PRAVACHOL PO SCH (21:20)
[2018-10-26] MEDS: SYNTHROID PO SCH (06:01)
[2018-10-26] MEDS: PROTONIX PO SCH (06:01)
[2018-10-26] MEDS: REGLAN PO SCH ×3 (06:01→16:47)
[2018-10-26] MEDS ORDERED: BLISTEX MEDICATED BERRY LIP BALM TOP PRN (06:06)
[2018-10-26 06:08] LABS: BASO# 0.02 X1000 (0.0-0.2); BASO% 0.1 % (0.0-0.8); EOS# 0.05 X1000 (0.0-0.7); EOS% 0.2 % (0.0-10.0); HEMATOCRIT 26.8 % (42.0-52.0); HEMOGLOBIN 8.8 g/dL (14.0-18.0); IMM GRAN# 0.04 X1000 (0.0-0.04); IMM GRAN% 0.1 % (0.0-0.5); LYMPH# 27.03 X1000 (1.2-3.4); LYMPH% 94.2 % (20.5-51.1); MCH 33.3 PG (27-31); MCHC 32.8 g/dL (33-37); MCV 101.5 FL (81-99); MONO% 0.7 % (1.7-9.3); MPV 10.8 FL (7.4-10.4); NEUT# 1.34 X1000 (1.4-6.5); NEUT% 4.7 % (42.2-75.2); PLT 114 X1000 (130-400); RBC 2.64 XMIL (4.7-6.1); RDW 22.3 % (11.5-14.5); WBC 28.68 X1000 (4.8-10.8)
[2018-10-26 06:11] LABS: MAGNESIUM 1.6 mg/dL (1.5-2.7); PHOSPHORUS 2.7 mg/dL (2.7-4.5)
[2018-10-26 06:15] LABS: AGAP 9; BUN 20 mg/dL (8-22); CALCIUM 7.8 mg/dL (8.8-10.2); CHLORIDE 100 mmol/L (98-107); COSMO 287; CREATININE 0.7 mg/dL (0.7-1.2); ESTIMATED GFR > 60; GLUCOSE 254 mg/dL (70-104); POTASSIUM 2.8 mmol/L (3.5-5.1); SODIUM 138 mmol/L (136-145); TCO2 29 mmol/L (25-35)
[2018-10-26] MEDS ORDERED: MAGNESIUM SULFATE 4 GM/S.W.I. 4 GM/100 ML IVPB IV ONE (06:34)
[2018-10-26] MEDS ORDERED: POTASSIUM CHLORIDE 60 MEQ in NS 500 ML IV ONE (06:35)
--- NOTE | 2018-10-26 07:57 | INFECTIOUS DISEASE PROGRESS NO ---
DATE: 10/26/2018 PRESENT ILLNESS: The patient has a Pseudomonas bacteremia, which may have hematogenously infected the patient's pacemaker. The patient also has an immunoglobulin deficiency and oral candidiasis. Both of the patient's arms are swollen, but they appear to be gradually being less swollen than they had been. MEDICATIONS: This is the 17th day of treatment of the patient's Pseudomonas bacteremia. The patient initially had IV cefepime, and now is on p.o. Levaquin. The patient also takes nystatin swish and swallow for his oral candidiasis. PHYSICAL EXAMINATION: Vital Signs: Temperature is 97.5 degrees, pulse 80, respirations 18, blood pressure is 128/57. General: This is an obese, chronically ill-appearing, elderly male. He is in no acute distress. HEENT: He can hear my spoken words and see near objects. He does not have any white coating of his tongue. Neck: The patient has a jugular vein catheter in place on the left side. The site is not swollen or tender. Lungs: Clear to auscultation. Cardiovascular: Heart rate is irregular. Thorax: The patient has a pacemaker present on the left side. The site is not swollen or erythematous. On the right side, the patient's area where the pacemaker was removed is not erythematous or swelling, and the incision is completely closed. Extremities: Both arms are very swollen, but they are less so than they had been. IMAGING AND LABORATORY DATA: Chest x-ray shows pulmonary edema. The patient's CBC shows a white count of 28,680, hemoglobin 8.8, and platelet count 114,000. Creatinine is 0.7. GFR is greater than 60. ASSESSMENT AND PLAN: The patient has Pseudomonas bacteremia, which could have hematogenously infected the patient's pacemaker. The patient has completed 17 days of treatment with antibiotics, at first cefepime, and then Levaquin. Day 1 is the first day that the patient's blood cultures were sterile. The plan is to treat the patient for a total of 6 weeks. The patient also is going to stay on nystatin for her oral candidiasis. The patient's arms are gradually improving. I have discussed with the patient that he needs to elevate them as high as possible and also for as long as possible. COMORBIDITIES: Chronic lymphocytic leukemia, for which the patient is on chemotherapy. The patient also has an immunoglobulin deficiency secondary to his chronic lymphocytic leukemia, and both illnesses are being managed by Dr. Hurtado. cc: Kvng Ruby MD
[2018-10-26] MEDS: LEVAQUIN PO SCH (08:45)
[2018-10-26] MEDS: LANOXIN PO SCH (08:45)
[2018-10-26] MEDS: LASIX PO SCH (08:45)
[2018-10-26] MEDS: FLORINEF PO SCH (08:45)
[2018-10-26] MEDS: ELIQUIS PO SCH ×2 (08:45→20:08)
[2018-10-26] MEDS: MEGACE LIQUID PO SCH ×2 (08:45→20:09)
[2018-10-26] MEDS: RYTHMOL PO SCH ×2 (08:45→20:08)
[2018-10-26] MEDS: ULORIC PO SCH (08:45)
[2018-10-26] MEDS: LANTUS INSULIN SUBQ SCH (08:45)
[2018-10-26] MEDS: MYCOSTATIN SUSP PO SCH ×4 (08:45→20:08)
[2018-10-26] MEDS: CORTEF PO SCH ×2 (11:49→16:47)
[2018-10-26] MEDS: PATIENT'S OWN MED PO SCH (16:47)
--- NOTE | 2018-10-26 18:27 | PROGRESS NOTE ---
DATE: 10/26/2018 SUBJECTIVE: The patient is sitting up in bed. He states that he slept well last night. He has no complaints at this time. OBJECTIVE: Vital Signs: Temperature 97.5 degrees, blood pressure 119/58, heart rate 80, respirations 17, O2 saturation is 100% on room air. General: This is a chronically ill- appearing, elderly male sitting up in bed, in no acute distress. Heart: S1, S2 normal. Regular rate and rhythm. Lungs: Equal air entry bilaterally. No wheezing. No rales. No rhonchi. Abdomen: Positive bowel sounds. Soft, nontender, nondistended. Extremities: The patient has multiple ecchymotic lesions on his upper extremities. There is also edema in the upper extremities. No edema noted in the lower extremities. Neurologic: The patient is alert and oriented x4. LABS: White blood cell count 28, hemoglobin 8.8, hematocrit 26, platelets 114,000. Sodium 138, potassium 2.8, chloride 100, CO2 29, BUN 20, creatinine 0.7, glucose 254, magnesium 1.6, phosphorus 2.7. ASSESSMENT AND PLAN: 1. Atrial fibrillation. The patient is rate controlled. Continue on the current medications. 2. Bacteremia secondary to Pseudomonas. Continue on Levaquin. The patient will need to complete a 6 week course of antibiotic therapy as per Dr. Ruby. 3. Chronic lymphocytic leukemia. Aware. Stable. 4. Anemia. Improved. The patient received 1 unit of packed red blood cells yesterday. 5. Immunoglobulin deficiency status post IVIG infusion. Stable. The patient will follow up with Dr. Hurtado for further infusions if necessary. 6. [place]'s disease. Stable. Continue on Cortef and Florinef. The patient will follow up with Dr. Scott as outpatient. 7. Right arm hematoma. Continue with physical therapy. 8. Status post infected Port-A-Cath removal. Aware. 9. Diabetes mellitus type 2. Continue on Lantus and sliding scale insulin. 10. Pulmonary edema. Improved. Continue with Lasix. 11. Disposition. I spoke to [facility] and they stated that the patient did not meet criteria to go to [facility]. They suggested that the patient be sent to a senior living facility. Will notify secondary social studies teacher of [facility]'s decision. cc: Jeanna Morrell MD
[2018-10-26] MEDS: PRAVACHOL PO SCH (20:08)
[2018-10-27 05:36] LABS: BASO# 0.02 X1000 (0.0-0.2); BASO% 0.1 % (0.0-0.8); EOS# 0.04 X1000 (0.0-0.7); EOS% 0.1 % (0.0-10.0); HEMATOCRIT 28.1 % (42.0-52.0); HEMOGLOBIN 9.2 g/dL (14.0-18.0); IMM GRAN# 0.07 X1000 (0.0-0.04); IMM GRAN% 0.2 % (0.0-0.5); LYMPH# 27.65 X1000 (1.2-3.4); LYMPH% 94.5 % (20.5-51.1); MCH 33.3 PG (27-31); MCHC 32.7 g/dL (33-37); MCV 101.8 FL (81-99); MONO# 0.15 X1000 (0.11-0.59); MONO% 0.5 % (1.7-9.3); MPV 10.4 FL (7.4-10.4); NEUT# 1.33 X1000 (1.4-6.5); NEUT% 4.6 % (42.2-75.2); PLT 109 X1000 (130-400); RBC 2.76 XMIL (4.7-6.1); RDW 22.2 % (11.5-14.5); WBC 29.26 X1000 (4.8-10.8)
[2018-10-27 05:54] LABS: AGAP 9; ALBUMIN 2.7 g/dL (3.5-5.0); BUN 21 mg/dL (8-22); CALCIUM 8.3 mg/dL (8.8-10.2); CHLORIDE 100 mmol/L (98-107); COSMO 281; CREATININE 0.6 mg/dL (0.7-1.2); ESTIMATED GFR > 60; GLUCOSE 116 mg/dL (70-104); MAGNESIUM 1.7 mg/dL (1.5-2.7); SODIUM 139 mmol/L (136-145); TCO2 30 mmol/L (25-35)
[2018-10-27] MEDS: PROTONIX PO SCH (06:19)
[2018-10-27] MEDS: REGLAN PO SCH ×3 (06:19→15:53)
[2018-10-27] MEDS: SYNTHROID PO SCH (06:19)
[2018-10-27] MEDS: ELIQUIS PO SCH ×2 (09:06→21:06)
[2018-10-27] MEDS: FLORINEF PO SCH (09:06)
[2018-10-27] MEDS: LEVAQUIN PO SCH (09:06)
[2018-10-27] MEDS: LANOXIN PO SCH (09:06)
[2018-10-27] MEDS: RYTHMOL PO SCH ×2 (09:06→21:06)
[2018-10-27] MEDS: LASIX PO SCH (09:07)
[2018-10-27] MEDS: CORTEF PO SCH ×2 (09:08→15:53)
[2018-10-27] MEDS: MYCOSTATIN SUSP PO SCH ×5 (09:09→21:04)
[2018-10-27] MEDS: MEGACE LIQUID PO SCH ×2 (09:09→21:05)
[2018-10-27] MEDS: ULORIC PO SCH (09:09)
[2018-10-27] MEDS: KLOR-CON PO SCH (09:10)
[2018-10-27] MEDS: LANTUS INSULIN SUBQ SCH (09:12)
--- NOTE | 2018-10-27 09:13 | PROGRESS NOTE ---
DATE: 10/27/2018 SUBJECTIVE: Mr. Rendon was admitted back on 10/03/2018. This is a 73-year-old with a history of multiple medical problems, including CLL, hypothyroidism, diabetes mellitus type 2, hyperlipidemia, DVT, chronic atrial fibrillation, Sushil's disease, immunoglobulin deficiency, chronic anemia, who presented to the emergency department with a several-day history of having worsening fever, shortness of breath, and not feeling well. In the emergency room, he had imaging done, which showed pneumonia. I thought he would need admission for further treatment and evaluation. The patient recently received prolonged antibiotics for Pseudomonas bacteremia, had been off antibiotics for 2 weeks. ADMISSION DIAGNOSES: 1. Suspected pneumonia. 2. Chronic lymphocytic leukemia. 3. Immunoglobulin deficiency. 4. Diabetes mellitus type 2. 5. Atrial fibrillation. 6. Sushil's disease. He had a long hospital course. Pulmonary consultation per Dr. Ellison. He has chronic pleural effusions, worse than the previous admission, chronic or acute hypoxemic respiratory failure in the face of chronic lymphocytic leukemia and [place]'s disease and immunoglobulin deficiency. He has steadily improved. He had a Cardiology consultation, and felt that the patient had permanent atrial fibrillation, status post atrioventricular maribel ablation, status post biventricular pacemaker implantation, persistent hypotension related to Sushil's disease, complicated by chronic hypogammaglobulinemia and septicemia, gram-negative rods growing in the blood, chronic anemia, chronic lymphocytic leukemia. Infectious Disease will get involved. The patient has a history of Pseudomonas bacteremia, urinary tract infection, and then developed bacteremia from right-sided Port-A-Cath, Pseudomonas urinary tract infection secondary to hematogenous involvement of the kidney. The patient has a permanent pacemaker in the left side of his chest, but this did not seem to be infected. He showed improvement. He is still pretty weak, a little discouraged regarding the process of trying to find rehab. PHYSICAL EXAMINATION: Vital Signs: Today, temperature 98.2 degrees, pulse 80, respirations 13, blood pressure 131/63. HEENT: Pupils are equal and round. Lungs: Clear in all lung herzog. Cardiovascular: Regular rhythm and rate without murmur or S3. Extremities: All extremities with 1+ edema, right a little more than the left. He is getting more movement in that right arm. They did have a PICC line that they had to discontinue from that right arm. ASSESSMENT AND PLAN: 1. Permanent atrial fibrillation. Rate is controlled. He is status post atrioventricular ablation with pacemaker. Blood pressures look good. Rate appears controlled. 2. Bacteremia secondary to Pseudomonas. He is on Levaquin. Will need to complete a 6-week course of antibiotics per Dr. Ruby. 3. Chronic lymphocytic leukemia with immunoglobulin deficiency. 4. Anemia, which is improved. He got 1 unit of packed red blood cells 2 days ago. 5. Immunoglobulin deficiency, status post intravenous immunoglobulin infusion. Will follow up with Dr. Hurtado for infusions if necessary. 6. [place]'s disease. Continue Cortef and Florinef. Will follow up with Dr. Scott as an outpatient. 7. Right arm hematoma and some swelling. Continue physical therapy. 8. Status post infected Port-A-Cath, which was removed. 9. Diabetes mellitus type 2. Continue to get pattern sugars and sliding scale. 10. Pulmonary edema, which is improved with some Lasix. 11. General extracellular fluid retention, which will continue, I think, with mobilization, ambulation, and diuresis. 12. General weakness and deconditioning. Continue physical therapy and the process of looking for rehab. LABORATORY DATA: Review of his lab today shows white count still elevated at 29,260, hematocrit is 28, hemoglobin 9.2, platelet count 109,000. Chemistries: Sodium 139, potassium 3.0, chloride 100, BUN 21, creatinine 0.6. Blood sugar 109, 186, 116, 104. His calcium was 8.3. REVIEW OF ORDERS: On Pravachol 40 mg at bedtime, Lopressor he gets 2.5 mg IV every 3 hours p.r.n. elevated heart rate. He gets Tylenol 650 mg every 6 hours, Eliquis 5 mg b.i.d. for his underlying atrial fibrillation, digoxin 125 mcg p.o. daily, Uloric 40 mg daily, Florinef 0.1 mg p.o. every a.m., Lasix 40 mg daily, Cortef 45 mg p.o. daily and 30 mg at 4:00, insulin glargine 25 units subcutaneously daily, Levaquin 500 mg p.o. daily, Synthroid 200 mcg p.o. daily, Megace 120 mg p.o. b.i.d., Reglan 10 mg p.o. before meals, nystatin suspension 5 mL p.o. 4 times a day, Protonix 40 mg daily, Rythmol 150 mg p.o. b.i.d. They have been supplementing a little bit of potassium. I may give him some potassium on a daily basis here. cc: Edgard Stein MD
[2018-10-27] MEDS: PATIENT'S OWN MED PO SCH (15:52)
[2018-10-27] MEDS: PRAVACHOL PO SCH (21:06)
[2018-10-28] MEDS: PROTONIX PO SCH (06:02)
[2018-10-28] MEDS: REGLAN PO SCH ×3 (06:02→18:34)
[2018-10-28] MEDS: SYNTHROID PO SCH (06:02)
[2018-10-28] MEDS: MEGACE LIQUID PO SCH ×2 (09:42→21:10)
[2018-10-28] MEDS: MYCOSTATIN SUSP PO SCH ×4 (09:42→21:10)
[2018-10-28] MEDS: CORTEF PO SCH ×2 (09:43→18:34)
[2018-10-28] MEDS: KLOR-CON PO SCH (09:44)
[2018-10-28] MEDS: FLORINEF PO SCH (09:44)
[2018-10-28] MEDS: LANOXIN PO SCH (09:44)
[2018-10-28] MEDS: ELIQUIS PO SCH ×2 (09:44→21:13)
[2018-10-28] MEDS: LASIX PO SCH (09:45)
[2018-10-28] MEDS: RYTHMOL PO SCH ×2 (09:45→21:13)
[2018-10-28] MEDS: LANTUS INSULIN SUBQ SCH (09:45)
[2018-10-28] MEDS: ULORIC PO SCH (09:45)
[2018-10-28] MEDS: LEVAQUIN PO SCH (09:45)
--- NOTE | 2018-10-28 13:37 | PROGRESS NOTE ---
DATE: 10/28/2018 SUBJECTIVE: Mr. Rendon [facility]. He does feel a little better. Swelling has gone down to some degree. His right arm is bigger than his left. No swelling in his feet. OBJECTIVE: Vital Signs: Temperature 98.6 degrees, pulse 80, respirations 20, blood pressure 129/67. Pupils are equal and round. Lungs: Clear in all lung herzog. Cardiovascular: Regular rhythm and rate without murmur or S3. Abdomen: Soft. Skin: Warm and dry. Urine output is 2100 mL. Blood sugar 134, 195 and 222. ASSESSMENT AND PLAN: 1. Permanent atrial fibrillation, rate is controlled. 2. Bacteremia secondary to Pseudomonas. He is on Levaquin. He will complete a 6 week course of this antibiotic. 3. Chronic lymphocytic leukemia with immunoglobulin deficiency. 4. Anemia, that is improved. He got 1 unit of packed red blood cells. His hematocrit is 28, hemoglobin 9.2, [place] [address] Hurtado is following. 5. [place]'s disease. He is on Cortef and Florinef. 6. Right arm hematoma with some swelling. This is going down slowly. 7. Status post infected Port-A-Cath which was removed. 8. Diabetes mellitus type 2. Blood sugars controlled. 9. Pulmonary edema still diuresing with some pulmonary venous hypertension. We are diuresing with some Lasix. 10. Extracellular fluid retention. 11. General weakness and deconditioning. Continue exercise and trying to get him into rehab. cc: Edgard Stein MD
--- NOTE | 2018-10-28 14:44 | INFECTIOUS DISEASE PROGRESS NO ---
DATE: 10/28/2018 PRESENT ILLNESS: Mr. Rendon is being treated for a Pseudomonas urinary tract infection with an associated bacteremia, that could have hematogenously infected his pacemaker. There is also an oral candidiasis, which has resolved. He also has an underlying immunoglobulin deficiency which is monitored by Dr. Hurtado. MEDICATION: He is receiving Levaquin 500 mg by mouth daily. Based on his sterile blood cultures, today is day 22 of 6 weeks of treatment for his bacteremia. He is also receiving nystatin swish and swallow for the oral candidiasis. PHYSICAL EXAMINATION: Vital Signs: Temperature is 98.6 degrees, pulse rate 81, respiratory rate 19, blood pressure 129/67, O2 saturation 98% on room air. General: Mr. Rendon is a chronically ill-appearing elderly gentleman. He is sitting up on the side of the bed currently in no acute distress. HEENT: Atraumatic, normocephalic. Oral mucous membranes are pink and moist. Conjunctivae are pale. Neck: Supple. Trachea is midline. Cardiovascular: Heart rate is irregular with Atrial fibrillation and some paced beats noted on the monitor. Respiratory: Lung sounds have some mild rhonchi in the upper lobes. Diminished in the mid and bases. No work of breathing is noted. Extremities: There is generalized edema noted, 2+ to the lower extremities and left upper extremity, and 3+ to the right upper extremity. He has moderate bruising and mild, scabby abrasions noted to all 4 extremities. Neurologic: He is awake, alert, and oriented and able to move around in the bed with generalized weakness noted. LABORATORY AND X-RAY: Today, there is no blood work. However, yesterday his white count was 29.26, platelet count 109,000, hemoglobin 9.2, creatinine 0.6, estimated GFR greater than 60. His urine and blood previously grew Pseudomonas aeruginosa. No imaging reports today. ASSESSMENT AND PLAN: Mr. Rendon is receiving oral Levaquin for Pseudomonas bacteremia secondary to a urinary tract infection. Today is day 22 of 42 days of treatment which he will require for the bacteremia, and due to the presence of a pacemaker which could have been hematogenously infected. At this point, he is tolerating the oral medication well and denies any diarrhea or fungal rash. He is also being treated for oral candidiasis, which seems to have resolved. We will continue nystatin swish and swallow as long as he is on the Levaquin. The patient stated understanding and agreed with these plans, which have been recommended by and reviewed with Dr. Ruby. COMORBIDITIES: For Mr. Rendon include he is elderly, with chronic lymphocytic leukemia and chemotherapy, immunoglobulin deficiency, and [place]'s disease with chronic steroid administration. Dictated by ERLIN Prince for Kvng Ruby MD cc: Kvng Ruby MD [facility]
[2018-10-28] MEDS: PATIENT'S OWN MED PO SCH (18:46)
[2018-10-28] MEDS: PRAVACHOL PO SCH (21:13)
[2018-10-29] MEDS: PROTONIX PO SCH (05:59)
[2018-10-29] MEDS: SYNTHROID PO SCH (05:59)
[2018-10-29] MEDS: REGLAN PO SCH ×3 (05:59→16:31)
[2018-10-29] MEDS: MEGACE LIQUID PO SCH ×2 (08:49→21:29)
[2018-10-29] MEDS: ELIQUIS PO SCH ×2 (08:50→21:31)
[2018-10-29] MEDS: RYTHMOL PO SCH ×2 (08:50→21:31)
[2018-10-29] MEDS: CORTEF PO SCH ×2 (08:50→16:31)
[2018-10-29] MEDS: MYCOSTATIN SUSP PO SCH ×4 (08:50→21:31)
[2018-10-29] MEDS: LANOXIN PO SCH (08:50)
[2018-10-29] MEDS: FLORINEF PO SCH (08:50)
[2018-10-29] MEDS: LEVAQUIN PO SCH (08:50)
[2018-10-29] MEDS: LASIX PO SCH (08:50)
[2018-10-29] MEDS: ULORIC PO SCH (08:50)
[2018-10-29] MEDS: KLOR-CON PO SCH (08:50)
[2018-10-29] MEDS: LANTUS INSULIN SUBQ SCH (08:51)
[2018-10-29] MEDS: PATIENT'S OWN MED PO SCH (16:31)
[2018-10-29] MEDS: PRAVACHOL PO SCH (21:31)
[2018-10-30] MEDS: PROTONIX PO SCH (06:01)
[2018-10-30] MEDS: REGLAN PO SCH ×3 (06:01→16:52)
[2018-10-30] MEDS: SYNTHROID PO SCH (06:01)
[2018-10-30] MEDS ORDERED: CYANOCOBALAMIN IM ONE (08:47)
[2018-10-30] MEDS ORDERED: TYLENOL PO ONE (08:47)
[2018-10-30] MEDS ORDERED: BENADRYL IV ONE (08:47)
[2018-10-30] MEDS ORDERED: GAMUNEX-C 10% IV ONE (09:00)
[2018-10-30] MEDS ORDERED: BENADRYL INJ ONE (09:00)
[2018-10-30] MEDS ORDERED: NS INJ ONE (09:00)
--- NOTE | 2018-10-30 09:19 | HEMO/ONC PROGRESS NOTE ---
DATE: 10/30/2018 CHIEF COMPLAINT/HISTORY OF PRESENT ILLNESS: Mr. Rendon has now been in the hospital for approximately 27 days now. He is presently in a floor bed, feeling better. He states he feels a little better every day. He is hoping to get into some of his rehab. He is continuing to try and get up, however, he is not able to get up on his own at this time. He does feel weak and he denies pain. OBJECTIVE: Vital Signs: Temperature 97.9 degrees, pulse rate 81, respiratory rate 16, blood pressure 134/67, O2 saturation 99% on room air. He is in 0/10 pain. PHYSICAL EXAMINATION: General: This is a chronically ill-appearing male in no acute distress. He is well developed, hydrated and well nourished. He is awake, alert, and oriented. Integumentary: Skin is warm and dry without lesions or rashes. Hematomas on bilateral arms. Eyes: Sclerae is nonicteric. Pupils: PERRLA. Mouth: Oral mucosa is pink and moist with good dentition. Cardiovascular: Normal S1, S2. Regular rate and rhythm without extra heart sounds. Respiratory: No signs of respiratory distress. Lungs are clear bilaterally. Abdomen: Soft, symmetric, and nontender without distention is present. Extremities: Remain with significant edema. His right arm is bigger than his left. His feet have improved. DIAGNOSTIC DATA: There have been no labs drawn for the past 3 days. He has had no recent imaging. ASSESSMENT: 1. Chronic lymphocytic leukemia, on Imbruvica. 2. Status post Port-A-Cath removal for Pseudomonas bacteremia. 3. Chronic anemia. 4. Sushil disease. 5. Immunoglobulin deficiency. 6. General weakness and deconditioning. PLAN: The patient's increasing weakness and loss of ability to walk is most likely due to his high-dose steroids and deconditioning. We are going to attempt to wean steroids to his baseline very slowly, especially in light of his Sampson's disease. We are going to lower the dose today and slowly routinely. We are going to order for him to get up with assistance more often during the day. He needs to continue to try and exercise. He is neutropenic again. He needs to continue on Neupogen for an ANC of less than 1.5. The patient often requires transfusions for anemia as well. We have stopped his pravastatin. We need to give him Octagam today for his immunoglobulin deficiency. However, nursing staff state they are unable to obtain IV access. We will continue to monitor peripherally. Please call if needed over the weekend. Dictated by ERLIN Padilla for Anjum Hurtado MD cc: Anjum Hurtado MD [facility]
[2018-10-30] MEDS: CORTEF PO SCH ×2 (09:42→16:52)
[2018-10-30] MEDS: KLOR-CON PO SCH (09:43)
[2018-10-30] MEDS: LEVAQUIN PO SCH (09:43)
[2018-10-30] MEDS: MYCOSTATIN SUSP PO SCH ×4 (09:43→20:02)
[2018-10-30] MEDS: LANOXIN PO SCH (09:43)
[2018-10-30] MEDS: ULORIC PO SCH (09:43)
[2018-10-30] MEDS: ELIQUIS PO SCH ×2 (09:43→20:02)
[2018-10-30] MEDS: MEGACE LIQUID PO SCH ×2 (09:43→20:02)
[2018-10-30] MEDS: RYTHMOL PO SCH ×2 (09:44→20:02)
[2018-10-30] MEDS: LASIX PO SCH (09:44)
[2018-10-30] MEDS: FLORINEF PO SCH (09:44)
[2018-10-30] MEDS: LANTUS INSULIN SUBQ SCH (09:46)
[2018-10-30 11:19] LABS: HEMATOCRIT 26.2 % (42.0-52.0); HEMOGLOBIN 8.6 g/dL (14.0-18.0); MCH 33.9 PG (27-31); MCHC 32.8 g/dL (33-37); MCV 103.1 FL (81-99); RBC 2.54 XMIL (4.7-6.1); RDW 21.4 % (11.5-14.5); WBC 27.62 X1000 (4.8-10.8)
[2018-10-30 11:20] LABS: BASO# 0.03 X1000 (0.0-0.2); BASO% 0.1 % (0.0-0.8); EOS# 0.16 X1000 (0.0-0.7); EOS% 0.6 % (0.0-10.0); LYMPH# 26.21 X1000 (1.2-3.4); LYMPH% 94.9 % (20.5-51.1); MONO# 0.06 X1000 (0.11-0.59); MONO% 0.2 % (1.7-9.3); MPV 10.6 FL (7.4-10.4); NEUT# 1.16 X1000 (1.4-6.5); NEUT% 4.2 % (42.2-75.2); PLT 111 X1000 (130-400)
[2018-10-30] MEDS ORDERED: NEUPOGEN SUBQ SCH (11:30)
[2018-10-30 11:42] LABS: SEGS 4 % (42-75)
[2018-10-30 11:43] LABS: LYMPHS 96 % (21-51)
--- NOTE | 2018-10-30 13:56 | PROGRESS NOTE ---
DATE: 10/30/2018 Mr. Rendon feels like he may be a little better. He was able to walk down the tay with a lot of assistance. He is still pretty shaking and unsteady on his feet. He feels like the swelling may have diminished a little bit in his arms. OBJECTIVE: Temperature 97.9 degrees, pulse 80, respirations 16, blood pressure 134/67. Pupils are equal round.Lungs: Clear in all lung herzog. Cardiovascular: Regular rhythm and rate without murmur or S3. Abdomen: Soft. Skin: Warm and dry. Urine output is 2000 mL. Blood sugar 258, 213, 256. ASSESSMENT AND PLAN: 1. Chronic lymphocytic leukemia. He is on him Imbruvica. 2. Status post Port-A-Cath removal for Pseudomonas bacteremia. 3. Chronic anemia. 4. [place]'s disease. 5. Immunoglobulin deficiency. 6. General weakness and deconditioning. Continue physical therapy. I think his insurance has denied him going to [facility]. I have called to try and get a peer to peer review, but continue physical therapy here. He is being treated for Pseudomonas urinary tract infection with associated bacteremia and could have hematogenously infected pacemaker. There is also oral candidiasis so continue immunoglobulin replacement. Continue Levaquin 500 mg daily based on blood cultures but this is I think the 24th day of a 6-week treatment for bacteremia. cc: Edgard Stein MD
[2018-10-30] MEDS: PATIENT'S OWN MED PO SCH (17:25)
--- NOTE | 2018-10-30 19:12 | INFECTIOUS DISEASE PROGRESS NO ---
DATE: 10/30/2018 PRESENT ILLNESS: Mr. Rendon has a Pseudomonas urinary tract infection with an associated bacteremia, as well as the presence of a pacemaker which could have been hematogenously infected. He also has an oral candidiasis which has improved. Dr. Hurtado is also treating him for an immunoglobulin deficiency. MEDICATIONS: Based on his sterile blood cultures, today is day 24 of a 6-week treatment for his bacteremia, using Levaquin 500 mg by mouth daily. He is also receiving nystatin swish and swallow for the oral candidiasis. Also today he has a treatment of IVIG ordered. PHYSICAL EXAMINATION: Vital Signs: Temperature is 97.9 degrees, pulse rate 81, respiratory rate 16, blood pressure 134/67, and O2 saturation is 99% on room air. General: This is a chronically ill-appearing, elderly gentleman. He is lying in the bed currently, in no acute distress. HEENT: Atraumatic, normocephalic. Oral mucous membranes are pink and dry. Conjunctivae are pale. Neck: Supple. Trachea is midline. Cardiovascular: Heart rate is irregularly irregular with atrial fibrillation and some paced beats noted on monitor. Respiratory: Lung sounds are clear to auscultation bilaterally. Diminished in the bases. No work of breathing is noted. Extremities: There is a generalized edema noted 1+ pretibially and 2+ to the left upper extremity with 3+ to the right upper extremity, as well as discoloration, bruising and some mild, scabby abrasions to the extremities. Abdomen: Soft, round and nontender. Bowel sounds are active. Neurologic: He is awake, alert, oriented, and he is able to move around in the bed with generalized weakness noted. LABORATORY AND X-RAY: None available today. ASSESSMENT AND PLAN: Mr. Rendon has a Pseudomonas bacteremia secondary to a urinary tract infection. He is receiving oral Levaquin which we will continue. Today is day 24 of a 42-day treatment, which he will require for the bacteremia, due to the possibility of a hematogenous infection to his pacemaker. We will also continue the nystatin swish and swallow for the oral candidiasis, which is much better. At this point, the plan is for him to hopefully go to rehab to get some strength built up before he goes home. These plans have been discussed with and recommended by Dr. Ruby. COMORBIDITIES: For Mr. Rendon include that he is elderly, with chronic lymphocytic leukemia on chemotherapy, [place]'s disease with chronic steroid administration, and an immunoglobulin deficiency. Dictated by ERLIN Prince for Kvng Ruby MD cc: Kvng Ruby MD [facility]
[2018-10-30] MEDS: HUMALOG SUBQ SCH (22:26)
[2018-10-31] MEDS: SYNTHROID PO SCH (05:59)
[2018-10-31] MEDS: PROTONIX PO SCH (05:59)
[2018-10-31] MEDS: HUMALOG SUBQ SCH ×5 (05:59→23:10)
[2018-10-31] MEDS: REGLAN PO SCH ×3 (05:59→17:13)
[2018-10-31 06:48] LABS: HEMATOCRIT 24.9 % (42.0-52.0); HEMOGLOBIN 8.1 g/dL (14.0-18.0); MCH 33.2 PG (27-31); MCHC 32.5 g/dL (33-37); PLT 104 X1000 (130-400); RBC 2.44 XMIL (4.7-6.1); RDW 21.3 % (11.5-14.5); WBC 28.34 X1000 (4.8-10.8)
[2018-10-31 06:49] LABS: BASO# 0.02 X1000 (0.0-0.2); BASO% 0.1 % (0.0-0.8); EOS# 0.07 X1000 (0.0-0.7); EOS% 0.2 % (0.0-10.0); IMM GRAN# 0.35 X1000 (0.0-0.04); IMM GRAN% 1.2 % (0.0-0.5); LYMPH# 26.13 X1000 (1.2-3.4); LYMPH% 92.2 % (20.5-51.1); MONO# 0.18 X1000 (0.11-0.59); MONO% 0.6 % (1.7-9.3); MPV 9.9 FL (7.4-10.4); NEUT# 1.59 X1000 (1.4-6.5); NEUT% 5.7 % (42.2-75.2)
[2018-10-31 07:46] LABS: BANDS 6 % (0-1); LYMPHS 90 % (21-51); SEGS 2 % (42-75)
[2018-10-31] MEDS: LASIX PO SCH (08:57)
[2018-10-31] MEDS: KLOR-CON PO SCH (08:57)
[2018-10-31] MEDS: MYCOSTATIN SUSP PO SCH ×4 (08:57→21:27)
[2018-10-31] MEDS: ULORIC PO SCH (08:57)
[2018-10-31] MEDS: CORTEF PO SCH ×2 (08:57→17:11)
[2018-10-31] MEDS: GRANIX SUBQ SCH (08:57)
[2018-10-31] MEDS: LANOXIN PO SCH (08:57)
[2018-10-31] MEDS: ELIQUIS PO SCH ×2 (08:57→21:28)
[2018-10-31] MEDS: LEVAQUIN PO SCH (08:57)
[2018-10-31] MEDS: MEGACE LIQUID PO SCH ×2 (08:58→21:27)
[2018-10-31] MEDS: FLORINEF PO SCH (08:58)
[2018-10-31] MEDS: RYTHMOL PO SCH ×2 (08:58→21:28)
[2018-10-31] MEDS: LANTUS INSULIN SUBQ SCH (09:01)
--- NOTE | 2018-10-31 12:48 | PROGRESS NOTE ---
DATE: 10/31/2018 SUBJECTIVE: Mr. stokes feels like he may be a little stronger, a little decreased swelling in his arms. He did get some rest. He is eating well. Bowels are moving appropriately. OBJECTIVE: Vital signs: Temperature 98.0 degrees, pulse 80, respirations 18, blood pressure 124/56. HEENT: Pupils are equal round. Lungs: Clear in all lung herzog. Cardiovascular: Regular rhythm and rate without murmur or S3. Blood sugars 304, 138, 163. ASSESSMENT AND PLAN: 1. Chronic lymphocytic leukemia. He is on Imbruvica. 2. Status post Port-A-Cath removal for Pseudomonas bacteremia. 3. Chronic anemia. 4. [place]'s disease. 5. Immunoglobulin deficiency. 6. General weakness and deconditioning, general swelling. Hematocrit 24, hemoglobin 8 which is stable. White blood cell count 14987, platelet count 104,000. Blood sugars 268, 138, 163. Last set of electrolytes on 10/27/2018, sodium 139, potassium 3.0, chloride 100, BUN 21, creatinine 0.6. 7. Diabetes mellitus type 2. His sugar is under good control. REVIEW OF ORDERS: I do not see any change at this time. We will check electrolytes and magnesium and CBC again in the morning. cc: Edgard Stein MD
[2018-10-31] MEDS: PATIENT'S OWN MED PO SCH (17:12)
--- NOTE | 2018-11-01 05:59 | Diag Imaging Result Doc PS360 ---
EXAM: CHEST-1 VIEW HISTORY: SOB TECHNIQUE: Portable chest single view COMPARISON: 10/24/2018 FINDINGS: The lungs are well expanded. No cardiomegaly. There are small pleural effusions. No change in the left-sided pacemaker. Mild central vascular prominence. IMPRESSION: Stable chest. Electronically signed by Carlos Acosta 11/01/2018 5:56 AM
[2018-11-01] MEDS: SYNTHROID PO SCH (06:13)
[2018-11-01] MEDS: REGLAN PO SCH ×3 (06:13→17:34)
[2018-11-01] MEDS: PROTONIX PO SCH (06:13)
[2018-11-01] MEDS: HUMALOG SUBQ SCH ×4 (06:13→21:20)
[2018-11-01 07:01] LABS: AGAP 7; BUN 18 mg/dL (8-22); CALCIUM 7.8 mg/dL (8.8-10.2); CHLORIDE 99 mmol/L (98-107); COSMO 280; CREATININE 0.6 mg/dL (0.7-1.2); ESTIMATED GFR > 60; GLUCOSE 146 mg/dL (70-104); MAGNESIUM 1.2 mg/dL (1.5-2.7); POTASSIUM 2.8 mmol/L (3.5-5.1); SODIUM 138 mmol/L (136-145); TCO2 32 mmol/L (25-35)
[2018-11-01 07:50] LABS: BASO# 0.02 X1000 (0.0-0.2); BASO% 0.1 % (0.0-0.8); EOS# 0.06 X1000 (0.0-0.7); EOS% 0.2 % (0.0-10.0); HEMATOCRIT 24.3 % (42.0-52.0); HEMOGLOBIN 7.9 g/dL (14.0-18.0); IMM GRAN# 0.23 X1000 (0.0-0.04); IMM GRAN% 0.8 % (0.0-0.5); LYMPH# 25.47 X1000 (1.2-3.4); LYMPH% 92.5 % (20.5-51.1); MCH 33.5 PG (27-31); MCHC 32.5 g/dL (33-37); MONO# 0.03 X1000 (0.11-0.59); MONO% 0.1 % (1.7-9.3); MPV 10.8 FL (7.4-10.4); NEUT# 1.73 X1000 (1.4-6.5); NEUT% 6.3 % (42.2-75.2); PLT 96 X1000 (130-400); RBC 2.36 XMIL (4.7-6.1); RDW 21.3 % (11.5-14.5); WBC 27.54 X1000 (4.8-10.8)
[2018-11-01 08:54] LABS: ANISOCYTOSIS 2+; BANDS 4 % (0-1); HYPOCHROM 2+; LYMPHS 90 % (21-51); SEGS 2 % (42-75)
[2018-11-01 08:55] LABS: POIKILOCYTOSIS 1+
[2018-11-01] MEDS: CORTEF PO SCH ×2 (09:17→17:33)
[2018-11-01] MEDS: ULORIC PO SCH (09:17)
[2018-11-01] MEDS: FLORINEF PO SCH (09:18)
[2018-11-01] MEDS: LANOXIN PO SCH (09:18)
[2018-11-01] MEDS: MEGACE LIQUID PO SCH ×2 (09:18→21:19)
[2018-11-01] MEDS: MYCOSTATIN SUSP PO SCH ×4 (09:18→21:19)
[2018-11-01] MEDS: KLOR-CON PO SCH (09:18)
[2018-11-01] MEDS: RYTHMOL PO SCH ×2 (09:18→21:19)
[2018-11-01] MEDS: LASIX PO SCH (09:18)
[2018-11-01] MEDS: LEVAQUIN PO SCH (09:19)
[2018-11-01] MEDS: ELIQUIS PO SCH ×2 (09:19→21:19)
[2018-11-01] MEDS: LANTUS INSULIN SUBQ SCH (09:23)
[2018-11-01] MEDS: GRANIX SUBQ SCH (12:57)
--- NOTE | 2018-11-01 13:10 | PROGRESS NOTE ---
DATE: 11/01/2018 SUBJECTIVE: Mr. Rendon had a pretty good night. Feels like maybe the swelling is less in his arms. OBJECTIVE: Vital Signs: Temperature 97.5 degrees, pulse 99, respirations 20, blood pressure 124/63. HEENT: Pupils are equal and round. Lungs: Clear in all lung herzog. Cardiovascular: Regular rhythm and rate without murmur or S3. Urine output was 2700 mL. Lastly three blood sugars were 138, 196, 196. IMAGING: Chest x-ray from this morning shows lungs are well expanded. No cardiomegaly. There are small pleural effusions. No change in left-sided pacemaker. Mild central vascular prominence. ASSESSMENT AND PLAN: 1. Chronic lymphocytic leukemia. He is on Imbruvica. 2. Status post Port-A-Cath removal for Pseudomonas bacteremia. 3. Chronic anemia. 4. Sushil's disease. 5. Immunoglobulin deficiency. 6. General weakness and deconditioning. General extracellular fluid swelling that is slowly going down. 7. Diabetes mellitus type 2. Sugars look under good control. 8. General weakness and deconditioning. Continue physical therapy. I think we are making slow progress. He was not eligible, insurance denied inpatient rehab. cc: Edgard Stein MD
[2018-11-01] MEDS: PATIENT'S OWN MED PO SCH (17:34)
[2018-11-02] MEDS: SYNTHROID PO SCH (06:29)
[2018-11-02] MEDS: REGLAN PO SCH ×3 (06:29→16:46)
[2018-11-02] MEDS: PROTONIX PO SCH (06:29)
[2018-11-02] MEDS: HUMALOG SUBQ SCH ×4 (06:29→21:57)
[2018-11-02 07:47] LABS: BASO# 0.02 X1000 (0.0-0.2); BASO% 0.1 % (0.0-0.8); EOS# 0.04 X1000 (0.0-0.7); EOS% 0.1 % (0.0-10.0); HEMATOCRIT 24.7 % (42.0-52.0); HEMOGLOBIN 8.1 g/dL (14.0-18.0); IMM GRAN# 0.11 X1000 (0.0-0.04); IMM GRAN% 0.4 % (0.0-0.5); LYMPH% 93.7 % (20.5-51.1); MCH 33.9 PG (27-31); MCHC 32.8 g/dL (33-37); MCV 103.3 FL (81-99); MONO# 0.07 X1000 (0.11-0.59); MONO% 0.2 % (1.7-9.3); MPV 10.6 FL (7.4-10.4); NEUT# 1.57 X1000 (1.4-6.5); NEUT% 5.5 % (42.2-75.2); PLT 100 X1000 (130-400); RBC 2.39 XMIL (4.7-6.1); RDW 21.6 % (11.5-14.5); WBC 28.91 X1000 (4.8-10.8)
[2018-11-02 08:31] LABS: BANDS 2 % (0-1); LYMPHS 78 % (21-51); SEGS 2 % (42-75)
[2018-11-02] MEDS: CORTEF PO SCH ×2 (09:08→16:46)
[2018-11-02] MEDS: KLOR-CON PO SCH (09:09)
[2018-11-02] MEDS: ELIQUIS PO SCH ×2 (09:09→21:57)
[2018-11-02] MEDS: ULORIC PO SCH (09:09)
[2018-11-02] MEDS: LANOXIN PO SCH (09:09)
[2018-11-02] MEDS: MEGACE LIQUID PO SCH ×2 (09:09→21:57)
[2018-11-02] MEDS: RYTHMOL PO SCH ×2 (09:09→21:57)
[2018-11-02] MEDS: LEVAQUIN PO SCH (09:09)
[2018-11-02] MEDS: LASIX PO SCH (09:09)
[2018-11-02] MEDS: FLORINEF PO SCH (09:09)
[2018-11-02] MEDS: GRANIX SUBQ SCH (09:10)
[2018-11-02] MEDS: LANTUS INSULIN SUBQ SCH (09:10)
[2018-11-02] MEDS: MYCOSTATIN SUSP PO SCH ×4 (09:10→21:57)
[2018-11-02] MEDS ORDERED: GAMUNEX-C 10% IV ONE (12:53)
--- NOTE | 2018-11-02 16:00 | EKG Report ---
Test Performed on : 11/02/2018 3:53:28 PM Test Reason : question of long QT Blood Pressure : / mmHG Vent. Rate : 080 BPM Atrial Rate : 068 BPM P-R Int : 000 ms QRS Dur : 178 ms QT Int : 444 ms P-R-T Axes : 000 253 052 degrees QTc Int : 512 ms Ventricular-paced rhythm Abnormal ECG When compared with ECG of 25-OCT-2018 06:11, Vent. rate has decreased BY 14 BPM Confirmed by Ad Luis MD ([id number]) on 11/02/2018 4:12:16 PM
[2018-11-02] MEDS: PATIENT'S OWN MED PO SCH (16:46)
[2018-11-02] MEDS ORDERED: POTASSIUM CHLORIDE 20% LIQUID PO ONE (17:14)
--- NOTE | 2018-11-02 17:41 | INFECTIOUS DISEASE PROGRESS NO ---
DATE: 11/02/2018 PRESENT ILLNESS: The patient has a Pseudomonas urinary tract infection with an associated bacteremia. The patient has a pacemaker in place on the left side and this could have become infected hematogenously while the patient was bacteremic. The patient also is on oral candidiasis which has improved. The patient has an immunoglobulin deficiency and today Dr. Hurtado ordered IVIG. MEDICATIONS: The patient is on Levaquin 500 mg daily. He has been on Levaquin for 18 days and will require 24 more days of treatment to complete a 6-week treatment course in case the patient the patient's pacemaker became infected while the patient was bacteremic. The patient also is on nystatin swish and swallow for his oral candidiasis. PHYSICAL EXAMINATION: Vital Signs: Temperature is 97.6 degrees, pulse 88, respirations 18, blood pressure is 123/52. General: This is a chronically ill-appearing, elderly male. He is sitting up in a chair and earlier he walked. He is in no acute distress. Head, eyes, ears, nose, and throat: He can hear my spoken words and see near objects. He does not have any white coating on his tongue. Neck: The patient has an internal jugular venous catheter in place. The site is not erythematous or purulent. Cardiovascular: The patient's heart rate is irregular. Abdomen: Soft and nontender. Extremities: Patient has bilateral swelling of the arms. Neurologic: The patient is alert. As mentioned earlier, he stood and walked today. LAB AND X-RAY: [place] [address], hemoglobin 8.1, platelet count 100,000. Creatinine is 0.6, IgG is 516. ASSESSMENT AND PLAN: As regarding the patient's Pseudomonas bacteremia he has had 18 days of treatment with it and will need 24 more days to complete a 6-week treatment course. Dr. Garcia has ordered an infusion of IVIG. COMORBIDITIES: The patient is elderly. He has chronic lymphocytic leukemia for which he is on chemotherapy. The patient also has [place]'s disease with chronic steroid administration and an immunoglobulin deficiency which is being treated with IVIG by Dr. Garcia. cc: Kvng Ruby MD
--- NOTE | 2018-11-02 18:03 | CARDIOLOGY PROGRESS NOTE ---
DATE: 11/02/2018 CHIEF COMPLAINT: Irregular heartbeat, swelling. SUBJECTIVE: Mr. Rendon has been treated with a combination of antiarrhythmic drugs at this time, including propafenone at low dose of 150 three times a day, digoxin 0.125 daily, and his rate is generally better controlled. He stated that his appetite is picking up. OBJECTIVE: Vital signs: Blood pressure 116/48, temperature 97.9, pulse 80, respirations 15. General: He is awake, alert, in no distress. He appears to be chronically ill. He has diffuse swelling of upper extremities with multiple bruises. Chest: Diminished breath sounds at the bases. Heart: Sounds are actually regular and rhythmic at this time. Abdomen: Nontender. Extremities: Show trace of edema. Neurological exam: Follows commands. Moves four extremities. BLOOD WORK: Potassium level today is 2.8, sodium 138, BUN and creatinine are normal. DIAGNOSTIC DATA: A 12-lead EKG was done today, 11/02/2018 at 3:53 p.m. and it shows ventricular paced rhythm with no significant additional abnormality. Telemetry shows no significant changes in heart rate. IMPRESSION: 1. Patient who has permanent atrial fibrillation. 2. Status post pacemaker implantation. Sick sinus syndrome. 3. Pseudomonas septicemia which appears to be resolved. 4. Chronic lymphocytic leukemia. 5. Hypokalemia. 6. Sushil's disease. 7. History of diabetes. RECOMMENDATIONS: At this time, I do not have any problem with the patient taking Levaquin as ordered by Dr. Ruby with propafenone and digoxin. His QTC does not appear to be particularly prolonged. However, we have to be mindful that this patient is hypokalemic and that needs to be corrected. I would encourage the primary service to do everything they can to keep his potassium level within physiologic range. Otherwise, continue present medical therapy as you are doing and do not hesitate to call us if you have any other questions or concerns. cc: Tye Sumner MD
[2018-11-03] MEDS: HUMALOG SUBQ SCH ×4 (06:09→21:29)
[2018-11-03] MEDS: SYNTHROID PO SCH (06:10)
[2018-11-03] MEDS: REGLAN PO SCH ×3 (06:10→17:01)
[2018-11-03] MEDS: PROTONIX PO SCH (06:10)
[2018-11-03 07:29] LABS: BASO# 0.01 X1000 (0.0-0.2); EOS# 0.07 X1000 (0.0-0.7); EOS% 0.3 % (0.0-10.0); HEMATOCRIT 23.5 % (42.0-52.0); HEMOGLOBIN 7.6 g/dL (14.0-18.0); IMM GRAN# 0.02 X1000 (0.0-0.04); IMM GRAN% 0.1 % (0.0-0.5); LYMPH# 24.51 X1000 (1.2-3.4); LYMPH% 94.7 % (20.5-51.1); MCH 33.8 PG (27-31); MCHC 32.3 g/dL (33-37); MCV 104.4 FL (81-99); MONO# 0.21 X1000 (0.11-0.59); MONO% 0.8 % (1.7-9.3); MPV 10.9 FL (7.4-10.4); NEUT# 1.05 X1000 (1.4-6.5); NEUT% 4.1 % (42.2-75.2); PLT 99 X1000 (130-400); RBC 2.25 XMIL (4.7-6.1); RDW 22.2 % (11.5-14.5); WBC 25.87 X1000 (4.8-10.8)
[2018-11-03] MEDS ORDERED: NS 500 ML IV ONE (07:47)
[2018-11-03 08:03] LABS: AGAP 8; ALBUMIN 2.5 g/dL (3.5-5.0); BUN 22 mg/dL (8-22); CALCIUM 8.2 mg/dL (8.8-10.2); CHLORIDE 98 mmol/L (98-107); COSMO 274; CREATININE 0.5 mg/dL (0.7-1.2); ESTIMATED GFR > 60; GLUCOSE 78 mg/dL (70-104); MAGNESIUM 1.3 mg/dL (1.5-2.7); POTASSIUM 3.5 mmol/L (3.5-5.1); SODIUM 136 mmol/L (136-145); TCO2 30 mmol/L (25-35)
[2018-11-03] MEDS ORDERED: MAGNESIUM SULFATE 4 GM/S.W.I. 4 GM/100 ML IVPB IV ONE (08:06)
[2018-11-03] MEDS ORDERED: KLOR-CON PO ONE (08:07)
[2018-11-03 08:08] LABS: ANISOCYTOSIS 1+; BANDS 2 % (0-1); SEGS 4 % (42-75)
[2018-11-03 08:09] LABS: LYMPHS 92 % (21-51)
[2018-11-03] MEDS: LEVAQUIN PO SCH (09:34)
[2018-11-03] MEDS: ELIQUIS PO SCH ×2 (09:34→21:18)
[2018-11-03] MEDS: RYTHMOL PO SCH ×2 (09:34→21:18)
[2018-11-03] MEDS: LASIX PO SCH (09:34)
[2018-11-03] MEDS: MYCOSTATIN SUSP PO SCH ×4 (09:34→21:18)
[2018-11-03] MEDS: FLORINEF PO SCH (09:34)
[2018-11-03] MEDS: ULORIC PO SCH (09:34)
[2018-11-03] MEDS: CORTEF PO SCH ×2 (09:34→17:00)
[2018-11-03] MEDS: LANOXIN PO SCH (09:34)
[2018-11-03] MEDS: LANTUS INSULIN SUBQ SCH (09:35)
[2018-11-03] MEDS: MEGACE LIQUID PO SCH ×2 (09:37→21:18)
[2018-11-03] MEDS: GRANIX SUBQ SCH (11:25)
[2018-11-03] MEDS ORDERED: LASIX IV ONE (12:27)
[2018-11-03] MEDS ORDERED: ALBUMIN 25% IV ONE (15:27)
--- NOTE | 2018-11-03 16:10 | PROGRESS NOTE ---
DATE: 11/03/2018 SUBJECTIVE: The patient is resting comfortably in bed. He states that he has been working with physical therapy. However, his swelling has worsened in his legs and arms. OBJECTIVE: Vital Signs: Temperature 98.3 degrees, blood pressure 126/48, heart rate 83, respirations 20, O2 saturation is 99% on room air. General: This is a chronically ill-appearing elderly male lying in bed, in no acute distress. Heart: S1, S2 normal. Regular rate and rhythm. Lungs: Equal air entry bilaterally. No wheezing. No rales. Abdomen: Positive bowel sounds. Soft, nontender, nondistended. Extremities: There is 3+ edema in the lower extremities and edema is also noted in the upper extremities. Neurologic: The patient is alert and oriented x4. LABS: White blood cell count 25, hemoglobin 7.6, hematocrit 23, platelets 99,000. Sodium 136, potassium 3.5, chloride 98, CO2 30, BUN 22, creatinine 0.5, glucose 99, magnesium 1.3, albumin 2.5. ASSESSMENT AND PLAN: 1. Bacteremia secondary to Pseudomonas. Continue on Levaquin. 2. Chronic lymphocytic leukemia. Aware. 3. Atrial fibrillation. The patient is rate controlled. 4. Immunoglobulin deficiency, status post IVIG infusion. Stable. 5. 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 6. Right arm hematoma. Resolved. 7. Status post infected Port-A-Cath removal. Aware. 8. Anasarca. We will give the patient an extra dose of Lasix today. We will also infuse some albumin since the patient's albumin is quite low. 9. Anemia. The patient will receive 1 unit of packed red blood cells today. 10. Diabetes mellitus type 2. Continue on Lantus and sliding scale insulin. 11. Continue with physical therapy. cc: Jeanna Morrell MD [facility]
[2018-11-03] MEDS: PATIENT'S OWN MED PO SCH (17:00)
[2018-11-04] MEDS: HUMALOG SUBQ SCH ×4 (06:20→21:10)
[2018-11-04] MEDS: SYNTHROID PO SCH (06:55)
[2018-11-04] MEDS: PROTONIX PO SCH (06:55)
[2018-11-04] MEDS: REGLAN PO SCH ×3 (06:56→16:25)
[2018-11-04 07:54] LABS: BASO# 0.02 X1000 (0.0-0.2); BASO% 0.1 % (0.0-0.8); EOS# 0.03 X1000 (0.0-0.7); EOS% 0.1 % (0.0-10.0); HEMATOCRIT 24.9 % (42.0-52.0); HEMOGLOBIN 8.2 g/dL (14.0-18.0); IMM GRAN# 0.25 X1000 (0.0-0.04); IMM GRAN% 1.1 % (0.0-0.5); LYMPH# 21.86 X1000 (1.2-3.4); LYMPH% 95.1 % (20.5-51.1); MCH 33.3 PG (27-31); MCHC 32.9 g/dL (33-37); MCV 101.2 FL (81-99); MONO# 0.03 X1000 (0.11-0.59); MONO% 0.1 % (1.7-9.3); MPV 10.9 FL (7.4-10.4); NEUT% 3.5 % (42.2-75.2); PLT 82 X1000 (130-400); RBC 2.46 XMIL (4.7-6.1); RDW 21.9 % (11.5-14.5); WBC 22.99 X1000 (4.8-10.8)
[2018-11-04 08:08] LABS: BANDS 6 % (0-1); SEGS 2 % (42-75)
[2018-11-04 08:15] LABS: AGAP 9; ALB/GLOB RATIO 1.4; ALBUMIN 3.2 g/dL (3.5-5.0); ALKALINE PHOSPHATASE 39 U/L (32-122); BUN 22 mg/dL (8-22); CALCIUM 8.2 mg/dL (8.8-10.2); CHLORIDE 100 mmol/L (98-107); COSMO 280; CREATININE 0.7 mg/dL (0.7-1.2); ESTIMATED GFR > 60; GLUCOSE 110 mg/dL (70-104); GOT 8 U/L (10-34); GPT < 5 U/L (10-44); POTASSIUM 3.4 mmol/L (3.5-5.1); SODIUM 138 mmol/L (136-145); TCO2 29 mmol/L (25-35); TOTAL BILIRUBIN 1.69 mg/dL (0.20-1.00); TOTAL PROTEIN 5.5 g/dL (6.3-8.3)
[2018-11-04 08:16] LABS: LYMPHS 88 % (21-51)
[2018-11-04] MEDS ORDERED: LASIX IV ONE (09:06)
--- NOTE | 2018-11-04 10:00 | Diag Imaging Result Doc PS360 ---
EXAM: CHEST-PORTABLE 11/04/2018 HISTORY: dyspnea TECHNIQUE: AP portable at 0917 COMMENT: There are bilateral pleural effusions. There is a rounded opacity in the mid lung field on the right which is slightly denser and more well-defined than on the previous study of 11/01/2018. There is hazy opacity over both lower lung herzog which was also present previously. IMPRESSION: Round pneumonia in the right upper lobe or superior segment. Pulmonary edema. Bilateral pleural effusions. Electronically signed by Zhang Orozco 11/04/2018 9:58 AM
[2018-11-04] MEDS: CORTEF PO SCH ×2 (10:12→16:25)
[2018-11-04] MEDS: LEVAQUIN PO SCH (10:13)
[2018-11-04] MEDS: RYTHMOL PO SCH ×2 (10:13→21:09)
[2018-11-04] MEDS: LANOXIN PO SCH (10:13)
[2018-11-04] MEDS: MYCOSTATIN SUSP PO SCH ×4 (10:13→21:10)
[2018-11-04] MEDS: ELIQUIS PO SCH ×2 (10:14→21:09)
[2018-11-04] MEDS: FLORINEF PO SCH (10:14)
[2018-11-04] MEDS: MEGACE LIQUID PO SCH ×2 (10:14→21:10)
[2018-11-04] MEDS: ULORIC PO SCH (10:15)
[2018-11-04] MEDS: LANTUS INSULIN SUBQ SCH (10:16)
[2018-11-04] MEDS: GRANIX SUBQ SCH (11:04)
[2018-11-04] MEDS: LASIX PO SCH (11:06)
--- NOTE | 2018-11-04 14:40 | INFECTIOUS DISEASE PROGRESS NO ---
DATE: 11/04/2018 PRESENT ILLNESS: Mr. Rendon has a Pseudomonas urinary tract infection with an associated bacteremia. He is 1 month into a 6-week treatment for the bacteremia due to the presence of a pacemaker which could have been hematogenously infected. Today his chest x-ray shows a new pneumonia to the right upper lobe. There is also an oral candidiasis which is improved. Dr. Hurtado is also following the patient for his immunoglobulin deficiency. MEDICATIONS: He has been receiving Levaquin 500 mg by mouth daily. Today is day 29 of a 42-day treatment for the bacteremia. He is also receiving nystatin swish and swallow. PHYSICAL EXAMINATION: Vital Signs: Temperature is 97.8 degrees, pulse rate 77, respiratory rate 14, blood pressure 133/79, O2 saturation is 98% on room air. General: This is a chronically ill- appearing, elderly gentleman. He is sitting up in a chair currently in no acute distress. HEENT: He is atraumatic, normocephalic. Oral mucous membranes are pink and dry. Conjunctivae are pale. Neck: Supple. Trachea is midline. Cardiovascular: Irregularly irregular with some paced beats and atrial fibrillation on the monitor. Respiratory: Lung sounds are clear on the left with some rhonchi noted to the right upper and middle lobes, diminished in the bases. No work of breathing is noted. He does complain of an occasional productive cough. Abdomen: Soft, round and nontender. Bowel sounds are active. Anasarca is noted with pitting edema to upper and lower extremities. Neurologic: He is awake, alert, oriented, and able to move all extremities with generalized weakness noted. LABORATORY AND X-RAY: Today his white count is 22.99, hemoglobin 8.2, platelet count 82,000, absolute neutrophil count is 0.80. Creatinine is 0.7, estimated GFR is greater than 60. Total bilirubin is 1.69, AST 8, ALT 5, alkaline phosphatase 39. His urine and blood originally grew Pseudomonas aeruginosa, and subsequent blood culture results have been negative. Chest x-ray today shows round pneumonia in the right upper lobe, pulmonary edema and bilateral pleural effusions. ASSESSMENT AND PLAN: Mr. Rendon is being treated for a Pseudomonas bacteremia secondary to Pseudomonas urinary tract infection. He will need 13 more days of treatment for the bacteremia. We will stop the Levaquin at this time and provide meropenem 2 g IV every 8 hours due to the presence of a pneumonia in the right upper lobe. That will hopefully cover the pneumonia, as well as the bacteremia. Sputum culture and blood cultures have already been ordered. We will put in an order to try to induce a sputum. The patient states he is coughing up sputum, but it has been difficult for him to really get it out. I talked to him about the importance of coughing and deep breathing. The patient does have some allergies listed to penicillins, but he did well with cefepime earlier on this admission, so we will have the RN to monitor him with the first dose of meropenem. These plans have been discussed with and recommended by Dr. Ruby. COMORBIDITIES: Comorbidities for Mr. Rendon include that he is elderly with chronic lymphocytic leukemia on chemotherapy, [place]'s disease with chronic steroid administration, and immunoglobulin deficiency. Dictated by ERLIN Prince for Kvng Ruby MD cc: Kvng Ruby MD [facility]
--- NOTE | 2018-11-04 14:49 | Diag Imaging Result Doc PS360 ---
EXAM: CT THORAX W/O CONTRAST 11/04/2018 HISTORY: pneumonia TECHNIQUE: This exam was performed using automated exposure control, adjustment of mA or kV according to patient size, and/or use of iterative reconstruction technique. COMMENT: There are large bilateral pleural effusions. This is worse than on the previous study of 07/09/2018. There is compressive atelectasis in both lower lobes. There are nodular opacities in the right upper lobe just above the minor fissure, the largest of which measures in excess of 3.4 cm in diameter. This is worse than on the previous study. The nodule which was previously present on the image 43 of the previous examination has diminished in size from over 8 mm to 5 mm on the current study. The regional skeleton is stable in appearance. There is no evidence of significant adenopathy. IMPRESSION: Worsened pleural effusions. Waxing and waning right upper lobe nodular opacities. Electronically signed by Zhang Orozco 11/04/2018 2:47 PM
[2018-11-04] MEDS: MERREM 2 GM in NS 100 ML IV SCH ×2 (14:58→21:09)
[2018-11-04] MEDS ORDERED: MERREM 1 GM in NS 50 ML IV ONE (16:00)
[2018-11-04] MEDS: PATIENT'S OWN MED PO SCH (16:25)
[2018-11-04] MEDS ORDERED: POTASSIUM CHLORIDE 20% LIQUID PO ONE (17:08)
[2018-11-04] MEDS ORDERED: MAGNESIUM SULFATE 4 GM/S.W.I. 4 GM/100 ML IVPB IV ONE (17:57)
--- NOTE | 2018-11-04 19:32 | PROGRESS NOTE ---
DATE: 11/04/2018 SUBJECTIVE: The patient states that he does not feel good today. He also complains of a productive cough. OBJECTIVE: Vital Signs: Temperature 97.9 degrees, blood pressure 130/64, heart rate 91, respirations 20, O2 saturation 98% on room air. General: This is a chronically ill-appearing male lying in bed in no acute distress. Heart: S1, S2. Normal. Lungs: Coarse breath sounds bilaterally. Abdomen: Positive bowel sounds. Soft, nontender, nondistended. Extremities: The patient has anasarca in the upper extremities and 3+ edema in the lower extremities. Neurologic: The patient is alert and oriented x3. LABS: White blood cell count 22, hemoglobin 8.2, hematocrit 24, platelets 82,000. Sodium 138, potassium 3.4, chloride 100, CO2 29, BUN 22, creatinine 0.7 glucose 110, magnesium 1.5. CT of the chest shows worsening pleural effusions. Right upper lobe opacity. ASSESSMENT AND PLAN: 1. Right lung pneumonia. The patient has been switched to meropenem by Dr. Ruby. We will continue to monitor closely. 2. Bacteremia secondary to Pseudomonas. So far, the patient's blood cultures are negative. Continue with antibiotic therapy. 3. Bilateral pleural effusions. Continue with diuretic therapy. 4. Volume overload. Continue with diuretic therapy. 5. Atrial fibrillation. The patient is rate controlled. 6. Chronic lymphocytic leukemia. Aware. 7. [place]'s disease. Continue on Cortef and Florinef. 8. Right arm hematoma. Resolved. 9. Status post infected Port-A-Cath removal. Aware. 10. Anemia. Improved. The patient received 1 unit of packed red blood cells on November 03. 11. Diabetes mellitus type 2. Continue on Lantus and sliding scale insulin. 12. Leukocytosis. Improves. 13. Hypokalemia. We will replace the patient's potassium. 14. Hypomagnesemia. We will replace the patient's magnesium. 15. Immunoglobulin deficiency status post IVIG infusion. Aware. 16. Hypothyroidism. Continue on Synthroid. 17. Continue with physical therapy. cc: [facility]
[2018-11-05] MEDS: MERREM 2 GM in NS 100 ML IV SCH ×4 (00:37→22:00)
[2018-11-05] MEDS: PROTONIX PO SCH ×2 (05:46→06:01)
[2018-11-05] MEDS: SYNTHROID PO SCH ×2 (05:46→06:01)
[2018-11-05] MEDS: REGLAN PO SCH ×4 (05:46→16:26)
[2018-11-05] MEDS: HUMALOG SUBQ SCH ×4 (06:02→21:20)
[2018-11-05 08:07] LABS: HEMOGLOBIN 8.6 g/dL (14.0-18.0); MCH 33.5 PG (27-31); MCHC 31.9 g/dL (33-37); MCV 105.1 FL (81-99); MPV 11.2 FL (7.4-10.4); RBC 2.57 XMIL (4.7-6.1); RDW 22.6 % (11.5-14.5); WBC 29.04 X1000 (4.8-10.8)
[2018-11-05 08:18] LABS: AGAP 9; BUN 20 mg/dL (8-22); CALCIUM 8.4 mg/dL (8.8-10.2); CHLORIDE 99 mmol/L (98-107); COSMO 277; CREATININE 0.5 mg/dL (0.7-1.2); ESTIMATED GFR > 60; GLUCOSE 80 mg/dL (70-104); SODIUM 138 mmol/L (136-145); TCO2 30 mmol/L (25-35)
[2018-11-05] MEDS ORDERED: KLOR-CON PO ONE ×2 (08:23→18:49)
[2018-11-05] MEDS ORDERED: LASIX IV ONE (10:46)
[2018-11-05] MEDS: MEGACE LIQUID PO SCH ×2 (10:46→21:19)
[2018-11-05] MEDS: LANOXIN PO SCH (10:47)
[2018-11-05] MEDS: CORTEF PO SCH ×2 (10:47→16:26)
[2018-11-05] MEDS: ELIQUIS PO SCH ×2 (10:47→21:20)
[2018-11-05] MEDS: ULORIC PO SCH (10:47)
[2018-11-05] MEDS: MYCOSTATIN SUSP PO SCH ×4 (10:47→21:20)
[2018-11-05] MEDS: FLORINEF PO SCH (10:47)
[2018-11-05] MEDS: RYTHMOL PO SCH ×2 (10:47→21:20)
[2018-11-05] MEDS: LANTUS INSULIN SUBQ SCH (10:48)
[2018-11-05 13:00] LABS: BASO# 0.02 X1000 (0.0-0.2); BASO% 0.1 % (0.0-0.8); EOS# 0.07 X1000 (0.0-0.7); EOS% 0.2 % (0.0-10.0); HEMATOCRIT 29.4 % (42.0-52.0); HEMOGLOBIN 9.4 g/dL (14.0-18.0); LYMPH# 31.35 X1000 (1.2-3.4); LYMPH% 93.9 % (20.5-51.1); MCH 33.9 PG (27-31); MCV 106.1 FL (81-99); MONO# 0.31 X1000 (0.11-0.59); MONO% 0.9 % (1.7-9.3); NEUT# 1.65 X1000 (1.4-6.5); NEUT% 4.9 % (42.2-75.2); PLT 111 X1000 (130-400); RBC 2.77 XMIL (4.7-6.1); RDW 22.8 % (11.5-14.5)
[2018-11-05 13:03] LABS: LYMPHS 96 % (21-51); SEGS 4 % (42-75)
[2018-11-05] MEDS: PATIENT'S OWN MED PO SCH (16:26)
--- NOTE | 2018-11-05 17:11 | PROGRESS NOTE ---
DATE: 11/05/2018 SUBJECTIVE: The patient is resting comfortably in bed. He states that he feels really depressed. OBJECTIVE: Vital Signs: Temperature 98.4 degrees, blood pressure 111/50, heart rate 78, respirations 16, O2 saturation is 98% on room air. General: This is a chronically ill-appearing, elderly male sitting up in bed, in no acute distress. Heart: S1, S2 normal. Regular rate and rhythm. Lungs: Coarse breath sounds bilaterally. Abdomen: Positive bowel sounds. Soft, nontender, nondistended. Extremities: The patient has anasarca involving the upper extremities, 1+ edema involving the lower extremities. The patient also has several ecchymotic lesions on his arms. Neurologic: The patient is alert and oriented x4. LABS: White blood cell count 33, hemoglobin 9.4, hematocrit 29, platelets 111,000. Sodium 138, potassium 3, chloride 99, CO2 30, BUN 20, creatinine 0.5, glucose 80, magnesium 1.9, phosphorus 2.8. ASSESSMENT AND PLAN: 1. Right lung pneumonia. Continue with meropenem as directed by Dr. Ruby. 2. Bacteremia secondary to Pseudomonas. The patient is currently on meropenem. Repeat blood cultures remain negative. 3. Bilateral pleural effusions. Continue with diuretic therapy. 4. Atrial fibrillation. The patient is rate controlled. Continue on the current treatment regimen. 5. Chronic lymphocytic leukemia. Aware. 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 7. Right arm hematoma. Resolved. 8. Status post infected Port-A-Cath removal. Aware. 9. Anemia. Stable. 10. Diabetes mellitus type 2. Continue on Lantus and sliding scale insulin. 11. Leukocytosis. Unchanged. 12. Hypokalemia. We will replace the patient's potassium. 13. Hypomagnesemia. Will replace the patient's magnesium. 14. Immunoglobulin deficiency status post IVIG. Aware. 15. Hypothyroidism. Continue on Synthroid. 16. Continue with physical therapy. cc: Jeanna Morrell MD [facility]
[2018-11-06] MEDS: REGLAN PO SCH ×3 (06:07→16:09)
[2018-11-06] MEDS: SYNTHROID PO SCH (06:07)
[2018-11-06] MEDS: MERREM 2 GM in NS 100 ML IV SCH (06:07)
[2018-11-06] MEDS: PROTONIX PO SCH (06:07)
[2018-11-06] MEDS: HUMALOG SUBQ SCH ×3 (06:08→16:14)
[2018-11-06 08:19] LABS: BASO# 0.01 X1000 (0.0-0.2); EOS# 0.01 X1000 (0.0-0.7); HEMATOCRIT 25.3 % (42.0-52.0); HEMOGLOBIN 8.3 g/dL (14.0-18.0); IMM GRAN# 0.12 X1000 (0.0-0.04); IMM GRAN% 0.4 % (0.0-0.5); LYMPH% 93.4 % (20.5-51.1); MCHC 32.8 g/dL (33-37); MCV 103.7 FL (81-99); MONO# 0.05 X1000 (0.11-0.59); MONO% 0.2 % (1.7-9.3); NEUT# 1.66 X1000 (1.4-6.5); PLT 110 X1000 (130-400); RBC 2.44 XMIL (4.7-6.1); RDW 22.4 % (11.5-14.5); WBC 27.85 X1000 (4.8-10.8)
[2018-11-06 08:36] LABS: MAGNESIUM 1.7 mg/dL (1.5-2.7); PHOSPHORUS 2.9 mg/dL (2.7-4.5)
[2018-11-06 08:37] LABS: AGAP 6; BUN 24 mg/dL (8-22); CALCIUM 8.4 mg/dL (8.8-10.2); CHLORIDE 101 mmol/L (98-107); COSMO 279; CREATININE 0.5 mg/dL (0.7-1.2); ESTIMATED GFR > 60; GLUCOSE 80 mg/dL (70-104); POTASSIUM 3.3 mmol/L (3.5-5.1); SODIUM 138 mmol/L (136-145); TCO2 31 mmol/L (25-35)
[2018-11-06 08:57] LABS: LARGE PLATELETS OCCASIONAL; LYMPHS 97 % (21-51); SEGS 3 % (42-75)
[2018-11-06 08:58] LABS: ANISOCYTOSIS 2+
[2018-11-06] MEDS ORDERED: MAG-OX PO SCH (09:00)
[2018-11-06] MEDS ORDERED: KLOR-CON PO SCH ×2 (09:00)
[2018-11-06] MEDS: ULORIC PO SCH (09:22)
[2018-11-06] MEDS: FLORINEF PO SCH (09:22)
[2018-11-06] MEDS: RYTHMOL PO SCH (09:22)
[2018-11-06] MEDS: CORTEF PO SCH ×2 (09:23→16:09)
[2018-11-06] MEDS: LANOXIN PO SCH (09:23)
[2018-11-06] MEDS: ELIQUIS PO SCH (09:23)
[2018-11-06] MEDS: MYCOSTATIN SUSP PO SCH ×3 (09:24→16:09)
[2018-11-06] MEDS: LANTUS INSULIN SUBQ SCH (09:24)
[2018-11-06] MEDS: MEGACE LIQUID PO SCH (09:26)
[2018-11-06] MEDS: GRANIX SUBQ SCH (09:50)
[2018-11-06] MEDS ORDERED: LEVAQUIN PO SCH (12:00)
[2018-11-06] MEDS ORDERED: KLOR-CON PO ONE (13:24)
--- NOTE | 2018-11-06 14:17 | INFECTIOUS DISEASE PROGRESS NO ---
DATE: 11/06/2018 HISTORY OF PRESENT ILLNESS: Mr. Rendon is being treated for a Pseudomonas urinary tract infection with an associated bacteremia. He also had concern for pneumonia recently, and has an oral candidiasis. MEDICATIONS: He has been receiving meropenem 2 g IV every 8 hours based on his sterile blood cultures. He is on day 31 of a 6 week treatment for his bacteremia. PHYSICAL EXAMINATION: Vital Signs: Temperature is 97.9 degrees, pulse rate 77, respiratory rate 16, blood pressure 127/63, O2 saturation is 99% on room air. General: This is a chronically ill- appearing, elderly gentleman. He is lying in bed, currently in no acute distress. HEENT: Atraumatic, normocephalic. Oral mucous membranes are pink and moist. Conjunctivae are pale. Neck: Supple. Trachea is midline. Respiratory: Lung sounds have rhonchi noted bilaterally. Diminished in the bases. Cardiovascular: Irregularly irregular with atrial fibrillation on the monitor and occasional paced beats noted. Abdomen: Soft, round and nontender. Bowel sounds are active and the patient denies any diarrhea. Neurologic: He is awake, alert, oriented, and able to move all extremities with generalized weakness noted. Integumentary: Skin is warm, pale and dry with scattered ecchymotic areas and generalized edema noted. LABORATORY AND X-RAY: Today, his white count is 27.85, hemoglobin 8.3, platelet count 110,000. Creatinine is 0.5. Estimated GFR is greater than 60. Procalcitonin level is less than 0.10. Originally his urine and blood cultures grew Pseudomonas. Chest CT done 2 days ago shows worsening pleural effusions, waxing and waning of right upper lobe nodular opacities. ASSESSMENT AND PLAN: Mr. Rendon is being treated for a Pseudomonas bacteremia secondary to urinary tract infection. He requires 11 more days of treatment based on his sterile blood cultures. He has been on meropenem due to concern of pneumonia, however, there is no mention of pneumonia on the CT scan of his chest, and also his low procalcitonin level makes it very unlikely that there is any pneumonia. We will discontinue meropenem and start him back on the Levaquin as previously ordered, 500 mg by mouth daily. We will also continue the nystatin swish and swallow as long as he is on the antibiotics. These plans have been discussed with and recommended by Dr. Ruby. COMORBIDITIES: For Mr. Rendon include that he is elderly with chronic lymphocytic leukemia with chemotherapy, [place]'s disease with chronic steroid administration, and immunoglobulin deficiency. Dictated by ERLIN Prince for Kvng Ruby MD cc: Kvng Ruby MD [facility]
--- NOTE | 2018-11-06 14:57 | PROGRESS NOTE ---
DATE: 11/06/2018 SUBJECTIVE: The patient reports feeling fine walking in the hallways without getting short of breath. OBJECTIVE: Vital Signs: Temperature 97.9 degrees, heart rate 77, respiratory rate 16, blood pressure 127/63, and O2 saturation 99% on room air. General: This is a chronically ill- appearing, 73-year-old male lying in bed in no acute distress. Cardiovascular: S1 and S2 heard. No murmurs, gallops or rubs. Regular rate and rhythm. Respiratory: Coarse breath sounds in both pulmonary bases. Patient is not using any accessory muscles or having work of breathing. Abdomen: Soft. Nontender to palpation. Bowel sounds present. No organomegaly. Extremities: The patient has anasarca involving upper extremities with 1+ pitting edema more involving the lower extremity. The patient also has many ecchymotic lesions on both arms. Neurological: Patient is alert and oriented x3. Moves 4 extremities. LABORATORY DATA: White cell count 27.85, hemoglobin 8.3, hematocrit 25.3, and platelets 110,000 with BMP that shows potassium 3.3 with normal renal function of 0.5 and glucose of 80. ASSESSMENT/PLAN: 1. Right lung pneumonia/bacteremia secondary to Pseudomonas. The patient has been on meropenem for bacteremia, but considering that we have found out right lung pneumonia. Patient is on meropenem. The patient has been on Meropenem. Considering that we found out it is right lung pneumonia, the patient was placed on meropenem as per Infectious Disease doctor. The patient has received 1 day of meropenem, but then the patient has been put back on Levaquin 500 mg p.o. daily. The patient is not requiring oxygen so at this time we are going to check with Dr. Ruby. If he is okay staying in the hospital for a weekend, I will most likely discharge this patient tomorrow. 2. Atrial fibrillation. Rate controlled. We will continue with the same management. 3. Chronic lymphocytic leukemia. He has chronically elevated white cell count. Does not have any relationship between any. We will continue to monitor CBC. 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 5. Status post infected Port-A-Cath removal. Aware. 6. Diabetes mellitus type 2. We will continue with Lantus and sliding scale insulin, and Accu- Chek before meals, and also at bedtime. 7. Hypokalemia. We will replete potassium today. 8. IgG deficiency. Aware. 9. Physical deconditioning. We will continue with physical therapy. DISPOSITION: Patient is going home once he is cleared by Infectious Disease. cc: Moris Vickers MD [facility]
--- NOTE | 2018-11-06 15:02 | INFECTIOUS DISEASE PROGRESS NO ---
DATE: 11/06/2018 The patient has 12 days to complete a 6-week course of Levaquin because the patient's Pseudomonas bacteremia could have involved his pacemaker. He will need 12 more doses of Levaquin to complete a 6-week course. The patient is being discharged today. I am signing off his case now but I can see the patient on a p.r.n. basis. cc: Kvng Ruby MD
[2018-11-06 16:02] VITALS: BP 128/72
[2018-11-06] MEDS: PATIENT'S OWN MED PO SCH (16:10)
--- NOTE | 2018-11-08 10:12 | DISCHARGE SUMMARY ---
ADMISSION DATE: 10/03/2018 DISCHARGE DATE: 11/06/2018 DIAGNOSES: 1. Atrial fibrillation, rate controlled. 2. Chronic lymphocytic leukemia, chronic. This is stable. 3. [place] disease, stable on Cortef and Florinef. 4. Status post infected Port-A-Cath with Pseudomonas, status post removal of Port-A-Cath 10/06/2018. 5. Diabetes mellitus, type 2. 6. IgG deficiency. 7. Hypothyroid, stable on Synthroid. 8. Bacteremia secondary to Pseudomonas. 9. History of post biventricular pacemaker implantation after atrioventricular maribel ablation for atrial fibrillation. CONSULTANTS: 1. Anjum Hurtado MD 2. Tye Sumner MD 3. Kvng Ruby MD 4. Krish Nevarez MD 5. Edwar Ellison MD DIAGNOSTICS: 1. 10/02/2018 chest x-ray revealed worsening pleural effusion and basilar opacities and cardiomegaly. 2. 10/03/2018 right lateral decubitus chest revealed right pleural effusion, probable pleural effusion on the left which may be loculated. 3. 10/03/2018 lateral decubitus chest, left view, revealed a large layering pleural effusion on the left. 4. 10/04/2018 portable chest revealed improving pleural effusions. 5. 10/05/2018 portable chest: Stable small bilateral pleural effusions with basilar atelectasis 10/05/2018 echocardiogram revealed EF of 55% with no pericardial effusion. There is a large pleural effusion. 6. 10/07/2018 chest x-ray revealed bilateral pleural effusions with basilar atelectasis similar to prior exam. No pneumothorax. 7. 10/11/2018 chest x-ray revealed sliding crease and bilateral pleural effusions. Stable chest 8. 10/14/2018 revealed pulmonary edema and pleural effusions. 9. 10/14/2018 chest x-ray: PICC placement revealed tip of the catheter is coiled in the right brachiocephalic vein. 10. 10/17/2017 chest x-ray: PICC line has been removed. Otherwise, no change. 11. 10/24/2018 chest x-ray reveals no change from prior with small bilateral pleural effusions 12. 11/04/2018 CT of the chest revealed worsening pleural effusions, waxing and waning right upper lobe nodular opacities. MICROBIOLOGY: 1. 10/02/2018 blood culture revealed no growth after 5 days. 2. 10/03/2018 blood culture revealed Pseudomonas. 3. 10/03/2018 urine culture revealed Pseudomonas at 6:30 a.m. 4. 10/03/2018 urine culture at 2157 revealed no growth. 5. Blood cultures times two 10/06/2018 revealed no growth. 6. Blood cultures times two 10/11/2018 revealed no growth. 7. Blood cultures times two 11/04/2018 revealed no growth. HOSPITAL COURSE: Mr. Rendon presented to the emergency room complaining of just generalized weakness and not feeling well. He was found to have suspected pneumonia. Cultures were obtained due to his history of Pseudomonas bacteremia secondary to a Port-A-Cath. Dr. Ruby was consulted. The patient had just recently finished a 6-week course of IV antibiotics for Pseudomonas bacteremia. He was treated with cefepime 2 g IV q.[address] Nevarez, General Surgery, was consulted, and he removed the patient's port on 10/06/2018. The patient did tolerate this well. We continued antibiotic coverage, and the October 06 cultures were noted to be sterile. Day 1 of treatment of cefepime looks like it was October 06. Blood cultures became sterile with the October 06 culture. He was transitioned from cefepime to Levaquin 500 mg p.o. daily and will be discharged with 12 days of Levaquin, which will complete a 6-week course of treatment. It was felt that the patient had right lower lobe pneumonia due to a chest x-ray. Merrem was added per Dr. Ruby. CT scan was performed, and from this, it was felt that the patient did not have pneumonia; therefore, Merrem was discontinued, and he was continued on his current medications. He was found to have oral candidiasis which was treated while in the hospital. Dr. Hurtado followed with the patient in regards to his immunoglobulin deficiency, and he did order medications as appropriate. Diabetes mellitus type 2 was managed with Lantus and sliding scale insulin with blood sugars that ranged it looks like from 93 to 170s. We trended electrolytes and replaced and treated as appropriate. In regard to his hypothyroidism, we did continue his home Synthroid. The patient was diuresed for a total 36,904 mL negative. . He remained atrial fibrillation rate controlled throughout the hospitalization. Insurance denied inpatient rehabilitation placement for the patient. He did go home with his with [facility] and PT services. Palliative Care did follow with the patient. The patient was is in progress of establishing advanced directive with a medical POA with an outside managing attorney, and on the , a portable DNR document was signed by the patient and Dr. Piedra. The spouse and the patient were given the original copy and then a copy was placed with the hospital to be scanned into his chart. DISCHARGE MEDICATIONS: 1. Pravachol 40 mg p.o. at bedtime. 2. Eliquis 5 mg p.o. b.i.d. 3. Florinef 0.1 q.a.m. 4. Imbruvica 1 tablet as directed. 5. Megace 3 tablets b.i.d. 6. Reglan 30 minutes before meals and at bedtime. 7. Synthroid 200 mcg p.o. q.a.m. 8. Uloric 40 mg p.o. daily. 9. Cortef 20 mg p.o. at bedtime. 10. Cortef 40 mg p.o. daily. 11. Digoxin 125 mcg p.o. daily. 12. Lantus insulin 25 units subcutaneous daily. 13. Levaquin 500 mg p.o. daily x12 days. 14. Protonix 40 mg p.o. daily. 15. Propafenone 150 p.o. b.i.d. FOLLOW-UP: 1. Dr. Kvng Ruby 11/24/2018 at 10:[address] Badillo, his PCP. He needs to call and schedule an appointment. 3. David Sumner. Call and schedule an appointment. 4. Anjum Hurtado. He needs to keep his previously scheduled appointment. 5. Krish Nevarez as directed. 6. The patient will be followed by [facility]. DISPOSITION: He is being discharged home in stable condition with his . COORDINATION TIME: This is 35-minute discharge. Dictated by ERLIN Garcia for Moris Vickers MD Addendum: Patient seen and examined by myself. Agree with ERLIN note. It reflects my assessment and plan. Patient is being discharged in stable condition. Will be seen by PCP in a week. cc: ERLIN Garcia MD [facility]
--- NOTE | 2018-12-17 11:52 | EKG Report ---
Test Performed on : 10/03/2018 01:42:48 AM Test Reason : SOB Blood Pressure : / mmHG Vent. Rate : 080 BPM Atrial Rate : 089 BPM P-R Int : 000 ms QRS Dur : 178 ms QT Int : 478 ms P-R-T Axes : 037 254 039 degrees QTc Int : 551 ms Sinus rhythm. with complete heart block. and Ventricular-paced rhythm Abnormal ECG When compared with ECG of 06-AUG-2018 11:05, Sinus rhythm. is now with complete heart block. Vent. rate has decreased BY 2 BPM Unconfirmed Result
== END 2018-11-06 18:18 | disposition home health service (06) | DRG 314 ==
LOC: ED 21:14 → EDIPHOLD 10-03 02:53 → SUATTDRO 10-03 02:53 → ICU 10-03 14:56 → 3S 10-11 15:53 → 3N 10-19 14:53 → 3S 10-22 09:58 → 3N 10-27 14:00
PROVIDERS: ATTEND Internal Medicine